=== PATIENT | male | born 1970 | race Caucasian/White ===

== ENCOUNTER 2024-05-26 11:28 | Inpatient (IN) | payer OTHER, MEDICAID, SELFPAY ==
[2024-05-26] VITALS (46 sets, daily range): BP systolic 69–168; BP diastolic 42–93; PULSE 95–123; RESP 18–26; TEMP 37–37.3; O2SAT 94–100; BMI 23.8
--- NOTE | 2024-05-26 12:26 | PM.HP.1 ---
History of Present Illness History of Present Illness Date Patient Seen: 05/26/24 Chief complaint: alcohol withdrawal Narrative: The patient was a 53-year-old male who is transferred from [facility] Emergency Department. The patient has a history of alcohol dependence and presented with multiple complaints including early alcohol withdrawal, upper GI bleeding with melena, as well as a swollen left red knee. He was found to be anemic and have melena on exam in the emergency department. He was given a unit of blood. He was started on Protonix as well. The patient was also giving benzodiazepines and transferred [facility] due to lack of endoscopy. Upon arrival the patient is oriented and in no distress. He was slightly tachycardic. Denies any chest pain, or dyspnea. He was historically been drinking hard for about a year with a daily consumption of 1-2 bottles of hard alcohol. He was tapered in the last week or so. He stays intermittently at his sister's house in [facility]. It sounds as though he falls frequently and has had injured knee for several days from a fall. He does note vomiting up coke colored material and having dark stools for several days. He also notes taking a lot of ibuprofen for the past several days for left knee pain. They did attempt an aspiration of the knee at [facility] Emergency Department. He denies fevers, chills, chest pain, or abdominal pain. [facility] Social History household members: family Smoking Status: Current every day smoker alcohol intake: current Meds Home Medications and Allergies Home Medications Medication Instructions Recorded Confirmed Type acetaminophen 325 mg tablet 650 mg PO PRN PRN Pain (Scale 05/26/24 05/26/24 History Score 1-3) duloxetine 60 mg capsule,delayed 60 mg PO DAILY 05/26/24 05/26/24 History release naproxen 250 mg tablet 250 mg PO BID 05/26/24 05/26/24 History Review of Systems Review of Systems Narrative: All else reviewed and otherwise unremarkable except as noted in the history and physical. Exam Narrative Exam Narrative: NAD, alert and oriented, fluent speech, calm. He was slightly confused and slow to answer questions. Normocephalic skull, EOMI, anicteric sclera, symmetric pupils. Oropharynx unremarkable, no droop. Neck supple, midline trachea, no adenopathy. Lungs clear, normal rate and effort. Heart regular, no murmur gallop or rub. Abdomen is soft, non distended and non tender. Extremities are free of edema. Skin is free of rash or lesions. Joints are not swollen or deformed. Judgment appears to be abnormal. Objective Labs 05/26/24 12:50 05/26/24 12:50 Assessment & Plan Assessment & Plan narrative: 1. Alcohol use disorder, present on admission and active. 2. Upper GI bleed likely related to alcohol and nonsteroidal anti-inflammatories, present on admission and active. 3. Acute blood loss anemia, present on admission and active. 4. Acute alcohol withdrawal, present on admission and active. 5. Recent nonsteroidal overuse, present on admission and active. 6. Acute metabolic encephalopathy, present on admission and active. 7. Left knee cellulitis with concern for joint infection, present on admission and active. Plan: -Precedex and CIWA protocol -vitamin replacement -serial hemoglobin and blood products as needed -IV Protonix q.12 hours -urgent surgery consult for upper endoscopy -IV antibiotics for left knee infection -orthopedics consult for concern regarding septic left knee Inpatient status, anticipate at least 2 midnights of care being needed. Full resuscitation. Sister as his living family member. 40 minutes of critical care time spent. Time-Based Coding :: [TOTAL MINUTES] spent with patient and on the chart (including review of chart, obtaining history, exam, reviewing outside data, placing orders, documenting exam and treatment plan, and counseling patient) on [DATE].
[2024-05-26] MEDS: dexmedeTOMIDine in 0.9 % NaCL 400 MCG/100 ML PLAST..BAG IV (13:05)
[2024-05-26] MEDS: DEXTROSE 5%-0.9% NS 1,000 ML 100 ML IV ×2 (13:06→23:45)
[2024-05-26 13:14] LABS: INR 1.8 (0.9-1.3); Prothrombin Time 20.2 SECONDS (9.4-12.5)
[2024-05-26 13:20] LABS: Hematocrit 28.7 % (41-53); Mean Corpuscular Hemoglobin 34.6 PG (26-34); Mean Corpuscular Volume 98.9 fL (80-100); Platelet Count 122 X10^3/uL (150-400); Red Cell Distribution Width 14.7 % (11.6-14.8); White Blood Cell Count 5.3 X10^3/uL (4.5-11.0)
[2024-05-26 13:21] LABS: Add Manual Diff / Slide Review YES
[2024-05-26 13:54] LABS: Neutrophils Absolute Manual 3816 /uL (3000-5900); Total Cells Counted 100
[2024-05-26 13:55] LABS: Anisocytosis 1+; Burr Cells 2+; Macrocytosis 1+; Polychromasia 2+
[2024-05-26] MEDS: cefTRIAXone 2,000 MG in SODIUM CHLORIDE 0.9% 100 ML 200 MG IV (14:05)
[2024-05-26 14:24] LABS: Estimated Glomerular Filt Rate > 60 mL/min (>60)
[2024-05-26 14:38] LABS: Reflexed Lactate in 2 Hours Y
[2024-05-26] MEDS: SODIUM CHLORIDE 0.9% 1,000 ML 1000 ML IV ×3 (14:55→20:06)
--- NOTE | 2024-05-26 14:55 | DI.RAD.S_ITS ---
PROCEDURE: XR KNEE LT 1TO2V INDICATIONS: pain and swelling after fall TECHNIQUE: 3 views of the knee were acquired. COMPARISON: None. FINDINGS: Bones: No fractures or dislocations. No suspicious bony lesions. Soft tissues: No joint effusion. No suspicious soft tissue calcifications. Prepatellar soft tissue swelling IMPRESSION: Prepatellar soft tissue swelling. No fracture or dislocation. Approved by: Carlos Maddox M.D. on 05/26/2024 at 15:38
[2024-05-26 15:10] LABS: MRSA (Nasal) PCR NOT DETECTED (Not Detect)
--- NOTE | 2024-05-26 15:34 | PM.DS.1 ---
History of Present Illness History of Present Illness Chief complaint: alcohol withdrawal Narrative: The patient was a 53-year-old male who is transferred from [facility] Emergency Department. The patient has a history of alcohol dependence and presented with multiple complaints including early alcohol withdrawal, upper GI bleeding with melena, as well as a swollen left red knee. He was found to be anemic and have melena on exam in the emergency department. He was given a unit of blood. He was started on Protonix as well. The patient was also giving benzodiazepines and transferred [facility] due to lack of endoscopy. Upon arrival the patient is oriented and in no distress. He was slightly tachycardic. Denies any chest pain, or dyspnea. He was historically been drinking hard for about a year with a daily consumption of 1-2 bottles of hard alcohol. He was tapered in the last week or so. He stays intermittently at his sister's house in [facility]. It sounds as though he falls frequently and has had injured knee for several days from a fall. He does note vomiting up coke colored material and having dark stools for several days. He also notes taking a lot of ibuprofen for the past several days for left knee pain. They did attempt an aspiration of the knee at [facility] Emergency Department. He denies fevers, chills, chest pain, or abdominal pain. Discharge Providers Provider Date of admission: 05/26/24 11:28 Consults: 05/26/24 12:25 Consult to General Surgery Routine Comment: Consulting Provider: Hebert Navas Reason for consultation: GI bleed Has provider been notified: Yes 05/26/24 14:58 Consult to Orthopedic Surgery Routine Comment: Consulting Provider: Temitope Saldivar Reason for consultation: swollen red left knee Has provider been notified: Yes Discharge provider: Iker Tang MD Exam Vital Signs (past 8 hours): - 05/26/24 12:23 05/26/24 12:27 05/26/24 12:30 Temperature 98.6 F Pulse Rate 119 H 119 H Respiratory Rate 19 26 H Blood Pressure 108/61 Pulse Oximetry 100 Objective Labs 05/26/24 12:50 05/26/24 12:50 Labs: Laboratory Results - last 24 hr 05/26/24 05/26/24 12:23 12:50 WBC 5.3 RBC 2.90 L Hgb 10.0 L Hct 28.7 L MCV 98.9 MCH 34.6 H MCHC 35.0 RDW 14.7 Plt Count 122 L Neut % (Auto) Not Reportable Lymph % (Auto) Not Reportable [place] % (Auto) Not Reportable Eos % (Auto) Not Reportable Baso % (Auto) Not Reportable Lymph # (Auto) Not Reportable [place] # (Auto) Not Reportable Baso # (Auto) Not Reportable Total Counted 100 Seg Neutrophils % 70.0 Band Neutrophils % 2.0 L Lymphocytes % (Manual) 10.0 L Atypical Lymphs % 2.0 H Monocytes % (Manual) 10.0 Eosinophils % (Manual) 1.0 L Metamyelocytes % 2.0 H Myelocytes % 1.0 H Blast Cells % 2.0 H Neutrophils # (Manual) 3816 RBC Morphology See below Polychromasia 2+ H Anisocytosis 1+ H Macrocytosis 1+ H [place] Cells 2+ H PT 20.2 H INR 1.8 H Creatinine 0.86 Estimated GFR > 60 Lactate 4.0 H Nasal Screen MRSA (PCR) Not detected Blood Type O Negative Antibody Screen Negative PFSH Social History household members: family Smoking Status: Current every day smoker alcohol intake: current Discharge Plan Discharge orders & Medications Prescriptions: No Action acetaminophen 325 mg tablet 650 mg PO PRN MDD 3000MG PRN (Reason: Pain (Scale Score 1-3)) naproxen 250 mg tablet 250 mg PO BID duloxetine 60 mg capsule,delayed release(DR/EC) 60 mg PO DAILY Quality VTE Deep Vein Thrombosis/Pulmonary Embolism Present on Admission: No
[2024-05-26] MEDS: NOREPINEPHRINE BITARTRATE/D5W 4 MG/250 ML PLAST..BAG 26.625 MG IV (16:02)
[2024-05-26 16:03] LABS: Lactate 2HR (Lactic Acid Rflx) 2.5 mmol/L (0.7-2.1)
[2024-05-26] MEDS: VANCOMYCIN 1,000 MG/200 ML PIGGYBACK 200 MG IV ×2 (16:23→23:34)
--- NOTE | 2024-05-26 16:40 | DI.RAD.S_ITS ---
PROCEDURE: XR CHEST FOR PICC 1V INDICATIONS: PICC placement COMPARISON: None. FINDINGS: PICC was placed by the intravenous therapy team from the right side. Fluoroscopic spot film demonstrates the tip of PICC projecting to the area of low SVC. IMPRESSION: Tip of PICC projects to the area of low SVC. Dictated by: Adi Saucedo M.D. on 05/26/2024 at 17:13 Approved by: Adi Saucedo M.D. on 05/26/2024 at 17:13
--- NOTE | 2024-05-26 18:12 | PM.CN ---
History of Present Illness Consult details Date Patient Seen: 05/26/24 Time Patient Seen: 18:12 Chief complaint: alcohol withdrawal Reason for consult: Left knee swelling Requesting provider: Iker Tang Narrative: 53-year-old gentleman with a past medical history of heavy alcohol use was transferred to the internal medicine service at [facility] from [facility] for concern for GI bleed apparently. Patient's main issue currently is alcohol withdrawal. Was also noted to have left knee swelling and pain at the outside hospital. The patient reports falling on his left knee 6 or 7 days ago and getting a scratch or small wound. States the level of pain has been up and down as well as the swelling over the last week. Per report there was some type of aspiration at [facility] there is a Band-Aid fairly anterior medially unclear from this or history if they were trying to aspirate the prepatellar bursa or the joint. Patient was not sure about fevers or chills but is in current alcohol withdrawal. States he has had some swelling and superficial infections previously but not this bad. Otherwise history fairly limited. There were some reports of melena stools from the outside hospital but per nursing report patient has not shown any signs of active GI bleed while at [facility]. He is sleeping tired and on CIWA protocol but I am able to wake him and he answers questions appropriately and follows commands. Meds Home Medications and Allergies Home Medications Medication Instructions Recorded Confirmed Type acetaminophen 325 mg tablet 650 mg PO PRN PRN Pain (Scale 05/26/24 05/26/24 History Score 1-3) duloxetine 60 mg capsule,delayed 60 mg PO DAILY 05/26/24 05/26/24 History release naproxen 250 mg tablet 250 mg PO BID 05/26/24 05/26/24 History Allergies Allergy/AdvReac Type Severity Reaction Status Date / Time No Known Drug Allergies Allergy Verified 05/26/24 15:03 Review of Systems Review of Systems ROS: Yes All systems reviewed with the patient and are negative except as otherwise documented and unobtainable due to mental condition Exam Vital Signs (past 8 hours): - 05/26/24 12:23 05/26/24 12:27 05/26/24 12:30 Temperature 98.6 F Pulse Rate 119 H 119 H Respiratory Rate 19 26 H Blood Pressure 108/61 Pulse Oximetry 100 05/26/24 12:30 05/26/24 13:00 05/26/24 13:00 Temperature Pulse Rate 120 H Respiratory Rate 23 Blood Pressure 105/58 L 102/57 L Pulse Oximetry 100 05/26/24 13:30 05/26/24 13:30 05/26/24 14:00 Temperature Pulse Rate 115 H 105 H Respiratory Rate 22 22 Blood Pressure 91/53 L Pulse Oximetry 100 99 05/26/24 14:00 05/26/24 14:30 05/26/24 14:30 Temperature Pulse Rate 108 H Respiratory Rate 23 Blood Pressure 73/45 L 69/44 L Pulse Oximetry 100 05/26/24 14:54 05/26/24 14:54 05/26/24 15:00 Temperature Pulse Rate 102 H 96 H Respiratory Rate 25 H 21 Blood Pressure 73/46 L Pulse Oximetry 95 97 05/26/24 15:00 05/26/24 15:14 05/26/24 15:14 Temperature Pulse Rate 101 H Respiratory Rate 21 Blood Pressure 71/43 L 72/47 L Pulse Oximetry 99 05/26/24 15:15 05/26/24 15:15 05/26/24 15:28 Temperature Pulse Rate 100 H 98 H Respiratory Rate 20 20 Blood Pressure 76/45 L Pulse Oximetry 97 96 05/26/24 15:28 05/26/24 15:30 05/26/24 15:30 Temperature Pulse Rate 95 H Respiratory Rate 19 Blood Pressure 77/43 L 75/42 L Pulse Oximetry 95 05/26/24 15:45 05/26/24 15:45 05/26/24 16:00 Temperature Pulse Rate 100 H 100 H Respiratory Rate 20 19 Blood Pressure 75/45 L Pulse Oximetry 98 97 05/26/24 16:00 05/26/24 16:15 05/26/24 16:15 Temperature Pulse Rate 97 H Respiratory Rate 21 Blood Pressure 74/47 L 144/84 H Pulse Oximetry 96 05/26/24 16:30 05/26/24 16:30 Temperature Pulse Rate 107 H Respiratory Rate 22 Blood Pressure 168/81 H Pulse Oximetry 97 Narrative Exam Narrative: General exam: Patient is sleeping in ICU bed. He is able to be awakened and verbal and follows commands. He answers questions appropriately but a little slowly HEENT exam normocephalic atraumatic Heart borderline tachycardic Breathing unlabored on room air Upper extremities are examined no erythema. There are multiple healing excoriations or scabs along the upper extremities. Right lower extremity is benign full range of motion no swelling or tenderness. Left lower extremity demonstrates swelling localized to the anterior knee the area of the prepatellar bursa. Patient was able to demonstrate some active range of motion of the knee flexion to about 80 endorses tightness over the anterior knee with this. Is able to do a straight leg raise. Dorsiflexion plantar flexion intact. Calf is soft. There is a Band-Aid over the knee fairly anterior medial from a apparent previous aspiration attempt. There is a healed abrasion at the lateral margin of the knee at the patella. No drainage. Neurovascularly intact. Brisk capillary refill Objective Imaging Two-view left knee x-ray AP and lateral: My impression: Two-view left knee x-ray AP and lateral demonstrate Prepatellar swelling. No knee joint effusion, no fracture Radiologist's impression: Prepatellar swelling no effusion within the knee joint, no fracture Labs 05/26/24 12:50 05/26/24 12:50 Labs: Laboratory Results - last 24 hr 05/26/24 05/26/24 05/26/24 12:23 12:50 15:40 WBC 5.3 RBC 2.90 L Hgb 10.0 L Hct 28.7 L MCV 98.9 MCH 34.6 H MCHC 35.0 RDW 14.7 Plt Count 122 L Neut % (Auto) Not Reportable Lymph % (Auto) Not Reportable [place] % (Auto) Not Reportable Eos % (Auto) Not Reportable Baso % (Auto) Not Reportable Lymph # (Auto) Not Reportable [place] # (Auto) Not Reportable Baso # (Auto) Not Reportable Total Counted 100 Seg Neutrophils % 70.0 Band Neutrophils % 2.0 L Lymphocytes % (Manual) 10.0 L Atypical Lymphs % 2.0 H Monocytes % (Manual) 10.0 Eosinophils % (Manual) 1.0 L Metamyelocytes % 2.0 H Myelocytes % 1.0 H Blast Cells % 2.0 H Neutrophils # (Manual) 3816 RBC Morphology See below Polychromasia 2+ H Anisocytosis 1+ H Macrocytosis 1+ H [place] Cells 2+ H PT 20.2 H INR 1.8 H Creatinine 0.86 Estimated GFR > 60 Lactate 4.0 H 2.5 H Nasal Screen MRSA (PCR) Not detected Blood Type O Negative Antibody Screen Negative PFSH Social History household members: family Tobacco & Substance Use Smoking Status: Current every day smoker alcohol intake: current Assessment & Plan Assessment and plan (1) Prepatellar bursitis: Qualifiers: Laterality: left Qualified Code(s): M70.42 - Prepatellar bursitis, left knee Status: Acute Plan The patient has left knee prepatellar bursitis possibly septic bursitis. He does not appear to have a septic joint. Treatment for septic prepatellar bursitis is antibiotics sometimes serial aspirations of the prepatellar bursa are required and sometimes formal irrigation and debridement of the prepatellar bursa are required for persistent symptoms. Would treat with IV antibiotics to assess for response and allow his other medical problems to stabilize. He does have anemia. He is in active alcohol withdrawal. And his INR is 1.8. If he fails to show improvement in the knee in several days with IV antibiotic treatment or if he significantly worsens an aspiration of the bursa can be attempted and if this fails formal irrigation and debridement of the prepatellar bursa. Recommend trying to obtain results of the attempted or successful (it is unclear from the reports I have been given) aspiration from the outside hospital. Hopefully they clarified whether they aspirated the bursa or the joint in their notes or aspiration labeling as these would hold different meaning. Recommend broad-spectrum antibiotics this point tailor antibiotics as indicated. Follow clinical examination. No urgent orthopedic intervention for surgery needed at this time, but close monitoring with serial daily exams recommended Weightbear as tolerated activity as tolerated Dispo per primary Time-Based Coding :: [TOTAL MINUTES] spent with patient and on the chart (including review of chart, obtaining history, exam, reviewing outside data, placing orders, documenting exam and treatment plan, and counseling patient) on [DATE].
--- NOTE | 2024-05-26 18:25 | PC.ADMIT ---
[email or web address] [facility] Admission Note: Pt arrived via EMS as a direct admit from [facility] for GI bleed, and CIWA requiring an ICU bed. Pt arrived A/O x4, with a CIWA of 11 with tremors, agitation, [id number]. Provider updated, new orders placed. After initiating Precedex gtt, pt became hypotensive(see vitals) requiring 2L bolus, and placement of a PICC line for norepi gtt. EGD cancelled due to hypotension, with no signs of active bleeding at this time. Ortho came to evaluate pt L knee, which is extremely hot and painful, provider noted best treated with ABX at this time, no surgical intervention. Carrion placed for urine retention of more than 601cc on bladder scanner. Seizure pads in place, per CIWA protocol. Pt oriented room and call light system, bed alarm active, call light within reach, will continue to monitor, no further needs at this time. The patient,Pietro Mc,53 y/o, was given written information regarding hospital policies, unit procedures and contact persons. Patient's smoking status: Current every day smoker. Vital Signs - 8 hr 05/26/24 12:23 05/26/24 12:27 05/26/24 12:30 Temperature 98.6 F Pulse Rate 119 H 119 H Respiratory Rate 19 26 H Blood Pressure 108/61 Pulse Oximetry 100 05/26/24 12:30 05/26/24 13:00 05/26/24 13:00 Temperature Pulse Rate 120 H Respiratory Rate 23 Blood Pressure 105/58 L 102/57 L Pulse Oximetry 100 05/26/24 13:30 05/26/24 13:30 05/26/24 14:00 Temperature Pulse Rate 115 H 105 H Respiratory Rate 22 22 Blood Pressure 91/53 L Pulse Oximetry 100 99 05/26/24 14:00 05/26/24 14:30 05/26/24 14:30 Temperature Pulse Rate 108 H Respiratory Rate 23 Blood Pressure 73/45 L 69/44 L Pulse Oximetry 100 05/26/24 14:54 05/26/24 14:54 05/26/24 15:00 Temperature Pulse Rate 102 H 96 H Respiratory Rate 25 H 21 Blood Pressure 73/46 L Pulse Oximetry 95 97 05/26/24 15:00 05/26/24 15:14 05/26/24 15:14 Temperature Pulse Rate 101 H Respiratory Rate 21 Blood Pressure 71/43 L 72/47 L Pulse Oximetry 99 05/26/24 15:15 05/26/24 15:15 05/26/24 15:28 Temperature Pulse Rate 100 H 98 H Respiratory Rate 20 20 Blood Pressure 76/45 L Pulse Oximetry 97 96 05/26/24 15:28 05/26/24 15:30 05/26/24 15:30 Temperature Pulse Rate 95 H Respiratory Rate 19 Blood Pressure 77/43 L 75/42 L Pulse Oximetry 95 05/26/24 15:45 05/26/24 15:45 05/26/24 16:00 Temperature Pulse Rate 100 H 100 H Respiratory Rate 20 19 Blood Pressure 75/45 L Pulse Oximetry 98 97 05/26/24 16:00 05/26/24 16:15 05/26/24 16:15 Temperature Pulse Rate 97 H Respiratory Rate 21 Blood Pressure 74/47 L 144/84 H Pulse Oximetry 96 05/26/24 16:30 05/26/24 16:30 Temperature Pulse Rate 107 H Respiratory Rate 22 Blood Pressure 168/81 H Pulse Oximetry 97
[2024-05-26 18:50] LABS: Hematocrit 27.9 % (41-53); Hemoglobin 9.8 g/dL (13.5-17.5); Mean Corpuscular HGB Conc 35.3 % (30-36); Mean Corpuscular Volume 99.4 fL (80-100); Platelet Count 126 X10^3/uL (150-400); Red Blood Cell Count 2.81 X10^6/uL (4.5-5.9); Red Cell Distribution Width 15.1 % (11.6-14.8); White Blood Cell Count 9.9 X10^3/uL (4.5-11.0)
[2024-05-26 18:58] LABS: Add Manual Diff / Slide Review YES
[2024-05-26 19:13] LABS: Neutrophils Absolute Manual 9108 /uL (3000-5900); Total Cells Counted 100; Toxic Granulation Present
[2024-05-26 19:18] LABS: Dohle Bodies 3+; Rouleaux 1+; Toxic Vacuolation Pres
[2024-05-26 19:20] LABS: Anisocytosis 1+; Polychromasia 1+
[2024-05-26] MEDS: SODIUM CHLORIDE 0.9% FLUSH 10 ML IV (20:07)
[2024-05-26] MEDS: PANTOPRAZOLE 40 MG VIAL IV (21:27)
[2024-05-27] VITALS (94 sets, daily range): BP systolic 89–167; BP diastolic 51–92; PULSE 91–113; RESP 0–25; TEMP 36.8–37.3; O2SAT 96–100
[2024-05-27] MEDS: dexmedeTOMIDine in 0.9 % NaCL 400 MCG/100 ML PLAST..BAG 8.875 MCG IV (02:20)
[2024-05-27] MEDS: LORazepam 2 MG/ML INJ IV ×4 (04:02→23:19)
[2024-05-27] MEDS: NICOTINE 14 PATCH 14 MG TOP (04:16)
[2024-05-27 04:55] LABS: BUN Creatinine Ratio 28.4 (6-22); Blood Urea Nitrogen 21 mg/dL (9-20); Calcium 7.9 mg/dL (8.4-10.2); Carbon Dioxide 20 mmol/L (22-32); Chloride 106 mmol/L (98-107); Estimated Glomerular Filt Rate > 60 mL/min (>60); Glucose 91 mg/dL (70-100); HEMOLYSIS < 15 (0-50); Potassium 2.8 mmol/L (3.4-5.1); Sodium 131 mmol/L (137-145)
[2024-05-27 04:58] LABS: Add Manual Diff / Slide Review YES; Hemoglobin 9.5 g/dL (13.5-17.5); Mean Corpuscular HGB Conc 34.1 % (30-36); Mean Corpuscular Hemoglobin 34.1 PG (26-34); Platelet Count 127 X10^3/uL (150-400); Red Cell Distribution Width 15.6 % (11.6-14.8); White Blood Cell Count 16.8 X10^3/uL (4.5-11.0)
[2024-05-27 05:24] LABS: Neutrophils Absolute Manual 15624 /uL (3000-5900); Total Cells Counted 100
[2024-05-27 05:25] LABS: Anisocytosis 1+; Toxic Granulation Present
[2024-05-27 05:36] LABS: Magnesium 1.5 mg/dL (1.6-2.3)
[2024-05-27] MEDS: MAGNESIUM SULFATE 2 GM/50 ML PIGGYBACK IV (06:30)
[2024-05-27] MEDS: POTASSIUM CHLORIDE IN WATER 10 MEQ/100 ML PIGGYBACK 100 MEQ IV ×6 (06:30→11:47)
[2024-05-27] MEDS: VANCOMYCIN 1,000 MG/200 ML PIGGYBACK 200 MG IV ×2 (06:30→15:01)
[2024-05-27] MEDS: NOREPINEPHRINE BITARTRATE/D5W 4 MG/250 ML PLAST..BAG 15.975 MG IV (06:31)
[2024-05-27] MEDS: dexmedeTOMIDine in 0.9 % NaCL 400 MCG/100 ML PLAST..BAG 10.65 MCG IV (07:20)
--- NOTE | 2024-05-27 08:11 | PM.PN.1 ---
Subjective Subjective Interval history: Summary: Patient was transferred from [facility] Emergency Department with upper GI bleed, and alcohol withdrawal. He also had a red swollen left knee. Upon arrival here he was tachycardic and had a systolic blood pressure of 100. He required Precedex and then had hypotension requiring placement of a PICC line and support with norepinephrine as well as aggressive fluid resuscitation. An EGD was planned for May 26, but deferred due to his clinical changes and instability. S: He did well overnight with volume resuscitation, Precedex, and a low-dose norepinephrine through a PICC line. He is RASS-1 and comfortable. His hemoglobin has been stable. He was had no vomiting or stools overnight. Orthopedics saw his knee and feels that this is consistent with a prepatellar bursitis and cellulitis and recommended IV antibiotics at this point. Exam Vital Signs (past 8 hours): - 05/27/24 00:15 05/27/24 00:15 05/27/24 00:30 Pulse Rate 101 H 100 H Respiratory Rate 20 21 Blood Pressure 117/67 Pulse Oximetry 100 99 Oxygen Delivery Method Oxygen Flow Rate 05/27/24 00:30 05/27/24 00:45 05/27/24 00:45 Pulse Rate 99 H Respiratory Rate 18 Blood Pressure 116/68 119/72 Pulse Oximetry 99 Oxygen Delivery Method Oxygen Flow Rate 05/27/24 01:00 05/27/24 01:00 05/27/24 01:00 Pulse Rate 97 H Respiratory Rate 19 Blood Pressure 114/71 Pulse Oximetry 100 Oxygen Delivery Method Room Air Oxygen Flow Rate 05/27/24 01:15 05/27/24 01:15 05/27/24 01:30 Pulse Rate 97 H Respiratory Rate 18 Blood Pressure 119/73 121/75 Pulse Oximetry 100 Oxygen Delivery Method Oxygen Flow Rate 05/27/24 01:30 05/27/24 01:45 05/27/24 01:45 Pulse Rate 97 H 97 H Respiratory Rate 18 17 Blood Pressure 123/73 Pulse Oximetry 99 99 Oxygen Delivery Method Oxygen Flow Rate 05/27/24 02:00 05/27/24 02:00 05/27/24 02:15 Pulse Rate 95 H 98 H Respiratory Rate 19 17 Blood Pressure 120/72 Pulse Oximetry 98 98 Oxygen Delivery Method Oxygen Flow Rate 05/27/24 02:15 05/27/24 02:30 05/27/24 02:30 Pulse Rate 98 H Respiratory Rate 17 Blood Pressure 119/72 118/72 Pulse Oximetry 97 Oxygen Delivery Method Oxygen Flow Rate 05/27/24 02:45 05/27/24 02:45 05/27/24 03:00 Pulse Rate 100 H 99 H Respiratory Rate 18 17 Blood Pressure 119/73 Pulse Oximetry 97 97 Oxygen Delivery Method Oxygen Flow Rate 05/27/24 03:00 05/27/24 03:15 05/27/24 03:15 Pulse Rate 97 H Respiratory Rate 19 Blood Pressure 118/72 120/74 Pulse Oximetry 97 Oxygen Delivery Method Oxygen Flow Rate 05/27/24 03:30 05/27/24 03:30 05/27/24 03:45 Pulse Rate 102 H Respiratory Rate 21 Blood Pressure 109/69 104/65 Pulse Oximetry 97 Oxygen Delivery Method Oxygen Flow Rate 05/27/24 03:45 05/27/24 04:00 05/27/24 04:00 Pulse Rate 105 H 94 H Respiratory Rate 24 21 Blood Pressure 135/76 Pulse Oximetry 98 98 Oxygen Delivery Method Oxygen Flow Rate 05/27/24 04:15 05/27/24 04:15 05/27/24 04:30 Pulse Rate 91 H 93 H Respiratory Rate 20 17 Blood Pressure 109/70 167/82 H Pulse Oximetry 97 Oxygen Delivery Method Oxygen Flow Rate 05/27/24 04:30 05/27/24 04:30 05/27/24 04:45 Pulse Rate 92 H 99 H Respiratory Rate 17 18 Blood Pressure 167/82 H Pulse Oximetry 98 98 Oxygen Delivery Method Oxygen Flow Rate 05/27/24 04:45 05/27/24 05:00 05/27/24 05:00 Pulse Rate Respiratory Rate Blood Pressure 152/78 H 152/73 H Pulse Oximetry Oxygen Delivery Method Room Air Oxygen Flow Rate 05/27/24 05:00 05/27/24 05:15 05/27/24 05:15 Pulse Rate 101 H 102 H Respiratory Rate 20 18 Blood Pressure 148/72 H Pulse Oximetry 96 97 Oxygen Delivery Method Oxygen Flow Rate 05/27/24 05:30 05/27/24 05:30 05/27/24 05:45 Pulse Rate 103 H 102 H Respiratory Rate 18 19 Blood Pressure 143/74 H Pulse Oximetry 97 97 Oxygen Delivery Method Oxygen Flow Rate 05/27/24 05:45 05/27/24 06:00 05/27/24 06:00 Pulse Rate 102 H Respiratory Rate 19 Blood Pressure 144/80 H 148/83 H Pulse Oximetry 97 Oxygen Delivery Method Oxygen Flow Rate 0 Oxygen Delivery Method Room Air Oxygen Flow Rate 0 Narrative Exam Narrative: NAD, sedated but responsive. Lungs are clear, normal rate and effort. Heart is regular, no murmur gallop or rub. Abdomen is soft, non distended. Extremities are free of edema. PICC line in place norepinephrine running. Precedex running. Objective Imaging Knee x-ray:: Radiologist's impression: Prepatellar soft tissue swelling. No fracture or dislocation. Labs 05/27/24 04:20 05/27/24 04:20 Labs: Laboratory Results - last 24 hr 05/26/24 05/26/24 05/26/24 12:23 12:50 15:40 WBC 5.3 RBC 2.90 L Hgb 10.0 L Hct 28.7 L MCV 98.9 MCH 34.6 H MCHC 35.0 RDW 14.7 Plt Count 122 L Neut % (Auto) Not Reportable Lymph % (Auto) Not Reportable [place] % (Auto) Not Reportable Eos % (Auto) Not Reportable Baso % (Auto) Not Reportable Lymph # (Auto) Not Reportable [place] # (Auto) Not Reportable Baso # (Auto) Not Reportable Total Counted 100 Seg Neutrophils % 70.0 Band Neutrophils % 2.0 L Lymphocytes % (Manual) 10.0 L Atypical Lymphs % 2.0 H Monocytes % (Manual) 10.0 Eosinophils % (Manual) 1.0 L Metamyelocytes % 2.0 H Myelocytes % 1.0 H Blast Cells % 2.0 H Neutrophils # (Manual) 3816 Toxic Granulation Toxic Vacuolation Dohle Bodies Plt Morphology Comment RBC Morphology See below Polychromasia 2+ H Anisocytosis 1+ H Macrocytosis 1+ H Minh Cells 2+ H Rouleaux PT 20.2 H INR 1.8 H Sodium Potassium Chloride Carbon Dioxide BUN Creatinine 0.86 Estimated GFR > 60 BUN/Creatinine Ratio Glucose Lactate 4.0 H 2.5 H Calcium Magnesium Nasal Screen MRSA (PCR) Not detected Blood Type O Negative Antibody Screen Negative 05/26/24 05/27/24 18:43 04:20 WBC 9.9 D 16.8 H D RBC 2.81 L 2.80 L Hgb 9.8 L 9.5 L Hct 27.9 L 28.0 L MCV 99.4 100.0 MCH 35.0 H 34.1 H MCHC 35.3 34.1 RDW 15.1 H 15.6 H Plt Count 126 L 127 L Neut % (Auto) Not Reportable Not Reportable Lymph % (Auto) Not Reportable Not Reportable [place] % (Auto) Not Reportable Not Reportable Eos % (Auto) Not Reportable Not Reportable Baso % (Auto) Not Reportable Not Reportable Lymph # (Auto) Not Reportable Not Reportable [place] # (Auto) Not Reportable Not Reportable Baso # (Auto) Not Reportable Not Reportable Total Counted 100 100 Seg Neutrophils % 70.0 71.0 H Band Neutrophils % 22.0 H 22.0 H Lymphocytes % (Manual) 4.0 L 5.0 L Atypical Lymphs % Monocytes % (Manual) 2.0 1.0 L Eosinophils % (Manual) 1.0 L Metamyelocytes % 1.0 H 1.0 H Myelocytes % Blast Cells % Neutrophils # (Manual) 9108 H 38281 H Toxic Granulation Present H Present H Toxic Vacuolation Pres Dohle Bodies 3+ H Plt Morphology Comment RBC Morphology See below See below Polychromasia 1+ H Anisocytosis 1+ H 1+ H Macrocytosis Minh Cells Rouleaux 1+ H PT INR Sodium 131 L Potassium 2.8 L Chloride 106 Carbon Dioxide 20 L BUN 21 H Creatinine 0.74 Estimated GFR > 60 BUN/Creatinine Ratio 28.4 H Glucose 91 Lactate Calcium 7.9 L Magnesium 1.5 L Nasal Screen MRSA (PCR) Blood Type Antibody Screen [facility] Social History household members: family Smoking Status: Current every day smoker alcohol intake: current Assessment & Plan Assessment & Plan narrative: 1. Alcohol use disorder, present on admission and active. 2. Upper GI bleed likely related to alcohol and nonsteroidal anti-inflammatories, present on admission and active. 3. Acute blood loss anemia, present on admission and active. 4. Acute alcohol withdrawal, present on admission and active. 5. Recent nonsteroidal overuse, present on admission and active. 6. Acute metabolic encephalopathy, present on admission and active. 7. Left knee prepatellar bursitis and cellulitis without concern for joint infection, present on admission and active. Plan: -continue Precedex and CIWA protocol -wean norepinephrine as able. -thiamine replacement -serial hemoglobin and blood products as needed, hemoglobin reasonable this morning. -IV Protonix q.12 hours -EGD today. -IV antibiotics for left knee cellultisi and prepatellar bursitis. -replace potassium -continue IV fluids Inpatient status, anticipate at least 2 midnights of care being needed. Full resuscitation. Sister as his living family member. TRISH: 05/30 35 minutes of critical care time spent. The patient was on vasopressors and Precedex for severe alcohol withdrawal and also has an acute GI bleed with blood loss anemia. Time-Based Coding :: 35 min spent with patient and on the chart (including review of chart, obtaining history, exam, reviewing outside data, placing orders, documenting exam and treatment plan, and counseling patient) on 06/27. Quality VTE Deep Vein Thrombosis/Pulmonary Embolism Present on Admission: No
[2024-05-27] MEDS: SODIUM CHLORIDE 0.9% 1,000 ML 150 ML IV ×3 (08:34→23:07)
[2024-05-27] MEDS: PANTOPRAZOLE 40 MG VIAL IV ×2 (08:34→20:50)
[2024-05-27] MEDS: SODIUM CHLORIDE 0.9% FLUSH 10 ML IV ×2 (08:41→20:50)
--- NOTE | 2024-05-27 13:27 | CM.DANOTE ---
B DCP Assessment Note pt is a 53yo M direct admit from [facility] with a myriad of acute concerns, including upper GI bleed, alcohol withdrawal, and infection on left knee. Followed by hospitalist, general surgery, and ortho team. 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 Per chart, stays with sister Sidra in [place], [place]. Injured knee in a fall at home. Current CIWA of 12. on precedex for withdrawal symptoms. Got PICC line, getting iv abx for cellulites in knee management. Per RN, pt agitated and attempted to remove PICC line. plan is for EGD today for GI bleed. Per RN, pt sister hopeful that pt can dc to inpt alcohol rehab facility. P: medical POC continues to develop. CM team will follow closely for alcohol detox resources, rehab resources, post op needs, and will follow for IV abx plan for knee. YAZAN Neri Discharge Planning/Care Management CM Discharge Assessment Start: 05/27/24 13:22 Freq: Status: Active Protocol: Document 05/27/24 13:22 (Rec: 05/27/24 13:25 [id number]) Discharge Planning Assessment Assigned Fur Finisher YAZAN Orozco DPOA/Assigned Designee Name sister Valente Contact Information [phone] Advance Directives? No History Provided By Patient,Medical Record Prior Living Arrangements House Household Members family Discharge Plan Home Transportation Arrangement home with sister vs rehab Whiteboard Updated in Patient Room with No name and ext. # of Fur Finisher Review Status In Process Please Provide Date Initial DC 05/27/24 Assessment Was Performed Next Review Type Continued Stay Review
--- NOTE | 2024-05-27 13:53 | PC.NURSE ---
1302 Pt became very agitated pulled out his LFA IV, began trying to climb out of bed. This nurse went to assist re-orienting pt, pt said he was leaving and you can not keep me here as he attempted to remove his picc line. Javier RN and Caitlyn RN supervisior came to this nurses assistance. Precedex infusion was increased, Ativan administered as ordered. Pt cleaned up, bedding changed and settled back in bed. Provider updated, no new orders at this time. Bed low and locked, call like within reach, no further needs at this time.
[2024-05-27] MEDS: cefTRIAXone 2,000 MG in SODIUM CHLORIDE 0.9% 100 ML 200 MG IV (14:35)
[2024-05-27] MEDS: dexmedeTOMIDine in 0.9 % NaCL 400 MCG/100 ML PLAST..BAG 14.2 MCG IV (15:01)
[2024-05-27 15:15] LABS: Vancomycin Trough 13.3 ug/mL (10-20)
[2024-05-27] MEDS: VANCOMYCIN TROUGH 1 REQUEST MISC (17:27)
[2024-05-27] MEDS: VANCOMYCIN PEAK 1 REQUEST MISC (18:10)
--- NOTE | 2024-05-27 18:14 | PM.CALLCOV.1 ---
Call Coverage Note Note Date of Patient Contact: 05/27/24 Time of Patient Contact: 18:14 Narrative of Care Provided: 53-year-old male alcoholic in the ICU for alcohol withdrawal. Has stable GI bleed presumably upper from extensive NSAID use. On Precedex and low-dose norepinephrine. Does not have mental capacity to consent for upper endoscopy. Hemoglobin stable not requiring blood transfusion. -continue PPI -re-evaluate for esophagogastroduodenoscopy tomorrow
--- NOTE | 2024-05-27 18:25 | PM.PN.1 ---
Subjective Subjective Interval history: Pietro is a 53 year old male who is seen today for evaluation of his possible left knee septic prepatellar bursitis. The patient reports falling on his left knee 6 or 7 days ago and getting a scratch or small wound. States the level of pain has been up and down as well as the swelling over the last week. Per report there was some type of aspiration at [facility] there is a Band-Aid fairly anterior medially unclear from this or history if they were trying to aspirate the prepatellar bursa or the joint. Very limited history as patient is currently going through alcohol withdraw and is very sedated and confused. He does report that he is having significant left knee pain, worse w/ palpation. His white cout has increased from 5 to 16 w/ elevated band neutrophils in the last 24 hours. Exam Vital Signs (past 8 hours): - 05/27/24 10:30 05/27/24 11:00 05/27/24 11:30 Temperature Pulse Rate 102 H 100 H 97 H Respiratory Rate 19 19 19 Blood Pressure Pulse Oximetry 98 98 97 Oxygen Delivery Method 05/27/24 12:00 05/27/24 12:30 05/27/24 13:00 Temperature Pulse Rate 101 H 103 H Respiratory Rate 19 15 Blood Pressure Pulse Oximetry 97 97 Oxygen Delivery Method Room Air 05/27/24 13:00 05/27/24 13:00 05/27/24 13:15 Temperature Pulse Rate 100 H 103 H Respiratory Rate 14 19 Blood Pressure 135/83 Pulse Oximetry 98 98 Oxygen Delivery Method 05/27/24 13:15 05/27/24 13:22 05/27/24 13:30 Temperature Pulse Rate 105 H 105 H Respiratory Rate 18 19 Blood Pressure 145/83 H 146/84 H Pulse Oximetry 98 Oxygen Delivery Method 05/27/24 13:30 05/27/24 13:45 05/27/24 13:45 Temperature Pulse Rate 104 H Respiratory Rate 0 L Blood Pressure 146/84 H 144/86 H Pulse Oximetry 98 Oxygen Delivery Method 05/27/24 14:00 05/27/24 14:00 05/27/24 14:15 Temperature Pulse Rate 107 H Respiratory Rate 20 Blood Pressure 152/92 H 154/88 H Pulse Oximetry 97 Oxygen Delivery Method 05/27/24 14:15 05/27/24 14:30 05/27/24 14:30 Temperature Pulse Rate 109 H 106 H Respiratory Rate 21 21 Blood Pressure 154/88 H Pulse Oximetry 97 97 Oxygen Delivery Method 05/27/24 14:45 05/27/24 14:45 05/27/24 15:00 Temperature Pulse Rate 108 H Respiratory Rate 11 L Blood Pressure 165/87 H 160/90 H Pulse Oximetry 98 Oxygen Delivery Method 05/27/24 15:00 05/27/24 15:15 05/27/24 15:15 Temperature Pulse Rate 104 H 106 H Respiratory Rate 19 19 Blood Pressure 138/81 Pulse Oximetry 98 98 Oxygen Delivery Method 05/27/24 15:30 05/27/24 15:30 05/27/24 15:45 Temperature Pulse Rate 105 H 105 H Respiratory Rate 19 18 Blood Pressure 141/84 H Pulse Oximetry 98 98 Oxygen Delivery Method 05/27/24 15:45 05/27/24 16:00 05/27/24 16:00 Temperature 99.2 F Pulse Rate Respiratory Rate Blood Pressure 138/84 138/83 Pulse Oximetry Oxygen Delivery Method 05/27/24 16:00 05/27/24 16:15 05/27/24 16:15 Temperature Pulse Rate 105 H 105 H Respiratory Rate 20 19 Blood Pressure 142/82 H Pulse Oximetry 98 98 Oxygen Delivery Method 05/27/24 17:00 Temperature Pulse Rate Respiratory Rate Blood Pressure Pulse Oximetry Oxygen Delivery Method Room Air Oxygen Delivery Method Room Air Oxygen Flow Rate 0 Narrative Exam Narrative: Patient lying in bed during exam today, incoherently mumbling at times but does answer simple questions. Winces in pain to light palpation to the left knee globally. Pitting edema throughout the LLE. Left knee is very warm to touch and erythematous. There is evidence of a healing skin abrasion to the anterior left knee (likely where patient fell). Objective Labs 05/27/24 04:20 05/27/24 04:20 Labs: Laboratory Results - last 24 hr 05/26/24 05/27/24 05/27/24 18:43 04:20 14:35 WBC 9.9 D 16.8 H D RBC 2.81 L 2.80 L Hgb 9.8 L 9.5 L Hct 27.9 L 28.0 L MCV 99.4 100.0 MCH 35.0 H 34.1 H MCHC 35.3 34.1 RDW 15.1 H 15.6 H Plt Count 126 L 127 L Neut % (Auto) Not Reportable Not Reportable Lymph % (Auto) Not Reportable Not Reportable [place] % (Auto) Not Reportable Not Reportable Eos % (Auto) Not Reportable Not Reportable Baso % (Auto) Not Reportable Not Reportable Lymph # (Auto) Not Reportable Not Reportable [place] # (Auto) Not Reportable Not Reportable Baso # (Auto) Not Reportable Not Reportable Total Counted 100 100 Seg Neutrophils % 70.0 71.0 H Band Neutrophils % 22.0 H 22.0 H Lymphocytes % (Manual) 4.0 L 5.0 L Monocytes % (Manual) 2.0 1.0 L Eosinophils % (Manual) 1.0 L Metamyelocytes % 1.0 H 1.0 H Neutrophils # (Manual) 9108 H 57644 H Toxic Granulation Present H Present H Toxic Vacuolation Pres Dohle Bodies 3+ H Plt Morphology Comment RBC Morphology See below See below Polychromasia 1+ H Anisocytosis 1+ H 1+ H Rouleaux 1+ H Sodium 131 L Potassium 2.8 L Chloride 106 Carbon Dioxide 20 L BUN 21 H Creatinine 0.74 Estimated GFR > 60 BUN/Creatinine Ratio 28.4 H Glucose 91 Calcium 7.9 L Magnesium 1.5 L Vancomycin Trough 13.3 PFSH Social History household members: family Smoking Status: Current every day smoker alcohol intake: current Assessment & Plan Assessment & Plan narrative: 1) Will treat with IV antibiotics to assess for response and allow his other medical problems to stabilize. He does have anemia. He is in active alcohol withdrawal. He is currently getting IV Vancomycin and Ceftriaxone. 2) Will continue to monitor w/ serial exams. If he fails to show improvement in the knee in the next day with IV antibiotic treatment or if he significantly worsens an aspiration of the bursa can be attempted and if this fails formal irrigation and debridement of the prepatellar bursa. 3) Weightbear as tolerated, activity as tolerated. Dispo per primary Time-Based Coding :: [TOTAL MINUTES] spent with patient and on the chart (including review of chart, obtaining history, exam, reviewing outside data, placing orders, documenting exam and treatment plan, and counseling patient) on [DATE]. Quality VTE Deep Vein Thrombosis/Pulmonary Embolism Present on Admission: No
[2024-05-27 19:00] LABS: Vancomycin Peak 7.7 ug/mL (20-40)
--- NOTE | 2024-05-27 21:01 | PC.NURSE ---
Addendum entered by Montserrat Somers R.N. 05/28/24 07:13: 0600 MD Jackson notified regarding patient potassium level. MD to order potassium 0623 Patient with 20 beats of SVT. MD Jackson made aware. Cardiac strip printed. Vitals obtained. Patient with no changes from baseline status. MD to order magnesium IV. 0635 RN to MD communication regarding clarification of potassium order. MD wanting 60 mEq of potassium IV. Will notify caden SORTO. 0703 Patient interfering with medical devices after being reoriented. CIWA score above 8. Ativan administered per protocol. 729 Report given to caden SORTO. Plan of care discussed. Addendum entered by Montserrat Somers R.N. 05/27/24 23:34: 2300 Patient AAO x's 1. Reoriented to date and location. Responsive to speech. Able to follow commands at this time. Tremors noted and patient diaphoretic. CIWA completed at this time, per protocol. IVFs infusing. Call light within reach and bed in lowest position. Original Note: 729 Report received from caden SORTO. Patient resting, eyes closed. Breathing unlabored and breaths even. Patient pupils 2mm, pupils equal and reactive to light. Left knee swollen, redness noted, warm to touch. Carrion noted, draining jensen urine. PICC line double lumen noted to right upper arm, infusing Levophed and Precedex. Seizure pads noted. IVF infusing at ordered rate. NPO maintained. Vitals charted in [facility]. Call light within reach and bed in lowest position. 2100 Precedex and Levophed weened previously and stopped at this time. Patient responding to painful stimuli, sternal rub. Patient resting eyes closed, breaths even and unlabored. Vitals within normal limits. IVF infusing continuously.
[2024-05-27] MEDS: VANCOMYCIN 1,000 MG in DEXTROSE 5% IN WATER 250 ML 250 MG IV (23:09)
[2024-05-28] VITALS (65 sets, daily range): BP systolic 90–134; BP diastolic 51–81; PULSE 74–127; RESP 0–98; TEMP 36.4–38.2; O2SAT 91–99
[2024-05-28] MEDS: LORazepam 2 MG/ML INJ IV ×5 (02:53→19:36)
[2024-05-28] MEDS: DEXTROSE 5%-0.9% NS 1,000 ML 100 ML IV (05:17)
[2024-05-28 05:26] LABS: BUN Creatinine Ratio 33.9 (6-22); Blood Urea Nitrogen 21 mg/dL (9-20); Calcium 7.8 mg/dL (8.4-10.2); Carbon Dioxide 19 mmol/L (22-32); Chloride 110 mmol/L (98-107); Estimated Glomerular Filt Rate > 60 mL/min (>60); Glucose 80 mg/dL (70-100); HEMOLYSIS < 15 (0-50); Magnesium 1.7 mg/dL (1.6-2.3); Potassium 2.9 mmol/L (3.4-5.1); Sodium 132 mmol/L (137-145)
[2024-05-28 05:33] LABS: Hematocrit 25.5 % (41-53); Hemoglobin 8.6 g/dL (13.5-17.5); Mean Corpuscular HGB Conc 33.8 % (30-36); Mean Corpuscular Hemoglobin 33.5 PG (26-34); Mean Corpuscular Volume 99.4 fL (80-100); Platelet Count 87 X10^3/uL (150-400); Red Blood Cell Count 2.57 X10^6/uL (4.5-5.9); Red Cell Distribution Width 15.3 % (11.6-14.8); White Blood Cell Count 16.5 X10^3/uL (4.5-11.0)
[2024-05-28 05:34] LABS: Add Manual Diff / Slide Review YES
[2024-05-28 06:00] LABS: Anisocytosis 1+; Dohle Bodies 2+; Neutrophils Absolute Manual 13695 /uL (3000-5900); Total Cells Counted 100; Toxic Granulation Present
[2024-05-28] MEDS: VANCOMYCIN 1,000 MG in DEXTROSE 5% IN WATER 250 ML 250 MG IV ×3 (06:44→22:17)
[2024-05-28] MEDS: MAGNESIUM SULFATE 2 GM/50 ML PIGGYBACK IV (06:49)
[2024-05-28] MEDS: POTASSIUM CHLORIDE IN WATER 10 MEQ/100 ML PIGGYBACK 100 MEQ IV ×12 (06:50→22:18)
[2024-05-28] MEDS: dexmedeTOMIDine in 0.9 % NaCL 400 MCG/100 ML PLAST..BAG 14.2 MCG IV ×3 (08:22→21:22)
[2024-05-28] MEDS: SODIUM CHLORIDE 0.9% 1,000 ML 150 ML IV ×3 (08:24→22:16)
--- NOTE | 2024-05-28 09:05 | PM.CALLCOV.1 ---
Call Coverage Note Note Date of Patient Contact: 05/28/24 Time of Patient Contact: 09:05 Narrative of Care Provided: 53-year-old alcoholic admitted with alcohol withdrawal and upper GI bleed. GI bleed most likely related to NSAIDs as opposed to variceal. Remains with a stable hematocrit not requiring transfusion no melena or hematemesis. No need for upper endoscopy at this time. Continue PPI. Signing off contact with questions
[2024-05-28] MEDS: THIAMINE IV (09:17)
[2024-05-28] MEDS: FOLIC ACID IV (09:17)
[2024-05-28] MEDS: SODIUM CHLORIDE 0.9% IV (09:17)
[2024-05-28 09:19] LABS: Erythrocyte Sedimentation Rate 36 MM/HR (0-15)
[2024-05-28] MEDS: SODIUM CHLORIDE 0.9% FLUSH 10 ML IV ×2 (09:21→21:23)
[2024-05-28 09:27] LABS: C-Reactive Protein Quant 21.1 mg/dL (<1.0)
[2024-05-28] MEDS: PANTOPRAZOLE 40 MG VIAL IV ×2 (09:28→21:23)
[2024-05-28 09:41] LABS: Alanine Aminotransferase 212 IU/L (<50); Albumin 1.8 g/dL (3.5-5.0); Albumin Globulin Ratio 0.9 (1.0-2.8); Alkaline Phosphatase 122 U/L (38-126); Aspartate Aminotransferase 89 IU/L (17-59); Bilirubin Conjugated 1.3 md/dL (0.0-0.3); Bilirubin Total 3.9 mg/dL (0.2-1.3); Bilirubin Unconjugated 1.3 mg/dL (0.0-1.1); Globulin 2.1 g/dL (1.7-4.1); HEMOLYSIS < 15 (0-50); Total Protein 3.9 g/dL (6.3-8.2)
--- NOTE | 2024-05-28 09:51 | P.PN_ITS ---
Subjective Subjective Date Patient Seen: 05/28/24 Time Patient Seen: 09:51 Interval history: Patient is sedated this morning due to his alcohol withdrawal. Exam Vital Signs (past 8 hours): - 05/28/24 02:00 05/28/24 02:00 05/28/24 02:15 Temperature Pulse Rate 89 90 Respiratory Rate 19 19 Blood Pressure 98/53 L Pulse Oximetry 98 97 Oxygen Delivery Method 05/28/24 02:15 05/28/24 02:30 05/28/24 02:30 Temperature Pulse Rate 90 Respiratory Rate 17 Blood Pressure 98/54 L 95/54 L Pulse Oximetry 96 Oxygen Delivery Method 05/28/24 02:47 05/28/24 02:47 05/28/24 03:00 Temperature Pulse Rate 102 H 101 H Respiratory Rate 22 Blood Pressure 103/60 Pulse Oximetry 97 98 Oxygen Delivery Method 05/28/24 03:00 05/28/24 03:13 05/28/24 03:30 Temperature Pulse Rate 87 93 H Respiratory Rate 20 19 Blood Pressure 102/62 102/62 Pulse Oximetry 95 Oxygen Delivery Method 05/28/24 04:00 05/28/24 04:00 05/28/24 04:22 Temperature 98.9 F Pulse Rate 87 Respiratory Rate 17 Blood Pressure 104/64 Pulse Oximetry 98 Oxygen Delivery Method 05/28/24 04:22 05/28/24 04:30 05/28/24 04:54 Temperature Pulse Rate 88 87 Respiratory Rate 17 16 Blood Pressure 105/67 Pulse Oximetry 98 98 Oxygen Delivery Method 05/28/24 04:54 05/28/24 05:00 05/28/24 05:00 Temperature Pulse Rate 101 H Respiratory Rate 22 Blood Pressure 99/65 Pulse Oximetry 97 Oxygen Delivery Method Room Air 05/28/24 05:00 05/28/24 05:19 05/28/24 05:19 Temperature Pulse Rate 97 H 93 H Respiratory Rate 20 20 Blood Pressure 102/66 Pulse Oximetry 97 97 Oxygen Delivery Method 05/28/24 05:30 05/28/24 05:34 05/28/24 06:00 Temperature Pulse Rate 89 92 H 90 Respiratory Rate 17 20 17 Blood Pressure 102/66 Pulse Oximetry 97 96 Oxygen Delivery Method 05/28/24 06:00 05/28/24 06:22 05/28/24 06:22 Temperature Pulse Rate 88 Respiratory Rate 17 Blood Pressure 100/65 103/67 Pulse Oximetry 97 Oxygen Delivery Method 05/28/24 06:24 05/28/24 06:30 05/28/24 06:59 Temperature Pulse Rate 88 89 103 H Respiratory Rate 20 17 19 Blood Pressure 103/67 Pulse Oximetry 97 97 97 Oxygen Delivery Method 05/28/24 06:59 05/28/24 07:00 05/28/24 07:01 Temperature Pulse Rate 102 H Respiratory Rate 23 Blood Pressure 110/67 101/68 Pulse Oximetry 97 Oxygen Delivery Method 05/28/24 07:01 05/28/24 07:30 05/28/24 08:00 Temperature Pulse Rate 103 H 100 H 92 H Respiratory Rate 24 12 0 L Blood Pressure Pulse Oximetry 97 98 99 Oxygen Delivery Method 05/28/24 08:00 05/28/24 08:05 05/28/24 08:30 Temperature Pulse Rate 83 85 Respiratory Rate 98 H 17 Blood Pressure 99/66 Pulse Oximetry 99 Oxygen Delivery Method 05/28/24 08:43 05/28/24 09:00 05/28/24 09:00 Temperature Pulse Rate 113 H 81 Respiratory Rate 25 H 17 Blood Pressure 95/62 Pulse Oximetry 99 Oxygen Delivery Method 05/28/24 09:30 05/28/24 09:30 Temperature Pulse Rate 81 Respiratory Rate 17 Blood Pressure 95/58 L Pulse Oximetry 98 Oxygen Delivery Method Oxygen Delivery Method Room Air Oxygen Flow Rate 0 Narrative Exam Narrative: 53-year-old male resting comfortably in bed in no apparent distress. Left knee with extensive swelling, erythema and warmth to touch. New margins are marked with swelling/edema a couple cm past the initial markings placed Thursday. Patient withdrawals with palpation about the anterior knee. Const Nutritional Appearance: average body habitus Objective Labs 05/28/24 05:00 05/28/24 05:00 Labs: Laboratory Results - last 24 hr 05/27/24 05/27/24 05/28/24 14:35 17:50 05:00 WBC 16.5 H RBC 2.57 L Hgb 8.6 L Hct 25.5 L MCV 99.4 MCH 33.5 MCHC 33.8 RDW 15.3 H Plt Count 87 L Neut % (Auto) Not Reportable Lymph % (Auto) Not Reportable [place] % (Auto) Not Reportable Eos % (Auto) Not Reportable Baso % (Auto) Not Reportable Lymph # (Auto) Not Reportable [place] # (Auto) Not Reportable Baso # (Auto) Not Reportable Total Counted 100 Seg Neutrophils % 67.0 Band Neutrophils % 16.0 H Lymphocytes % (Manual) 14.0 L Monocytes % (Manual) 2.0 Metamyelocytes % 1.0 H Neutrophils # (Manual) 40447 H Toxic Granulation Present H Dohle Bodies 2+ H RBC Morphology See below Anisocytosis 1+ H ESR 36 H Sodium 132 L Potassium 2.9 L Chloride 110 H Carbon Dioxide 19 L BUN 21 H Creatinine 0.62 L Estimated GFR > 60 BUN/Creatinine Ratio 33.9 H Glucose 80 Calcium 7.8 L Magnesium 1.7 Total Bilirubin 3.9 H Conjugated Bilirubin 1.3 H Unconjugated Bilirubin 1.3 H AST 89 H ALT 212 H Alkaline Phosphatase 122 C-Reactive Protein 21.1 H Total Protein 3.9 L Albumin 1.8 L Globulin 2.1 Albumin/Globulin Ratio 0.9 L Vancomycin Peak 7.7 L Vancomycin Trough 13.3 PFSH Social History household members: family Smoking Status: Current every day smoker alcohol intake: current Assessment & Plan Assessment & Plan narrative: Left knee prepatellar bursitis. Dr. Saldivar consulted on patient May 26, 2024. Per her consult note she would recommended treating with IV antibiotics and assess response, possible aspiration or irrigation and debridement of prepatellar bursa if worsening. WBC is 16.[address] Crum has been notified that the swelling about the knee has worsened and appreciate his further recommendations Continue IV antibiotics for now Patient was admitted to the hospitalist service after transferring from [facility] Emergency room with upper GI bleed and alcohol withdrawal. Time-Based Coding :: [TOTAL MINUTES] spent with patient and on the chart (including review of chart, obtaining history, exam, reviewing outside data, placing orders, documenting exam and treatment plan, and counseling patient) on [DATE]. Quality VTE Deep Vein Thrombosis/Pulmonary Embolism Present on Admission: No
--- NOTE | 2024-05-28 10:31 | CM.DPNOTE ---
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 CIWAs of 8-15 overnight. Per RN, canceled EGD, upper GI bleed remains stable. Infection in knee, per nursing staff, was never cultured at [facility]. likely needs washout. pt getting ativan/precedex/IV abx. Pt remains agitated throughout stay, disoriented, confused. P: medical POC continues to develop. CM team will follow closely for alcohol detox resources, rehab resources, post op needs, and will follow for IV abx plan for knee. YAZAN Neri
[2024-05-28 12:49] LABS: PTT Partial Thromboplastin Tim 39 SECONDS (25.1-36.5)
[2024-05-28 13:01] LABS: INR 1.6 (0.9-1.3); Prothrombin Time 18.1 SECONDS (9.4-12.5)
[2024-05-28] MEDS: cefTRIAXone 2,000 MG in SODIUM CHLORIDE 0.9% 100 ML 200 MG IV (14:00)
[2024-05-28 16:26] LABS: HEMOLYSIS < 15 (0-50)
--- NOTE | 2024-05-28 17:14 | PM.PN.1 ---
Subjective Subjective Interval history: 53-year-old male with alcohol dependence, alcohol withdrawal, acute on chronic, left knee cellulitis with septic bursitis versus arthritis, presently hospital day number 3. There was some initial concern of a possible upper GI bleed as he had had some report of rectal bleeding. However, he has not had a bowel movement since admission, which makes this highly unlikely. He has had no emesis. He remains on a Precedex drip for control of alcohol withdrawal. Overnight, this was turned off and he became increasingly agitated. Exam Vital Signs (past 8 hours): - 05/28/24 09:30 05/28/24 09:30 05/28/24 10:00 Temperature Pulse Rate 81 87 Respiratory Rate 17 19 Blood Pressure 95/58 L Pulse Oximetry 98 96 Oxygen Delivery Method Oxygen Flow Rate 05/28/24 10:00 05/28/24 10:30 05/28/24 10:30 Temperature Pulse Rate 80 Respiratory Rate 17 Blood Pressure 100/63 106/69 Pulse Oximetry 99 Oxygen Delivery Method Oxygen Flow Rate 05/28/24 11:00 05/28/24 11:00 05/28/24 11:30 Temperature Pulse Rate 75 75 Respiratory Rate 17 17 Blood Pressure 103/71 Pulse Oximetry 98 98 Oxygen Delivery Method Oxygen Flow Rate 05/28/24 11:30 05/28/24 12:00 05/28/24 12:00 Temperature 100.7 F H Pulse Rate 127 H Respiratory Rate 15 Blood Pressure 109/72 134/80 114/71 Pulse Oximetry 91 Oxygen Delivery Method Oxygen Flow Rate 2 05/28/24 12:00 05/28/24 12:30 05/28/24 12:30 Temperature Pulse Rate 77 78 Respiratory Rate 17 18 Blood Pressure 106/73 Pulse Oximetry 98 98 Oxygen Delivery Method Oxygen Flow Rate 05/28/24 13:00 05/28/24 13:00 05/28/24 13:00 Temperature Pulse Rate 77 Respiratory Rate 18 Blood Pressure 108/67 Pulse Oximetry 98 Oxygen Delivery Method Room Air Oxygen Flow Rate 05/28/24 13:30 05/28/24 13:30 05/28/24 14:00 Temperature Pulse Rate 78 78 Respiratory Rate 18 18 Blood Pressure 115/72 Pulse Oximetry 98 98 Oxygen Delivery Method Oxygen Flow Rate 05/28/24 14:00 05/28/24 14:30 05/28/24 14:30 Temperature Pulse Rate 78 Respiratory Rate 18 Blood Pressure 103/73 107/74 Pulse Oximetry 97 Oxygen Delivery Method Oxygen Flow Rate 05/28/24 15:00 05/28/24 15:00 05/28/24 15:30 Temperature Pulse Rate 78 Respiratory Rate 18 Blood Pressure 115/73 114/69 Pulse Oximetry 97 Oxygen Delivery Method Oxygen Flow Rate 05/28/24 15:30 05/28/24 16:00 05/28/24 16:00 Temperature Pulse Rate 80 79 Respiratory Rate 18 18 Blood Pressure 117/70 Pulse Oximetry 96 96 Oxygen Delivery Method Oxygen Flow Rate Oxygen Delivery Method Room Air Oxygen Flow Rate 2 Narrative Exam Narrative: GEN: Ill-appearing middle-aged male, somnolent but easily agitated HEENT:NC, Face symmetric CHEST: Respiratory excursions symmetric, CTAB CV: RRR, no M/R/G ABD: Soft, NT/ND, BT present in all 4 quadrants EXTR: warm, well perfused, left knee is diffusely swollen with significant erythema wrapping around the knee both medially and laterally, there is scabbing overlying the patellar region SKIN: warm and dry, no rash NEURO: Somnolent, disoriented, agitated Objective Labs 05/28/24 05:00 05/28/24 16:12 Labs: Laboratory Results - last 24 hr 05/27/24 05/28/24 05/28/24 17:50 05:00 12:21 WBC 16.5 H RBC 2.57 L Hgb 8.6 L Hct 25.5 L MCV 99.4 MCH 33.5 MCHC 33.8 RDW 15.3 H Plt Count 87 L Neut % (Auto) Not Reportable Lymph % (Auto) Not Reportable [place] % (Auto) Not Reportable Eos % (Auto) Not Reportable Baso % (Auto) Not Reportable Lymph # (Auto) Not Reportable [place] # (Auto) Not Reportable Baso # (Auto) Not Reportable Total Counted 100 Seg Neutrophils % 67.0 Band Neutrophils % 16.0 H Lymphocytes % (Manual) 14.0 L Monocytes % (Manual) 2.0 Metamyelocytes % 1.0 H Neutrophils # (Manual) 77731 H Toxic Granulation Present H Dohle Bodies 2+ H RBC Morphology See below Anisocytosis 1+ H ESR 36 H PT 18.1 H INR 1.6 H APTT 39 H Sodium 132 L Potassium 2.9 L Chloride 110 H Carbon Dioxide 19 L BUN 21 H Creatinine 0.62 L Estimated GFR > 60 BUN/Creatinine Ratio 33.9 H Glucose 80 Calcium 7.8 L Magnesium 1.7 Total Bilirubin 3.9 H Conjugated Bilirubin 1.3 H Unconjugated Bilirubin 1.3 H AST 89 H ALT 212 H Alkaline Phosphatase 122 C-Reactive Protein 21.1 H Total Protein 3.9 L Albumin 1.8 L Globulin 2.1 Albumin/Globulin Ratio 0.9 L Vancomycin Peak 7.7 L 05/28/24 16:12 WBC RBC Hgb Hct MCV MCH MCHC RDW Plt Count Neut % (Auto) Lymph % (Auto) [place] % (Auto) Eos % (Auto) Baso % (Auto) Lymph # (Auto) [place] # (Auto) Baso # (Auto) Total Counted Seg Neutrophils % Band Neutrophils % Lymphocytes % (Manual) Monocytes % (Manual) Metamyelocytes % Neutrophils # (Manual) Toxic Granulation Dohle Bodies RBC Morphology Anisocytosis ESR PT INR APTT Sodium Potassium 3.0 L Chloride Carbon Dioxide BUN Creatinine Estimated GFR BUN/Creatinine Ratio Glucose Calcium Magnesium Total Bilirubin Conjugated Bilirubin Unconjugated Bilirubin AST ALT Alkaline Phosphatase C-Reactive Protein Total Protein Albumin Globulin Albumin/Globulin Ratio Vancomycin Peak [facility] Social History household members: family Smoking Status: Current every day smoker alcohol intake: current Assessment & Plan Assessment & Plan narrative: 1. Alcohol dependence, complicated by withdrawal Continues on the CIWA protocol. Remains on a Precedex drip to control his withdrawal and agitation. Continues multivitamin, folate, thiamine. CIWA scores have been 8-9 this morning. 2. Suspected upper GI bleed This was felt to be possibly related to NSAID use and alcohol. There is no evidence for GI bleed at this time. Will continue PPI. No need for EGD at this point, especially given his active alcohol withdrawal and concern for worsening infection in his knee 3. Left knee septic bursitis and cellulitis He remains on Rocephin and vancomycin. We did attempt to get culture data from [facility], but it was reported they were unable to get a fluid sample. CRP is elevated at 21.1 and sed rate is 36. I did discuss the case with KRISHNA Gold for orthopedic surgery. At this point, I feel the patient does need source control. His white blood cell count remains quite elevated at 16.5, which is unchanged from yesterday. He has progressive thrombocytopenia. He has persistent bandemia. He is mildly febrile today at 100.7. INR is mildly elevated at 1.6. While he is certainly not a good surgical candidate, I do not believe he will become her surgical candidate over the coming days. We will continue Rocephin and vancomycin for now and defer further decision making to orthopedic surgery. 4. Anemia Suspect this is some degree of hemodilution, particularly as he has not had any GI output. Hemoglobin is 8.6 today down from 9.5 yesterday. 5. Thrombocytopenia Platelet count is 120 7-87 today. Likely in part due to underlying alcoholic liver disease and also related to his active infection/sepsis. 6. Coagulopathy INR was 1.8 on admission. 1.6 today. Secondary to alcoholic liver disease. 7. Hypokalemia Will replete IV. Continue to monitor. 8. Hyponatremia Mild at 132. Will monitor. 9. Alcoholic liver disease Bilirubin is 3.9, AST 89, ALT 212. As noted, he also has thrombocytopenia and coagulopathy. Will add an ammonia level for the morning, but suspect most of his encephalopathy secondary to alcohol withdrawal Code status Full Prophylaxis Will use mechanical prophylaxis with SCDs Disposition Intensive care unit Time-Based Coding :: [TOTAL MINUTES] spent with patient and on the chart (including review of chart, obtaining history, exam, reviewing outside data, placing orders, documenting exam and treatment plan, and counseling patient) on [DATE]. Quality VTE Deep Vein Thrombosis/Pulmonary Embolism Present on Admission: No
--- NOTE | 2024-05-28 17:30 | PM.PN.1 ---
Subjective Subjective Interval history: 53-year-old gentleman with prepatellar bursitis that has been treated so far with IV antibiotics. Exam Vital Signs (past 8 hours): - 05/28/24 10:00 05/28/24 10:00 05/28/24 10:30 Temperature Pulse Rate 87 80 Respiratory Rate 19 17 Blood Pressure 100/63 Pulse Oximetry 96 99 Oxygen Delivery Method Oxygen Flow Rate 05/28/24 10:30 05/28/24 11:00 05/28/24 11:00 Temperature Pulse Rate 75 Respiratory Rate 17 Blood Pressure 106/69 103/71 Pulse Oximetry 98 Oxygen Delivery Method Oxygen Flow Rate 05/28/24 11:30 05/28/24 11:30 05/28/24 12:00 Temperature 100.7 F H Pulse Rate 75 127 H Respiratory Rate 17 15 Blood Pressure 109/72 134/80 Pulse Oximetry 98 91 Oxygen Delivery Method Oxygen Flow Rate 2 05/28/24 12:00 05/28/24 12:00 05/28/24 12:30 Temperature Pulse Rate 77 Respiratory Rate 17 Blood Pressure 114/71 106/73 Pulse Oximetry 98 Oxygen Delivery Method Oxygen Flow Rate 05/28/24 12:30 05/28/24 13:00 05/28/24 13:00 Temperature Pulse Rate 78 77 Respiratory Rate 18 18 Blood Pressure Pulse Oximetry 98 98 Oxygen Delivery Method Room Air Oxygen Flow Rate 05/28/24 13:00 05/28/24 13:30 05/28/24 13:30 Temperature Pulse Rate 78 Respiratory Rate 18 Blood Pressure 108/67 115/72 Pulse Oximetry 98 Oxygen Delivery Method Oxygen Flow Rate 05/28/24 14:00 05/28/24 14:00 05/28/24 14:30 Temperature Pulse Rate 78 78 Respiratory Rate 18 18 Blood Pressure 103/73 Pulse Oximetry 98 97 Oxygen Delivery Method Oxygen Flow Rate 05/28/24 14:30 05/28/24 15:00 05/28/24 15:00 Temperature Pulse Rate 78 Respiratory Rate 18 Blood Pressure 107/74 115/73 Pulse Oximetry 97 Oxygen Delivery Method Oxygen Flow Rate 05/28/24 15:30 05/28/24 15:30 05/28/24 16:00 Temperature Pulse Rate 80 79 Respiratory Rate 18 18 Blood Pressure 114/69 Pulse Oximetry 96 96 Oxygen Delivery Method Oxygen Flow Rate 05/28/24 16:00 Temperature Pulse Rate Respiratory Rate Blood Pressure 117/70 Pulse Oximetry Oxygen Delivery Method Oxygen Flow Rate Oxygen Delivery Method Room Air Oxygen Flow Rate 2 Narrative Exam Narrative: Patient was seen this morning and his area of cellulitis was demarcated with a marker. Patient was seen this afternoon and there was significant improvement in the cellulitis. Was significantly withdrawn from the earlier demarcation done this morning. But still showing signs of cellulitis. No sign of any drainage. Small area of fluctuance involving the prepatellar bursa. Objective Labs 05/28/24 05:00 05/28/24 16:12 Labs: Laboratory Results - last 24 hr 05/27/24 05/28/24 05/28/24 17:50 05:00 12:21 WBC 16.5 H RBC 2.57 L Hgb 8.6 L Hct 25.5 L MCV 99.4 MCH 33.5 MCHC 33.8 RDW 15.3 H Plt Count 87 L Neut % (Auto) Not Reportable Lymph % (Auto) Not Reportable [place] % (Auto) Not Reportable Eos % (Auto) Not Reportable Baso % (Auto) Not Reportable Lymph # (Auto) Not Reportable [place] # (Auto) Not Reportable Baso # (Auto) Not Reportable Total Counted 100 Seg Neutrophils % 67.0 Band Neutrophils % 16.0 H Lymphocytes % (Manual) 14.0 L Monocytes % (Manual) 2.0 Metamyelocytes % 1.0 H Neutrophils # (Manual) 67815 H Toxic Granulation Present H Dohle Bodies 2+ H RBC Morphology See below Anisocytosis 1+ H ESR 36 H PT 18.1 H INR 1.6 H APTT 39 H Sodium 132 L Potassium 2.9 L Chloride 110 H Carbon Dioxide 19 L BUN 21 H Creatinine 0.62 L Estimated GFR > 60 BUN/Creatinine Ratio 33.9 H Glucose 80 Calcium 7.8 L Magnesium 1.7 Total Bilirubin 3.9 H Conjugated Bilirubin 1.3 H Unconjugated Bilirubin 1.3 H AST 89 H ALT 212 H Alkaline Phosphatase 122 C-Reactive Protein 21.1 H Total Protein 3.9 L Albumin 1.8 L Globulin 2.1 Albumin/Globulin Ratio 0.9 L Vancomycin Peak 7.7 L 05/28/24 16:12 WBC RBC Hgb Hct MCV MCH MCHC RDW Plt Count Neut % (Auto) Lymph % (Auto) [place] % (Auto) Eos % (Auto) Baso % (Auto) Lymph # (Auto) [place] # (Auto) Baso # (Auto) Total Counted Seg Neutrophils % Band Neutrophils % Lymphocytes % (Manual) Monocytes % (Manual) Metamyelocytes % Neutrophils # (Manual) Toxic Granulation Dohle Bodies RBC Morphology Anisocytosis ESR PT INR APTT Sodium Potassium 3.0 L Chloride Carbon Dioxide BUN Creatinine Estimated GFR BUN/Creatinine Ratio Glucose Calcium Magnesium Total Bilirubin Conjugated Bilirubin Unconjugated Bilirubin AST ALT Alkaline Phosphatase C-Reactive Protein Total Protein Albumin Globulin Albumin/Globulin Ratio Vancomycin Peak PFSH Social History household members: family Smoking Status: Current every day smoker alcohol intake: current Assessment & Plan Assessment & Plan narrative: Patient showing obvious improvement in his cellulitis compared to the demarcated area from this morning but I Would recommend a irrigation and debridement of the left knee tomorrow morning if there is no continued improvement. Time-Based Coding :: [TOTAL MINUTES] spent with patient and on the chart (including review of chart, obtaining history, exam, reviewing outside data, placing orders, documenting exam and treatment plan, and counseling patient) on [DATE]. Quality VTE Deep Vein Thrombosis/Pulmonary Embolism Present on Admission: No
--- NOTE | 2024-05-28 19:49 | PC.NURSE ---
Addendum entered by Montserrat Somers R.N. 05/29/24 07:19: 0719 Report given to caden RN. Plan of care discussed. Patient vitals WNL. Bed in lowest position. Call light within reach. Addendum entered by Montserrat Somers R.N. 05/29/24 05:46: 0545 MD [place] to RN electronic communication. aware of patient's potassium and platelet value. Patient with no signs of bleeding at this time. to order potassium. 0400 Focused assessment completed. no changes from baseline status. Vitals WNL. 0000 Focused assessment completed. No changes from baseline status. Vitals WNL. Original Note: 1930 Report received from caden RN. Patient AAO x's 1. Able to follow commands. [place]. Precedex noted and infusing to PICC line in RUE. PICC line dressing changed at this time. L knee swelling and redness noted. Per RN shift report possible plan for I and D tomorrow. Call light within reach and bed in lowest position. Patient CIWA above 8 at this time. Ativan administered per protocol. Vitals within normal ranges.
[2024-05-29] VITALS (60 sets, daily range): BP systolic 85–162; BP diastolic 51–98; PULSE 75–103; RESP 8–27; TEMP 36.4–36.7; O2SAT 96–100; BMI 24.1
[2024-05-29] MEDS: LORazepam 2 MG/ML INJ IV ×3 (03:19→15:59)
[2024-05-29] MEDS: dexmedeTOMIDine in 0.9 % NaCL 400 MCG/100 ML PLAST..BAG 14.2 MCG IV ×2 (04:28→11:31)
[2024-05-29 04:54] LABS: Hematocrit 27.7 % (41-53); Hemoglobin 9.3 g/dL (13.5-17.5); Mean Corpuscular HGB Conc 33.6 % (30-36); Mean Corpuscular Hemoglobin 33.3 PG (26-34); Mean Corpuscular Volume 99.1 fL (80-100); Platelet Count 62 X10^3/uL (150-400); White Blood Cell Count 18.8 X10^3/uL (4.5-11.0)
[2024-05-29 05:01] LABS: Add Manual Diff / Slide Review YES
[2024-05-29 05:02] LABS: Ammonia (NH3) 24 umol/L (9-30)
[2024-05-29 05:03] LABS: Alanine Aminotransferase 157 IU/L (<50); Albumin 1.6 g/dL (3.5-5.0); Albumin Globulin Ratio 0.7 (1.0-2.8); Alkaline Phosphatase 132 U/L (38-126); Aspartate Aminotransferase 46 IU/L (17-59); Bilirubin Total 3.9 mg/dL (0.2-1.3); Blood Urea Nitrogen 17 mg/dL (9-20); Calcium 7.7 mg/dL (8.4-10.2); Carbon Dioxide 20 mmol/L (22-32); Chloride 113 mmol/L (98-107); Estimated Glomerular Filt Rate > 60 mL/min (>60); Globulin 2.2 g/dL (1.7-4.1); Glucose 85 mg/dL (70-100); HEMOLYSIS < 15 (0-50); INR 1.4 (0.9-1.3); Magnesium 1.5 mg/dL (1.6-2.3); Potassium 3.1 mmol/L (3.4-5.1); Prothrombin Time 16.5 SECONDS (9.4-12.5); Sodium 134 mmol/L (137-145); Total Protein 3.8 g/dL (6.3-8.2)
[2024-05-29 05:28] LABS: Neutrophils Absolute Manual 16168 /uL (3000-5900); Total Cells Counted 100; Toxic Granulation Present
[2024-05-29 05:29] LABS: Dohle Bodies 1+
[2024-05-29 05:30] LABS: Anisocytosis 2+
[2024-05-29] MEDS: SODIUM CHLORIDE 0.9% 1,000 ML 150 ML IV ×3 (06:05→20:09)
[2024-05-29] MEDS: POTASSIUM CHLORIDE IN WATER 10 MEQ/100 ML PIGGYBACK 100 MEQ IV ×8 (06:05→18:04)
[2024-05-29] MEDS: VANCOMYCIN 1,000 MG in DEXTROSE 5% IN WATER 250 ML 250 MG IV ×3 (06:05→23:26)
[2024-05-29] MEDS: MAGNESIUM SULFATE 2 GM/50 ML PIGGYBACK IV ×2 (06:54→14:41)
[2024-05-29] MEDS: PANTOPRAZOLE 40 MG VIAL IV ×2 (08:42→20:51)
[2024-05-29] MEDS: SODIUM CHLORIDE 0.9% FLUSH 10 ML IV ×2 (08:42→20:52)
--- NOTE | 2024-05-29 08:46 | PM.PN.1 ---
Subjective Subjective Interval history: Patient with a continued history of left knee prepatellar bursitis. Still showing signs of infection despite IV antibiotics. Exam Vital Signs (past 8 hours): - 05/29/24 01:00 05/29/24 01:00 05/29/24 01:00 Temperature Pulse Rate 78 Respiratory Rate 18 Blood Pressure 120/75 Pulse Oximetry 99 Oxygen Delivery Method Room Air 05/29/24 01:30 05/29/24 01:30 05/29/24 02:00 Temperature Pulse Rate 79 78 Respiratory Rate 17 18 Blood Pressure 123/73 Pulse Oximetry 99 99 Oxygen Delivery Method 05/29/24 02:00 05/29/24 02:30 05/29/24 02:30 Temperature Pulse Rate 78 Respiratory Rate 17 Blood Pressure 119/75 124/77 Pulse Oximetry 99 Oxygen Delivery Method 05/29/24 03:00 05/29/24 03:00 05/29/24 03:30 Temperature Pulse Rate 76 83 Respiratory Rate 16 18 Blood Pressure 128/80 Pulse Oximetry 99 98 Oxygen Delivery Method 05/29/24 03:30 05/29/24 03:39 05/29/24 03:54 Temperature Pulse Rate 75 76 Respiratory Rate 20 17 Blood Pressure 130/77 128/80 Pulse Oximetry 97 Oxygen Delivery Method 05/29/24 03:54 05/29/24 04:00 05/29/24 04:00 Temperature Pulse Rate 77 Respiratory Rate 17 Blood Pressure 128/80 126/81 Pulse Oximetry 97 Oxygen Delivery Method 05/29/24 04:00 05/29/24 04:30 05/29/24 04:30 Temperature 98.0 F Pulse Rate 75 Respiratory Rate 16 Blood Pressure 126/84 Pulse Oximetry 97 Oxygen Delivery Method 05/29/24 05:00 05/29/24 05:00 05/29/24 05:00 Temperature Pulse Rate 77 Respiratory Rate 17 Blood Pressure 129/83 Pulse Oximetry 98 Oxygen Delivery Method Room Air 05/29/24 05:30 05/29/24 05:30 05/29/24 06:00 Temperature Pulse Rate 103 H 76 Respiratory Rate 25 H 17 Blood Pressure 118/67 Pulse Oximetry 99 98 Oxygen Delivery Method 05/29/24 06:00 05/29/24 06:30 05/29/24 06:30 Temperature Pulse Rate 79 Respiratory Rate 19 Blood Pressure 126/79 130/75 Pulse Oximetry 99 Oxygen Delivery Method 05/29/24 07:00 05/29/24 07:00 Temperature Pulse Rate 83 Respiratory Rate 20 Blood Pressure 126/78 Pulse Oximetry 97 Oxygen Delivery Method Oxygen Delivery Method Room Air Oxygen Flow Rate 2 Narrative Exam Narrative: Still signs of cellulitis to the anterior aspect of the knee. It has improved since yesterday morning but still present. Still has an area over the prepatellar bursa that has some fluctuance. Objective Labs 05/29/24 04:35 05/29/24 04:35 Labs: Laboratory Results - last 24 hr 05/28/24 05/28/24 05/28/24 05:00 12:21 16:12 WBC RBC Hgb Hct MCV MCH MCHC RDW Plt Count Neut % (Auto) Lymph % (Auto) [place] % (Auto) Eos % (Auto) Baso % (Auto) Lymph # (Auto) [place] # (Auto) Baso # (Auto) Total Counted Seg Neutrophils % Band Neutrophils % Lymphocytes % (Manual) Monocytes % (Manual) Metamyelocytes % Neutrophils # (Manual) Toxic Granulation Dohle Bodies RBC Morphology Anisocytosis ESR 36 H PT 18.1 H INR 1.6 H APTT 39 H Sodium Potassium 3.0 L Chloride Carbon Dioxide BUN Creatinine Estimated GFR BUN/Creatinine Ratio Glucose Calcium Magnesium Total Bilirubin 3.9 H Conjugated Bilirubin 1.3 H Unconjugated Bilirubin 1.3 H AST 89 H ALT 212 H Alkaline Phosphatase 122 Ammonia C-Reactive Protein 21.1 H Total Protein 3.9 L Albumin 1.8 L Globulin 2.1 Albumin/Globulin Ratio 0.9 L 05/29/24 04:35 WBC 18.8 H RBC 2.80 L Hgb 9.3 L Hct 27.7 L MCV 99.1 MCH 33.3 MCHC 33.6 RDW 16.0 H Plt Count 62 L Neut % (Auto) Not Reportable Lymph % (Auto) Not Reportable [place] % (Auto) Not Reportable Eos % (Auto) Not Reportable Baso % (Auto) Not Reportable Lymph # (Auto) Not Reportable [place] # (Auto) Not Reportable Baso # (Auto) Not Reportable Total Counted 100 Seg Neutrophils % 72.0 H Band Neutrophils % 14.0 H Lymphocytes % (Manual) 10.0 L Monocytes % (Manual) 3.0 Metamyelocytes % 1.0 H Neutrophils # (Manual) 02309 H Toxic Granulation Present H Dohle Bodies 1+ H RBC Morphology See below Anisocytosis 2+ H ESR PT 16.5 H INR 1.4 H APTT Sodium 134 L Potassium 3.1 L Chloride 113 H Carbon Dioxide 20 L BUN 17 Creatinine 0.50 L Estimated GFR > 60 BUN/Creatinine Ratio 34.0 H Glucose 85 Calcium 7.7 L Magnesium 1.5 L Total Bilirubin 3.9 H Conjugated Bilirubin Unconjugated Bilirubin AST 46 ALT 157 H Alkaline Phosphatase 132 H Ammonia 24 C-Reactive Protein Total Protein 3.8 L Albumin 1.6 L Globulin 2.2 Albumin/Globulin Ratio 0.7 L PFSH Social History household members: family Smoking Status: Current every day smoker alcohol intake: current Assessment & Plan Assessment & Plan narrative: Patient with continued signs of prepatellar bursitis and cellulitis. Due to fact that it has not completely resolved with IV antibiotics recommend a irrigation and debridement. I spoke with his sister today who is his power of assistant prosecuting attorney. In all of her questions and concerns were answered to her full satisfaction. The risk, benefits, alternatives, possible complications, operative course, and postop outcomes were discussed. Complications including but not limiting to bleeding, infection, fracture, nerve injury, continued pain postoperatively or instability postoperatively were discussed in detail. Medical complications including but not limited to deep venous thrombosis event, anesthesia complications with excessive bleeding, vascular events or cardiac events and other possible complications were discussed in detail. Need for postoperative rehabilitation and anticipated hospital stay and clinical course were discussed in detail. Patient acknowledges understanding and elects to proceed with surgery. Time-Based Coding :: [TOTAL MINUTES] spent with patient and on the chart (including review of chart, obtaining history, exam, reviewing outside data, placing orders, documenting exam and treatment plan, and counseling patient) on [DATE]. Quality VTE Deep Vein Thrombosis/Pulmonary Embolism Present on Admission: No
--- NOTE | 2024-05-29 09:19 | SUR.HOLD ---
Verbal consent for procedure and anesthesia via telephone with sister and POA, Sidra Jo, at [phone].
--- NOTE | 2024-05-29 09:40 | SUR.OPER ---
Supine on padded OR bed, head on pillow, arms secured on padded arm boards at <90 degrees abduction, legs uncrossed, safety belt at thigh, tape over blanket over non-operative leg.
[2024-05-29] MEDS: BUPIVACAINE 0.25% (PF) 30 ML, EPINEPHrine 0.15 MG INJ (09:46)
--- NOTE | 2024-05-29 09:58 | PM.OP.1 ---
Operative Date/Time/Diagnoses Date of procedure: 05/29/24 Time of procedure: 09:30 Pre-op diagnosis: Left prepatellar septic bursitis Post-op diagnosis: same Procedure & Clinicians Procedure: Irrigation and debridement of the left prepatellar bursa Same procedure as scheduled: Yes Indications: Septic left prepatellar bursitis Surgeon: Everette Crum Click Yes if Unassisted: Yes Anesthesia Type: MAC +/- Operative Notes Findings: Infected left prepatellar bursa. Closure Type: primary Specimen(s): other (Fluid and soft tissue sent for cultures and sensitivities as well as Gram stain. Also anaerobic and aerobic cultures.) Estimated Blood Loss (mL): 10 Tourniquet time (min): 14 Procedure in detail: On date of service, patient was met in the holding area where his operative site was signed and witnessed by the OR staff. Patient was taken to the operating theater and placed on the operating table in a supine position. Great care was taken to ensure that all bony prominences were properly padded a well-padded tourniquet was placed up along the left lower extremity. Time-out was performed verifying patient's name, procedure operative site. Elevation and an Esmarch was used to exsanguinate the left leg and the tourniquet was turned up to 250 mmHg. Fifteen blade was used to make an anterior incision centered over the prepatellar bursa. Fifteen blade was used incise through skin fascial tissue. Once we entered the prepatellar bursa there was positive purulence. Culture swabs were obtained. Continued sharp dissection was performed. Rongeur was then used to remove purulent tissue which was also sent for cultures and sensitivities. Continued debridement using the rongeur used to remove the infected prepatellar bursa. This was done until we had complete removal of the bursa. Good visualization of the patellar tendon. Once it was found that the degenerative and necrotic tissue was thoroughly removed using the rongeur, pulse lavage was used to copiously irrigate the wound. The wound was packed with iodoform then loosely closed with 3-0 nylon. Patient was transferred back up to the ICU in stable condition. Complications: none Post-operative Condition: stable Disposition: ICU Plan for aftercare: Patient will need a wound care consult for further treatment of his wound. As well as continued antibiotics.
--- NOTE | 2024-05-29 10:17 | SUR.PHASEI ---
Transported patient directly from OR suite to ICU room 230; transported with PACU nurse and DIE CUTTING MACHINE OPERATOR. VSS. Bedside report given to receiving Sally. MACARIO
[2024-05-29] MEDS: FOLIC ACID IV (10:41)
[2024-05-29] MEDS: SODIUM CHLORIDE 0.9% IV (10:41)
[2024-05-29] MEDS: THIAMINE IV (10:41)
--- NOTE | 2024-05-29 11:18 | CM.DPNOTE ---
DCP Note LINE THERAPIST reviewed EMR. Per chart review/provider in morning rounds, pt going for I&D of knee with Dr. Crum today. per Chart, CIWAs remain has as 11 overnight. Remains sedated. P: medical POC continues to develop. CM team will follow closely for alcohol detox resources, rehab resources, post op needs, and will follow for IV abx and wound care plan for knee. YAZAN Neri
--- NOTE | 2024-05-29 12:27 | PT-IP ANOTE ---
PT consult received. PT reviewed chart and checked on pt. Pt appears to be actively going through DTs, reaching head, gently tugging at lines. Will initiate PT assessment a later date.
[2024-05-29] MEDS: cefTRIAXone 2,000 MG in SODIUM CHLORIDE 0.9% 100 ML 200 MG IV (13:13)
[2024-05-29 13:38] LABS: HEMOLYSIS < 15 (0-50); Magnesium 1.6 mg/dL (1.6-2.3); Potassium 3.2 mmol/L (3.4-5.1)
--- NOTE | 2024-05-29 15:40 | P.PN_ITS ---
Subjective Subjective Interval history: 53-year-old male with alcohol dependence, alcohol withdrawal, acute on chronic, left knee cellulitis with septic bursitis versus arthritis, presently hospital day number 4. There was some initial concern of a possible upper GI bleed as he had had some report of rectal bleeding. However, he has not had a bowel movement since admission, which makes this highly unlikely. He has had no emesis. He remains on a Precedex drip for control of alcohol withdrawal. CIWA scores remain 6-11. Exam Vital Signs (past 8 hours): - 05/29/24 09:00 05/29/24 09:16 05/29/24 10:10 Temperature 97.6 F 98.1 F Pulse Rate 82 81 Respiratory Rate 16 18 Blood Pressure 101/78 106/67 Pulse Oximetry 97 99 Oxygen Delivery Method Room Air Room Air Oxygen Flow Rate 2 05/29/24 10:40 05/29/24 10:42 05/29/24 11:10 Temperature Pulse Rate 80 80 81 Respiratory Rate 18 18 22 Blood Pressure 99/61 99/61 107/67 Pulse Oximetry 100 100 Oxygen Delivery Method Oxygen Flow Rate 0 2 05/29/24 12:10 05/29/24 13:14 Temperature Pulse Rate 90 80 Respiratory Rate 19 15 Blood Pressure 114/75 115/63 Pulse Oximetry 97 99 Oxygen Delivery Method Oxygen Flow Rate 2 0 Oxygen Delivery Method Room Air Oxygen Flow Rate 0 Narrative Exam Narrative: GEN: Ill-appearing middle-aged male, somnolent but more cooperative today HEENT:NC, Face symmetric CHEST: Respiratory excursions symmetric, CTAB CV: RRR, no M/R/G ABD: Soft, NT/ND, BT present in all 4 quadrants EXTR: warm, well perfused, Left leg diffusely swollen compared w/R, left knee remains diffusely swollen with erythema localized to the patellar area SKIN: warm and dry, no rash NEURO: Somnolent, oriented to self, continues to ask about the knife Objective Labs 05/29/24 04:35 05/29/24 13:20 Labs: Laboratory Results - last 24 hr 05/28/24 05/29/24 05/29/24 16:12 04:35 13:20 WBC 18.8 H RBC 2.80 L Hgb 9.3 L Hct 27.7 L MCV 99.1 MCH 33.3 MCHC 33.6 RDW 16.0 H Plt Count 62 L Neut % (Auto) Not Reportable Lymph % (Auto) Not Reportable [place] % (Auto) Not Reportable Eos % (Auto) Not Reportable Baso % (Auto) Not Reportable Lymph # (Auto) Not Reportable Sebastian # (Auto) Not Reportable Baso # (Auto) Not Reportable Total Counted 100 Seg Neutrophils % 72.0 H Band Neutrophils % 14.0 H Lymphocytes % (Manual) 10.0 L Monocytes % (Manual) 3.0 Metamyelocytes % 1.0 H Neutrophils # (Manual) 57935 H Toxic Granulation Present H Dohle Bodies 1+ H RBC Morphology See below Anisocytosis 2+ H PT 16.5 H INR 1.4 H Sodium 134 L Potassium 3.0 L 3.1 L 3.2 L Chloride 113 H Carbon Dioxide 20 L BUN 17 Creatinine 0.50 L Estimated GFR > 60 BUN/Creatinine Ratio 34.0 H Glucose 85 Calcium 7.7 L Magnesium 1.5 L 1.6 Total Bilirubin 3.9 H AST 46 ALT 157 H Alkaline Phosphatase 132 H Ammonia 24 Total Protein 3.8 L Albumin 1.6 L Globulin 2.2 Albumin/Globulin Ratio 0.7 L PFSH Social History household members: family Smoking Status: Current every day smoker alcohol intake: current Assessment & Plan Assessment & Plan narrative: 1. Alcohol dependence, complicated by withdrawal Continues on the CIWA protocol. Remains on a Precedex drip to control his withdrawal and agitation; RN is slowly weaning the drip. Continues multivitamin, folate, thiamine. CIWA scores have been stable. 2. Suspected upper GI bleed This was felt to be possibly related to NSAID use and alcohol. There is no evidence for GI bleed at this time. Will continue PPI. No need for EGD at this point, especially given his active alcohol withdrawal and concern for worsening infection in his knee 3. Left knee septic prepatellar bursitis and cellulitis He remains on Rocephin and vancomycin. He has progressive thrombocytopenia, unfortunately worse today c/w yesterday. WBC count worse today as well. Low grade fever yesterday. INR is improved from 1.6 to 1.4. He is going to the OR at 0900 for I&D of his bursa today. 4. Anemia Hgb stable at 9.3 5. Thrombocytopenia Platelet count is down from 127 two days ago-87 yesterday - 62 today. Likely in part due to underlying alcoholic liver disease and also related to his active infection/sepsis. 6. Coagulopathy INR was 1.8 on admission. 1.6 yesterday. 1.4 today. Secondary to alcoholic liver disease. 7. Hypokalemia Persistent. Will continue to replete IV. Continue to monitor. 8. Hyponatremia Improved today at 134. Will monitor. 9. Alcoholic liver disease Bilirubin is 3.9, AST 46, ALT 157. As noted, he also has thrombocytopenia and coagulopathy. Ammonia level is normal. Code status Full Prophylaxis Will use mechanical prophylaxis with SCDs Disposition Intensive care unit Time-Based Coding :: [TOTAL MINUTES] spent with patient and on the chart (including review of chart, obtaining history, exam, reviewing outside data, placing orders, documenting exam and treatment plan, and counseling patient) on [DATE]. Quality VTE Deep Vein Thrombosis/Pulmonary Embolism Present on Admission: No
[2024-05-29] MEDS: dexmedeTOMIDine in 0.9 % NaCL 400 MCG/100 ML PLAST..BAG 7.1 MCG IV (17:12)
[2024-05-29 21:30] LABS: HEMOLYSIS < 15 (0-50); Magnesium 1.8 mg/dL (1.6-2.3); Potassium 3.4 mmol/L (3.4-5.1)
[2024-05-30] VITALS (52 sets, daily range): BP systolic 90–124; BP diastolic 54–82; PULSE 68–101; RESP 0–22; TEMP 36.3–36.6; O2SAT 55–100
[2024-05-30] MEDS: LORazepam 2 MG/ML INJ IV ×2 (01:11→05:06)
[2024-05-30] MEDS: SODIUM CHLORIDE 0.9% 1,000 ML 150 ML IV (02:57)
[2024-05-30 06:47] LABS: Hematocrit 29.2 % (41-53); Hemoglobin 9.8 g/dL (13.5-17.5); Mean Corpuscular HGB Conc 33.5 % (30-36); Mean Corpuscular Hemoglobin 33.5 PG (26-34); Mean Corpuscular Volume 99.9 fL (80-100); Platelet Count 50 X10^3/uL (150-400); Red Blood Cell Count 2.92 X10^6/uL (4.5-5.9); White Blood Cell Count 23.4 X10^3/uL (4.5-11.0)
[2024-05-30 06:50] LABS: Add Manual Diff / Slide Review YES
--- NOTE | 2024-05-30 06:52 | PC.NURSE ---
Cath Lab Tech Note-Patient has been disoriented on Precedex gtt, at 0.2mcg/kg/hr in beginning of shift, titrated up to 0.6mcg by am, IV Ativan given x2, CIWA 6-19. Patient pulled Piccline out in am, replaced with US guided PIV site by ED RN. SR/ST, BP low but stable, see vital trends, afebrile, SpO2 > 96%, denies pain to Lt knee, does not display non-verbal pain. Confused, moments of agitation, restlessness, and tremors.
[2024-05-30 06:58] LABS: Alanine Aminotransferase 115 IU/L (<50); Albumin 1.6 g/dL (3.5-5.0); Albumin Globulin Ratio 0.7 (1.0-2.8); Alkaline Phosphatase 144 U/L (38-126); Aspartate Aminotransferase 39 IU/L (17-59); BUN Creatinine Ratio 30.4 (6-22); Bilirubin Total 4.2 mg/dL (0.2-1.3); Blood Urea Nitrogen 14 mg/dL (9-20); Calcium 7.7 mg/dL (8.4-10.2); Carbon Dioxide 18 mmol/L (22-32); Chloride 113 mmol/L (98-107); Estimated Glomerular Filt Rate > 60 mL/min (>60); Globulin 2.4 g/dL (1.7-4.1); Glucose 78 mg/dL (70-100); HEMOLYSIS < 15 (0-50); Magnesium 1.6 mg/dL (1.6-2.3); Potassium 3.2 mmol/L (3.4-5.1); Sodium 132 mmol/L (137-145)
[2024-05-30 07:20] LABS: Anisocytosis 1+; Neutrophils Absolute Manual 20592 /uL (3000-5900); Total Cells Counted 100
[2024-05-30 07:22] LABS: Polychromasia 1+
[2024-05-30 07:26] LABS: Vancomycin Trough 13.9 ug/mL (10-20)
[2024-05-30] MEDS: dexmedeTOMIDine in 0.9 % NaCL 400 MCG/100 ML PLAST..BAG 8.875 MCG IV (08:19)
[2024-05-30] MEDS: PANTOPRAZOLE 40 MG VIAL IV ×2 (08:20→20:02)
[2024-05-30] MEDS: VANCOMYCIN 1,000 MG in DEXTROSE 5% IN WATER 250 ML 200 MG IV (08:46)
--- NOTE | 2024-05-30 09:08 | OT.IPNOTE ---
OT eval and treat order received. Chart reviewed and discussed with nursing, pt is not appropriate for therapies at this time d/t DTs. Will hold and continue to follow.
[2024-05-30] MEDS: POTASSIUM CHLORIDE IN WATER 10 MEQ/100 ML PIGGYBACK 100 MEQ IV ×4 (09:16→15:26)
[2024-05-30] MEDS: SODIUM CHLORIDE 0.9% FLUSH 10 ML IV ×2 (09:17→20:02)
--- NOTE | 2024-05-30 09:20 | P.PN_ITS ---
Subjective Subjective Date Patient Seen: 05/30/24 Time Patient Seen: 10:09 Interval history: Alcohol dependence, on Precedex drip d/t symptomatic withdrawal. Left prepatellar septic bursitis, currently receiving ceftriaxone and vancomycin. Somnolent, follows some commands but no verbal response. Exam Vital Signs (past 8 hours): - 05/30/24 01:30 05/30/24 01:30 05/30/24 01:41 Temperature Pulse Rate 77 82 Respiratory Rate 12 Blood Pressure 94/54 L 94/54 L Pulse Oximetry 100 Oxygen Delivery Method Oxygen Flow Rate 05/30/24 02:00 05/30/24 02:00 05/30/24 02:30 Temperature Pulse Rate 85 79 Respiratory Rate 16 Blood Pressure 99/66 Pulse Oximetry 100 100 Oxygen Delivery Method Oxygen Flow Rate 0 05/30/24 02:30 05/30/24 03:00 05/30/24 03:00 Temperature Pulse Rate 76 Respiratory Rate Blood Pressure 97/64 97/60 Pulse Oximetry 100 Oxygen Delivery Method Oxygen Flow Rate 05/30/24 03:30 05/30/24 03:30 05/30/24 04:00 Temperature 97.8 F Pulse Rate 77 82 Respiratory Rate 15 14 Blood Pressure 95/60 Pulse Oximetry 100 100 Oxygen Delivery Method Oxygen Flow Rate 0 0 05/30/24 04:00 05/30/24 04:30 05/30/24 04:30 Temperature Pulse Rate 91 H Respiratory Rate Blood Pressure 101/64 Pulse Oximetry 100 Oxygen Delivery Method Room Air Oxygen Flow Rate 05/30/24 04:30 05/30/24 05:00 05/30/24 05:01 Temperature Pulse Rate 94 H 94 H Respiratory Rate Blood Pressure 90/64 Pulse Oximetry 100 100 Oxygen Delivery Method Oxygen Flow Rate 05/30/24 05:01 05/30/24 05:35 05/30/24 05:35 Temperature Pulse Rate 99 H Respiratory Rate Blood Pressure 119/69 118/78 Pulse Oximetry 100 Oxygen Delivery Method Oxygen Flow Rate 05/30/24 05:36 05/30/24 06:00 05/30/24 06:16 Temperature Pulse Rate 80 101 H Respiratory Rate 20 Blood Pressure 118/78 103/64 Pulse Oximetry 55 L Oxygen Delivery Method Oxygen Flow Rate 05/30/24 06:16 Temperature Pulse Rate 96 H Respiratory Rate 16 Blood Pressure Pulse Oximetry 99 Oxygen Delivery Method Oxygen Flow Rate 0 Oxygen Delivery Method Room Air Oxygen Flow Rate 0 Narrative Exam Narrative: Able to move left ankle and toes. Soft dressing is CDI. Objective Labs 05/30/24 06:30 05/30/24 06:30 Labs: Laboratory Results - last 24 hr 05/29/24 05/29/24 05/30/24 13:20 21:00 06:30 WBC 23.4 H RBC 2.92 L Hgb 9.8 L Hct 29.2 L MCV 99.9 MCH 33.5 MCHC 33.5 RDW 16.0 H Plt Count 50 L Neut % (Auto) Not Reportable Lymph % (Auto) Not Reportable [place] % (Auto) Not Reportable Eos % (Auto) Not Reportable Baso % (Auto) Not Reportable Lymph # (Auto) Not Reportable [place] # (Auto) Not Reportable Baso # (Auto) Not Reportable Total Counted 100 Seg Neutrophils % 88.0 H Lymphocytes % (Manual) 6.0 L Monocytes % (Manual) 6.0 Neutrophils # (Manual) 48819 H RBC Morphology See below Polychromasia 1+ H Anisocytosis 1+ H Sodium 132 L Potassium 3.2 L 3.4 3.2 L Chloride 113 H Carbon Dioxide 18 L BUN 14 Creatinine 0.46 L Estimated GFR > 60 BUN/Creatinine Ratio 30.4 H Glucose 78 Calcium 7.7 L Magnesium 1.6 1.8 1.6 Total Bilirubin 4.2 H AST 39 ALT 115 H Alkaline Phosphatase 144 H Total Protein 4.0 L Albumin 1.6 L Globulin 2.4 Albumin/Globulin Ratio 0.7 L Vancomycin Trough 13.9 PFSH Social History household members: family Smoking Status: Current every day smoker alcohol intake: current Assessment & Plan Post-op Assessment and plan (1) Prepatellar bursitis: Assessment and Plan narrative: 1) Cultures preliminarily Staph aureus, sensitivities pending. 2) WBAT, avoid knee flexion to protect wound. Consider knee immobilizer when pt ambulating. 3) Outpt wound therapy for wound care. While inpt, can do sterile wet-to-dry dressing changes q 2-3 days. 4) Abx, pain control, disposition per hospitalist service. Postoperative Procedures: Procedures Operation Date: 05/27/24 17:00 <No data on this case meets the specified criteria> Operation Date: 05/29/24 09:00 Actual Procedure Side Surgeon p Incision and Drainage left knee Everette Crum MD Postoperative day: 1 Quality VTE Deep Vein Thrombosis/Pulmonary Embolism Present on Admission: No
--- NOTE | 2024-05-30 10:07 | PT-IP ANOTE ---
Pt discussed in rounds and still undergoing alcohol withdrawal and not appropriate for skilled PT evaluation. Will check on once more for evaluation tomorrow. If not ready by then, will d/c PT order and await a new order when pt is appropriate.
[2024-05-30] MEDS: SODIUM CHLORIDE 0.9% 1,000 ML 75 ML IV ×2 (10:51→23:54)
[2024-05-30 11:59] LABS: Ammonia (NH3) < 9 umol/L (9-30)
--- NOTE | 2024-05-30 12:56 | P.PN_ITS ---
Subjective Subjective Interval history: 53-year-old male with alcohol dependence, alcohol withdrawal, acute on chronic, left knee cellulitis with septic bursitis presently hospital day number 5. Remains on precedex today, still seems confused though alert and oriented to name, month, year and location. He has no complaints a this time. Yesterday went to the OR, found to have purulence in pre-patellar bursa which was drained. Exam Vital Signs (past 8 hours): - 05/30/24 05:00 05/30/24 05:01 05/30/24 05:01 Temperature Pulse Rate 94 H 94 H Respiratory Rate Blood Pressure 119/69 Pulse Oximetry 100 100 Oxygen Flow Rate 05/30/24 05:35 05/30/24 05:35 05/30/24 05:36 Temperature Pulse Rate 99 H 80 Respiratory Rate 20 Blood Pressure 118/78 118/78 Pulse Oximetry 100 Oxygen Flow Rate 05/30/24 06:00 05/30/24 06:16 05/30/24 06:16 Temperature Pulse Rate 101 H 96 H Respiratory Rate 16 Blood Pressure 103/64 Pulse Oximetry 55 L 99 Oxygen Flow Rate 0 05/30/24 07:00 05/30/24 07:55 05/30/24 07:55 Temperature Pulse Rate 78 74 Respiratory Rate 15 14 Blood Pressure 90/63 Pulse Oximetry 98 100 Oxygen Flow Rate 05/30/24 08:00 05/30/24 08:00 05/30/24 08:00 Temperature 97.3 F L Pulse Rate 74 Respiratory Rate 15 Blood Pressure 92/61 Pulse Oximetry 100 Oxygen Flow Rate 05/30/24 08:30 05/30/24 08:30 05/30/24 09:00 Temperature Pulse Rate 75 Respiratory Rate 15 Blood Pressure 100/63 104/67 Pulse Oximetry 100 Oxygen Flow Rate 05/30/24 09:00 05/30/24 09:30 05/30/24 09:30 Temperature Pulse Rate 90 82 Respiratory Rate 19 18 Blood Pressure 110/69 Pulse Oximetry 100 94 Oxygen Flow Rate 05/30/24 10:00 05/30/24 10:00 05/30/24 10:30 Temperature Pulse Rate 86 80 Respiratory Rate 17 2 L Blood Pressure 113/74 Pulse Oximetry 100 98 Oxygen Flow Rate 05/30/24 10:30 05/30/24 11:00 05/30/24 11:00 Temperature Pulse Rate 77 Respiratory Rate 16 Blood Pressure 107/68 104/63 Pulse Oximetry 89 L Oxygen Flow Rate 05/30/24 11:30 05/30/24 11:30 05/30/24 12:00 Temperature Pulse Rate 84 Respiratory Rate 17 Blood Pressure 110/73 107/59 L Pulse Oximetry 99 Oxygen Flow Rate 05/30/24 12:00 05/30/24 12:30 05/30/24 12:30 Temperature Pulse Rate 74 72 Respiratory Rate 16 16 Blood Pressure 105/65 Pulse Oximetry 98 98 Oxygen Flow Rate Oxygen Delivery Method Room Air Oxygen Flow Rate 0 Narrative Exam Narrative: GEN: Ill-appearing middle-aged male, alert, follows commands HEENT:NC, Face symmetric CHEST: Respiratory excursions symmetric, CTAB CV: RRR, no M/R/G ABD: Soft, NT/ND, BT present in all 4 quadrants EXTR: warm, well perfused, Left leg diffusely swollen compared w/R, left knee wrapped appears clear and dry SKIN: warm and dry, no rash NEURO: Somnolent, oriented to self, month and year (not day), and location. minimal tongue fasciculations and tremulousness. Objective Labs 05/30/24 06:30 05/30/24 06:30 Labs: Laboratory Results - last 24 hr 05/29/24 05/29/24 05/30/24 13:20 21:00 06:30 WBC 23.4 H RBC 2.92 L Hgb 9.8 L Hct 29.2 L MCV 99.9 MCH 33.5 MCHC 33.5 RDW 16.0 H Plt Count 50 L Neut % (Auto) Not Reportable Lymph % (Auto) Not Reportable [place] % (Auto) Not Reportable Eos % (Auto) Not Reportable Baso % (Auto) Not Reportable Lymph # (Auto) Not Reportable [place] # (Auto) Not Reportable Baso # (Auto) Not Reportable Total Counted 100 Seg Neutrophils % 88.0 H Lymphocytes % (Manual) 6.0 L Monocytes % (Manual) 6.0 Neutrophils # (Manual) 95293 H RBC Morphology See below Polychromasia 1+ H Anisocytosis 1+ H Sodium 132 L Potassium 3.2 L 3.4 3.2 L Chloride 113 H Carbon Dioxide 18 L BUN 14 Creatinine 0.46 L Estimated GFR > 60 BUN/Creatinine Ratio 30.4 H Glucose 78 Calcium 7.7 L Magnesium 1.6 1.8 1.6 Total Bilirubin 4.2 H AST 39 ALT 115 H Alkaline Phosphatase 144 H Ammonia Total Protein 4.0 L Albumin 1.6 L Globulin 2.4 Albumin/Globulin Ratio 0.7 L Vancomycin Trough 13.9 05/30/24 11:40 WBC RBC Hgb Hct MCV MCH MCHC RDW Plt Count Neut % (Auto) Lymph % (Auto) [place] % (Auto) Eos % (Auto) Baso % (Auto) Lymph # (Auto) [place] # (Auto) Baso # (Auto) Total Counted Seg Neutrophils % Lymphocytes % (Manual) Monocytes % (Manual) Neutrophils # (Manual) RBC Morphology Polychromasia Anisocytosis Sodium Potassium Chloride Carbon Dioxide BUN Creatinine Estimated GFR BUN/Creatinine Ratio Glucose Calcium Magnesium Total Bilirubin AST ALT Alkaline Phosphatase Ammonia < 9 L Total Protein Albumin Globulin Albumin/Globulin Ratio Vancomycin Trough [facility] Social History household members: family Smoking Status: Current every day smoker alcohol intake: current Assessment & Plan Assessment & Plan narrative: 1. Alcohol dependence, complicated by withdrawal Continues on the CIWA protocol. Remains on a Precedex drip to control his withdrawal and agitation; continue to wean as tolerated. Continues multivitamin, folate, thiamine. 2. Suspected upper GI bleed This was felt to be possibly related to NSAID use and alcohol. There is no evidence for GI bleed at this time. Will continue PPI. No need for EGD at this point, especially given his active alcohol withdrawal and concern for worsening infection in his knee 3. Sepsis with acute metabolic encephalopathy, Elevated bilirubin, acute respiratory failure with hypoxia, and thrombocytopenia due to Left knee septic prepatellar bursitis and cellulitis He remains on Rocephin and vancomycin. Will narrow once cultures finalize from pre-patellar bursa I&D on 05/29. Non-weight bearing for therapy purposes, once able to start working with therapy. encephalopathy improving, complicated by withdrawal as well. 4. Anemia Hgb stable in the 9s today. 5. Thrombocytopenia Platelet count is down from 127 to 50. Likely in part due to underlying alcoholic liver disease and also related to his active infection/sepsis. Will continue to follow closely. 6. Alcoholic hepatitis vs cirrhosis. INR was 1.8 on admission. 1.6 yesterday. 1.4 today. Secondary to alcoholic liver disease. DF on admit was 46.2, Repeat today was improved at 24. Will continue to monitor INR and Bilirubin but with normal DF today, admission with above probable sepsis, will not treat with steroids. Will obtain RUQ ultrasound once able to assess if cirrhosis is present to explain persistently high bilirubin. 7. Hypokalemia Persistent. Will continue to replete IV. Continue to monitor. 8. Hyponatremia Improved today at 134. Will monitor. Code status Full Prophylaxis Will use mechanical prophylaxis with SCDs Disposition Intensive care unit until off of precedex infusion. I spent 35 minutes providing critical care management this patient. This excludes time spent in performing separately billed procedures. Time-Based Coding :: [TOTAL MINUTES] spent with patient and on the chart (including review of chart, obtaining history, exam, reviewing outside data, placing orders, documenting exam and treatment plan, and counseling patient) on [DATE]. Quality VTE Deep Vein Thrombosis/Pulmonary Embolism Present on Admission: No
[2024-05-30] MEDS: cefTRIAXone 2,000 MG in SODIUM CHLORIDE 0.9% 100 ML 200 MG IV (14:42)
--- NOTE | 2024-05-30 16:09 | PM.CN ---
History of Present Illness Consult details Date Patient Seen: 05/30/24 Time Patient Seen: 15:30 Chief complaint: alcohol withdrawal Narrative: The patient is a 53-year-old male who was recently admitted to the hospital with alcohol withdrawal, upper GI bleeding, and red painful swollen left knee. He was found to have septic pre patellar burst sinus and underwent I&D yesterday. The wound was partially closed and a portion was packed open with Iodoform gauze. Cultures have grown Staphylococcus aureus. The patient was very somnolent at the time of my exam and was unable to give any history. Review of laboratory results revealed significant leukocytosis however he is afebrile. Meds Home Medications and Allergies Home Medications Medication Instructions Recorded Confirmed Type acetaminophen 325 mg tablet 650 mg PO PRN PRN Pain (Scale 05/26/24 05/26/24 History Score 1-3) duloxetine 60 mg capsule,delayed 60 mg PO DAILY 05/26/24 05/26/24 History release naproxen 250 mg tablet 250 mg PO BID 05/26/24 05/26/24 History Allergies Allergy/AdvReac Type Severity Reaction Status Date / Time No Known Drug Allergies Allergy Verified 05/26/24 15:03 Review of Systems Review of Systems Narrative: Unable to obtain Exam Vital Signs (past 8 hours): - 05/30/24 08:30 05/30/24 08:30 05/30/24 09:00 Pulse Rate 75 Respiratory Rate 15 Blood Pressure 100/63 104/67 Pulse Oximetry 100 05/30/24 09:00 05/30/24 09:30 05/30/24 09:30 Pulse Rate 90 82 Respiratory Rate 19 18 Blood Pressure 110/69 Pulse Oximetry 100 94 05/30/24 10:00 05/30/24 10:00 05/30/24 10:30 Pulse Rate 86 80 Respiratory Rate 17 2 L Blood Pressure 113/74 Pulse Oximetry 100 98 05/30/24 10:30 05/30/24 11:00 05/30/24 11:00 Pulse Rate 77 Respiratory Rate 16 Blood Pressure 107/68 104/63 Pulse Oximetry 89 L 05/30/24 11:30 05/30/24 11:30 05/30/24 12:00 Pulse Rate 84 Respiratory Rate 17 Blood Pressure 110/73 107/59 L Pulse Oximetry 99 05/30/24 12:00 05/30/24 12:30 05/30/24 12:30 Pulse Rate 74 72 Respiratory Rate 16 16 Blood Pressure 105/65 Pulse Oximetry 98 98 Oxygen Delivery Method Room Air Oxygen Flow Rate 0 Const Other: The patient is a well-developed well-nourished male who is very somnolent and difficult to arouse Skin Other: Incision over the anterior aspect of the left knee with an open area packed with Iodoform gauze. There are intact nylon sutures proximal and distal to the open area. There is some mild surrounding erythema and swelling of the left knee. Objective Labs 05/30/24 06:30 05/30/24 06:30 Labs: Laboratory Results - last 24 hr 05/29/24 05/30/24 05/30/24 21:00 06:30 11:40 WBC 23.4 H RBC 2.92 L Hgb 9.8 L Hct 29.2 L MCV 99.9 MCH 33.5 MCHC 33.5 RDW 16.0 H Plt Count 50 L Neut % (Auto) Not Reportable Lymph % (Auto) Not Reportable [place] % (Auto) Not Reportable Eos % (Auto) Not Reportable Baso % (Auto) Not Reportable Lymph # (Auto) Not Reportable [place] # (Auto) Not Reportable Baso # (Auto) Not Reportable Total Counted 100 Seg Neutrophils % 88.0 H Lymphocytes % (Manual) 6.0 L Monocytes % (Manual) 6.0 Neutrophils # (Manual) 33509 H RBC Morphology See below Polychromasia 1+ H Anisocytosis 1+ H Sodium 132 L Potassium 3.4 3.2 L Chloride 113 H Carbon Dioxide 18 L BUN 14 Creatinine 0.46 L Estimated GFR > 60 BUN/Creatinine Ratio 30.4 H Glucose 78 Calcium 7.7 L Magnesium 1.8 1.6 Total Bilirubin 4.2 H AST 39 ALT 115 H Alkaline Phosphatase 144 H Ammonia < 9 L Total Protein 4.0 L Albumin 1.6 L Globulin 2.4 Albumin/Globulin Ratio 0.7 L Vancomycin Trough 13.9 PFSH Social History household members: family Tobacco & Substance Use Smoking Status: Current every day smoker alcohol intake: current Assessment & Plan Assessment and plan (1) Prepatellar bursitis: Qualifiers: Laterality: left Qualified Code(s): M70.42 - Prepatellar bursitis, left knee Status: Acute (2) Unspecified open wound, left knee, initial encounter: Status: Acute Plan Continue antibiotic therapy, start daily dressing changes with 1/2 inch iodoform gauze and apply ABD pad over the incision, secure with Gurinder wrap. Follow up at wound center after discharge. Time-Based Coding :: [ 45 MINUTES] spent with patient and on the chart (including review of chart, obtaining history, exam, reviewing outside data, placing orders, documenting exam and treatment plan, and counseling patient) on [05/30/24].
[2024-05-30] MEDS: VANCOMYCIN 1,000 MG/200 ML PIGGYBACK 200 MG IV ×2 (16:30→23:53)
[2024-05-30] MEDS: dexmedeTOMIDine in 0.9 % NaCL 400 MCG/100 ML PLAST..BAG 10.65 MCG IV (18:00)
[2024-05-31] VITALS (45 sets, daily range): BP systolic 80–116; BP diastolic 51–74; PULSE 76–107; RESP 5–36; TEMP 36.3–37.2; O2SAT 91–99
[2024-05-31] MEDS: LORazepam 2 MG/ML INJ IV (00:47)
[2024-05-31] MEDS: dexmedeTOMIDine in 0.9 % NaCL 400 MCG/100 ML PLAST..BAG 8.875 MCG IV (02:21)
[2024-05-31 05:19] LABS: Alanine Aminotransferase 91 IU/L (<50); Albumin 1.5 g/dL (3.5-5.0); Albumin Globulin Ratio 0.6 (1.0-2.8); Alkaline Phosphatase 158 U/L (38-126); Aspartate Aminotransferase 35 IU/L (17-59); BUN Creatinine Ratio 23.4 (6-22); Bilirubin Total 3.5 mg/dL (0.2-1.3); Blood Urea Nitrogen 11 mg/dL (9-20); Calcium 7.6 mg/dL (8.4-10.2); Carbon Dioxide 18 mmol/L (22-32); Chloride 111 mmol/L (98-107); Estimated Glomerular Filt Rate > 60 mL/min (>60); Globulin 2.4 g/dL (1.7-4.1); Glucose 91 mg/dL (70-100); HEMOLYSIS < 15 (0-50); Magnesium 1.4 mg/dL (1.6-2.3); Potassium 3.1 mmol/L (3.4-5.1); Sodium 131 mmol/L (137-145); Total Protein 3.9 g/dL (6.3-8.2)
[2024-05-31 05:22] LABS: Add Manual Diff / Slide Review NO; Basophils Absolute Auto 100 /uL (0-100); Basophils Percent Auto 0.4 % (0-2); Eosinophils Absolute Auto 100 /uL (0-450); Eosinophils Percent Auto 0.3 % (2-4); Hematocrit 25.4 % (41-53); Hemoglobin 8.6 g/dL (13.5-17.5); Lymphocytes Absolute Auto 2300 /uL (1100-4500); Lymphocytes Percent Auto 9.8 % (25-40); Mean Corpuscular HGB Conc 33.7 % (30-36); Mean Corpuscular Hemoglobin 33.7 PG (26-34); Mean Corpuscular Volume 99.9 fL (80-100); Monocytes Absolute Auto 700 /uL (0-900); Neutrophils Absolute Auto 20100 /uL (1500-7000); Neutrophils Percent Auto 86.5 % (50-75); Platelet Count 46 X10^3/uL (150-400); Red Blood Cell Count 2.55 X10^6/uL (4.5-5.9); Red Cell Distribution Width 16.4 % (11.6-14.8); White Blood Cell Count 23.3 X10^3/uL (4.5-11.0)
--- NOTE | 2024-05-31 06:43 | PM.PNPO.1 ---
Subjective Subjective Date Patient Seen: 05/31/24 Time Patient Seen: 06:15 Interval history: Alcohol dependence, on Precedex drip d/t symptomatic withdrawal. Left prepatellar septic bursitis, currently receiving ceftriaxone and vancomycin. Patient is found awake this morning with nurse. He is able to answer direct questions with yes or no. Nurse states there has been no nausea or vomiting throughout the evening. Patient declines any fever or chills Exam Vital Signs (past 8 hours): - 05/30/24 23:00 05/30/24 23:00 05/30/24 23:30 Temperature Pulse Rate 77 Respiratory Rate 17 Blood Pressure 109/78 107/72 Pulse Oximetry 98 Oxygen Delivery Method Oxygen Flow Rate 0 05/30/24 23:30 05/31/24 00:00 05/31/24 00:00 Temperature 97.4 F L Pulse Rate 75 76 Respiratory Rate 5 L 15 Blood Pressure 116/74 Pulse Oximetry 99 99 Oxygen Delivery Method Room Air Oxygen Flow Rate 0 05/31/24 00:01 05/31/24 00:30 05/31/24 00:30 Temperature Pulse Rate 90 Respiratory Rate 24 Blood Pressure 116/74 100/62 Pulse Oximetry 98 Oxygen Delivery Method Oxygen Flow Rate 05/31/24 01:00 05/31/24 01:00 05/31/24 01:20 Temperature Pulse Rate 90 85 Respiratory Rate 5 L 19 Blood Pressure 101/68 101/68 Pulse Oximetry 98 Oxygen Delivery Method Oxygen Flow Rate 05/31/24 01:30 05/31/24 01:30 05/31/24 02:00 Temperature Pulse Rate 83 Respiratory Rate 15 Blood Pressure 105/65 105/62 Pulse Oximetry 98 Oxygen Delivery Method Oxygen Flow Rate 05/31/24 02:00 05/31/24 02:30 05/31/24 02:30 Temperature Pulse Rate 84 83 Respiratory Rate 18 18 Blood Pressure 110/68 Pulse Oximetry 98 98 Oxygen Delivery Method Oxygen Flow Rate 0 05/31/24 03:00 05/31/24 03:00 05/31/24 03:30 Temperature Pulse Rate 79 Respiratory Rate 16 Blood Pressure 106/65 101/62 Pulse Oximetry 98 Oxygen Delivery Method Oxygen Flow Rate 05/31/24 03:30 05/31/24 04:00 05/31/24 04:00 Temperature 98.7 F Pulse Rate 76 79 Respiratory Rate 16 16 Blood Pressure Pulse Oximetry 97 96 Oxygen Delivery Method Room Air Oxygen Flow Rate 0 05/31/24 04:00 05/31/24 04:32 05/31/24 04:32 Temperature Pulse Rate 83 Respiratory Rate 17 Blood Pressure 92/66 108/71 Pulse Oximetry 95 Oxygen Delivery Method Oxygen Flow Rate 05/31/24 05:00 05/31/24 05:00 Temperature Pulse Rate 81 Respiratory Rate 18 Blood Pressure 104/64 Pulse Oximetry 95 Oxygen Delivery Method Oxygen Flow Rate 0 Oxygen Delivery Method Room Air Oxygen Flow Rate 0 Narrative Exam Narrative: Dressing of the right knee is clean dry and intact. Patient is able to dorsi flex and plantar flex against resistance upon command. Sensation grossly intact to light touch of the exposed extremity. Left foot is edematous but no ecchymosis noted. Pedal pulses intact. SCDs on bilaterally. Objective Labs 05/31/24 05:00 05/31/24 05:00 Labs: Laboratory Results - last 24 hr 05/30/24 05/30/24 05/31/24 06:30 11:40 05:00 WBC 23.4 H 23.3 H RBC 2.92 L 2.55 L Hgb 9.8 L 8.6 L Hct 29.2 L 25.4 L MCV 99.9 99.9 MCH 33.5 33.7 MCHC 33.5 33.7 RDW 16.0 H 16.4 H Plt Count 50 L 46 L Neut % (Auto) Not Reportable 86.5 H Lymph % (Auto) Not Reportable 9.8 L [place] % (Auto) Not Reportable 3.0 Eos % (Auto) Not Reportable 0.3 L Baso % (Auto) Not Reportable 0.4 Neut # (Auto) 15976 H Lymph # (Auto) Not Reportable 2300 [place] # (Auto) Not Reportable 700 Eos # (Auto) 100 Baso # (Auto) Not Reportable 100 Total Counted 100 Seg Neutrophils % 88.0 H Lymphocytes % (Manual) 6.0 L Monocytes % (Manual) 6.0 Neutrophils # (Manual) 98399 H RBC Morphology See below Polychromasia 1+ H Anisocytosis 1+ H Sodium 132 L 131 L Potassium 3.2 L 3.1 L Chloride 113 H 111 H Carbon Dioxide 18 L 18 L BUN 14 11 Creatinine 0.46 L 0.47 L Estimated GFR > 60 > 60 BUN/Creatinine Ratio 30.4 H 23.4 H Glucose 78 91 Calcium 7.7 L 7.6 L Magnesium 1.6 1.4 L Total Bilirubin 4.2 H 3.5 H AST 39 35 ALT 115 H 91 H Alkaline Phosphatase 144 H 158 H Ammonia < 9 L Total Protein 4.0 L 3.9 L Albumin 1.6 L 1.5 L Globulin 2.4 2.4 Albumin/Globulin Ratio 0.7 L 0.6 L Vancomycin Trough 13.9 PFSH Social History household members: family Smoking Status: Current every day smoker alcohol intake: current Assessment & Plan Post-op Postoperative Procedures: Procedures Operation Date: 05/27/24 17:00 <No data on this case meets the specified criteria> Operation Date: 05/29/24 09:00 Actual Procedure Side Surgeon p Incision and Drainage left knee Everette Crum MD Postoperative day: 2 Postoperative status: doing well Postoperative plan: routine post-op care Postoperative plan narrative: 1) Cultures preliminarily Staph aureus, sensitivities pending. 2) WBAT, avoid knee flexion to protect wound. Consider knee immobilizer when pt ambulating. 3) Dressings currently managed by Wound Care: start daily dressing changes with 1/2 inch iodoform gauze and apply ABD pad over the incision, secure with Gurinder wrap. Follow up at wound center after discharge. 4) Abx, pain control, disposition per hospitalist service. Time Spent With Patient Time with patient: less than 15 minutes Quality VTE Deep Vein Thrombosis/Pulmonary Embolism Present on Admission: No
--- NOTE | 2024-05-31 08:35 | PT.IIE ---
Current Diagnoses Prepatellar bursitis, left knee (05/26/24) Unspecified open wound, left knee, initial encounter (05/26/24) Surgery Performed Operation Date: 05/27/24 17:00 <No data on this case meets the specified criteria> Operation Date: 05/29/24 09:00 Actual Procedures p Incision and Drainage left knee - Everette Crum MD Physical Therapy Inpatient Evaluation/Re-Eval M1 PT/OT-IP Prior Functional Status Start: 05/29/24 10:54 Freq: NEEDED Status: Active Protocol: Document 05/31/24 07:57 MB (Rec: 05/31/24 08:34 MB [id number]) Medical Review Prior Functional Status Medical History Reviewed Yes Communication Unsure baseline diet and communication Mobility and Gait Pt reports he uses his cane, per chart, he has had falls Activities of Daily Living and IADL's Pt reports I with ADLs, lives with sister and that he retired at age 38 y/o ( ) Social History Household Members family Living Arrangements House Number of Floors (Floors) One Floor Number of Stairs To Enter/Railing? 1 step with right rail to enter Home Environment Standard Height Toilet,Walk in Shower,Built-In Shower Seat Home Equipment Straight Cane,Hand Held Shower ,Grab Bars Near Toilet,Grab Bars In Shower Employment Status Retired Additional Social History Comment Unsure if all of history is currect given pt mentation today M2 PT-IP Current Condition Start: 05/29/24 10:54 Freq: NEEDED Status: Active Protocol: Document 05/31/24 07:57 MB (Rec: 05/31/24 08:34 MB [id number]) Physical Therapy Current Condition Current Condition Evaluation Date 05/31/24 Treatment Diagnosis Fall, left prepatellar bursa infected s/p I&D, alcohol withdrawal M3 PT-IP Subjective Start: 05/29/24 10:54 Freq: NEEDED Status: Active Protocol: Document 05/31/24 07:57 MB (Rec: 05/31/24 08:34 MB [id number]) Subjective Physical Therapy Visit Type Type Initial Evaluation Visit Start Time 07:57 Visit Stop Time 08:15 Number of [employer]ENT Visits 0 Physical Therapy Visit Comments Patient Comments Pt answers questions when asked but does not make spontaneous conversation. Therapy Pain Assessment Pain When Pain Assessed At Rest Pain Present Pain Present Pain Reported Location LLE Intensity 2 Scale Used [place] (Faces) M4 PT-IP Mobility and Gait Start: 05/29/24 10:54 Freq: NEEDED Status: Active Protocol: Document 05/31/24 07:57 MB (Rec: 05/31/24 08:34 MB [id number]) PT-Bed Mobility Assessment Supine to Sit Supine to Sit 2 Person Assistance,Head of Bed Elevated,Bedrails Sit to Supine Sit to Supine Total Assistance,2 Person Assistance Scooting Scooting to Edge of Bed Maximum Assistance Scooting Up and Down in Bed Dependent PT-Transfer Assessment Comments Mobility Comments Sitting EOB only today to observe pt's response to mobility and PT and nsg work togehter. Pt has eyes closed and opened during treatment with eyes rolled upwards. Globalized edema worst in scrotum and LLE and PT places rolled towel for scrotal elevation in hook lying after treatment. Pt presents with severe JULIAN with sitting EOB and HR increases from 98-112 BPM with sitting. O2 sats difficult to get given using right hand for balance and left hand is swollen and left UE with many lines. PT supports left leg in extension for duration of bed mobility and sitting, though leg cannot reach full extension and rests in 20 deg flexion. PT does not allow leg to flex further. Ortho note different from ortho orders and did not obtain knee immobilizer d/t edema and not standing with pt today. Returned to supine and HR decreases to the high 90s and breathing becomes less labored. PT-Balance Assessment Sitting Balance and Reactions Static Sitting Balance Ability Poor Dynamic Sitting Balance Ability Poor M5 PT-IP Objective Assessments Start: 05/29/24 10:54 Freq: NEEDED Status: Active Protocol: Document 05/31/24 07:57 MB (Rec: 05/31/24 08:34 MB [id number]) Orientation Orientation/Cognition Level of Alertness Lethargic Orientation Name,Birthday,Month,Year,Place Safety Awareness Decreased Safety Awareness Comments Pt answers most questions Gross Range of Motion Upper Extremity ROM Impairments NT today, recommend OT consult Lower Extremity ROM Assessment Bilaterally Impaired Impairments Limited range BLEs and high edema LLE with tourniquet type dressing and no active movement in left ankle or toes , hip or knee Strength Lower Extremity Strength Assessment Bilaterally Impaired Comments Strength Comments R ankle DF in limited range 4/ 5 and great toe extension 4-/5 . Minimal HS right LE in supine Coordination Assessment Gross Coordination Gross Coordination Impaired Sensation Assessment Comments Sensation Comments Pt does not follow sensory cues Other Assessments Other Other Assessments High edema M6 PT-IP Treatment Start: 05/29/24 10:54 Freq: NEEDED Status: Active Protocol: Document 05/31/24 07:57 MB (Rec: 05/31/24 08:34 MB [id number]) Physical Therapy Treatment Exercises Exercises Ankle Pumps Education Education Provided Safety M7 PT-IP Assessment and Plan Start: 05/29/24 10:54 Freq: NEEDED Status: Active Protocol: Document 05/31/24 07:57 MB (Rec: 05/31/24 08:34 MB [id number]) PT Summary Assessment and Plan Potential Rehabilitation Potential Fair Status of Condition at Evaluation Unstable Summary Impairments Pain,ROM,Strength,Balance, Coordination,Sensation,Tone, Cognition,Bed Mobility, Transfers,Gait,Activity Tolerance Progress Towards Goals Slow Progress due to Activity Tolerance Assessment Summary Pt is a 53 y/o male presenting with edema, confusion, decreased left LE ROM and strength greater than right s/ p falls and going through alcohol withdrawal. Recent ortho note does not match WB order in chart and nsg to call and PT writes this note and leaves message in EMR. Pt is only appropriate for sitting EOB today and so this did not affect PT assessment. PT protects LLE throughout mobility. Pt is lethargic and partially oriented and does make effort to assist with bed mobility and sitting balance. He is very JULIAN with sitting and his HR increases. Pulse ox for O2 is challenging given edema L hand and using right hand for balance. Anticipate better mobility as he improves medically. Goals Bed Mobility Goal Independent Transfer Goal Standby Assistance,Cane Gait Goal Standby Assistance,Cane Gait Distance 100 Other Goals Pt will ascend and descend 1 step with right rail ascend and cane with no more than SBA to allow safe home entrance. Days to Meet Goals 10 Frequency of Treatment Frequency Of Treatment Once a Day Treatment Plan Physical Therapy Treatment Plan Bed Mobility Training,Transfer Training,Gait Training, Therapeutic Exercise,Balance Retraining,Post Op Education, Discharge Planning,Hot or Cold Pack,Neuromuscular Re-ed, Coordination Retraining,Manual Therapy Precautions Other Precautions Awaiting clarification Weight Bearing Status Allowed Weight Bearing Amount (enter % 10/15/24 Order still NWB, left or #) (%) note for ortho and nursing to call, may be advanced to WBAT with knee immobilizer. Immobilizer not donned in bed, pt with high edema, steffany in scrotum Recommendations To Nursing Amount of Assist Needed Mechanical Lift Discharge Recommendations PT Discharge Recommendations SNF Rehab Transportation Needs at Discharge Private Vehicle,Wheelchair/ Cabulance
[2024-05-31] MEDS: VANCOMYCIN 1,000 MG/200 ML PIGGYBACK 200 MG IV ×2 (08:41→16:23)
[2024-05-31] MEDS: PANTOPRAZOLE 40 MG VIAL IV ×2 (08:41→21:06)
[2024-05-31] MEDS: SODIUM CHLORIDE 0.9% FLUSH 10 ML IV ×2 (08:45→21:07)
--- NOTE | 2024-05-31 09:36 | DI.RAD.S_ITS ---
PROCEDURE: XR CHEST 1V INDICATIONS: shortness of breath TECHNIQUE: One view of the chest was acquired. COMPARISON: [facility], CR, XR CHEST FOR PICC 1V, 05/26/2024, 16:42. FINDINGS: Surgical changes and devices: Interval removal of right upper extremity PICC line. Lungs and pleura: Low lung volumes bilaterally. Hazy density within both lung bases likely atelectasis. Small bilateral pleural effusions. No evidence of pneumothorax. Mediastinum: Mediastinal contours appear normal. Heart size is normal. Bones and chest wall: No suspicious bony lesions. Overlying soft tissues appear unremarkable. Visualized portions of the upper abdomen demonstrate dilated air-filled loops of small bowel. IMPRESSION: 1. Small bilateral pleural effusions with bibasilar atelectasis. 2. Partially imaged dilated air-filled loops of small bowel possibly related to adynamic ileus versus small bowel obstruction. Dedicated imaging of the abdomen is recommended based on clinical condition. Dictated by: Iker Olson M.D. on 05/31/2024 at 10:39 Approved by: Iker Olson M.D. on 05/31/2024 at 10:41
[2024-05-31] MEDS: FUROSEMIDE 20 MG/2 ML VIAL IV (10:10)
--- NOTE | 2024-05-31 10:17 | DIET.CONS ---
Dietary Consultation Note Admission Date: 05/26/2024 11:28 Assessment: 53 y M admitted for alcohol withdrawal. RD screened for LOS. EMR reviewed. Pt ate yogurt this morning and diet is advancing to full liquids for lunch. Had I&D of left knee. Ht: 172.72 cm Wt: 78.4 kg BMI: 26.3 UBW: No weight hx Last BM: 05/26/24 (05/29/24 09:16) MNA: 14 Stephen Score: 13 Diet: 05/26/24 12:21 NPO Diet Diet Modifications: NPO Type: NPO except for Ice Chips 05/31/24 Lunch Full Liquid Diet Diet Modifications: Nutrition Percent Meal Consumed had yogurt 05/31/24 09:56 Labs: RBC 2.55 X10^6/uL (4.5-5.9) L 05/31/24 05:00 Hgb 8.6 g/dL (13.5-17.5) L 05/31/24 05:00 Hct 25.4 % (41-53) L 05/31/24 05:00 Creatinine 0.47 mg/dL (0.66-1.25) L 05/31/24 05:00 Lactate 2.5 mmol/L (0.7-2.1) H 05/26/24 15:40 Nutrition Diagnosis: Inadequate oral intake r/t alcohol withdrawal aeb pt NPO for 5 days, diet advancing today Interventions: -ONS BID while on full liquids Monitoring/Evaluations: Monitor po intakes as diet advances. Electronically Signed by: Christie Lainez 05/31/24 10:17 Clinical Dietitian [address] [id number]
[2024-05-31] MEDS: POTASSIUM CHLORIDE 20 MEQ TAB 40 MEQ PO (10:38)
[2024-05-31] MEDS: FOLIC ACID 1 MG TABLET PO (12:04)
[2024-05-31] MEDS: THIAMINE 100 MG TABLET PO (12:04)
[2024-05-31] MEDS: MAGNESIUM SULFATE 4 GM/100 ML PIGGYBACK IV (12:04)
--- NOTE | 2024-05-31 13:41 | OT.IPNOTE ---
Spoke to nursing regarding attempts for OT eval. At this time pt falling asleep, and very tired from session with PT earlier. Pt not alert for OT eval. To check on pt tomorrow.
--- NOTE | 2024-05-31 14:01 | CM.DPNOTE ---
DCP Cont Reviewed chart. Patient discussed in multidisciplinary rounds. According to Dr Nixon, patient remains on precedex and is still quite lethargic/confused. RN Coordinator reports patient is homeless. Lives on his sister's property in [place] at times. TC from [facility], states they do not take patient's [facility] insurance. Once patient can participate in care and in conversation about dispo plan; need to discuss how to get patient access to recommended outpatient follow up ie wound care. CM team following clinical course closely. JW
--- NOTE | 2024-05-31 14:18 | PM.PN.1 ---
Subjective Subjective Interval history: 53-year-old male with alcohol dependence, alcohol withdrawal, acute on chronic, left knee cellulitis with septic bursitis. Remains on precedex today, still seems confused though alert and oriented to name, month, year and location. He has no complaints a this time. He does appear a bit more short of breath with minimal activity, has leg swelling and scrotal edema. Given lasix 20 mg with improvement though BP dropped slightly. Exam Vital Signs (past 8 hours): - 05/31/24 06:30 05/31/24 06:30 05/31/24 07:00 Temperature Pulse Rate 87 Respiratory Rate 21 Blood Pressure 100/62 101/63 Pulse Oximetry 96 Oxygen Flow Rate 05/31/24 07:00 05/31/24 07:30 05/31/24 07:30 Temperature Pulse Rate 90 95 H Respiratory Rate 23 26 H Blood Pressure 96/60 Pulse Oximetry 97 97 Oxygen Flow Rate 0 05/31/24 08:00 05/31/24 08:00 05/31/24 08:30 Temperature Pulse Rate 101 H 96 H Respiratory Rate 29 H 26 H Blood Pressure 97/54 L Pulse Oximetry 97 97 Oxygen Flow Rate 05/31/24 08:30 05/31/24 09:00 05/31/24 09:00 Temperature Pulse Rate 91 H Respiratory Rate 24 Blood Pressure 93/59 L 105/62 Pulse Oximetry 98 Oxygen Flow Rate 05/31/24 09:30 05/31/24 09:30 05/31/24 09:45 Temperature 98.8 F Pulse Rate 93 H Respiratory Rate 29 H Blood Pressure 86/51 L Pulse Oximetry Oxygen Flow Rate 05/31/24 09:47 05/31/24 09:47 05/31/24 10:00 Temperature Pulse Rate 91 H 82 Respiratory Rate 23 19 Blood Pressure 89/55 L Pulse Oximetry 98 98 Oxygen Flow Rate 05/31/24 10:00 05/31/24 10:30 05/31/24 10:30 Temperature Pulse Rate 84 Respiratory Rate 17 Blood Pressure 92/56 L 86/52 L Pulse Oximetry 97 Oxygen Flow Rate 05/31/24 11:00 05/31/24 11:00 05/31/24 11:30 Temperature Pulse Rate 84 82 Respiratory Rate 19 17 Blood Pressure 80/55 L Pulse Oximetry 97 96 Oxygen Flow Rate 05/31/24 11:30 05/31/24 12:00 05/31/24 12:00 Temperature Pulse Rate 83 Respiratory Rate 17 Blood Pressure 81/55 L 94/55 L Pulse Oximetry 96 Oxygen Flow Rate 05/31/24 12:30 05/31/24 12:30 05/31/24 13:00 Temperature Pulse Rate 91 H 87 Respiratory Rate 24 21 Blood Pressure 92/56 L Pulse Oximetry 93 97 Oxygen Flow Rate 05/31/24 13:00 05/31/24 13:00 05/31/24 13:30 Temperature 98.7 F Pulse Rate 94 H Respiratory Rate 24 Blood Pressure 95/57 L Pulse Oximetry 91 Oxygen Flow Rate 05/31/24 13:30 05/31/24 14:00 05/31/24 14:00 Temperature Pulse Rate 84 Respiratory Rate 18 Blood Pressure 97/68 82/52 L Pulse Oximetry 96 Oxygen Flow Rate Oxygen Delivery Method Room Air Oxygen Flow Rate 0 Narrative Exam Narrative: GEN: Ill-appearing middle-aged male, alert, follows commands HEENT:NC, Face symmetric CHEST: Respiratory excursions symmetric, CTAB CV: RRR, no M/R/G ABD: Soft, NT/ND, BT present in all 4 quadrants EXTR: warm, well perfused, b/l LE edema, scrotal edema. SKIN: warm and dry, no rash NEURO: Somnolent, oriented to self, month and year (not day), and location. minimal tongue fasciculations. slight increase in tremors. Objective Labs 05/31/24 05:00 05/31/24 05:00 Labs: Laboratory Results - last 24 hr 05/31/24 05:00 WBC 23.3 H RBC 2.55 L Hgb 8.6 L Hct 25.4 L MCV 99.9 MCH 33.7 MCHC 33.7 RDW 16.4 H Plt Count 46 L Neut % (Auto) 86.5 H Lymph % (Auto) 9.8 L [place] % (Auto) 3.0 Eos % (Auto) 0.3 L Baso % (Auto) 0.4 Neut # (Auto) 59648 H Lymph # (Auto) 2300 [place] # (Auto) 700 Eos # (Auto) 100 Baso # (Auto) 100 Sodium 131 L Potassium 3.1 L Chloride 111 H Carbon Dioxide 18 L BUN 11 Creatinine 0.47 L Estimated GFR > 60 BUN/Creatinine Ratio 23.4 H Glucose 91 Calcium 7.6 L Magnesium 1.4 L Total Bilirubin 3.5 H AST 35 ALT 91 H Alkaline Phosphatase 158 H Total Protein 3.9 L Albumin 1.5 L Globulin 2.4 Albumin/Globulin Ratio 0.6 L [facility] Social History household members: family Smoking Status: Current every day smoker alcohol intake: current Assessment & Plan Assessment & Plan narrative: 1. Alcohol dependence, complicated by withdrawal Continues on the CIWA protocol. Remains on a Precedex drip to control his withdrawal and agitation; continue to wean as tolerated. Continues multivitamin, folate, thiamine. Start librium 25 mg TID to try and wean from precedex now that he is able to tolerate some oral intake. 2. Suspected upper GI bleed This was felt to be possibly related to NSAID use and alcohol. There is no evidence for GI bleed at this time. Will continue PPI. No need for EGD at this point, especially given his active alcohol withdrawal and concern for worsening infection in his knee 3. Sepsis with acute metabolic encephalopathy, Elevated bilirubin, acute respiratory failure with hypoxia, and thrombocytopenia due to Left knee septic prepatellar bursitis and cellulitis He remains on Rocephin and vancomycin. Will narrow once cultures finalize from pre-patellar bursa I&D on 05/29. Non-weight bearing for therapy purposes, once able to start working with therapy. encephalopathy improving, complicated by withdrawal as well. -abdominal distension / ileus on CXR today, clinically well appearing with no nausea/vomiting or distension. Will monitor. 4. Anemia Hgb stable. 5. Thrombocytopenia Platelet count is down from 127 to 50. Likely in part due to underlying alcoholic liver disease and also related to his active infection/sepsis. Will continue to follow closely. 6. Alcoholic hepatitis vs cirrhosis. INR was 1.8 on admission. Slight improvement since. Secondary to alcoholic liver disease. DF on admit was 46.2, Repeat was improved at 24. Will continue to monitor INR and Bilirubin but with improved DF, admission with above probable sepsis, will not treat with steroids. -nonurgent RUQ ultrasound to assess liver and spleen for cirrhosis. 7. Hypokalemia Persistent. Will continue to replete IV. Continue to monitor. 8. Hyponatremia Improved today at 134. Will monitor. Code status Full Prophylaxis Will use mechanical prophylaxis with SCDs Disposition Intensive care unit until off of precedex infusion. I spent 35 minutes providing critical care management this patient. This excludes time spent in performing separately billed procedures. Time-Based Coding :: [TOTAL MINUTES] spent with patient and on the chart (including review of chart, obtaining history, exam, reviewing outside data, placing orders, documenting exam and treatment plan, and counseling patient) on [DATE]. Quality VTE Deep Vein Thrombosis/Pulmonary Embolism Present on Admission: No
[2024-05-31] MEDS: cefTRIAXone 2,000 MG in SODIUM CHLORIDE 0.9% 100 ML 200 MG IV (15:04)
[2024-05-31] MEDS: chlordiazePOXIDE 25 MG CAPSULE PO ×2 (15:04→21:06)
[2024-05-31] MEDS: dexmedeTOMIDine in 0.9 % NaCL 400 MCG/100 ML PLAST..BAG 5.325 MCG IV (18:51)
[2024-06-01] VITALS (34 sets, daily range): BP systolic 78–110; BP diastolic 50–72; PULSE 72–120; RESP 7–27; TEMP 36.6–37.2; O2SAT 94–100
[2024-06-01] MEDS: VANCOMYCIN 1,000 MG/200 ML PIGGYBACK 200 MG IV ×3 (01:14→15:30)
[2024-06-01 05:39] LABS: Add Manual Diff / Slide Review NO; Basophils Absolute Auto 0 /uL (0-100); Basophils Percent Auto 0.1 % (0-2); Eosinophils Absolute Auto 100 /uL (0-450); Eosinophils Percent Auto 0.3 % (2-4); Hematocrit 24.5 % (41-53); Hemoglobin 8.4 g/dL (13.5-17.5); Lymphocytes Absolute Auto 2100 /uL (1100-4500); Lymphocytes Percent Auto 11.5 % (25-40); Mean Corpuscular HGB Conc 34.2 % (30-36); Mean Corpuscular Hemoglobin 34.2 PG (26-34); Mean Corpuscular Volume 99.9 fL (80-100); Monocytes Absolute Auto 600 /uL (0-900); Monocytes Percent Auto 3.2 % (3-14); Neutrophils Absolute Auto 15700 /uL (1500-7000); Neutrophils Percent Auto 84.9 % (50-75); Platelet Count 50 X10^3/uL (150-400); Red Blood Cell Count 2.46 X10^6/uL (4.5-5.9); Red Cell Distribution Width 16.1 % (11.6-14.8); White Blood Cell Count 18.5 X10^3/uL (4.5-11.0)
[2024-06-01 06:00] LABS: Alanine Aminotransferase 76 IU/L (<50); Albumin 1.6 g/dL (3.5-5.0); Albumin Globulin Ratio 0.6 (1.0-2.8); Alkaline Phosphatase 186 U/L (38-126); Aspartate Aminotransferase 41 IU/L (17-59); BUN Creatinine Ratio 17.6 (6-22); Blood Urea Nitrogen 9 mg/dL (9-20); Calcium 7.5 mg/dL (8.4-10.2); Carbon Dioxide 18 mmol/L (22-32); Chloride 111 mmol/L (98-107); Estimated Glomerular Filt Rate > 60 mL/min (>60); Globulin 2.5 g/dL (1.7-4.1); Glucose 81 mg/dL (70-100); HEMOLYSIS < 15 (0-50); Magnesium 1.7 mg/dL (1.6-2.3); Potassium 3.1 mmol/L (3.4-5.1); Sodium 133 mmol/L (137-145); Total Protein 4.1 g/dL (6.3-8.2)
[2024-06-01] MEDS: FOLIC ACID 1 MG TABLET PO (08:57)
[2024-06-01] MEDS: THIAMINE 100 MG TABLET PO (08:57)
[2024-06-01] MEDS: chlordiazePOXIDE 25 MG CAPSULE PO ×3 (08:57→21:32)
[2024-06-01] MEDS: PANTOPRAZOLE 40 MG VIAL IV ×2 (08:57→21:32)
[2024-06-01] MEDS: SODIUM CHLORIDE 0.9% FLUSH 10 ML IV ×2 (08:57→21:32)
[2024-06-01] MEDS: dexmedeTOMIDine in 0.9 % NaCL 400 MCG/100 ML PLAST..BAG 5.325 MCG IV (09:01)
[2024-06-01] MEDS: MAGNESIUM SULFATE 2 GM/50 ML PIGGYBACK IV (10:08)
[2024-06-01] MEDS: POTASSIUM CHLORIDE 20 MEQ TAB 40 MEQ PO ×2 (10:08→16:24)
--- NOTE | 2024-06-01 11:00 | PT.IPTN ---
Current Diagnoses Prepatellar bursitis, left knee (05/26/24) Unspecified open wound, left knee, initial encounter (05/26/24) Surgery Performed Operation Date: 05/27/24 17:00 <No data on this case meets the specified criteria> Operation Date: 05/29/24 09:00 Actual Procedures p Incision and Drainage left knee - Everette Crum MD Physical Therapy Treatment Note M2 PT-IP Current Condition Start: 05/29/24 10:54 Freq: NEEDED Status: Active Protocol: Document 05/31/24 07:57 MB (Rec: 05/31/24 08:34 MB [id number]) Physical Therapy Current Condition Current Condition Evaluation Date 05/31/24 Treatment Diagnosis Fall, left prepatellar bursa infected s/p I&D, alcohol withdrawal M3 PT-IP Subjective Start: 05/29/24 10:54 Freq: NEEDED Status: Active Protocol: Document 06/01/24 12:07 TS (Rec: 06/01/24 12:24 TS [id number]) Subjective Physical Therapy Visit Type Type Treatment Note Visit Start Time 11:00 Visit Stop Time 11:45 Number of ELECTRIC ENGINE MECHANIC Visits 1 Physical Therapy Visit Comments Patient Comments Pt found resting in bed, he is confused and somewhat letharigc but can answer some questions. He is agreeable to PT. Therapy Pain Assessment Pain When Pain Assessed At Rest Pain Present Pain Present Pain Reported M4 PT-IP Mobility and Gait Start: 05/29/24 10:54 Freq: NEEDED Status: Active Protocol: Document 06/01/24 12:07 TS (Rec: 06/01/24 12:24 TS [id number]) PT-Bed Mobility Assessment Supine to Sit Supine to Sit Maximum Assistance,2 Person Assistance,Head of Bed Elevated,Bedrails Sit to Supine Sit to Supine Maximum Assistance,2 Person Assistance Scooting Scooting to Edge of Bed Maximum Assistance Scooting Up and Down in Bed Dependent PT-Transfer Assessment Sit to and From Stand Sit to and from Stand Maximum Assistance,2 Person Assistance,Use of Upper Extremities Equipment Transfer Assistive Device Gait Belt,Front Wheeled Walker Comments Mobility Comments Knee immobilizer applied before mobility. Pt has some difficulty following instuctions. Supine to sit MaxA x2 for LLE and uprighting trunk. Pillows were placed behind pt's back to assist him in sitting balance initially. He scoots ot EOB MaxA with use of sheet, cues provided for BUE support. STS x2 with FWW MaxA x2, pt did not come into complete standing. Pt is not safe to ambulate at this time. Sit to supine into bed MaxA x2 with cues provided for sequencing. Pt was left in bed, all needs met. PT-Balance Assessment Sitting Balance and Reactions Static Sitting Balance Ability Poor Dynamic Sitting Balance Ability Poor Standing Balance and Reactions Static Standing Balance Ability Poor Dynamic Standing Balance Ability Poor Device Used FWW M5 PT-IP Objective Assessments Start: 05/29/24 10:54 Freq: NEEDED Status: Active Protocol: Document 05/31/24 07:57 MB (Rec: 05/31/24 08:34 MB [id number]) Orientation Orientation/Cognition Level of Alertness Lethargic Orientation Name,Birthday,Month,Year,Place Safety Awareness Decreased Safety Awareness Comments Pt answers most questions Gross Range of Motion Upper Extremity ROM Impairments NT today, recommend OT consult Lower Extremity ROM Assessment Bilaterally Impaired Impairments Limited range BLEs and high edema LLE with tourniquet type dressing and no active movement in left ankle or toes , hip or knee Strength Lower Extremity Strength Assessment Bilaterally Impaired Comments Strength Comments R ankle DF in limited range 4/ 5 and great toe extension 4-/5 . Minimal HS right LE in supine Coordination Assessment Gross Coordination Gross Coordination Impaired Sensation Assessment Comments Sensation Comments Pt does not follow sensory cues Other Assessments Other Other Assessments High edema M6 PT-IP Treatment Start: 05/29/24 10:54 Freq: NEEDED Status: Active Protocol: Document 06/01/24 12:07 TS (Rec: 06/01/24 12:24 TS [id number]) Physical Therapy Treatment Education Education Provided Safety M7 PT-IP Assessment and Plan Start: 05/29/24 10:54 Freq: NEEDED Status: Active Protocol: Document 06/01/24 12:07 TS (Rec: 06/01/24 12:24 TS [id number]) PT Summary Assessment and Plan Potential Rehabilitation Potential Fair Summary Impairments Pain,ROM,Strength,Balance, Coordination,Sensation,Tone, Cognition,Bed Mobility, Transfers,Gait,Activity Tolerance Progress Towards Goals Slow Progress due to Activity Tolerance Assessment Summary Pietro continues to make slow progress with his mobility. He requires MaxA x2 for all mobility this session. He did attempt standing x2 with FWW but could not fully come into standing. He continues to be lethargic and has some confusion. He can follow some instructions. PT continues to recommend SNF. Goals Bed Mobility Goal Independent Transfer Goal Standby Assistance,Cane Gait Goal Standby Assistance,Cane Gait Distance 100 Other Goals Pt will ascend and descend 1 step with right rail ascend and cane with no more than SBA to allow safe home entrance. Days to Meet Goals 10 Frequency of Treatment Frequency Of Treatment Once a Day Treatment Plan Physical Therapy Treatment Plan Bed Mobility Training,Transfer Training,Gait Training, Therapeutic Exercise,Balance Retraining,Post Op Education, Discharge Planning,Hot or Cold Pack,Neuromuscular Re-ed, Coordination Retraining,Manual Therapy Weight Bearing Status Allowed Weight Bearing Amount (enter % WBAT and use of knee or #) (%) immobilizer. Recommendations To Nursing Amount of Assist Needed Mechanical Lift Discharge Recommendations PT Discharge Recommendations SNF Rehab Transportation Needs at Discharge Wheelchair/Cabulance
--- NOTE | 2024-06-01 11:45 | OT.IP.EVAL ---
Current Diagnoses Prepatellar bursitis, left knee (05/26/24) Unspecified open wound, left knee, initial encounter (05/26/24) Surgery Performed Operation Date: 05/27/24 17:00 <No data on this case meets the specified criteria> Operation Date: 05/29/24 09:00 Actual Procedures p Incision and Drainage left knee - Everette Crum MD Occupational Therapy Inpatient Evaluation/Re-Eval M1 PT/OT-IP Prior Functional Status Start: 05/29/24 10:54 Freq: NEEDED Status: Active Protocol: Document 06/01/24 12:33 [facility] (Rec: 06/01/24 12:52 [facility] [id number]) Medical Review Prior Functional Status Medical History Reviewed Yes Communication Unsure baseline diet and communication Mobility and Gait Pt reports he uses his cane, per chart, he has had falls Activities of Daily Living and IADL's Pt reports I with ADLs, lives with sister and that he retired at age 38 y/o ( ) Social History Household Members family Living Arrangements House Number of Floors (Floors) One Floor Number of Stairs To Enter/Railing? 1 step with right rail to enter Home Environment Standard Height Toilet,Walk in Shower,Built-In Shower Seat Home Equipment Straight Cane,Hand Held Shower ,Grab Bars Near Toilet,Grab Bars In Shower Employment Status Retired Additional Social History Comment Unsure if all of history is correct given pt mentation today M2 OT-IP Current Condition Start: 06/01/24 12:32 Freq: Status: Active Protocol: Document 06/01/24 12:33 [facility] (Rec: 06/01/24 12:52 [facility] [id number]) Occupational Therapy Current Condition Current Condition Evaluation Date 06/01/24 Treatment Diagnosis Infected L prepatellar bursa, s/p I and D, small PE's Diagnosis Onset Date 05/26/24 Weight Bearing Status Weight Bearing Status Weight Bear as Tolerated Allowed Weight Bearing Amount (enter % WBAT with left mobilizer or #) (%) M3 OT- IP Subjective and Pain Start: 06/01/24 12:32 Freq: Status: Active Protocol: Document 06/01/24 12:33 [facility] (Rec: 06/01/24 12:52 [facility] [id number]) OT- Subjective Occupational Therapy Visit Type Type Initial Evaluation Visit Start Time 11:00 Visit Stop Time 11:45 Occupational Therapy Visit Comments Patient Comments Pt agreed to try to get out of bed. Patient/Caregiver Goals To get better. OT Pain Assessment Pain When Pain Assessed During Mobility Pain Present Pain Present Pain Reported Location Groin Pain Behaviors Calling Out,Facial Grimacing, Holding Area,Wincing M4 OT- IP ADL's Start: 06/01/24 12:32 Freq: Status: Active Protocol: Document 06/01/24 12:33 [facility] (Rec: 06/01/24 12:52 [facility] [id number]) OT [id number] Comments OT Self-Feeding Comments Not at meal time. OT ADL-Grooming Comments OT Grooming Comments Not performed. OT ADL-Oral Care Comments Oral Care Comments Not performed. OT ADL-Dressing General Eval Lower Body Dressing Ability Maximum Assistance,Total Assistance Areas Needing Assistance Underpants/Brief,Socks Comments OT Dressing Comments Assist to help put on mesh brief and left knee immobilizer on while in supine. OT ADL-Toileting General Evaluation Toileting Ability Total Assistance Areas Needing Assistance Empty Catheter or Colostomy Comments OT Toileting Comments [place] in place. OT ADL-Bathing Comments OT Bathing Comments Sponge bath more appropriate at this time. M5 OT- IP IADL's Start: 06/01/24 12:32 Freq: Status: Active Protocol: Document 06/01/24 12:33 [facility] (Rec: 06/01/24 12:52 [facility] [id number]) OT-Instrumental Activities of Daily Living Home Safety Awareness Home Safety Comments At this time pt will need assist for all needs. M6 OT- IP Functional Cognition Start: 06/01/24 12:32 Freq: Status: Active Protocol: Document 06/01/24 12:33 [facility] (Rec: 06/01/24 12:52 [facility] [id number]) Cognitive Factors Limiting Selfcare Function Cognitive Ability Level of Alertness Alert,Confusional State Patient Orientation Name Attention Span Ability Capable of Focused Attention, Unable to Sustain Attention Ability to Follow Commands Able to Follow One Step Commands with Increased Time, Able to Follow One Step Commands with Repetition Cognitive Comments Cognitive Assessment Comments Pt able to follow commands but easily tires and needing to take rest breaks. Pt was motivated to try to stand today. Pt mainly orientated to his name at this time. OT- Vision and Hearing OT- Hearing Assessment OT- Hearing Assessment WFL OT- Vision Assessment Visual Acuity Glasses For Reading Visual Attentiveness WFL Occular Pursuits WFL Vision Assessment Comments Pt able to read the clock accurately. M7 OT- IP Mobility and Balance Start: 06/01/24 12:32 Freq: Status: Active Protocol: Document 06/01/24 12:33 [facility] (Rec: 06/01/24 12:52 [facility] [id number]) OT- Bed Mobility Assessment Supine to Sit Supine to Sit Assist Maximum Assistance,2 Person Assistance Sit to Supine Sit to Supine Assist Maximum Assistance,2 Person Assistance Scooting Scooting to Edge of Bed Maximum Assistance,2 Person Assistance OT-Transfer Assessment Sit to and From Stand Sit to and from Stand Maximum Assistance,Total Assistance,2 Person Assistance Comments Mobility Comments MAX AX 2 to assist to get his legs and trunk up so able to sit on the edge of the bed. Pt needing MODA for balance at times. Pt also having to lean back on pillow as tiring easily. OT- Balance Assessment Sitting Balance and Reactions Static Sitting Balance Ability Poor Dynamic Sitting Balance Ability Poor Standing Balance and Reactions Static Standing Balance Ability Poor M8 OT- IP Objective Assessments Start: 06/01/24 12:32 Freq: Status: Active Protocol: Document 06/01/24 12:33 [facility] (Rec: 06/01/24 12:52 [facility] [id number]) OT Gross Range of Motion Upper Extremity Range of Motion Assessment Bilaterally Impaired ROM Impairments decreased at end ROM OT Strength Upper Extremity Strength Assessment Bilaterally Impaired Comments Strength Comments BUE 4-/5 to 4/5 from proximal to distal. M9 OT- IP Assessment and Plan Start: 06/01/24 12:32 Freq: Status: Active Protocol: Document 06/01/24 12:33 [facility] (Rec: 06/01/24 12:52 [facility] [id number]) OT Summary Assessment and Plan Potential Rehabilitation Potential Fair Analytic Complexity at Evaluation Moderate Summary OT Impairments Pain,Range of Motion,Strength, Balance,Coordination, Functional Cognition, Functional Mobility,Self- Feeding,Grooming,Dressing, Toileting,Bathing,Toilet Transfers,Shower Transfers, Activity Tolerance Progress Towards Goals Slow Progress due to Pain,Slow Progress due to Medical Issues,Slow Progress due to Activity Tolerance,Slow Progress due to Cognition Assessment Summary Pt MOD complexity and main barriers are step, decreased balance, endurance, strength, and now needing extensive assist x2 for bed mobility needs at this time. Pt will benefit from skilled rehab when medically stable. Per Ortho, pt to have left knee immobilizer when ambulation. Goals Self-Feeding Goal Independent Grooming Goal Independent Dressing Goal Minimal Assistance Toileting Goal Minimal Assistance Bathing Goal Moderate Assistance Toilet Transfer Goal Minimal Assistance Shower Transfer Goal Moderate Assistance Days to Meet Goals 20 Frequency of Treatment Other frequency 5x/week Treatment Plan OT Treatment Plan ADL Training,Functional Cognition Training,Functional Mobility,Patient/Family Education,Discharge Planning Discharge Recommendations OT Discharge Recommendations SNF Rehab Transportation Needs at Discharge Wheelchair/Cabulance
--- NOTE | 2024-06-01 11:58 | PM.PN.1 ---
Subjective Subjective Interval history: Pietro is a 53 year old male with hx of alcohol dependence now in alcohol withdrawal who is POD#3 s/p I&D of a sepctic left prepatellar bursa by Dr. Crum. Intra-op wound specimens grew MRSA. He is being treated w/ IV abx, ceftriaxone and vancomycin. Limited history as patient is difficult to arouse this afternoon. Denies any feelings of fevers or chills. Reports having a lot of left knee pain still. Exam Vital Signs (past 8 hours): - 06/01/24 04:00 06/01/24 04:00 06/01/24 04:00 Temperature 97.9 F Pulse Rate 76 Respiratory Rate 14 Blood Pressure 95/62 Pulse Oximetry 96 Oxygen Delivery Method Room Air Oxygen Flow Rate 0 06/01/24 05:00 06/01/24 05:00 06/01/24 06:00 Temperature Pulse Rate 83 75 Respiratory Rate 18 15 Blood Pressure 102/67 Pulse Oximetry 98 96 Oxygen Delivery Method Oxygen Flow Rate 0 06/01/24 06:00 06/01/24 07:00 06/01/24 07:00 Temperature Pulse Rate 73 Respiratory Rate 14 Blood Pressure 101/64 94/62 Pulse Oximetry 97 Oxygen Delivery Method Oxygen Flow Rate 0 06/01/24 08:00 06/01/24 08:00 06/01/24 08:00 Temperature Pulse Rate 72 Respiratory Rate 14 Blood Pressure 102/72 Pulse Oximetry 97 Oxygen Delivery Method Room Air Oxygen Flow Rate 06/01/24 09:00 06/01/24 09:04 06/01/24 09:04 Temperature Pulse Rate 87 86 Respiratory Rate 21 21 Blood Pressure 100/59 L Pulse Oximetry 97 97 Oxygen Delivery Method Oxygen Flow Rate 06/01/24 10:00 06/01/24 10:00 Temperature Pulse Rate 83 Respiratory Rate 19 Blood Pressure 98/62 Pulse Oximetry 98 Oxygen Delivery Method Oxygen Flow Rate Oxygen Delivery Method Room Air Oxygen Flow Rate 0 Narrative Exam Narrative: Patient lying comfortably in bed during our interview today. No acute distress. Very lethargic, he does follow simple commands and answer yes or no questions. Significant edema throughout the LLE. Wiggles toes, DF and PF intact. Gross sensation intact throughout bilateral lower extremities. Calves soft and compressible bilaterally. SCDs are on and functioning. Wound dressing in place over the left anterior knee, mild drainage. Objective Labs 06/01/24 04:30 06/01/24 04:30 Labs: Laboratory Results - last 24 hr 06/01/24 04:30 WBC 18.5 H RBC 2.46 L Hgb 8.4 L Hct 24.5 L MCV 99.9 MCH 34.2 H MCHC 34.2 RDW 16.1 H Plt Count 50 L Neut % (Auto) 84.9 H Lymph % (Auto) 11.5 L [place] % (Auto) 3.2 Eos % (Auto) 0.3 L Baso % (Auto) 0.1 Neut # (Auto) 34952 H Lymph # (Auto) 2100 [place] # (Auto) 600 Eos # (Auto) 100 Baso # (Auto) 0 Sodium 133 L Potassium 3.1 L Chloride 111 H Carbon Dioxide 18 L BUN 9 Creatinine 0.51 L Estimated GFR > 60 BUN/Creatinine Ratio 17.6 Glucose 81 Calcium 7.5 L Magnesium 1.7 Total Bilirubin 3.0 H AST 41 ALT 76 H Alkaline Phosphatase 186 H Total Protein 4.1 L Albumin 1.6 L Globulin 2.5 Albumin/Globulin Ratio 0.6 L PFSH Social History household members: family Smoking Status: Current every day smoker alcohol intake: current Assessment & Plan Assessment and plan (1) Septic prepatellar bursitis of left knee: Status: Acute Plan 1) Discharge disposition and pain management per hospitalist. Recommend ice to the knee for additional pain control. 2) SCDs to be worn while in bed for DVT prophylaxis. 3) WBAT, avoid knee flexion to protect wound. Consider knee immobilizer when pt ambulating. 4) Daily dressing changes with 1/2 inch iodoform gauze and apply ABD pad over the incision, secure with Gurinder wrap. Follow up at wound center after discharge. 5) Abx managed by medicine, currently getting IV Vancomycin and Ceftriaxone. Time-Based Coding :: [TOTAL MINUTES] spent with patient and on the chart (including review of chart, obtaining history, exam, reviewing outside data, placing orders, documenting exam and treatment plan, and counseling patient) on [DATE]. Quality VTE Deep Vein Thrombosis/Pulmonary Embolism Present on Admission: No
[2024-06-01] MEDS: cefTRIAXone 2,000 MG in SODIUM CHLORIDE 0.9% 100 ML 200 MG IV (13:40)
[2024-06-01] MEDS: LORazepam 2 MG/ML INJ IV ×2 (13:53→18:10)
--- NOTE | 2024-06-01 15:16 | PM.PN.1 ---
Subjective Subjective Interval history: 53-year-old male with alcohol dependence, alcohol withdrawal, acute on chronic, left knee cellulitis with septic bursitis. Able to be weaned off precedex today, lethargic but slightly less confused. Exam Vital Signs (past 8 hours): - 06/01/24 08:00 06/01/24 08:00 06/01/24 08:00 Pulse Rate 72 Respiratory Rate 14 Blood Pressure 102/72 Pulse Oximetry 97 Oxygen Delivery Method Room Air 06/01/24 09:00 06/01/24 09:04 06/01/24 09:04 Pulse Rate 87 86 Respiratory Rate 21 21 Blood Pressure 100/59 L Pulse Oximetry 97 97 Oxygen Delivery Method 06/01/24 10:00 06/01/24 10:00 06/01/24 11:00 Pulse Rate 83 79 Respiratory Rate 19 19 Blood Pressure 98/62 Pulse Oximetry 98 98 Oxygen Delivery Method 06/01/24 11:00 06/01/24 12:00 06/01/24 12:00 Pulse Rate 84 Respiratory Rate 17 Blood Pressure 102/65 Pulse Oximetry 97 Oxygen Delivery Method Room Air 06/01/24 13:00 06/01/24 13:57 06/01/24 13:57 Pulse Rate 92 H 95 H Respiratory Rate 27 H 24 Blood Pressure 102/63 Pulse Oximetry 100 99 Oxygen Delivery Method 06/01/24 14:00 06/01/24 14:13 Pulse Rate 92 H 93 H Respiratory Rate 24 20 Blood Pressure 102/63 Pulse Oximetry 98 Oxygen Delivery Method Oxygen Delivery Method Room Air Oxygen Flow Rate 0 Narrative Exam Narrative: GEN: Ill-appearing middle-aged male, alert, follows commands HEENT:NC, Face symmetric CHEST: Respiratory excursions symmetric, CTAB CV: RRR, no M/R/G ABD: Soft, NT/ND, BT present in all 4 quadrants EXTR: warm, well perfused, b/l LE edema, scrotal edema. SKIN: warm and dry, no rash NEURO: Somnolent, oriented to self, month and year (not day), and location. no tongue fasciculations Objective Labs 06/01/24 04:30 06/01/24 04:30 Labs: Laboratory Results - last 24 hr 06/01/24 04:30 WBC 18.5 H RBC 2.46 L Hgb 8.4 L Hct 24.5 L MCV 99.9 MCH 34.2 H MCHC 34.2 RDW 16.1 H Plt Count 50 L Neut % (Auto) 84.9 H Lymph % (Auto) 11.5 L [place] % (Auto) 3.2 Eos % (Auto) 0.3 L Baso % (Auto) 0.1 Neut # (Auto) 79468 H Lymph # (Auto) 2100 [place] # (Auto) 600 Eos # (Auto) 100 Baso # (Auto) 0 Sodium 133 L Potassium 3.1 L Chloride 111 H Carbon Dioxide 18 L BUN 9 Creatinine 0.51 L Estimated GFR > 60 BUN/Creatinine Ratio 17.6 Glucose 81 Calcium 7.5 L Magnesium 1.7 Total Bilirubin 3.0 H AST 41 ALT 76 H Alkaline Phosphatase 186 H Total Protein 4.1 L Albumin 1.6 L Globulin 2.5 Albumin/Globulin Ratio 0.6 L PFSH Social History household members: family Smoking Status: Current every day smoker alcohol intake: current Assessment & Plan Assessment & Plan narrative: 1. Alcohol dependence, complicated by withdrawal Continues on the CIWA protocol. Now weaned off of precedex infusion for withdrawal and agitation. Continues multivitamin, folate, thiamine. Started librium 25 mg TID to try and wean from precedex. Continue taper over the coming days. 2. Suspected upper GI bleed This was felt to be possibly related to NSAID use and alcohol. There is no evidence for GI bleed at this time. Will continue PPI. No need for EGD at this point, especially given his active alcohol withdrawal and concern for worsening infection in his knee 3. Sepsis with acute metabolic encephalopathy, Elevated bilirubin, acute respiratory failure with hypoxia, and thrombocytopenia due to Left knee septic prepatellar bursitis and cellulitis He remains on Rocephin and vancomycin. Will stop ceftriaxone, continue vancomycin only and transition to oral therapy in the coming days after treatment of alcohol withdrawal. WBAT per orthopedics, can use knee immobilizer. encephalopathy improving, complicated by withdrawal as well. 4. Anemia Hgb stable. 5. Thrombocytopenia Platelet count is down from 127 to 50. Likely in part due to underlying alcoholic liver disease and also related to his active infection/sepsis. Will continue to follow closely. 6. Alcoholic hepatitis vs cirrhosis. INR was 1.8 on admission. Slight improvement since. Secondary to alcoholic liver disease. DF on admit was 46.2, Repeat was improved at 24. Will continue to monitor INR and Bilirubin but with improved DF, admission with above probable sepsis, will not treat with steroids. -nonurgent RUQ ultrasound to assess liver and spleen for cirrhosis. 7. Hypokalemia Persistent. Will continue to replete IV. Continue to monitor. 8. Hyponatremia Improved today at 134. Will monitor. Code status Full Prophylaxis Will use mechanical prophylaxis with SCDs Disposition Can transfer to floor today now that he is off precedex. I spent 35 minutes providing critical care management this patient. This excludes time spent in performing separately billed procedures. Time-Based Coding :: [TOTAL MINUTES] spent with patient and on the chart (including review of chart, obtaining history, exam, reviewing outside data, placing orders, documenting exam and treatment plan, and counseling patient) on [DATE]. Quality VTE Deep Vein Thrombosis/Pulmonary Embolism Present on Admission: No
--- NOTE | 2024-06-01 15:59 | DI.US.S_ITS ---
PROCEDURE: US ABDOMEN LIMITED INDICATIONS: LIVER/SPLEEN; POSSIBLE CIRRHOSIS TECHNIQUE: Real-time scanning was performed of the abdominal and retroperitoneal organs, with image documentation. COMPARISON: None. FINDINGS: Liver: Liver is normal in size and mildly increased in echogenicity. Spleen: Normal in size measuring 9.7 cm. Miscellaneous: Mild ascites. IMPRESSION: 1. Increased hepatic echogenicity noted possibly related to hepatic steatosis but other sources of hepatocellular disease or hepatic cirrhosis cannot be excluded. Recommend clinical correlation. 2. Spleen is normal in size. 3. Mild ascites. Dictated by: Rod Alvarez M.D. on 06/01/2024 at 17:01 Approved by: Rod Alvarez M.D. on 06/01/2024 at 17:02
[2024-06-01] MEDS: ACETAMINOPHEN 325 MG TABLET 650 MG PO (16:23)
[2024-06-01] MEDS: FUROSEMIDE 40 MG/4 ML VIAL 20 MG IV (16:24)
[2024-06-01] MEDS: HYDROMORPHONE 2 MG TABLET PO (21:41)
[2024-06-02] VITALS (27 sets, daily range): BP systolic 76–133; BP diastolic 50–73; PULSE 78–108; RESP 6–20; TEMP 36.9–37.1; O2SAT 94–100
[2024-06-02] MEDS: VANCOMYCIN 1,000 MG/200 ML PIGGYBACK 200 MG IV ×3 (00:34→17:36)
[2024-06-02 04:55] LABS: Add Manual Diff / Slide Review NO; Basophils Absolute Auto 0 /uL (0-100); Basophils Percent Auto 0.1 % (0-2); Eosinophils Absolute Auto 100 /uL (0-450); Eosinophils Percent Auto 0.3 % (2-4); Hematocrit 23.7 % (41-53); Hemoglobin 8.1 g/dL (13.5-17.5); Lymphocytes Absolute Auto 2200 /uL (1100-4500); Lymphocytes Percent Auto 11.9 % (25-40); Mean Corpuscular HGB Conc 34.1 % (30-36); Mean Corpuscular Hemoglobin 34.3 PG (26-34); Mean Corpuscular Volume 100.6 fL (80-100); Monocytes Absolute Auto 600 /uL (0-900); Monocytes Percent Auto 3.1 % (3-14); Neutrophils Absolute Auto 15700 /uL (1500-7000); Neutrophils Percent Auto 84.6 % (50-75); Platelet Count 63 X10^3/uL (150-400); Red Blood Cell Count 2.36 X10^6/uL (4.5-5.9); Red Cell Distribution Width 16.4 % (11.6-14.8); White Blood Cell Count 18.6 X10^3/uL (4.5-11.0)
[2024-06-02 05:04] LABS: Alanine Aminotransferase 73 IU/L (<50); Albumin 1.8 g/dL (3.5-5.0); Albumin Globulin Ratio 0.7 (1.0-2.8); Alkaline Phosphatase 186 U/L (38-126); Aspartate Aminotransferase 44 IU/L (17-59); BUN Creatinine Ratio 13.4 (6-22); Bilirubin Total 3.1 mg/dL (0.2-1.3); Blood Urea Nitrogen 9 mg/dL (9-20); Carbon Dioxide 20 mmol/L (22-32); Chloride 109 mmol/L (98-107); Estimated Glomerular Filt Rate > 60 mL/min (>60); Globulin 2.7 g/dL (1.7-4.1); Glucose 73 mg/dL (70-100); HEMOLYSIS < 15 (0-50); Magnesium 1.7 mg/dL (1.6-2.3); Potassium 3.8 mmol/L (3.4-5.1); Sodium 133 mmol/L (137-145); Total Protein 4.5 g/dL (6.3-8.2)
[2024-06-02] MEDS: FOLIC ACID 1 MG TABLET PO (08:43)
[2024-06-02] MEDS: THIAMINE 100 MG TABLET PO (08:43)
[2024-06-02] MEDS: SODIUM CHLORIDE 0.9% FLUSH 10 ML IV ×2 (08:43→21:13)
[2024-06-02] MEDS: PANTOPRAZOLE 40 MG VIAL IV (08:43)
[2024-06-02] MEDS: DULOXETINE 30 MG CAPSULE 60 MG PO (08:43)
[2024-06-02] MEDS: chlordiazePOXIDE 25 MG CAPSULE PO (08:44)
--- NOTE | 2024-06-02 09:27 | PM.PN.1 ---
Subjective Subjective Interval history: Pietro is a 53 year old male with hx of alcohol dependence now in alcohol withdrawal who is POD#4 s/p I&D of a sepctic left prepatellar bursa by Dr. Crum. Intra-op wound specimens grew MRSA. He is being treated w/ IV abx, ceftriaxone and vancomycin. Limited history as patient is lethargic this morning. Denies any feelings of fevers or chills. Reports having a lot of left knee pain still, feels it is worse than yesterday. Nursing staff reports they have had to change his dressing 4x in the last 24 hours d/t continued drainage from the incision site. Exam Vital Signs (past 8 hours): - 06/02/24 02:00 06/02/24 02:00 06/02/24 03:00 Temperature Pulse Rate 80 79 Respiratory Rate 6 L 6 L Blood Pressure 86/53 L Pulse Oximetry 96 97 Oxygen Delivery Method Oxygen Flow Rate 0 0 06/02/24 03:00 06/02/24 04:00 06/02/24 04:00 Temperature 98.6 F Pulse Rate 80 Respiratory Rate 7 L Blood Pressure 86/56 L 82/51 L Pulse Oximetry 98 Oxygen Delivery Method Oxygen Flow Rate 0 06/02/24 04:00 06/02/24 05:00 06/02/24 05:00 Temperature Pulse Rate 80 Respiratory Rate 7 L Blood Pressure 90/51 L Pulse Oximetry 97 Oxygen Delivery Method Room Air Oxygen Flow Rate 0 06/02/24 06:00 06/02/24 06:00 Temperature Pulse Rate 89 Respiratory Rate 11 L Blood Pressure 76/50 L Pulse Oximetry 98 Oxygen Delivery Method Oxygen Flow Rate 0 Oxygen Delivery Method Room Air Oxygen Flow Rate 0 Narrative Exam Narrative: Patient lying comfortably in bed during our interview today. No acute distress. Very lethargic, he does follow simple commands and answer yes or no questions. Significant pitting edema throughout the LLE. Wiggles toes, DF and PF intact. Gross sensation intact throughout bilateral lower extremities. Calves soft and compressible bilaterally. SCDs are on and functioning. Wound dressing in place over the left anterior knee, mild-moderate drainage. Nylon suture in place. Objective Labs 06/02/24 03:45 06/02/24 03:45 Labs: Laboratory Results - last 24 hr 06/02/24 06/02/24 03:45 07:33 WBC 18.6 H RBC 2.36 L Hgb 8.1 L Hct 23.7 L MCV 100.6 H MCH 34.3 H MCHC 34.1 RDW 16.4 H Plt Count 63 L Neut % (Auto) 84.6 H Lymph % (Auto) 11.9 L [place] % (Auto) 3.1 Eos % (Auto) 0.3 L Baso % (Auto) 0.1 Neut # (Auto) 46318 H Lymph # (Auto) 2200 [place] # (Auto) 600 Eos # (Auto) 100 Baso # (Auto) 0 Sodium 133 L Potassium 3.8 Chloride 109 H Carbon Dioxide 20 L BUN 9 Creatinine 0.67 Estimated GFR > 60 BUN/Creatinine Ratio 13.4 Glucose 73 Calcium 8.0 L Magnesium 1.7 Total Bilirubin 3.1 H AST 44 ALT 73 H Alkaline Phosphatase 186 H Total Protein 4.5 L Albumin 1.8 L Globulin 2.7 Albumin/Globulin Ratio 0.7 L Vancomycin Trough 17.0 PFSH Social History household members: family Smoking Status: Current every day smoker alcohol intake: current Assessment & Plan Assessment and plan (1) Septic prepatellar bursitis of left knee: Status: Acute Plan 1) Discharge disposition and pain management per hospitalist. Recommend ice to the knee for additional pain control. 2) SCDs to be worn while in bed for DVT prophylaxis. 3) WBAT, avoid knee flexion to protect wound. Consider knee immobilizer when pt ambulating. 4) Daily dressing changes with 1/2 inch iodoform gauze and apply ABD pad over the incision, secure with Gurinder wrap. Follow up at wound center after discharge. 5) Abx managed by medicine, currently getting IV Vancomycin and Ceftriaxone. Will continue to monitor if any further surgical intervention is needed. Quality VTE Deep Vein Thrombosis/Pulmonary Embolism Present on Admission: No
[2024-06-02] MEDS: MAGNESIUM CHLORIDE 64 MG TABLET 128 MG PO (10:19)
--- NOTE | 2024-06-02 10:56 | DI.CT.S_ITS ---
PROCEDURE: CT HEAD/BRAIN WO CON INDICATIONS: altered mental status TECHNIQUE: Noncontrast 4.5 mm thick angled axial sections acquired from the foramen magnum to the vertex, with coronal and sagittal reformats. For radiation dose reduction, the following was used: automated exposure control, adjustment of mA and/or kV according to patient size. Repeat acquisition for motion artifact. COMPARISON: None. FINDINGS: Image quality: Diagnostic. CSF spaces: Basal cisterns are patent. No extra-axial fluid collections. Ventricles are normal in size and shape. Brain: No midline shift. No intracranial masses or hemorrhage. No area of hypodensity in a large vascular distribution to suggest acute infarction. Periventricular hypodensity consistent with chronic microvascular ischemic change. Age-related parenchymal loss. Skull and face: Calvarium and visualized facial bones are intact, without suspicious lesions. Sinuses: Visualized sinuses and mastoids are clear. IMPRESSION: No acute intracranial pathology identified. Dictated by: Romulo Euceda M.D. on 06/02/2024 at 11:31 Approved by: Romulo Euceda M.D. on 06/02/2024 at 11:34
--- NOTE | 2024-06-02 11:39 | DI.MRI.S_ITS ---
PROCEDURE: MR STROKE Pre- and post-contrast brain MRI, non-contrast brain MR angiogram, pre- and postcontrast neck MR angiogram INDICATIONS: tardive dyskinesia, r/o CVA TECHNIQUE: Brain: Noncontrast axial T1 spin echo, axial T2 fast spin echo, sagittal and axial FLAIR, coronal T2 fast spin echo, axial gradient echo, axial diffusion and ADC through the brain. After the administration of contrast, axial 3D VIBE of the cranial vasculature and brain. Brain MRA: Non-contrast 3-D time of flight MR angiogram, with multiple sczoafe-bsoiglxah-focavcvvdh (MIP) reformats performed. Neck MRA: Axial and sagittal TruFISP through the neck. Coronal dynamic MR angiogram during administration of contrast in the arterial and venous phases, with 3-dimenstional vtxkfuv-gqirfkxcd-ktrmcvwcpq (MIP) reformats constructed from subtraction images. COMPARISON: None. FINDINGS: Image quality: Limited by motion artifact. BRAIN: CSF spaces: Ventricles are normal in size and shape. Basal cisterns are patent. No extra-axial fluid collections. Brain: No intracranial bleeds or mass effects. Puri-white matter interface is normal. Diffusion weighted images show no acute infarct. Brainstem appears normal. Normal intravascular flow voids are present. No abnormal intracranial enhancement. Skull and face: Calvarial marrow signal is normal. Orbits appear normal. Sinuses: Sinuses and mastoids are clear. BRAIN MR ANGIOGRAM: Anterior circulation: Intracranial internal carotid arteries are normal in size and enhancement. The flow within the paired anterior cerebral arteries is normal and symmetric. The flow within the middle cerebral arteries is normal and symmetric. The anterior communicating artery is seen. No stenoses, occlusions, or aneurysms. Posterior circulation: The visualized portions of the vertebral arteries demonstrate normal caliber, and join to form a normal appearing basilar artery. The flow within the posterior cerebral arteries is normal and symmetric. No stenoses, occlusions, or aneurysms. NECK MR ANGIOGRAM: Carotids: Great vessels demonstrate a conventional anatomy as they arise from the aortic arch. The origins of the common carotid arteries appear patent. The calibers and courses of both common carotid arteries are normal. The bifurcation regions appear normal bilaterally. The internal carotid arteries demonstrate normal course and caliber. Posterior circulation: The origins of the vertebral arteries appear patent. More superior portions of both vertebral arteries demonstrate normal course and caliber, and join to form a normal appearing basilar artery. Miscellaneous: Subclavian arteries appear patent. Pre-contrast images through the neck show no soft tissue abnormalities. IMPRESSION: Limited but unremarkable MRI of the brain without evidence of acute infarct, hemorrhage or mass lesion. Unremarkable MR angiogram of the brain. No evidence of large vessel occlusion, aneurysm or vascular malformation. Unremarkable MR angiogram of the neck. No significant stenosis or aneurysm Approved by: Carlos Maddox M.D. on 06/02/2024 at 18:19
[2024-06-02] MEDS: chlordiazePOXIDE 25 MG CAPSULE 50 MG PO ×2 (12:08→21:13)
[2024-06-02] MEDS: DOCUSATE 100 MG CAPSULE PO ×2 (12:09→21:13)
[2024-06-02] MEDS: ACETAMINOPHEN 325 MG TABLET 650 MG PO ×2 (12:09→18:26)
[2024-06-02] MEDS: HYDROMORPHONE 2 MG TABLET PO (12:09)
[2024-06-02] MEDS: LORazepam 2 MG/ML INJ 0.5 MG IV (13:55)
--- NOTE | 2024-06-02 14:01 | PT-IP ANOTE ---
Pt is to have an MRI at 14:20. PT will attempt to see after.
--- NOTE | 2024-06-02 15:59 | CM.DPC ---
DCP Note [facility]APER reviewed EMR. Per hospitalist in morning rounds, pt may need to to back to OR today to continue to washout knee infection. continuing to get IV abx. wound care plan pending. continues to withdrawal, CIWA of up to 9 overnight and low as 0/1 throughout the day. Per nursing staff in morning rounds, pt was talking to himself and remained disoriented/confused at this time. Brain MRI and head CT pending. Once patient can participate in care and in conversation about dispo plan; need to discuss how to get patient access to recommended outpatient follow up ie wound care. CM team following clinical course closely. Jenna Troy, YAZAN
--- NOTE | 2024-06-02 16:22 | P.PN_ITS ---
Subjective Subjective Date Patient Seen: 06/02/24 Time Patient Seen: 08:30 Interval history: 53-year-old male with alcohol dependence, alcohol withdrawal, acute on chronic, left knee cellulitis with septic bursitis. Able to be weaned off precedex today, lethargic but slightly less confused. Interval history: The patient is more confused and anxious, with Precedex restarted last night. He has developed drawn tongue movements and involuntary hand movements starting last night. He has had foul-smelling purulent material draining from the left knee wound. Exam Vital Signs (past 8 hours): - 06/02/24 09:00 06/02/24 09:01 06/02/24 09:01 Pulse Rate 96 H 94 H Respiratory Rate 20 14 Blood Pressure 100/60 Pulse Oximetry 98 98 Oxygen Delivery Method 06/02/24 12:00 Pulse Rate Respiratory Rate Blood Pressure Pulse Oximetry Oxygen Delivery Method Room Air Oxygen Delivery Method Room Air Oxygen Flow Rate 0 Narrative Exam Narrative: GEN: Ill-appearing middle-aged male, alert, follows commands HEENT:NC, Face symmetric CHEST: Respiratory excursions symmetric, CTAB CV: RRR, no M/R/G ABD: Soft, NT/ND, BT present in all 4 quadrants EXTR: warm, well perfused, b/l LE edema, scrotal edema. SKIN: warm and dry, no rash MS: Left knee incision draining purulent foul-smelling material. NEURO: Alert, oriented to self, month and year (not day), and location. He has lip smacking and tongue movements and involuntary hand movements. Objective Imaging CT scan - head: Radiologist's impression: No acute intracranial pathology identified. Labs 06/02/24 03:45 06/02/24 03:45 Labs: Laboratory Results - last 24 hr 06/02/24 06/02/24 03:45 07:33 WBC 18.6 H RBC 2.36 L Hgb 8.1 L Hct 23.7 L MCV 100.6 H MCH 34.3 H MCHC 34.1 RDW 16.4 H Plt Count 63 L Neut % (Auto) 84.6 H Lymph % (Auto) 11.9 L [place] % (Auto) 3.1 Eos % (Auto) 0.3 L Baso % (Auto) 0.1 Neut # (Auto) 20939 H Lymph # (Auto) 2200 [place] # (Auto) 600 Eos # (Auto) 100 Baso # (Auto) 0 Sodium 133 L Potassium 3.8 Chloride 109 H Carbon Dioxide 20 L BUN 9 Creatinine 0.67 Estimated GFR > 60 BUN/Creatinine Ratio 13.4 Glucose 73 Calcium 8.0 L Magnesium 1.7 Total Bilirubin 3.1 H AST 44 ALT 73 H Alkaline Phosphatase 186 H Total Protein 4.5 L Albumin 1.8 L Globulin 2.7 Albumin/Globulin Ratio 0.7 L Vancomycin Trough 17.0 PFSH Social History household members: family Smoking Status: Current every day smoker alcohol intake: current Assessment & Plan Assessment & Plan narrative: 1. Alcohol dependence, complicated by withdrawal -Continues on the CIWA protocol. -increase Librium to 50 mg 3 times daily and wean off Precedex infusion 2. Suspected upper GI bleed -This was felt to be possibly related to NSAID use and alcohol. There is no evidence for GI bleed at this time. -Will continue PPI. -No need for EGD at this point, especially given his active alcohol withdrawal and concern for worsening infection in his knee 3. Sepsis with acute metabolic encephalopathy, elevated bilirubin, acute respiratory failure with hypoxia, and thrombocytopenia due to left knee septic prepatellar bursitis and cellulitis -ongoing purulent drainage and leukocytosis noted. Consider repeat surgical drainage per Orthopedics. -Continue vancomycin only and transition to oral therapy in the coming days after treatment of alcohol withdrawal. -WBAT per orthopedics, can use knee immobilizer. -encephalopathy improving, complicated by withdrawal as well. 4. Anemia Hgb stable. 5. Thrombocytopenia Platelet count is down from 127 to 63. Likely in part due to underlying alcoholic liver disease and also related to his active infection/sepsis. Will continue to follow closely. 6. Alcoholic hepatitis vs cirrhosis. INR was 1.8 on admission and improved to 1.4 since. Secondary to alcoholic liver disease. DF on admit was 46.2, Repeat was improved at 24. Will continue to monitor INR and Bilirubin but with improved DF, admission with above probable sepsis, will not treat with steroids. -RUQ ultrasound on 06/01/2024 showed normal spleen size and hepatic steatosis with mild ascites. 7. Hypokalemia Persistent. Will continue to replete IV. Continue to monitor. 8. Hyponatremia Stable today at 133. Will monitor. 9. Possible tardive dyskinesia. Etiology unclear. No implicated medications. -head CT unremarkable -obtain brain MRI Code status Full Prophylaxis Will use mechanical prophylaxis with SCDs Time-Based Coding :: [TOTAL MINUTES] spent with patient and on the chart (including review of chart, obtaining history, exam, reviewing outside data, placing orders, documenting exam and treatment plan, and counseling patient) on [DATE]. Quality VTE Deep Vein Thrombosis/Pulmonary Embolism Present on Admission: No
--- NOTE | 2024-06-02 19:42 | PC.NURSE ---
Upon assumption of care, pt thrusting jaw from side to side without known purpose. Hands clenched to chest, hands fisted in decorticate-like posturing. Pt able to out stretch hands at request by this RN. Provider notified. New orders received. L knee drainage copious, hoff-white and odorous. Dressing changed. Pt transported to CT with this RN on transport monitor. Pt transported to MRI with this RN, vitals obtained immediately before and immediately after MRI, vital signs WDL.
[2024-06-02] MEDS: PANTOPRAZOLE DR 40 MG TABLET PO (21:13)
[2024-06-03] VITALS (43 sets, daily range): BP systolic 80–127; BP diastolic 51–79; PULSE 78–130; RESP 6–54; TEMP 36.2–37.2; O2SAT 95–100; BMI 29.8
--- NOTE | 2024-06-03 | DI.CT.S_ITS ---
PROCEDURE: CT LE LT W CON INDICATIONS: Perineal swelling, left knee bursitis. Left knee wound TECHNIQUE: After the administration of intravenous contrast, 3 mm axial sections acquired of the left femur, with coronal and sagittal reformats. For radiation dose reduction, the following was used: automated exposure control, adjustment of mA and/or kV according to patient size. COMPARISON: [facility], CR, XR KNEE LT 1TO2V, 05/26/2024, 15:01. FINDINGS: Image quality: Excellent. Bones: No acute osseous abnormality. Chronic posttraumatic appearance of the proximal femoral head and neck. Soft tissues: Skin irregularity is seen in the prepatellar region with surrounding subcutaneous edema. Adjacent subcutaneous fluid collection anterior medial to the knee measures up to 10.8 x 10.6 x 2.3 cm with mild peripheral enhancement. Additional smaller lobular fluid collections are seen anterolaterally. Diffuse subcutaneous edema is seen throughout the visualized left lower extremity. No soft tissue gas. Mild fluid is seen between the anterior and medial compartment musculature near the popliteal muscles. No significant intramuscular edema is seen. Marked scrotal edema is seen. Ascites is seen in the included lower abdomen. IMPRESSION: 1. Skin irregularity in the prepatellar region. Surrounding peripherally enhancing fluid is seen in the subcutaneous tissues near the knee anterior medially and to a lesser extent anterior laterally suspicious for developing abscesses. 2. Diffuse subcutaneous edema throughout the lower extremity. No soft tissue gas. Fluid extends into the space between the anterior and medial compartments without definite intramuscular edema, nonspecific but early fasciitis is not entirely excluded and close clinical correlation is recommended. No soft tissue gas. 3. Diffuse scrotal swelling without a peripherally enhancing collection or soft tissue gas. 4. Signs of volume overload including diffuse anasarca and ascites. Approved by: Pietro Pabon M.D. on 06/03/2024 at 12:03
[2024-06-03] MEDS: VANCOMYCIN 1,000 MG/200 ML PIGGYBACK 200 MG IV ×4 (00:30→23:27)
[2024-06-03] MEDS: ACETAMINOPHEN 325 MG TABLET 650 MG PO (04:18)
[2024-06-03] MEDS: HYDROMORPHONE 2 MG TABLET PO ×2 (04:18→21:37)
--- NOTE | 2024-06-03 08:00 | PM.PN.1 ---
Subjective Subjective Date Patient Seen: 06/03/24 Time Patient Seen: 08:07 Interval history: 53-year-old male with alcohol dependence, alcohol withdrawal, acute on chronic, left knee cellulitis with septic bursitis. Able to be weaned off precedex today, lethargic but slightly less confused. Interval history: The patient is persistently confused. He is noted to have significant swelling of the right posterior leg on exam. Case is reviewed with Dr. Bev Zaragoza and he is brought to the operating room for surgical exploration to rule out extension of abscess. There is no evidence of significant extension and the wound was extensively cleaned. Exam Vital Signs (past 8 hours): - 06/03/24 01:00 06/03/24 01:00 06/03/24 02:00 Temperature Pulse Rate 91 H 91 H Respiratory Rate 23 14 Blood Pressure 109/60 Pulse Oximetry 100 99 Oxygen Delivery Method 06/03/24 02:00 06/03/24 03:00 06/03/24 03:00 Temperature Pulse Rate 91 H Respiratory Rate 11 L Blood Pressure 110/65 113/64 Pulse Oximetry 96 Oxygen Delivery Method 06/03/24 04:00 06/03/24 04:00 06/03/24 04:01 Temperature Pulse Rate 117 H Respiratory Rate 38 H Blood Pressure 99/77 Pulse Oximetry 95 Oxygen Delivery Method Room Air 06/03/24 04:01 06/03/24 05:00 06/03/24 05:00 Temperature Pulse Rate 122 H 91 H Respiratory Rate 54 H 13 Blood Pressure 102/55 L Pulse Oximetry 95 95 Oxygen Delivery Method 06/03/24 06:00 06/03/24 06:00 06/03/24 07:59 Temperature 97.8 F Pulse Rate 94 H Respiratory Rate 12 Blood Pressure 103/56 L Pulse Oximetry 98 Oxygen Delivery Method Oxygen Delivery Method Room Air Oxygen Flow Rate 0 Narrative Exam Narrative: GEN: Ill-appearing middle-aged male, alert, follows commands HEENT:NC, Face symmetric CHEST: Respiratory excursions symmetric, CTAB CV: RRR, no M/R/G ABD: Soft, NT/ND, BT present in all 4 quadrants EXTR: warm, well perfused, b/l LE edema, scrotal edema. SKIN: warm and dry, no rash MS: Left knee incision draining purulent foul-smelling material. Left posterior calf buttock significantly swollen compared to the right, with massive scrotal edema noted. diffuse anasarca. NEURO: Alert, oriented to self,, appears more confused. He has lip smacking and tongue movements and involuntary hand movements. Objective Imaging Brain MRI 06/02/2024:: Radiologist's impression: Limited but unremarkable MRI of the brain without evidence of acute infarct, hemorrhage or mass lesion. Unremarkable MR angiogram of the brain. No evidence of large vessel occlusion, aneurysm or vascular malformation. Unremarkable MR angiogram of the neck. No significant stenosis or aneurysm Head CT 06/02/2024:: Radiologist's impression: No acute intracranial pathology identified. Labs 06/03/24 09:50 06/03/24 09:50 Labs: Laboratory Results - last 24 hr 06/02/24 07:33 Vancomycin Trough 17.0 PFSH Social History household members: family Smoking Status: Current every day smoker alcohol intake: current Assessment & Plan Assessment & Plan narrative: 1. Alcohol dependence, complicated by withdrawal with alcoholic/metabolic encephalopathy, possibly contributed to by infection -Continues on the CIWA protocol. -continue Librium to 50 mg 3 times daily and wean off Precedex infusion -add quetiapine 50 mg b.i.d. 2. Suspected upper GI bleed -This was felt to be possibly related to NSAID use and alcohol. There is no evidence for GI bleed at this time. -Will continue PPI. -No need for EGD at this point, especially given his active alcohol withdrawal and concern for worsening infection in his knee 3. Sepsis with acute metabolic encephalopathy, elevated bilirubin, acute respiratory failure with hypoxia, and thrombocytopenia due to left knee septic prepatellar bursitis and cellulitis -ongoing purulent drainage and leukocytosis noted. Consider repeat surgical drainage per Orthopedics. -Continue vancomycin only and transition to oral therapy in the coming days after treatment of alcohol withdrawal. -WBAT per orthopedics, can use knee immobilizer. -encephalopathy improving, complicated by withdrawal as well. -negative surgical exploration with repeat clean out 06/03/2024 4. Anemia Hgb stable. 5. Thrombocytopenia Platelet count is improving from a low of 53 up to 80. Likely in part due to underlying alcoholic liver disease and also related to his active infection/sepsis. Will continue to follow closely. 6. Alcoholic hepatitis vs cirrhosis. INR was 1.8 on admission and improved to 1.4 since. Secondary to alcoholic liver disease. DF on admit was 46.2, Repeat was improved at 24. Will continue to monitor INR and Bilirubin but with improved DF, admission with above probable sepsis, will not treat with steroids. -RUQ ultrasound on 06/01/2024 showed normal spleen size and hepatic steatosis with mild ascites. 7. Hypokalemia Persistent. Will continue to replete IV. Continue to monitor. 8. Hyponatremia Stable today at 131 but slowly following. Will monitor. 9. Possible tardive dyskinesia. Etiology unclear. No implicated medications. -head CT unremarkable -unremarkable brain MRI Code status Full Prophylaxis Will use mechanical prophylaxis with SCDs Time-Based Coding :: 45 minutes of critical care time spent Quality VTE Deep Vein Thrombosis/Pulmonary Embolism Present on Admission: No IH PROFEE Charge codes Critical Care: 10493
--- NOTE | 2024-06-03 09:07 | P.PN_ITS ---
Subjective Subjective Date Patient Seen: 06/03/24 Time Patient Seen: 09:00 Interval history: Pietro is a 53 year old male with hx of alcohol dependence now in alcohol withdrawal who is POD#5 s/p I&D of a sepctic left prepatellar bursa by Dr. Crum. Intra-op wound specimens grew MRSA. He is being treated w/ IV abx, ceftriaxone and vancomycin. Patient only responses that No when asked if he has any increased pain in his left leg or during examination. Hospitalist concerned about persistent malodorus purulent discharge at the incision site. He asked if a repeat washout of the left knee secondary to prepatellar septic bursitis is indicated. Packing has been changed daily per wound care's orders. Exam Vital Signs (past 8 hours): - 06/03/24 02:00 06/03/24 02:00 06/03/24 03:00 Temperature Pulse Rate 91 H Respiratory Rate 14 Blood Pressure 110/65 113/64 Pulse Oximetry 99 Oxygen Delivery Method 06/03/24 03:00 06/03/24 04:00 06/03/24 04:00 Temperature Pulse Rate 91 H 117 H Respiratory Rate 11 L 38 H Blood Pressure Pulse Oximetry 96 95 Oxygen Delivery Method Room Air 06/03/24 04:01 06/03/24 04:01 06/03/24 05:00 Temperature Pulse Rate 122 H 91 H Respiratory Rate 54 H 13 Blood Pressure 99/77 Pulse Oximetry 95 95 Oxygen Delivery Method 06/03/24 05:00 06/03/24 06:00 06/03/24 06:00 Temperature Pulse Rate 94 H Respiratory Rate 12 Blood Pressure 102/55 L 103/56 L Pulse Oximetry 98 Oxygen Delivery Method 06/03/24 07:59 Temperature 97.8 F Pulse Rate Respiratory Rate Blood Pressure Pulse Oximetry Oxygen Delivery Method Oxygen Delivery Method Room Air Oxygen Flow Rate 0 Narrative Exam Narrative: Patient is awake but not responsive to most direct questions. Examination of the left knee: removing the dressing demonstrates a malodorous open wound with mucopurulent discharge. Dressing pad is saturated. Patient has pitting edema along the posterior calf. Is not warm or erythematous. No inguinal lymphadenopathy is appreciated. Skin is cool to the touch. It is observed the patient is able to dorsal and plantarflex at the ankle. Objective Labs 06/03/24 09:50 06/03/24 09:50 [facility] Social History household members: family Smoking Status: Current every day smoker alcohol intake: current Assessment & Plan Post-op Postoperative Procedures: Procedures Operation Date: 05/27/24 17:00 <No data on this case meets the specified criteria> Operation Date: 05/29/24 09:00 Actual Procedure Side Surgeon p Incision and Drainage left knee Everette Crum MD Postoperative day: 5 Postoperative plan narrative: Dr. Zaragoza is contacted for consult to see if repeat irrigation and debridement of the left prepatellar bursa. Pain management per hospitalist. SCDs to be worn while in bed for DVT prophylaxis. Daily dressing changes with 1/2 inch iodoform gauze and apply ABD pad over the incision, secure with Gurinder wrap. Follow up at wound center after discharge. Abx managed by medicine. Time Spent With Patient Time with patient: 15-24 minutes Quality VTE Deep Vein Thrombosis/Pulmonary Embolism Present on Admission: No
[2024-06-03] MEDS: PANTOPRAZOLE DR 40 MG TABLET PO ×2 (09:10→21:36)
[2024-06-03] MEDS: FOLIC ACID 1 MG TABLET PO (09:10)
[2024-06-03] MEDS: DOCUSATE 100 MG CAPSULE PO ×2 (09:10→21:36)
[2024-06-03] MEDS: DULOXETINE 30 MG CAPSULE 60 MG PO (09:10)
[2024-06-03] MEDS: chlordiazePOXIDE 25 MG CAPSULE 50 MG PO ×2 (09:10→21:36)
[2024-06-03] MEDS: THIAMINE 100 MG TABLET PO (09:10)
[2024-06-03] MEDS: SODIUM CHLORIDE 0.9% FLUSH 10 ML IV (09:10)
[2024-06-03] MEDS: QUETIAPINE 25 MG TABLET PO ×2 (09:10→21:36)
--- NOTE | 2024-06-03 09:32 | DI.CT.S_ITS ---
PROCEDURE: CT ABDOMEN PELVIS W CON INDICATIONS: perineal swelling, L knee bursitis, r/o abcess/ danni's TECHNIQUE: After the administration of intravenous contrast, axial sections acquired from the lung bases to the pubic symphysis. Coronal and sagittal reformats were performed. For radiation dose reduction, the following was used: automated exposure control, adjustment of mA and/or kV according to patient size. COMPARISON: None. FINDINGS: Image quality: Diagnostic. Lower Chest: Small to moderate bilateral pleural effusions with bibasilar atelectasis. Patchy opacities are seen in the included portion of the lingula. Small opacity is seen in the medial right middle lobe. ABDOMEN: Liver: No solid mass. Gallbladder: Gallbladder is distended. No radiopaque gallstones or wall thickening. Biliary ducts: No biliary dilation. Pancreas: No ductal dilation. Spleen: Size is within normal limits. Adrenal Glands: No adrenal nodules. Kidneys and Ureters: No hydronephrosis. No solid mass. No complex renal cystic lesion which requires follow up. Small nonobstructing bilateral renal calculi measuring up to 2 mm, greater on the right than on the left. Stomach and Bowel: Moderate colonic stool. Small bowel loops and stomach are unremarkable. Peritoneum: Small volume ascites throughout the abdomen and pelvis. No pneumoperitoneum. Ventral Wall: Diffuse soft tissue anasarca. Abdominal Nodes: No retroperitoneal or mesenteric adenopathy by size criteria. Vessels: Aorta and inferior vena cava are normal in size. PELVIS: Pelvic Organs: Coarse calcifications in the prostate. Marked scrotal thickening edema is seen. No soft tissue gas. Bladder: Bladder is decompressed by Carrion catheter. Pelvic Nodes: No enlarged lymph nodes. Miscellaneous: No inguinal hernias are seen. Bones: No aggressive osseous abnormality. Lower extremity dictated separately. Chronic posttraumatic changes in the left proximal femur. IMPRESSION: 1. Signs of volume overload including diffuse soft tissue anasarca, ascites, and small to moderate bilateral pleural effusions. 2. Marked nonspecific scrotal edema. No soft tissue gas. 3. Patchy opacities in the lingula and right middle lobe are suspicious for an infectious or inflammatory process. 1. Approved by: Pietro Pabon M.D. on 06/03/2024 at 11:52
[2024-06-03 10:12] LABS: Add Manual Diff / Slide Review NO; Basophils Absolute Auto 100 /uL (0-100); Basophils Percent Auto 0.4 % (0-2); Eosinophils Absolute Auto 100 /uL (0-450); Eosinophils Percent Auto 0.3 % (2-4); Hematocrit 24.5 % (41-53); Hemoglobin 8.1 g/dL (13.5-17.5); Lymphocytes Absolute Auto 1400 /uL (1100-4500); Lymphocytes Percent Auto 8.8 % (25-40); Mean Corpuscular HGB Conc 33.2 % (30-36); Mean Corpuscular Hemoglobin 33.7 PG (26-34); Mean Corpuscular Volume 101.3 fL (80-100); Monocytes Absolute Auto 400 /uL (0-900); Monocytes Percent Auto 2.5 % (3-14); Neutrophils Absolute Auto 14100 /uL (1500-7000); Platelet Count 80 X10^3/uL (150-400); Red Blood Cell Count 2.42 X10^6/uL (4.5-5.9); Red Cell Distribution Width 16.5 % (11.6-14.8)
[2024-06-03 10:26] LABS: Alanine Aminotransferase 60 IU/L (<50); Albumin 1.8 g/dL (3.5-5.0); Albumin Globulin Ratio 0.6 (1.0-2.8); Alkaline Phosphatase 175 U/L (38-126); Aspartate Aminotransferase 39 IU/L (17-59); BUN Creatinine Ratio 13.7 (6-22); Bilirubin Total 3.9 mg/dL (0.2-1.3); Blood Urea Nitrogen 7 mg/dL (9-20); Carbon Dioxide 22 mmol/L (22-32); Chloride 109 mmol/L (98-107); Estimated Glomerular Filt Rate > 60 mL/min (>60); Globulin 2.9 g/dL (1.7-4.1); Glucose 83 mg/dL (70-100); HEMOLYSIS < 15 (0-50); Sodium 131 mmol/L (137-145); Total Protein 4.7 g/dL (6.3-8.2)
[2024-06-03 10:28] LABS: Ammonia (NH3) < 9 umol/L (9-30)
--- NOTE | 2024-06-03 11:12 | PT-IP ANOTE ---
Per nursing pt is not appropriate for PT at this time.
--- NOTE | 2024-06-03 11:13 | OT.IPNOTE ---
Per nursing states pt not appropriate at this time to be seen.
--- NOTE | 2024-06-03 12:03 | DI.US.S_ITS ---
PROCEDURE: US EXTREMITY NONVASC LOWER LT INDICATIONS: L leg swelling assess fluid collection TECHNIQUE: Real-time scanning was performed of the left knee area and distal thigh area in the regions of clinical concern and abnormalities found by CT scanning earlier same day, with image documentation. COMPARISON: [facility], CT, CT LE LT W CON, 06/03/2024, 10:55. FINDINGS: At the anterior cutaneous wound seen also on CT scanning same day no undrained fluid collection is found. At the deep posterior medial soft tissues of the left knee region is a fluid collection measuring 5.4 x 3.5 x 1.0 cm that appears to trace to the posterior medial knee as a Clark cyst, simple internal fluid content. A worrisome fluid collection for abscess formation is also present more anteriorly, anteromedial aspect of the knee region and distal 5th thigh region, containing internal debris and extending craniocaudad for approximately 13.1 cm with a maximal AP and transverse dimension of 3.3 x 1.2 cm. This correlates with the rim enhancing lobulated likely multi septated fluid collection seen on contrast-enhanced CT scanning earlier same day. IMPRESSION: Posterior Clark's cyst left knee area, more anteriorly early abscess formation is presumed as cause of the complex fluid collection seen also by contrast-enhanced CT scanning same day. That structure measures up to 13.1 x 3.3 x 1.2 cm. Dictated by: Philip Anders M.D. on 06/03/2024 at 13:37 Approved by: Philip Anders M.D. on 06/03/2024 at 13:44
--- NOTE | 2024-06-03 12:21 | CM.DPNOTE ---
DCP Note BRAND ACTIVATION MANAGER reviewed EMR. Per hospitalist in morning rounds, continues to have swelling all up and down left leg. CT on leg today. remains on precedex. continues to be disoriented and confused. CIWAs of 4-6 overnight. continues to rec another I&D from ortho team. Per chart, continues on IV abx at this time. and Seroquel. Per RN, not appropriate for BRAND ACTIVATION MANAGER BRANNON assessment/DCP assessment at this time. Once patient can participate in care and in conversation about dispo plan; need to discuss how to get patient access to recommended outpatient follow up ie wound care and IV abx if needed, CM team following clinical course closely. YAZAN Neri
--- NOTE | 2024-06-03 13:59 | PM.CN ---
History of Present Illness Consult details Date Patient Seen: 06/03/24 Time Patient Seen: 13:59 Chief complaint: alcohol withdrawal Reason for consult: leg pain Requesting provider: David Gregorio Narrative: Mr. Mc is a 53 yo M with history of left leg infection. He is 5 days s/p I&D by Dr. Crum. He has ongoing confusion, elevated WBC. CT of LLE shows fluid collection in the anterior left leg concerning for re-accumulation of purulent material. Orthopedic service was consulted again since Dr. Crum is not available today to evaluate patient. Meds Home Medications and Allergies Home Medications Medication Instructions Recorded Confirmed Type acetaminophen 325 mg tablet 650 mg PO PRN PRN Pain (Scale 05/26/24 05/26/24 History Score 1-3) duloxetine 60 mg capsule,delayed 60 mg PO DAILY 05/26/24 05/26/24 History release naproxen 250 mg tablet 250 mg PO BID 05/26/24 05/26/24 History Allergies Allergy/AdvReac Type Severity Reaction Status Date / Time No Known Drug Allergies Allergy Verified 05/26/24 15:03 Review of Systems Review of Systems ROS: Yes All systems reviewed with the patient and are negative except as otherwise documented Exam Vital Signs (past 8 hours): - 06/03/24 06:00 06/03/24 06:00 06/03/24 07:00 Temperature Pulse Rate 94 H 90 Respiratory Rate 12 11 L Blood Pressure 103/56 L Pulse Oximetry 98 99 06/03/24 07:00 06/03/24 07:59 06/03/24 08:00 Temperature 97.8 F Pulse Rate 83 Respiratory Rate 10 L Blood Pressure 96/54 L Pulse Oximetry 99 06/03/24 08:00 06/03/24 09:00 06/03/24 09:00 Temperature Pulse Rate 86 Respiratory Rate 12 Blood Pressure 95/57 L 92/54 L Pulse Oximetry 98 06/03/24 10:00 06/03/24 11:13 06/03/24 11:16 Temperature Pulse Rate 84 78 79 Respiratory Rate 9 L 7 L Blood Pressure Pulse Oximetry 97 99 98 06/03/24 11:16 06/03/24 12:00 06/03/24 12:00 Temperature Pulse Rate 78 Respiratory Rate 6 L Blood Pressure 93/55 L 82/52 L Pulse Oximetry 98 Oxygen Delivery Method Room Air Oxygen Flow Rate 0 Extrem Other: LLE with open wound s/p I&D and sutures in place. There is active drainage from the wound. There is serous/purulent material in the bedding under the leg indicating ongoing drainage. Patient is not following command and motor and sensory function to the legs are not able to be assessed. The toes are well perfused. There is generalized swelling to the LLE. No localized induration/flucuturance on examination. Objective Labs 06/03/24 09:50 06/03/24 09:50 Labs: Laboratory Results - last 24 hr 06/03/24 09:50 WBC 16.0 H RBC 2.42 L Hgb 8.1 L Hct 24.5 L MCV 101.3 H MCH 33.7 MCHC 33.2 RDW 16.5 H Plt Count 80 L Neut % (Auto) 88.0 H Lymph % (Auto) 8.8 L Brantley % (Auto) 2.5 L Eos % (Auto) 0.3 L Baso % (Auto) 0.4 Neut # (Auto) 11370 H Lymph # (Auto) 1400 Brantley # (Auto) 400 Eos # (Auto) 100 Baso # (Auto) 100 Sodium 131 L Potassium 4.0 Chloride 109 H Carbon Dioxide 22 BUN 7 L Creatinine 0.51 L Estimated GFR > 60 BUN/Creatinine Ratio 13.7 Glucose 83 Calcium 8.0 L Total Bilirubin 3.9 H AST 39 ALT 60 H Alkaline Phosphatase 175 H Ammonia < 9 L Total Protein 4.7 L Albumin 1.8 L Globulin 2.9 Albumin/Globulin Ratio 0.6 L PFSH Social History household members: family Tobacco & Substance Use Smoking Status: Current every day smoker alcohol intake: current Assessment & Plan Assessment & Plan narrative: Mr. Mc is 5 days s/p left LLE I&D. He has ongoing left leg wound drainage with CT showing fluid collection in the subcutaneous layer concerning for additional abscess. Phone consent was obtained from patient's POA since patient is not able to consent due to altered mental status. Risks for surgery include but not limited to bleeding, infection, nerve/blood vessel injury, progression of infection, loss of limb, even . Patient's POA understands and risks and benefits of surgery and consented to proceed with repeat I&D surgery of his LLE. Patient is taken to the OR on emergent basis for repeat I&D of his LLE. Time-Based Coding :: [TOTAL MINUTES] spent with patient and on the chart (including review of chart, obtaining history, exam, reviewing outside data, placing orders, documenting exam and treatment plan, and counseling patient) on [DATE].
--- NOTE | 2024-06-03 15:03 | SUR.OPER ---
Supine on padded OR bed, head on pillow, arms secured on padded arm boards at <90 degrees abduction, legs uncrossed, safety belt at waist, tape over blanket over lower right leg, left leg drapped free
[2024-06-03] MEDS: SODIUM CHLORIDE IRRIG SOLUTION 3,000 ML, GENTAMICIN 240 MG IRR (15:11)
--- NOTE | 2024-06-03 15:33 | DIET.PN1 ---
Dietary Progress Note Assessment: Pt NPO today for repeat I&D. Pt was NPO 5 days before diet advanced 05/31 to full liquids. Avg recorded po intakes while on full liquids is 50%. Had been getting ONS. Ht: 172.72 cm Wt: 89 kg BMI: 29.8 UBW: No wt hx Last BM: 05/26/24 (06/03/24 14:08) MNA: 14 Stephen Score: 15 Diet: 06/03/24 12:48 NPO Diet Diet Modifications: May Advance Diet as Tolerated: No NPO Type: Strict Nutrition Percent Meal Consumed 50% 06/01/24 18:00 Labs: RBC 2.42 X10^6/uL (4.5-5.9) L 06/03/24 09:50 Hgb 8.1 g/dL (13.5-17.5) L 06/03/24 09:50 Hct 24.5 % (41-53) L 06/03/24 09:50 Creatinine 0.51 mg/dL (0.66-1.25) L 06/03/24 09:50 Lactate 2.5 mmol/L (0.7-2.1) H 05/26/24 15:40 Nutrition Diagnosis: Inadequate oral intake r/t alcohol withdraw, increased nutrient needs (energy-protein) aeb <50% of estimated energy needs for 8 days, wound, sepsis Interventions: ONS Enlive TID with full liquids EER: 3988-1283 kcals (22-25 kcals/kg per BMI) 90-110 g protein (1.2-1.5 g/kg per sepsis, wound) Monitoring/Evaluations: po intakes, diet Electronically Signed by: Christie Lainez 06/03/24 15:33 Clinical Dietitian [address] [id number]
--- NOTE | 2024-06-03 15:35 | PM.OP.1 ---
Operative Date/Time/Diagnoses Date of procedure: 06/03/24 Time of procedure: 14:20 Pre-op diagnosis: 1. Left knee septic bursitis 2. Left leg soft tissue abscess 3. History of irrigation and debridement with open wound Post-op diagnosis: same Procedure & Clinicians Procedure: 1. Left knee pre-patella bursa excision 2. Left leg irrigation and debridement of skin, subcutaneous tissue, fascia and muscle Same procedure as scheduled: Yes Indications: Mr. Mc is admitted for chronic alcoholism, left leg infection 5 days s/p I&D. He has persisting purulent drainage with CT showing additional soft tissue collection of fluid concerning for abscess. After obtaining informed consent from patient's POA, patient was taken to the OR emergently for repeat I&D of his left leg. Surgeon: Bev Zaragoza Click Yes if Unassisted: Yes Anesthesia Type: General Operative Notes Closure Type: primary Estimated Blood Loss (mL): 50 Blood products transfused: none Tourniquet time (min): 1 Procedure in detail: Patient was seen in the preoperative area. Risks and benefits of the surgery was discussed with the patient. Patient has significant altered mental status. Informed consent was obtained from patient's sister who is patient's power of community living instructor. Informed consent was obtained emergently through patient's sister for repeat irrigation and debridement and placed in the chart. Surgical site was marked. Patient was taken to the operative room. General anesthesia was administered. Patient was placed into the supine position on the operating table. Left leg tourniquet was placed in the upper thigh. The left leg was then prepped and draped in a sterile fashion. Time-out was performed at this time. Patient's left knee suture was removed prior to prepping and draping. The wound was inspected. There are small amount of purulent drainage from the wound. The skin edges were macerated and pale in the center of the incision on both sides. The wound was explored using a hemostat as well as finger dissection. There is small amount of purulent material that was able to be expressed from all direction of the wound in the subcutaneous layer. The exploration and dissection was made both proximal and distally from the prior made incision to approximately 6 in proximal and 4 in distal. Total proximally 10 additional cc of purulent material was able to be expressed from the subcutaneous layer. There does not seem to be a connection to the left knee joint. Patient is remaining prepatellar bursa appears to be necrotic and grossly unhealthy in appearance. A excision of patient's prepatellar bursa was performed using scalpel and Kerrison rongeur. The debridement was performed until healthy appearing tissue was able to be visualized. Tourniquet was briefly inflated to 250 mm Hg. There seems to be increased bleeding after the tourniquet was inflated and then after 1 minute of inflation the tourniquet was deflated which reduced the amount of oozing from soft tissue. And the tourniquet was left deflated at this time. 3 L of sterile normal saline with gentamicin was used to irrigate the patient's wound after the debridement was completed. Two packs of 1 in iodoform packing strip was used to pack into patient's wound. One pack was packed into the wound superior to the patient's patella. Second pack was packed into the wound to both inferior and lateral to the patella. 2-0 nylon suture was used to loosely close the wound to allow additional drainage to take place. After the irrigation debridement was completed and the packing was completed, patient's left knee was dressed with sterile dressing consisting of 4 x 4 ABD pad and Xeroform. Patient's left knee was then wrapped with an Gurinder bandage. Patient tolerated the procedure well was woken up from anesthesia without any difficulty. Patient will be transferred back to the ICU for additional medical management. There were no complications. Complications: none Post-operative Condition: stable Disposition: PACU Plan for aftercare: Admit to inpatient ICU
[2024-06-03] MEDS: HYDROMORPHONE 0.5 MG INJ IV (16:29)
[2024-06-03] MEDS: LACTATED RINGERS 1,000 ML 100 ML IV (16:30)
[2024-06-03] MEDS: SENNOSIDES 8.6 MG TABLET 17.2 MG PO (21:36)
[2024-06-04] VITALS (39 sets, daily range): BP systolic 86–124; BP diastolic 55–73; PULSE 113–134; RESP 8–22; TEMP 36.7; O2SAT 95–99
[2024-06-04 03:15] LABS: Add Manual Diff / Slide Review NO; Basophils Absolute Auto 0 /uL (0-100); Basophils Percent Auto 0.2 % (0-2); Eosinophils Absolute Auto 0 /uL (0-450); Eosinophils Percent Auto 0.2 % (2-4); Hematocrit 22.9 % (41-53); Hemoglobin 7.6 g/dL (13.5-17.5); Lymphocytes Absolute Auto 1300 /uL (1100-4500); Lymphocytes Percent Auto 6.3 % (25-40); Mean Corpuscular HGB Conc 33.2 % (30-36); Mean Corpuscular Hemoglobin 33.9 PG (26-34); Monocytes Absolute Auto 500 /uL (0-900); Monocytes Percent Auto 2.6 % (3-14); Neutrophils Absolute Auto 18100 /uL (1500-7000); Neutrophils Percent Auto 90.7 % (50-75); Platelet Count 101 X10^3/uL (150-400); Red Blood Cell Count 2.25 X10^6/uL (4.5-5.9); Red Cell Distribution Width 16.4 % (11.6-14.8); White Blood Cell Count 19.9 X10^3/uL (4.5-11.0)
[2024-06-04 03:30] LABS: Lactate (Lactic Acid) 1.1 mmol/L (0.7-2.1)
[2024-06-04 03:32] LABS: BUN Creatinine Ratio 16.3 (6-22); Blood Urea Nitrogen 8 mg/dL (9-20); Calcium 8.1 mg/dL (8.4-10.2); Carbon Dioxide 22 mmol/L (22-32); Chloride 108 mmol/L (98-107); Estimated Glomerular Filt Rate > 60 mL/min (>60); Glucose 77 mg/dL (70-100); HEMOLYSIS < 15 (0-50); Sodium 132 mmol/L (137-145)
[2024-06-04] MEDS: DOCUSATE 100 MG CAPSULE PO ×2 (08:19→21:14)
[2024-06-04] MEDS: VANCOMYCIN 1,000 MG/200 ML PIGGYBACK 200 MG IV ×2 (08:19→16:24)
[2024-06-04] MEDS: THIAMINE 100 MG TABLET PO (08:21)
[2024-06-04] MEDS: chlordiazePOXIDE 25 MG CAPSULE 50 MG PO ×3 (08:21→21:14)
[2024-06-04] MEDS: polyethylene glycoL 3350 17 GM POWD.PACK PO (08:22)
[2024-06-04] MEDS: PANTOPRAZOLE DR 40 MG TABLET PO ×2 (08:22→21:14)
[2024-06-04] MEDS: DULOXETINE 30 MG CAPSULE 60 MG PO (08:22)
[2024-06-04] MEDS: FOLIC ACID 1 MG TABLET PO (08:23)
--- NOTE | 2024-06-04 10:30 | PM.PN.1 ---
Subjective Subjective Interval history: Pietro is a 53 year old male with a complex history, he has a history of alcohol dependence now in alcohol withdrawal. He is s/p I&D of a sepctic left prepatellar bursa on both 05/29/2024 and 06/03/2024. Initial intra-op wound specimens grew MRSA. He was being treated w/ IV abx. Ceftriaxone and vancomycin. Most recent wound cultures have not grown anything yet, now being treated w/ IV vancomycin only. H&H continues to downtrend most recently 7.6 and 22.9. Limited history as patient is very lethargic this morning, altered mental status. Exam Vital Signs (past 8 hours): - 06/04/24 02:38 06/04/24 02:38 06/04/24 03:00 Temperature Pulse Rate 114 H Respiratory Rate 14 Blood Pressure 108/60 116/62 Pulse Oximetry 97 Oxygen Delivery Method Oxygen Flow Rate 0 06/04/24 03:00 06/04/24 03:30 06/04/24 03:30 Temperature 98.1 F Pulse Rate 116 H 113 H Respiratory Rate 15 14 Blood Pressure 111/57 L Pulse Oximetry 98 97 Oxygen Delivery Method Oxygen Flow Rate 06/04/24 04:00 06/04/24 04:00 06/04/24 04:00 Temperature Pulse Rate 113 H Respiratory Rate 9 L Blood Pressure 103/56 L Pulse Oximetry 98 Oxygen Delivery Method Room Air Oxygen Flow Rate 06/04/24 04:30 06/04/24 04:30 06/04/24 05:00 Temperature Pulse Rate 114 H 113 H Respiratory Rate 14 8 L Blood Pressure 102/56 L Pulse Oximetry 98 99 Oxygen Delivery Method Oxygen Flow Rate 06/04/24 05:00 06/04/24 05:30 06/04/24 05:30 Temperature Pulse Rate 113 H Respiratory Rate 9 L Blood Pressure 100/55 L 102/55 L Pulse Oximetry 98 Oxygen Delivery Method Oxygen Flow Rate 06/04/24 06:00 06/04/24 06:00 06/04/24 06:00 Temperature Pulse Rate 115 H 115 H Respiratory Rate 13 12 Blood Pressure 121/70 Pulse Oximetry 98 98 Oxygen Delivery Method Oxygen Flow Rate 0 06/04/24 06:30 06/04/24 06:30 06/04/24 07:00 Temperature Pulse Rate 115 H Respiratory Rate 11 L Blood Pressure 110/55 L 107/55 L Pulse Oximetry 98 Oxygen Delivery Method Oxygen Flow Rate 06/04/24 07:00 06/04/24 07:30 06/04/24 07:30 Temperature Pulse Rate 116 H 118 H Respiratory Rate 10 L 14 Blood Pressure 115/62 Pulse Oximetry 98 97 Oxygen Delivery Method Oxygen Flow Rate 06/04/24 08:00 06/04/24 08:00 06/04/24 08:30 Temperature Pulse Rate 117 H 119 H Respiratory Rate 13 12 Blood Pressure 112/73 Pulse Oximetry 98 98 Oxygen Delivery Method Oxygen Flow Rate 06/04/24 08:30 06/04/24 09:00 06/04/24 09:00 Temperature Pulse Rate 120 H Respiratory Rate 11 L Blood Pressure 121/63 124/67 Pulse Oximetry 98 Oxygen Delivery Method Oxygen Flow Rate 06/04/24 09:30 06/04/24 09:30 06/04/24 10:00 Temperature Pulse Rate 127 H Respiratory Rate 19 Blood Pressure 115/67 110/64 Pulse Oximetry 98 Oxygen Delivery Method Oxygen Flow Rate 06/04/24 10:00 Temperature Pulse Rate 120 H Respiratory Rate 14 Blood Pressure Pulse Oximetry 98 Oxygen Delivery Method Oxygen Flow Rate Oxygen Delivery Method Room Air Oxygen Flow Rate 0 Narrative Exam Narrative: Lying in bed during interview today. Extrem Other: LLE with open wound s/p I&D and sutures in place. There is active serous drainage from the wound. No duke purulence. Gauze and ABD dressings are completely saturated w/ serous drainage. There is a 3x2 area of skin sloughing on the left anterior calvillo. Patient able to wiggle his toes, DF and PF intact. Gross sensation intact. Patient grimaces in pain w/ any movement or palpation of the left knee or lower extremity. The toes are well perfused. There is generalized significant pitting edema to bilateral LE. No localized induration/flucuturance on examination. Objective Labs 06/04/24 02:40 06/04/24 02:40 Labs: Laboratory Results - last 24 hr 06/03/24 06/04/24 09:50 02:40 WBC 19.9 H RBC 2.25 L Hgb 7.6 L Hct 22.9 L MCV 102.0 H MCH 33.9 MCHC 33.2 RDW 16.4 H Plt Count 101 L Neut % (Auto) 90.7 H Lymph % (Auto) 6.3 L Whitfield % (Auto) 2.6 L Eos % (Auto) 0.2 L Baso % (Auto) 0.2 Neut # (Auto) 40228 H Lymph # (Auto) 1300 Whitfield # (Auto) 500 Eos # (Auto) 0 Baso # (Auto) 0 Sodium 131 L 132 L Potassium 4.0 4.0 Chloride 109 H 108 H Carbon Dioxide 22 22 BUN 7 L 8 L Creatinine 0.51 L 0.49 L Estimated GFR > 60 > 60 BUN/Creatinine Ratio 13.7 16.3 Glucose 83 77 Lactate 1.1 Calcium 8.0 L 8.1 L Total Bilirubin 3.9 H AST 39 ALT 60 H Alkaline Phosphatase 175 H Ammonia < 9 L Total Protein 4.7 L Albumin 1.8 L Globulin 2.9 Albumin/Globulin Ratio 0.6 L PFSH Social History household members: family Smoking Status: Current every day smoker alcohol intake: current Assessment & Plan Assessment and plan (1) Septic prepatellar bursitis of left knee: Status: Acute Plan Patients dressing was changed by me today, his dressing was completely saturated with drainage. Continue to monitor, patient may require more than QD dressing changes depending the amount of drainage from his knee. 1) Disposition and pain management per hospitalist. Recommend ice to the knee for additional pain control. 2) SCDs to be worn while in bed for DVT prophylaxis. 3) WBAT, avoid knee flexion to protect wound. Consider knee immobilizer when pt ambulating. 4) Continue w/ daily dressing changes with 1/2 inch iodoform, gauze and apply ABD pad over the incision, secure with Gurinder wrap. Patient will need to be followed at wound care center after discharge. 5) Abx managed by medicine, currently getting IV Vancomycin. Will continue to monitor if any further surgical intervention is needed. Time-Based Coding :: [TOTAL MINUTES] spent with patient and on the chart (including review of chart, obtaining history, exam, reviewing outside data, placing orders, documenting exam and treatment plan, and counseling patient) on [DATE]. Quality VTE Deep Vein Thrombosis/Pulmonary Embolism Present on Admission: No
--- NOTE | 2024-06-04 12:15 | PT.IPTN ---
Current Diagnoses Prepatellar bursitis, left knee (05/26/24) Other infective bursitis, left knee (05/26/24) Unspecified open wound, left knee, initial encounter (05/26/24) Surgery Performed Operation Date: 05/27/24 17:00 <No data on this case meets the specified criteria> Operation Date: 05/29/24 09:00 Actual Procedures p Incision and Drainage left knee - Everette Crum MD Operation Date: 06/03/24 14:00 Actual Procedures p Incision and Drainage Knee(Left) - Bev Zaragoza MD Physical Therapy Treatment Note M2 PT-IP Current Condition Start: 05/29/24 10:54 Freq: NEEDED Status: Active Protocol: Document 05/31/24 07:57 MB (Rec: 05/31/24 08:34 MB [id number]) Physical Therapy Current Condition Current Condition Evaluation Date 05/31/24 Treatment Diagnosis Fall, left prepatellar bursa infected s/p I&D, alcohol withdrawal M3 PT-IP Subjective Start: 05/29/24 10:54 Freq: NEEDED Status: Active Protocol: Document 06/04/24 12:45 TS (Rec: 06/04/24 12:56 TS [id number]) Subjective Physical Therapy Visit Type Type Treatment Note Visit Start Time 12:15 Visit Stop Time 12:45 Number of MOTOR PATROL OPERATOR Visits 2 Physical Therapy Visit Comments Patient Comments Pt is lethargic, has unintelligble speech. M4 PT-IP Mobility and Gait Start: 05/29/24 10:54 Freq: NEEDED Status: Active Protocol: Document 06/04/24 12:45 TS (Rec: 06/04/24 12:56 TS [id number]) PT-Bed Mobility Assessment Rolling Level of Assist Maximal Assistance,2 Person Assistance Supine to Sit Supine to Sit Total Assistance,2 Person Assistance,Head of Bed Elevated,Bedrails Sit to Supine Sit to Supine Total Assistance,2 Person Assistance Scooting Scooting to Edge of Bed Dependent PT-Transfer Assessment Comments Mobility Comments knee immobilizer donned before mobility. Pt sat up to EOB total assist. Pt is having difficulty with any movement. He sat EOB Dimas with lateral lean to the L side. Pt is not appropriate to progress to standing. Sit to supine into bed total assist. Pt rolled total assist for placement of tiana lift. Pt was left in the chair, nursing in the room. PT-Balance Assessment Sitting Balance and Reactions Static Sitting Balance Ability Poor Dynamic Sitting Balance Ability Poor M5 PT-IP Objective Assessments Start: 05/29/24 10:54 Freq: NEEDED Status: Active Protocol: Document 05/31/24 07:57 MB (Rec: 05/31/24 08:34 MB [id number]) Orientation Orientation/Cognition Level of Alertness Lethargic Orientation Name,Birthday,Month,Year,Place Safety Awareness Decreased Safety Awareness Comments Pt answers most questions Gross Range of Motion Upper Extremity ROM Impairments NT today, recommend OT consult Lower Extremity ROM Assessment Bilaterally Impaired Impairments Limited range BLEs and high edema LLE with tourniquet type dressing and no active movement in left ankle or toes , hip or knee Strength Lower Extremity Strength Assessment Bilaterally Impaired Comments Strength Comments R ankle DF in limited range 4/ 5 and great toe extension 4-/5 . Minimal HS right LE in supine Coordination Assessment Gross Coordination Gross Coordination Impaired Sensation Assessment Comments Sensation Comments Pt does not follow sensory cues Other Assessments Other Other Assessments High edema M6 PT-IP Treatment Start: 05/29/24 10:54 Freq: NEEDED Status: Active Protocol: Document 06/04/24 12:45 TS (Rec: 06/04/24 12:56 TS [id number]) Physical Therapy Treatment Education Education Provided Safety M7 PT-IP Assessment and Plan Start: 05/29/24 10:54 Freq: NEEDED Status: Active Protocol: Document 06/04/24 12:45 TS (Rec: 06/04/24 12:56 TS [id number]) PT Summary Assessment and Plan Potential Rehabilitation Potential Poor Summary Impairments Pain,ROM,Strength,Balance, Coordination,Sensation,Tone, Cognition,Bed Mobility, Transfers,Gait,Activity Tolerance Progress Towards Goals Slow Progress due to Pain,Slow Progress due to Medical Issues,Slow Progress due to Activity Tolerance,Slow Progress - Other Assessment Summary Pietro is making slow progress with his mobility. He requires total assist for bed mobility this session. He is not appropriate to come into standing. He has difficulty following instructions . Speech remains unintelligible. He remains a mechanical lift. Goals Bed Mobility Goal Independent Transfer Goal Standby Assistance,Cane Gait Goal Standby Assistance,Cane Gait Distance 100 Other Goals Pt will ascend and descend 1 step with right rail ascend and cane with no more than SBA to allow safe home entrance. Days to Meet Goals 10 Frequency of Treatment Frequency Of Treatment Once a Day Treatment Plan Physical Therapy Treatment Plan Bed Mobility Training,Transfer Training,Gait Training, Therapeutic Exercise,Balance Retraining,Post Op Education, Discharge Planning,Hot or Cold Pack,Neuromuscular Re-ed, Coordination Retraining,Manual Therapy Weight Bearing Status Allowed Weight Bearing Amount (enter % WBAT with left mobilizer or #) (%) Recommendations To Nursing Amount of Assist Needed Mechanical Lift Discharge Recommendations PT Discharge Recommendations SNF Rehab Transportation Needs at Discharge Wheelchair/Cabulance
[2024-06-04] MEDS: OXYCODONE IR 5 MG TABLET PO ×2 (14:51→21:15)
--- NOTE | 2024-06-04 14:58 | PM.PN.1 ---
Subjective Subjective Date Patient Seen: 06/04/24 Time Patient Seen: 07:55 Interval history: 53-year-old male with alcohol dependence, alcohol withdrawal, acute on chronic, left knee cellulitis with septic bursitis. Able to be weaned off precedex today, lethargic but slightly less confused. Interval history: The patient is persistently confused but improved today, interested in getting up and starting therapy. Exam Vital Signs (past 8 hours): - 06/04/24 07:00 06/04/24 07:00 06/04/24 07:30 Pulse Rate 116 H 118 H Respiratory Rate 10 L 14 Blood Pressure 107/55 L Pulse Oximetry 98 97 Oxygen Delivery Method 06/04/24 07:30 06/04/24 08:00 06/04/24 08:00 Pulse Rate 117 H Respiratory Rate 13 Blood Pressure 115/62 112/73 Pulse Oximetry 98 Oxygen Delivery Method 06/04/24 08:00 06/04/24 08:30 06/04/24 08:30 Pulse Rate 119 H Respiratory Rate 12 Blood Pressure 121/63 Pulse Oximetry 98 Oxygen Delivery Method Room Air 06/04/24 09:00 06/04/24 09:00 06/04/24 09:30 Pulse Rate 120 H 127 H Respiratory Rate 11 L 19 Blood Pressure 124/67 Pulse Oximetry 98 98 Oxygen Delivery Method 06/04/24 09:30 06/04/24 10:00 06/04/24 10:00 Pulse Rate 120 H Respiratory Rate 14 Blood Pressure 115/67 110/64 Pulse Oximetry 98 Oxygen Delivery Method 06/04/24 10:31 06/04/24 10:31 06/04/24 11:00 Pulse Rate 134 H 117 H Respiratory Rate 22 14 Blood Pressure 86/63 L Pulse Oximetry 97 Oxygen Delivery Method 06/04/24 11:00 06/04/24 11:30 06/04/24 11:30 Pulse Rate 116 H Respiratory Rate 16 Blood Pressure 96/72 103/65 Pulse Oximetry Oxygen Delivery Method 06/04/24 12:00 06/04/24 12:00 06/04/24 12:00 Pulse Rate 116 H Respiratory Rate 13 Blood Pressure 101/61 Pulse Oximetry Oxygen Delivery Method Room Air 06/04/24 13:00 Pulse Rate 118 H Respiratory Rate 14 Blood Pressure Pulse Oximetry Oxygen Delivery Method Oxygen Delivery Method Room Air Oxygen Flow Rate 0 Narrative Exam Narrative: GENERAL: Chronically ill-appearing patient, in no apparent distress. EYES: Pupils equal round and reactive. Extraocular motions intact. No scleral icterus. No injection or drainage. ENT: Mucous membranes pink and moist. NECK: Supple, nontender, no meningeal signs. CARDIOVASCULAR: Regular rate and rhythm without murmurs, gallops, or rubs. RESPIRATORY: Clear to auscultation. GASTROINTESTINAL: Abdomen soft, non-tender, nondistended. EXTREMITIES: Diffuse edema, L>R leg/buttock, scrotal edema. MS: Left knee incision draining purulent foul-smelling material. Left posterior calf buttock significantly swollen compared to the right, with massive scrotal edema noted. diffuse anasarca. NEUROLOGIC: Alert, mildly confused, speech fluent, globally weak upper and lower motor strength, no focal deficits evident. DERMATOLOGIC: No rashes or skin lesions. Extrem Other: LLE with open wound s/p I&D and sutures in place. There is active serous drainage from the wound. No duke purulence. Gauze and ABD dressings are completely saturated w/ serous drainage. There is a 3x2 area of skin sloughing on the left anterior calvillo. Patient able to wiggle his toes, DF and PF intact. Gross sensation intact. Patient grimaces in pain w/ any movement or palpation of the left knee or lower extremity. The toes are well perfused. There is generalized significant pitting edema to bilateral LE. No localized induration/flucuturance on examination. Objective Labs 06/04/24 02:40 06/04/24 02:40 Labs: Laboratory Results - last 24 hr 06/04/24 02:40 WBC 19.9 H RBC 2.25 L Hgb 7.6 L Hct 22.9 L MCV 102.0 H MCH 33.9 MCHC 33.2 RDW 16.4 H Plt Count 101 L Neut % (Auto) 90.7 H Lymph % (Auto) 6.3 L Dixon % (Auto) 2.6 L Eos % (Auto) 0.2 L Baso % (Auto) 0.2 Neut # (Auto) 62318 H Lymph # (Auto) 1300 [place] # (Auto) 500 Eos # (Auto) 0 Baso # (Auto) 0 Sodium 132 L Potassium 4.0 Chloride 108 H Carbon Dioxide 22 BUN 8 L Creatinine 0.49 L Estimated GFR > 60 BUN/Creatinine Ratio 16.3 Glucose 77 Lactate 1.1 Calcium 8.1 L REPLACED BY [facility] Social History household members: family Smoking Status: Current every day smoker alcohol intake: current Assessment & Plan Assessment & Plan narrative: 1. Alcohol dependence, complicated by withdrawal with alcoholic/metabolic encephalopathy, possibly contributed to by infection -Continues on the CIWA protocol. -continue Librium to 50 mg 3 times daily and wean off Precedex infusion -add quetiapine 50 mg b.i.d. 2. Suspected upper GI bleed -clinically resolved. -This was felt to be possibly related to NSAID use and alcohol. There is no evidence for GI bleed at this time. -Will continue PPI. -No need for EGD at this point, especially given his active alcohol withdrawal and concern for worsening infection in his knee 3. Sepsis with acute metabolic encephalopathy, elevated bilirubin, acute respiratory failure with hypoxia, and thrombocytopenia due to left knee septic prepatellar MRSA bursitis and cellulitis -initial incision and drainage 05/29/2024, follow-up incision and drainage with negative surgical exploration with repeat clean out 06/03/2024 -Continue vancomycin only and transition to oral therapy in the coming days when more medically stable. -WBAT per orthopedics, can use knee immobilizer. -encephalopathy improving, complicated by withdrawal as well. 4. Anemia Hgb stable. 5. Thrombocytopenia Platelet count is improving from a low of 53 up to 101. Likely in part due to underlying alcoholic liver disease and also related to his active infection/sepsis. Will continue to follow closely. 6. Alcoholic hepatitis vs cirrhosis. INR was 1.8 on admission and improved to 1.4 since. Secondary to alcoholic liver disease. DF on admit was 46.2, Repeat was improved at 22.3. Will continue to monitor INR and Bilirubin but with improved DF, admission with above probable sepsis, will not treat with steroids. -RUQ ultrasound on 06/01/2024 showed normal spleen size and hepatic steatosis with mild ascites. 7. Hypokalemia Corrected. Continue to monitor. 8. Hyponatremia Stable today at 132. Will monitor. 9. Possible tardive dyskinesia with facial and tongue movements, improved. Etiology unclear. No implicated medications. -head CT unremarkable -unremarkable brain MRI Code status Full Prophylaxis Will use mechanical prophylaxis with SCDs, consider Lovenox tomorrow if platelet count continues to rise. Time-Based Coding :: [TOTAL MINUTES] spent with patient and on the chart (including review of chart, obtaining history, exam, reviewing outside data, placing orders, documenting exam and treatment plan, and counseling patient) on [DATE]. Quality VTE Deep Vein Thrombosis/Pulmonary Embolism Present on Admission: No PROFEE Charge codes Subsequent inpatient/observation care: 56140
--- NOTE | 2024-06-04 15:52 | CM.DPNOTE ---
DCP Note B[employer]K [employer] HAND[employer]ER reviewed EMR. Head CT/Brain MRI unremarkable. Per chart, pt underwent 2nd washout of knee/leg yesterday with Dr. Zaragoza. remains on IV abx. WC plan remains unknown. per chart, lower CIWAs over past 24hrs. Per PN/RESTAURANT CREW PERSON note, remains confused. Per RESTAURANT CREW PERSON, lethargic unintelligible speech, tiana to chair. Per UR RN, high HR and low BP throughout day. Once patient can participate in care and in conversation about dispo plan; need to discuss how to get patient access to recommended outpatient follow up ie wound care and IV abx if needed, CM team following clinical course closely. Jenna Troy, B[employer] HAND[employer]ER
[2024-06-04] MEDS: SENNOSIDES 8.6 MG TABLET 17.2 MG PO (21:14)
[2024-06-04] MEDS: ACETAMINOPHEN 325 MG TABLET 650 MG PO (21:16)
[2024-06-04] MEDS: HYDROMORPHONE 0.5 MG INJ IV (21:39)
[2024-06-05] VITALS (47 sets, daily range): BP systolic 89–119; BP diastolic 50–75; PULSE 93–113; RESP 8–17; TEMP 36.8–37.5; O2SAT 89–100
[2024-06-05] MEDS: VANCOMYCIN 1,000 MG/200 ML PIGGYBACK 200 MG IV ×3 (00:30→16:08)
[2024-06-05 04:56] LABS: Add Manual Diff / Slide Review NO; Basophils Absolute Auto 100 /uL (0-100); Basophils Percent Auto 0.5 % (0-2); Eosinophils Absolute Auto 100 /uL (0-450); Eosinophils Percent Auto 0.4 % (2-4); Lymphocytes Absolute Auto 1300 /uL (1100-4500); Lymphocytes Percent Auto 10.5 % (25-40); Mean Corpuscular HGB Conc 34.2 % (30-36); Mean Corpuscular Hemoglobin 34.5 PG (26-34); Monocytes Absolute Auto 500 /uL (0-900); Monocytes Percent Auto 4.1 % (3-14); Neutrophils Absolute Auto 10900 /uL (1500-7000); Neutrophils Percent Auto 84.5 % (50-75); Platelet Count 119 X10^3/uL (150-400); Red Blood Cell Count 1.95 X10^6/uL (4.5-5.9); Red Cell Distribution Width 16.2 % (11.6-14.8); White Blood Cell Count 12.9 X10^3/uL (4.5-11.0)
[2024-06-05 04:58] LABS: Hematocrit 19.7 % (41-53); Hemoglobin 6.7 g/dL (13.5-17.5)
[2024-06-05 05:11] LABS: Alanine Aminotransferase 42 IU/L (<50); Alkaline Phosphatase 177 U/L (38-126); Aspartate Aminotransferase 34 IU/L (17-59); BUN Creatinine Ratio 16.7 (6-22); Bilirubin Total 2.9 mg/dL (0.2-1.3); Blood Urea Nitrogen 9 mg/dL (9-20); Carbon Dioxide 24 mmol/L (22-32); Estimated Glomerular Filt Rate > 60 mL/min (>60); HEMOLYSIS < 15 (0-50)
[2024-06-05 05:13] LABS: Albumin 1.5 g/dL (3.5-5.0); Albumin Globulin Ratio 0.5 (1.0-2.8); Calcium 8.2 mg/dL (8.4-10.2); Chloride 108 mmol/L (98-107); Globulin 2.9 g/dL (1.7-4.1); Glucose 76 mg/dL (70-100); Potassium 3.9 mmol/L (3.4-5.1); Sodium 133 mmol/L (137-145); Total Protein 4.4 g/dL (6.3-8.2)
[2024-06-05 08:15] LABS: Vancomycin Trough 15.2 ug/mL (10-20)
--- NOTE | 2024-06-05 08:28 | P.PN_ITS ---
Subjective Subjective Date Patient Seen: 06/05/24 Time Patient Seen: 08:20 Interval history: 53-year-old male with alcohol dependence, alcohol withdrawal, acute on chronic, left knee cellulitis with septic bursitis. Able to be weaned off precedex today, lethargic but slightly less confused. Interval history: The patient is significantly anemic with hematocrit down to 19.7%. No bleeding reported. He is overall feeling better, though still weak and mildly confused. Exam Vital Signs (past 8 hours): - 06/05/24 01:00 06/05/24 01:20 06/05/24 01:20 Temperature Pulse Rate 104 H 104 H Respiratory Rate 14 11 L Blood Pressure 102/59 L Pulse Oximetry 100 100 Oxygen Delivery Method Oxygen Flow Rate 0 06/05/24 02:00 06/05/24 02:00 06/05/24 03:00 Temperature Pulse Rate 104 H Respiratory Rate 9 L Blood Pressure 94/56 L 104/56 L Pulse Oximetry 100 Oxygen Delivery Method Oxygen Flow Rate 06/05/24 03:00 06/05/24 04:00 06/05/24 04:00 Temperature Pulse Rate 101 H Respiratory Rate 14 Blood Pressure 89/57 L Pulse Oximetry 100 Oxygen Delivery Method Room Air Oxygen Flow Rate 06/05/24 04:00 06/05/24 04:00 06/05/24 05:00 Temperature 98.3 F Pulse Rate 104 H 101 H Respiratory Rate 13 17 Blood Pressure Pulse Oximetry 99 99 Oxygen Delivery Method Oxygen Flow Rate 0 06/05/24 05:00 06/05/24 05:28 06/05/24 05:28 Temperature Pulse Rate 100 H Respiratory Rate 15 Blood Pressure 89/56 L 97/57 L Pulse Oximetry 99 Oxygen Delivery Method Oxygen Flow Rate 06/05/24 05:30 06/05/24 05:30 06/05/24 06:00 Temperature Pulse Rate 100 H 101 H Respiratory Rate 14 14 Blood Pressure 95/55 L Pulse Oximetry 99 100 Oxygen Delivery Method Oxygen Flow Rate 0 06/05/24 06:00 06/05/24 06:30 06/05/24 06:30 Temperature Pulse Rate 104 H Respiratory Rate 12 Blood Pressure 98/55 L 101/64 Pulse Oximetry 100 Oxygen Delivery Method Oxygen Flow Rate 0 Oxygen Delivery Method Room Air Oxygen Flow Rate 0 Narrative Exam Narrative: GENERAL: Chronically ill-appearing patient, in no apparent distress. EYES: Pupils equal round and reactive. Extraocular motions intact. No scleral icterus. No injection or drainage. ENT: Mucous membranes pink and moist. NECK: Supple, nontender, no meningeal signs. CARDIOVASCULAR: Regular rate and rhythm without murmurs, gallops, or rubs. RESPIRATORY: Clear to auscultation. GASTROINTESTINAL: Abdomen soft, non-tender, nondistended. EXTREMITIES: Diffuse edema, L>R leg/buttock, scrotal edema. MS: Left knee bandage in place, clean, dry and intact. Left posterior calf buttock significantly swollen compared to the right, with massive scrotal edema noted. diffuse anasarca. NEUROLOGIC: Alert, mildly confused, speech fluent, globally weak upper and lower motor strength, no focal deficits evident. DERMATOLOGIC: No rashes or skin lesions. Extrem Other: LLE with open wound s/p I&D and sutures in place. There is active serous drainage from the wound. No duke purulence. Gauze and ABD dressings are completely saturated w/ serous drainage. There is a 3x2 area of skin sloughing on the left anterior calvillo. Patient able to wiggle his toes, DF and PF intact. Gross sensation intact. Patient grimaces in pain w/ any movement or palpation of the left knee or lower extremity. The toes are well perfused. There is generalized significant pitting edema to bilateral LE. No localized induration/flucuturance on examination. Objective Labs 06/05/24 03:31 06/05/24 03:31 Labs: Laboratory Results - last 24 hr 06/05/24 06/05/24 03:31 07:30 WBC 12.9 H RBC 1.95 L Hgb 6.7 L* Hct 19.7 L* MCV 101.0 H MCH 34.5 H MCHC 34.2 RDW 16.2 H Plt Count 119 L Neut % (Auto) 84.5 H Lymph % (Auto) 10.5 L [place] % (Auto) 4.1 Eos % (Auto) 0.4 L Baso % (Auto) 0.5 Neut # (Auto) 93261 H Lymph # (Auto) 1300 [place] # (Auto) 500 Eos # (Auto) 100 Baso # (Auto) 100 Sodium 133 L Potassium 3.9 Chloride 108 H Carbon Dioxide 24 BUN 9 Creatinine 0.54 L Estimated GFR > 60 BUN/Creatinine Ratio 16.7 Glucose 76 Calcium 8.2 L Total Bilirubin 2.9 H AST 34 ALT 42 Alkaline Phosphatase 177 H Total Protein 4.4 L Albumin 1.5 L Globulin 2.9 Albumin/Globulin Ratio 0.5 L Vancomycin Trough 15.2 Blood Type O Negative Antibody Screen Negative Crossmatch See Detail [facility] Social History household members: family Smoking Status: Current every day smoker alcohol intake: current Assessment & Plan Assessment & Plan narrative: 1. Alcohol dependence, complicated by withdrawal with alcoholic/metabolic encephalopathy, possibly contributed to by infection -Continues on the CIWA protocol. -continue Librium to 50 mg 3 times daily and wean off Precedex infusion -add quetiapine 50 mg b.i.d. 2. Suspected upper GI bleed with severe anemia, worsened today -clinically resolved after initial presentation, no overt bleeding at this point but at high risk. -This was felt to be possibly related to NSAID use and alcohol. -monitor serial guaiacs -Will continue PPI, add sucralfate -consider EGD, but stable at this point 3. Sepsis with acute metabolic encephalopathy, elevated bilirubin, acute respiratory failure with hypoxia, and thrombocytopenia due to left knee septic prepatellar MRSA bursitis and cellulitis -initial incision and drainage 05/29/2024, follow-up incision and drainage with negative surgical exploration with repeat clean out 06/03/2024 reculturing MRSA -Continue vancomycin IV -WBAT per orthopedics, can use knee immobilizer. -encephalopathy improving, complicated by withdrawal as well. 4. Anemia -transfuse 2 units of packed red blood cells 5. Thrombocytopenia Platelet count is improving from a low of 53 up to 119. Likely in part due to underlying alcoholic liver disease and also related to his active infection/sepsis. Will continue to follow closely. 6. Alcoholic hepatitis vs cirrhosis. INR was 1.8 on admission and improved to 1.4 since. Secondary to alcoholic liver disease. DF on admit was 46.2, Repeat was improved at 22.3. Will continue to monitor INR and Bilirubin but with improved DF, admission with above probable sepsis, will not treat with steroids. -RUQ ultrasound on 06/01/2024 showed normal spleen size and hepatic steatosis with mild ascites. 7. Hypokalemia Corrected. Continue to monitor. 8. Hyponatremia Stable today at 132. Will monitor. 9. Possible tardive dyskinesia with facial and tongue movements on 06/03/2024, resolved. Etiology unclear. No implicated medications. -head CT unremarkable -unremarkable brain MRI -continue to monitor Code status Full Prophylaxis Will use mechanical prophylaxis with SCDs, hold off on Lovenox given a worsening hematocrit Time-Based Coding :: [TOTAL MINUTES] spent with patient and on the chart (including review of chart, obtaining history, exam, reviewing outside data, placing orders, documenting exam and treatment plan, and counseling patient) on [DATE]. Quality VTE Deep Vein Thrombosis/Pulmonary Embolism Present on Admission: No IH PROFEE Charge codes Subsequent inpatient/observation care: 95854
[2024-06-05] MEDS: chlordiazePOXIDE 25 MG CAPSULE 50 MG PO (08:53)
[2024-06-05] MEDS: DULOXETINE 30 MG CAPSULE 60 MG PO (08:53)
[2024-06-05] MEDS: DOCUSATE 100 MG CAPSULE PO ×2 (08:53→20:48)
[2024-06-05] MEDS: THIAMINE 100 MG TABLET PO (08:54)
[2024-06-05] MEDS: PANTOPRAZOLE DR 40 MG TABLET PO ×2 (08:54→20:47)
[2024-06-05] MEDS: FOLIC ACID 1 MG TABLET PO (08:54)
[2024-06-05] MEDS: polyethylene glycoL 3350 17 GM POWD.PACK PO (08:55)
[2024-06-05] MEDS: VANCOMYCIN TROUGH 1 REQUEST MISC (08:58)
[2024-06-05] MEDS: SUCRALFATE 1 GM/10 ML ORAL SUSP PO ×4 (08:58→20:48)
--- NOTE | 2024-06-05 08:58 | PT-IP ANOTE ---
PT reviews chart and Hgb very low at 6.7. This is too low for mobility per PT guidelines. Will hold PT today. Did note that pt was total assist with therapy last date for mobility.
--- NOTE | 2024-06-05 10:34 | PM.PN.1 ---
Exam Vital Signs (past 8 hours): - 06/05/24 03:00 06/05/24 03:00 06/05/24 04:00 Temperature Pulse Rate 101 H Respiratory Rate 14 Blood Pressure 104/56 L Pulse Oximetry 100 Oxygen Delivery Method Room Air Oxygen Flow Rate 06/05/24 04:00 06/05/24 04:00 06/05/24 04:00 Temperature 98.3 F Pulse Rate 104 H Respiratory Rate 13 Blood Pressure 89/57 L Pulse Oximetry 99 Oxygen Delivery Method Oxygen Flow Rate 0 06/05/24 05:00 06/05/24 05:00 06/05/24 05:28 Temperature Pulse Rate 101 H Respiratory Rate 17 Blood Pressure 89/56 L 97/57 L Pulse Oximetry 99 Oxygen Delivery Method Oxygen Flow Rate 06/05/24 05:28 06/05/24 05:30 06/05/24 05:30 Temperature Pulse Rate 100 H 100 H Respiratory Rate 15 14 Blood Pressure 95/55 L Pulse Oximetry 99 99 Oxygen Delivery Method Oxygen Flow Rate 0 06/05/24 06:00 06/05/24 06:00 06/05/24 06:30 Temperature Pulse Rate 101 H 104 H Respiratory Rate 14 12 Blood Pressure 98/55 L Pulse Oximetry 100 100 Oxygen Delivery Method Oxygen Flow Rate 06/05/24 06:30 06/05/24 08:00 06/05/24 08:00 Temperature Pulse Rate 108 H Respiratory Rate 14 Blood Pressure 101/64 108/56 L Pulse Oximetry 89 L Oxygen Delivery Method Oxygen Flow Rate 0 06/05/24 08:28 06/05/24 08:30 06/05/24 08:30 Temperature Pulse Rate 106 H 105 H Respiratory Rate 12 11 L Blood Pressure 100/60 Pulse Oximetry 97 100 Oxygen Delivery Method Oxygen Flow Rate 06/05/24 08:31 06/05/24 08:50 06/05/24 09:00 Temperature 99.5 F 98.7 F Pulse Rate 105 H 106 H 104 H Respiratory Rate 12 14 12 Blood Pressure 95/50 L 108/60 Pulse Oximetry 98 Oxygen Delivery Method Oxygen Flow Rate 06/05/24 09:00 06/05/24 09:30 06/05/24 09:30 Temperature Pulse Rate 104 H Respiratory Rate 12 Blood Pressure 102/63 105/67 Pulse Oximetry 98 Oxygen Delivery Method Oxygen Flow Rate 06/05/24 10:26 Temperature 99.4 F Pulse Rate 100 H Respiratory Rate 17 Blood Pressure 105/65 Pulse Oximetry Oxygen Delivery Method Oxygen Flow Rate Oxygen Delivery Method Room Air Oxygen Flow Rate 0 Objective Labs 06/05/24 03:31 06/05/24 03:31 Labs: Laboratory Results - last 24 hr 06/05/24 06/05/24 03:31 07:30 WBC 12.9 H RBC 1.95 L Hgb 6.7 L* Hct 19.7 L* MCV 101.0 H MCH 34.5 H MCHC 34.2 RDW 16.2 H Plt Count 119 L Neut % (Auto) 84.5 H Lymph % (Auto) 10.5 L Carson % (Auto) 4.1 Eos % (Auto) 0.4 L Baso % (Auto) 0.5 Neut # (Auto) 15768 H Lymph # (Auto) 1300 [place] # (Auto) 500 Eos # (Auto) 100 Baso # (Auto) 100 Sodium 133 L Potassium 3.9 Chloride 108 H Carbon Dioxide 24 BUN 9 Creatinine 0.54 L Estimated GFR > 60 BUN/Creatinine Ratio 16.7 Glucose 76 Calcium 8.2 L Total Bilirubin 2.9 H AST 34 ALT 42 Alkaline Phosphatase 177 H Total Protein 4.4 L Albumin 1.5 L Globulin 2.9 Albumin/Globulin Ratio 0.5 L Vancomycin Trough 15.2 Blood Type O Negative Antibody Screen Negative Crossmatch See Detail [facility] [place] Social History household members: family Smoking Status: Current every day smoker alcohol intake: current Assessment & Plan Assessment & Plan narrative: Patient is admitted after surgery. POD#2 s/p repeat I&D of left knee/leg. Patient is neurovascularly intact on exam. Patient has no signs or symptoms of DVT. There is serosangunous drainage on his dressing. Patient's wound culture was + for MRSA again. His h/h was 6/18 and he's being transfused 2U PRBC. Continue current medical management. Will need packing removal tomorrow by wound care. Consulted/resume previous wound care. Possible wound vac placement versus repeat I&D and wound closure. Will notify Dr. Crum who performed his initial consult and I&D, who will resume care next week. Time-Based Coding :: [TOTAL MINUTES] spent with patient and on the chart (including review of chart, obtaining history, exam, reviewing outside data, placing orders, documenting exam and treatment plan, and counseling patient) on [DATE]. Quality VTE Deep Vein Thrombosis/Pulmonary Embolism Present on Admission: No
[2024-06-05] MEDS: OXYCODONE IR 5 MG TABLET PO (10:35)
[2024-06-05] MEDS: ACETAMINOPHEN 325 MG TABLET 650 MG PO (10:36)
--- NOTE | 2024-06-05 12:16 | CM.DPNOTE ---
DCP Note PROFESSOR OF BUSINESS ADMINISTRATION reviewed EMR Per hospitalist in morning rounds, precedex stopped yesterday, but pt more anemic today. Does not want to scope at this moment due to pt going to OR twice within a few days for knee washout. PT held for today, getting two units of blood. Remains confused. remains somnolent and drowsy throughout the day. remains on librium for withdrawal symptoms and IV abx for MRSA in knee. Per ortho surgeon note, will need wound care packing removal tomorrow. possible wound vac? PROFESSOR OF BUSINESS ADMINISTRATION attempted to speak with [email or web address], sleeping heavily/working with nursing staff. Once patient can participate in care and in conversation about dispo plan; need to discuss how to get patient access to recommended outpatient follow up ie wound care and IV abx if needed, and or ETOH use resources. CM team following clinical course closely. YAZAN Neri
[2024-06-05] MEDS: VANCOMYCIN PEAK 1 REQUEST MISC (12:23)
[2024-06-05] MEDS: chlordiazePOXIDE 25 MG CAPSULE PO ×2 (16:08→20:47)
[2024-06-05] MEDS: HYDROMORPHONE 0.5 MG INJ IV (16:55)
[2024-06-05] MEDS: HYDROMORPHONE 2 MG TABLET PO (20:47)
[2024-06-05] MEDS: SENNOSIDES 8.6 MG TABLET 17.2 MG PO (20:48)
[2024-06-06] VITALS (19 sets, daily range): BP systolic 100–132; BP diastolic 56–84; PULSE 93–119; RESP 7–22; TEMP 36.7–37.4; O2SAT 92–98
[2024-06-06] MEDS: VANCOMYCIN 1,000 MG/200 ML PIGGYBACK 200 MG IV ×3 (00:22→15:44)
[2024-06-06] MEDS: HYDROMORPHONE 2 MG TABLET PO (03:58)
[2024-06-06 04:47] LABS: Add Manual Diff / Slide Review NO; Basophils Absolute Auto 0 /uL (0-100); Basophils Percent Auto 0.3 % (0-2); Eosinophils Absolute Auto 100 /uL (0-450); Eosinophils Percent Auto 0.9 % (2-4); Hematocrit 25.9 % (41-53); Hemoglobin 8.7 g/dL (13.5-17.5); Lymphocytes Absolute Auto 1600 /uL (1100-4500); Lymphocytes Percent Auto 11.6 % (25-40); Mean Corpuscular HGB Conc 33.6 % (30-36); Monocytes Absolute Auto 600 /uL (0-900); Monocytes Percent Auto 4.8 % (3-14); Neutrophils Absolute Auto 11000 /uL (1500-7000); Neutrophils Percent Auto 82.4 % (50-75); Platelet Count 144 X10^3/uL (150-400); Red Blood Cell Count 2.65 X10^6/uL (4.5-5.9); Red Cell Distribution Width 17.8 % (11.6-14.8); White Blood Cell Count 13.4 X10^3/uL (4.5-11.0)
[2024-06-06 05:01] LABS: Blood Urea Nitrogen 10 mg/dL (9-20); Calcium 8.4 mg/dL (8.4-10.2); Carbon Dioxide 24 mmol/L (22-32); Chloride 109 mmol/L (98-107); Estimated Glomerular Filt Rate > 60 mL/min (>60); Glucose 62 mg/dL (70-100); HEMOLYSIS < 15 (0-50); Potassium 3.7 mmol/L (3.4-5.1); Sodium 134 mmol/L (137-145)
[2024-06-06] MEDS: DEXTROSE 50 % IN WATER 25 GM/50 ML SYRINGE IV (05:42)
--- NOTE | 2024-06-06 06:02 | PC.NURSE ---
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
--- NOTE | 2024-06-06 07:29 | PM.PNPO.1 ---
Subjective Subjective Date Patient Seen: 06/06/24 Time Patient Seen: 07:29 Interval history: 53 yo male w/ alcohol dependence, complicated by withdrawal with alcoholic/metabolic encephalopathy, possibly contributed to by infection. Continues on CIWA protocol, on Librium, weaned off Precedex. Anemia d/t suspected UGIB. No EGD done thus far. He's on a PPI and carafate, 2 units PRBCs transfused 06/05 w/ appropriate rise in H/H. Sepsis with acute metabolic encephalopathy, elevated bilirubin, acute respiratory failure with hypoxia, and thrombocytopenia due to left knee septic prepatellar MRSA bursitis and cellulitis Initial incision and drainage 05/29/2024, follow-up incision and drainage with negative surgical exploration with repeat clean out 06/03/2024 reculturing MRSA Continues vancomycin IV. On visit this morning, Elias remains somnolent and nonverbal to questioning, though he does wiggle his toes when I ask him to move his foot. He will not move his ankle. Exam Vital Signs (past 8 hours): - 06/05/24 23:30 06/05/24 23:30 06/06/24 00:00 Temperature Pulse Rate 104 H 105 H Respiratory Rate 13 14 Blood Pressure 108/65 Pulse Oximetry 93 93 Oxygen Delivery Method Oxygen Flow Rate 06/06/24 00:00 06/06/24 00:00 06/06/24 00:23 Temperature Pulse Rate 105 H Respiratory Rate 14 Blood Pressure 106/59 L 106/59 L Pulse Oximetry 93 Oxygen Delivery Method Room Air Oxygen Flow Rate 0 06/06/24 00:30 06/06/24 00:30 06/06/24 01:00 Temperature Pulse Rate 108 H 109 H Respiratory Rate 10 L 8 L Blood Pressure 110/60 Pulse Oximetry 92 92 Oxygen Delivery Method Oxygen Flow Rate 06/06/24 01:00 06/06/24 01:30 06/06/24 01:30 Temperature Pulse Rate 109 H Respiratory Rate 9 L Blood Pressure 102/57 L 109/61 Pulse Oximetry 93 Oxygen Delivery Method Oxygen Flow Rate 06/06/24 02:00 06/06/24 02:00 06/06/24 02:30 Temperature Pulse Rate 111 H 112 H Respiratory Rate 9 L 8 L Blood Pressure 110/64 Pulse Oximetry 93 93 Oxygen Delivery Method Oxygen Flow Rate 06/06/24 02:30 06/06/24 03:00 06/06/24 03:00 Temperature Pulse Rate 113 H Respiratory Rate 9 L Blood Pressure 117/65 111/64 Pulse Oximetry 97 Oxygen Delivery Method Oxygen Flow Rate 06/06/24 03:30 06/06/24 03:30 06/06/24 04:00 Temperature Pulse Rate 114 H Respiratory Rate 9 L Blood Pressure 112/64 Pulse Oximetry 95 Oxygen Delivery Method Room Air Oxygen Flow Rate 06/06/24 04:00 06/06/24 04:00 06/06/24 04:00 Temperature 99.3 F Pulse Rate 115 H 119 H Respiratory Rate 12 12 Blood Pressure 110/72 129/84 Pulse Oximetry 95 94 Oxygen Delivery Method Oxygen Flow Rate 06/06/24 04:30 06/06/24 04:30 Temperature Pulse Rate 119 H Respiratory Rate 12 Blood Pressure 129/84 Pulse Oximetry 94 Oxygen Delivery Method Oxygen Flow Rate Oxygen Delivery Method Room Air Oxygen Flow Rate 0 Narrative Exam Narrative: Wiggles toes, opens his eyes when I examine his knee, but otherwise does not follow commands. Ankle is edematous, no pitting. Calf is soft and compressible. Knee dressing is CDI with note that it was changed at 1700 last night. Objective Labs 06/06/24 03:57 06/06/24 03:57 Labs: Laboratory Results - last 24 hr 06/05/24 06/05/24 06/05/24 03:31 07:30 10:48 WBC RBC Hgb Hct MCV MCH MCHC RDW Plt Count Neut % (Auto) Lymph % (Auto) Gordon % (Auto) Eos % (Auto) Baso % (Auto) Neut # (Auto) Lymph # (Auto) Gordon # (Auto) Eos # (Auto) Baso # (Auto) Sodium Potassium Chloride Carbon Dioxide BUN Creatinine Estimated GFR BUN/Creatinine Ratio Glucose Calcium Vancomycin Peak 22.0 Vancomycin Trough 15.2 Blood Type O Negative Antibody Screen Negative Crossmatch See Detail 06/06/24 03:57 WBC 13.4 H RBC 2.65 L Hgb 8.7 L Hct 25.9 L MCV 98.0 D MCH 33.0 MCHC 33.6 RDW 17.8 H Plt Count 144 L Neut % (Auto) 82.4 H Lymph % (Auto) 11.6 L Gordon % (Auto) 4.8 Eos % (Auto) 0.9 L Baso % (Auto) 0.3 Neut # (Auto) 18306 H Lymph # (Auto) 1600 Gordon # (Auto) 600 Eos # (Auto) 100 Baso # (Auto) 0 Sodium 134 L Potassium 3.7 Chloride 109 H Carbon Dioxide 24 BUN 10 Creatinine 0.50 L Estimated GFR > 60 BUN/Creatinine Ratio 20.0 Glucose 62 L Calcium 8.4 Vancomycin Peak Vancomycin Trough Blood Type Antibody Screen Crossmatch [facility] Social History household members: family Smoking Status: Current every day smoker alcohol intake: current Assessment & Plan Post-op Assessment and plan (1) Septic prepatellar bursitis of left knee: Assessment and Plan narrative: 1) WBAT, avoid knee flexion to protect wound. Consider knee immobilizer when pt ambulating. 2) Outpt wound care at discharge. Continue daily packing changes w/ 1 iodoform gauze. 3) Abx, pain control, disposition per hospitalist service. 4) May need wound VAC. Will d/w our surgical team. Postoperative Procedures: Procedures Operation Date: 05/27/24 17:00 <No data on this case meets the specified criteria> Operation Date: 05/29/24 09:00 Actual Procedure Side Surgeon p Incision and Drainage left knee Everette Crum MD Operation Date: 06/03/24 14:00 Actual Procedure Side Surgeon p Incision and Drainage Knee Left Bev Zaragoza MD Postoperative day: 3 Quality VTE Deep Vein Thrombosis/Pulmonary Embolism Present on Admission: No
--- NOTE | 2024-06-06 08:35 | PM.PN.1 ---
Subjective Subjective Interval history: Summary: 53-year-old male with alcohol dependence, alcohol withdrawal, acute on chronic, left knee cellulitis with septic bursitis. Able to be weaned off precedex today, lethargic but slightly less confused. Interval history: The patient is significantly anemic with hematocrit down to 19.7%. No bleeding reported. He is overall feeling better, though still weak and mildly confused. S:patient remains unresponsive. Hypoglycemic. He remains unable to awaken, interact, or take any oral intake. His knee has been debrided twice. Exam Vital Signs (past 8 hours): - 06/06/24 01:00 06/06/24 01:00 06/06/24 01:30 Temperature Pulse Rate 109 H Respiratory Rate 8 L Blood Pressure 102/57 L 109/61 Pulse Oximetry 92 Oxygen Delivery Method 06/06/24 01:30 06/06/24 02:00 06/06/24 02:00 Temperature Pulse Rate 109 H 111 H Respiratory Rate 9 L 9 L Blood Pressure 110/64 Pulse Oximetry 93 93 Oxygen Delivery Method 06/06/24 02:30 06/06/24 02:30 06/06/24 03:00 Temperature Pulse Rate 112 H 113 H Respiratory Rate 8 L 9 L Blood Pressure 117/65 Pulse Oximetry 93 97 Oxygen Delivery Method 06/06/24 03:00 06/06/24 03:30 06/06/24 03:30 Temperature Pulse Rate 114 H Respiratory Rate 9 L Blood Pressure 111/64 112/64 Pulse Oximetry 95 Oxygen Delivery Method 06/06/24 04:00 06/06/24 04:00 06/06/24 04:00 Temperature Pulse Rate 115 H Respiratory Rate 12 Blood Pressure 110/72 Pulse Oximetry 95 Oxygen Delivery Method Room Air 06/06/24 04:00 06/06/24 04:30 06/06/24 04:30 Temperature 99.3 F Pulse Rate 119 H 119 H Respiratory Rate 12 12 Blood Pressure 129/84 129/84 Pulse Oximetry 94 94 Oxygen Delivery Method 06/06/24 08:00 06/06/24 08:00 Temperature Pulse Rate 116 H Respiratory Rate 22 Blood Pressure 118/66 Pulse Oximetry 93 Oxygen Delivery Method Oxygen Delivery Method Room Air Oxygen Flow Rate 0 Narrative Exam Narrative: Somnolent, really not arousable. No acute distress. Lungs are clear, normal effort. Heart is regular, no murmur Abdomen is flat, nontender. Knee is wrapped, patient was anasarca. Objective Labs 06/06/24 03:57 06/06/24 03:57 Labs: Laboratory Results - last 24 hr 06/05/24 06/05/24 06/06/24 03:31 10:48 03:57 WBC 13.4 H RBC 2.65 L Hgb 8.7 L Hct 25.9 L MCV 98.0 D MCH 33.0 MCHC 33.6 RDW 17.8 H Plt Count 144 L Neut % (Auto) 82.4 H Lymph % (Auto) 11.6 L [place] % (Auto) 4.8 Eos % (Auto) 0.9 L Baso % (Auto) 0.3 Neut # (Auto) 72354 H Lymph # (Auto) 1600 [place] # (Auto) 600 Eos # (Auto) 100 Baso # (Auto) 0 Sodium 134 L Potassium 3.7 Chloride 109 H Carbon Dioxide 24 BUN 10 Creatinine 0.50 L Estimated GFR > 60 BUN/Creatinine Ratio 20.0 Glucose 62 L Calcium 8.4 Vancomycin Peak 22.0 Blood Type O Negative Antibody Screen Negative Crossmatch See Detail [facility] Social History household members: family Smoking Status: Current every day smoker alcohol intake: current Assessment & Plan Assessment & Plan narrative: 1. Alcohol dependence, complicated by withdrawal with alcoholic/metabolic encephalopathy, possibly contributed to by infection -Librium to 50 mg 3 times daily and wean off Precedex infusion -added quetiapine 50 mg b.i.d. 2. Suspected upper GI bleed with severe anemia, worsened today -clinically resolved after initial presentation, no overt bleeding at this point but at high risk. -This was felt to be possibly related to NSAID use and alcohol. -monitor serial guaiacs -continue PPI, add sucralfate -consider EGD, but stable at this point 3. Sepsis with acute metabolic encephalopathy, elevated bilirubin, acute respiratory failure with hypoxia, and thrombocytopenia due to left knee septic prepatellar MRSA bursitis and cellulitis -initial incision and drainage 05/29/2024, follow-up incision and drainage with negative surgical exploration with repeat clean out 06/03/2024 reculturing MRSA -Continue vancomycin IV -WBAT per orthopedics, can use knee immobilizer. -encephalopathy improving, complicated by withdrawal as well. 4. Anemia, present on admission and stable. -transfuse 2 units of packed red blood cells 5. Thrombocytopenia, improving. Platelet count is improving from a low of 53 up to 119. Likely in part due to underlying alcoholic liver disease and also related to his active infection/sepsis. Will continue to follow closely. 6. Alcoholic hepatitis vs cirrhosis. INR was 1.8 on admission and improved to 1.4 since. Secondary to alcoholic liver disease. DF on admit was 46.2, Repeat was improved at 22.3. Will continue to monitor INR and Bilirubin but with improved DF, admission with above probable sepsis, will not treat with steroids. -RUQ ultrasound on 06/01/2024 showed normal spleen size and hepatic steatosis with mild ascites. 7. Hypokalemia, improved. Corrected. Continue to monitor. 8. Hyponatremia, stable. monitor. 9. Possible tardive dyskinesia with facial and tongue movements on 06/03/2024, resolved. Etiology unclear. No implicated medications. -head CT unremarkable -unremarkable brain MRI -continue to monitor PLAN: -stop all PO meds. -D10w@35ml/hr -monitor mental status -discussed level care with sister, if not improved by tomorrow. Code status Full Prophylaxis Will use mechanical prophylaxis with SCDs, hold off on Lovenox given a worsening hematocrit Time-Based Coding :: [TOTAL MINUTES] spent with patient and on the chart (including review of chart, obtaining history, exam, reviewing outside data, placing orders, documenting exam and treatment plan, and counseling patient) on [DATE]. Quality VTE Deep Vein Thrombosis/Pulmonary Embolism Present on Admission: No
[2024-06-06] MEDS: DEXTROSE 10 % IN WATER 1,000 ML 35 ML IV (09:10)
--- NOTE | 2024-06-06 09:11 | PC.NURSE ---
Pt arousable to voice but does not make eye contact. Coarse lung sounds throughout. Pt instructed to cough and deep breathe, pt unable to follow this. Blood glucose 82. Provider notified. New orders received.
--- NOTE | 2024-06-06 10:19 | PT-IP ANOTE ---
Pt discussed in rounds and will d/c therapies per MD d/t pt medical status/plan. D/c PT.
--- NOTE | 2024-06-06 10:21 | DIET.PN1 ---
Dietary Progress Note Assessment: RD consulted for poor intakes. Pt day 11 with inadequate oral intakes. Had been doing avg 50% recorded po intakes on full liquids on 05/31-. Diet was advanced to general on 06/03 and two recorded po intakes 5% on general diet. D10w started this morning. Per hospitalist, stopping PO meds today and re-assessing tomorrow. If pt not improved, will have goals of conversation with sister with consideration of comfort care. ONS Enlive ordered on trays TID, but per EMR review pt not interacting or able to take oral intakes. Will follow for plan of care. Ht: 172.72 cm Wt: 93 kg BMI: 23.8 UBW: Last BM: 06/04/24 (06/04/24 14:33) MNA: 14 Stephen Score: 10 Diet: 06/03/24 Dinner General (Regular) Diet Diet Modifications: Food Texture: Level 7 - Regular Liquid Consistency: Level 0 - Thin Nutrition Percent Meal Consumed 5% 06/04/24 18:00 Labs: RBC 2.65 X10^6/uL (4.5-5.9) L 06/06/24 03:57 Hgb 8.7 g/dL (13.5-17.5) L 06/06/24 03:57 Hct 25.9 % (41-53) L 06/06/24 03:57 Creatinine 0.50 mg/dL (0.66-1.25) L 06/06/24 03:57 Lactate 1.1 mmol/L (0.7-2.1) 06/04/24 02:40 Electronically Signed by: Christie Lainez 06/06/24 10:21 Clinical Dietitian [address] [address]
--- NOTE | 2024-06-06 12:02 | OT.IPNOTE ---
Per P.T., at rounds, pt is declining in medical status. Will discharge orders per MD.
--- NOTE | 2024-06-06 13:27 | DI.CT.S_ITS ---
PROCEDURE: CT HEAD/BRAIN WO CON INDICATIONS: confusion (persistent) TECHNIQUE: Noncontrast 4.5 mm thick angled axial sections acquired from the foramen magnum to the vertex, with coronal and sagittal reformats. For radiation dose reduction, the following was used: automated exposure control, adjustment of mA and/or kV according to patient size. COMPARISON: [facility], MR, MR STROKE, 06/02/2024, 14:22. [facility], CT, CT HEAD/BRAIN WO CON, 06/02/2024, 11:07. FINDINGS: Image quality: Mild streak artifact can be seen through the skull base. CSF spaces: Basal cisterns are patent. No extra-axial fluid collections. Ventricles are normal in size and shape. Brain: No midline shift. No intracranial masses or hemorrhage. Puri-white matter interface is normal. Skull and face: Calvarium and visualized facial bones are intact, without suspicious lesions. Sinuses: Visualized sinuses and mastoids are clear. IMPRESSION: Noncontrast head CT within normal limits for age, stable from prior. Dictated by: Bandar Chaudhry M.D. on 06/06/2024 at 13:32 Approved by: Bandar Chaudhry M.D. on 06/06/2024 at 13:33
[2024-06-06] MEDS: ACETAMINOPHEN 325 MG TABLET 650 MG PO (14:40)
--- NOTE | 2024-06-06 14:50 | CM.DPNOTE ---
Addendum entered by YAZAN Neri 06/06/24 17:04: POPCORN VENDOR got notice that pt's two daughters were here and asking to speak with social work Per chart review, no indicators that this CM team are permitted to disclose information to anyone other than sister Sidra. Per provider/RN, were unaware pt had daughters until now. Per provider, pt was clear at admission that sister Sidra was his contact/armament installer decision maker as necessary. POPCORN VENDOR met with dtrs Kassidy ([phone]) and Wiliam ([phone]) in waiting room and had lengthy conversation. Dtrs report they did not visit pt until now because their aunt (pt's sister) did not tell them he was hospitalized until now. From [place], drove up as soon as they could. Dtr Wiliam hopeful for our team to complete [facility] paperwork so she could get some time off work to spend here with pt, this POPCORN VENDOR was not sure IH protocol, and will defer to next POPCORN VENDOR for further progress with [place] ppwk, ppwk with pt's FS. POPCORN VENDOR reported that until we had verbal permission to share with them, unfortunately we cannot provide any information at this time. Dtrs report understanding. Dtrs report their relationship with pt is not as close as they would like but still talk to him semi regularly. Per Dtrs, pt recently was [facility] [id number] and at the time was hopeful, starting a new job, and excited to meet up with them when could be arranged. Both dtrs report they just spoke to him not long before admission and were confused and alarmed at the sudden shift from hopeful and optimistic to now. Per Dtrs report, Sidra claims that pt expressed some recent SI just prior to admission. Dtrs report a history of SI, unknown if any attempts. Dtrs claims that both of pt's parents passed within the past year and he has had some struggles grieving their passing. Dtrs report that pt is not normally a hard drinker and that he normally stays away from alcohol based on their understanding. He has a PMH of meth use and marijuana use, but does not often drink. they were confused when Sidra told them he was here with ETOH withdrawal. Dtrs are concerned with his plan moving forward and are very hopeful he pursues INPT treatment. Dtrs are concerned about pt's insurance situation. Per Sidra, pt got a letter in the mail stating his coverage was going to be discontinued? Due to not having consent to share information with dtrs, POPCORN VENDOR provided general information on DPOA vs guardianship, pt's rights, involuntary vs voluntary treatment and someone the guidelines governing that, and so on. Dtrs appreciative of the information. Kassidy plans to be here consistently now that she knows pt is here. Dtr Wiliam will be here as much as work allows and is hopeful for FMLA. Dtrs both report that they do not have the space in their homes in [place] for pt to stay with them after dc. CM team will continue to follow closely. need to discuss wound care plan/abx plan/if INPT dual diag substance use/suicidal ideation needed. TAYLOR Original Note: DCP Note POPCORN VENDOR reviewed EMR. Per hospitalist in morning rounds, pt continues to not improve. repeat head CT today and stop sedative medication to see if pt perks up. Pt remains minimally responsive/unresponsive throughout day, one to two word replies to provider/nursing staff. Cancel PT/OT orders for now. seems to have withdrawn from ETOH misuse at this point. Once patient can participate in care and in conversation about dispo plan; need to discuss how to get patient access to recommended outpatient follow up ie wound care (possible wound vac?) and IV abx if needed, and or ETOH use resources. CM team following clinical course closely. YAZAN Neri
--- NOTE | 2024-06-06 15:03 | PC.NURSE ---
Upon transfer of care, pt fatigued, unable to follow commands. Pupils pinpoint and sluggish to reaction. Pt not tracking visually. Provider notified. Buttocks erythema, blanchable but peeling skin. Pt unable to safely swallow morning PO. Pt to CT. Pt more awake after CT. Answering yes/no questions. Able to tolerate PO fluid and small bites of pudding. C/o left leg and knee pain. See MAR. Pt scooting frequently in bed, repositioning, attempting to exit bed. Bed alarm active, pt unable to maneuver self from bed. Care ongoing.
[2024-06-06] MEDS: SUCRALFATE 1 GM/10 ML ORAL SUSP PO (15:48)
[2024-06-06] MEDS: diphenhydrAMINE 25 MG TABLET 50 MG PO (17:02)
[2024-06-06] MEDS: OXYCODONE IR 5 MG TABLET PO (17:02)
[2024-06-06] MEDS: HYDROMORPHONE 0.5 MG INJ IV ×2 (17:18→22:59)
[2024-06-07] VITALS (10 sets, daily range): BP systolic 102–145; BP diastolic 60–77; PULSE 88–108; RESP 9–21; TEMP 36.9–37.3; O2SAT 95–98
[2024-06-07] MEDS: VANCOMYCIN 1,000 MG/200 ML PIGGYBACK 200 MG IV ×4 (00:27→23:37)
[2024-06-07] MEDS: HYDROMORPHONE 0.5 MG INJ IV ×4 (03:11→23:37)
[2024-06-07 04:05] LABS: Hematocrit 24.1 % (41-53); Hemoglobin 8.2 g/dL (13.5-17.5); Mean Corpuscular HGB Conc 34.3 % (30-36); Mean Corpuscular Hemoglobin 33.6 PG (26-34); Mean Corpuscular Volume 98.1 fL (80-100); Platelet Count 142 X10^3/uL (150-400); Red Blood Cell Count 2.45 X10^6/uL (4.5-5.9); Red Cell Distribution Width 17.5 % (11.6-14.8); White Blood Cell Count 9.7 X10^3/uL (4.5-11.0)
[2024-06-07 04:23] LABS: Alanine Aminotransferase 37 IU/L (<50); Albumin 1.6 g/dL (3.5-5.0); Albumin Globulin Ratio 0.5 (1.0-2.8); Alkaline Phosphatase 179 U/L (38-126); Aspartate Aminotransferase 45 IU/L (17-59); BUN Creatinine Ratio 19.2 (6-22); Bilirubin Total 2.7 mg/dL (0.2-1.3); Blood Urea Nitrogen 10 mg/dL (9-20); Calcium 8.4 mg/dL (8.4-10.2); Carbon Dioxide 26 mmol/L (22-32); Chloride 108 mmol/L (98-107); Estimated Glomerular Filt Rate > 60 mL/min (>60); Globulin 3.1 g/dL (1.7-4.1); Glucose 84 mg/dL (70-100); HEMOLYSIS < 15 (0-50); Potassium 3.4 mmol/L (3.4-5.1); Sodium 134 mmol/L (137-145); Total Protein 4.7 g/dL (6.3-8.2)
--- NOTE | 2024-06-07 07:39 | PM.PNPO.1 ---
Subjective Subjective Date Patient Seen: 06/07/24 Time Patient Seen: 07:39 Interval history: 53 yo m sp I&D left prepatellar septic bursistis x2 -- MRSA on IV abx-- + etoh withdrawl Exam Vital Signs (past 8 hours): - 06/07/24 00:00 06/07/24 00:00 06/07/24 02:00 Temperature 98.4 F Pulse Rate 93 H 88 Respiratory Rate 16 14 Blood Pressure 112/64 Pulse Oximetry 96 97 Oxygen Delivery Method Oxygen Flow Rate 0 0 06/07/24 02:00 06/07/24 04:00 06/07/24 04:00 Temperature 98.5 F Pulse Rate 92 H Respiratory Rate 9 L Blood Pressure 116/66 110/63 Pulse Oximetry 98 Oxygen Delivery Method Oxygen Flow Rate 0 06/07/24 04:10 06/07/24 06:00 06/07/24 06:00 Temperature Pulse Rate 95 H Respiratory Rate 21 Blood Pressure 102/60 Pulse Oximetry 96 Oxygen Delivery Method Room Air Oxygen Flow Rate 0 Oxygen Delivery Method Room Air Oxygen Flow Rate 0 Narrative Exam Narrative: gen- lethargic- minimal response to commands NAD L knee dsg changed- 8xm loosen approx anterior incision no erythema -- packing gauze removed no flucuence. minimal swelling. calf soft Objective Labs 06/07/24 03:11 06/07/24 03:11 Labs: Laboratory Results - last 24 hr 06/07/24 03:11 WBC 9.7 RBC 2.45 L Hgb 8.2 L Hct 24.1 L MCV 98.1 MCH 33.6 MCHC 34.3 RDW 17.5 H Plt Count 142 L Sodium 134 L Potassium 3.4 Chloride 108 H Carbon Dioxide 26 BUN 10 Creatinine 0.52 L Estimated GFR > 60 BUN/Creatinine Ratio 19.2 Glucose 84 Calcium 8.4 Total Bilirubin 2.7 H AST 45 ALT 37 Alkaline Phosphatase 179 H Total Protein 4.7 L Albumin 1.6 L Globulin 3.1 Albumin/Globulin Ratio 0.5 L PFSH Social History household members: family Smoking Status: Current every day smoker alcohol intake: current Assessment & Plan Post-op Postoperative Procedures: Procedures Operation Date: 05/27/24 17:00 <No data on this case meets the specified criteria> Operation Date: 05/29/24 09:00 Actual Procedure Side Surgeon p Incision and Drainage left knee Everette Manning MD Operation Date: 06/03/24 14:00 Actual Procedure Side Surgeon p Incision and Drainage Knee Left Bev Zaragoza MD Postoperative status narrative: sp I&D Dr. Manning 05/29 sp I&[address] Zaragoza 06/03 looks better today wbc improved incision w/o any more signs of abscess. rec- change to BID WTD dressing changes with nursing --did 1st WTC today with nurses -- ortho to check wound progress every couple days but no signs of need for additional surgery/ I&D based on exam today sutures can be removed in 2 weeks can do nursing WTD inpt wound care and progress to outpt wound care at dispo if needed Time Spent With Patient Time with patient: less than 15 minutes Quality VTE Deep Vein Thrombosis/Pulmonary Embolism Present on Admission: No
--- NOTE | 2024-06-07 08:09 | PM.PN.1 ---
Subjective Subjective Interval history: Patient is a 53-year-old male with severe alcohol use disorder who presented with alcohol withdrawal and a severe left prepatellar septic bursitis and cellulitis. The patient has had a severe encephalopathy which is failing to improve. He continues on IV antibiotics in his had to debridements to his prepatellar area. CT of the brain on June 06 was unremarkable. Subjective: He opens his eyes and looks to his name but is not really talking. He was in no distress. Exam Vital Signs (past 8 hours): - 06/07/24 02:00 06/07/24 02:00 06/07/24 04:00 Temperature Pulse Rate 88 Respiratory Rate 14 Blood Pressure 116/66 110/63 Pulse Oximetry 97 Oxygen Delivery Method Oxygen Flow Rate 0 06/07/24 04:00 06/07/24 04:10 06/07/24 06:00 Temperature 98.5 F Pulse Rate 92 H Respiratory Rate 9 L Blood Pressure 102/60 Pulse Oximetry 98 Oxygen Delivery Method Room Air Oxygen Flow Rate 0 0 06/07/24 06:00 Temperature Pulse Rate 95 H Respiratory Rate 21 Blood Pressure Pulse Oximetry 96 Oxygen Delivery Method Oxygen Flow Rate Oxygen Delivery Method Room Air Oxygen Flow Rate 0 Narrative Exam Narrative: NAD, opens eyes to name and transiently tracts. Nonverbal. Lungs are clear, normal rate and effort. Heart is regular, no murmur gallop or rub. Abdomen is soft, non distended. Extremities are with gross pedal edema. Left knee is wrapped there is no erythema above or below. Objective Imaging CT scan - head: Radiologist's impression: No acute findings. Labs 06/07/24 03:11 06/07/24 03:11 Labs: Laboratory Results - last 24 hr 06/07/24 03:11 WBC 9.7 RBC 2.45 L Hgb 8.2 L Hct 24.1 L MCV 98.1 MCH 33.6 MCHC 34.3 RDW 17.5 H Plt Count 142 L Sodium 134 L Potassium 3.4 Chloride 108 H Carbon Dioxide 26 BUN 10 Creatinine 0.52 L Estimated GFR > 60 BUN/Creatinine Ratio 19.2 Glucose 84 Calcium 8.4 Total Bilirubin 2.7 H AST 45 ALT 37 Alkaline Phosphatase 179 H Total Protein 4.7 L Albumin 1.6 L Globulin 3.1 Albumin/Globulin Ratio 0.5 L PFSH Social History household members: family Smoking Status: Current every day smoker alcohol intake: current Assessment & Plan Assessment & Plan narrative: 1. Alcohol dependence, complicated by withdrawal with alcoholic/metabolic encephalopathy, possibly contributed to by infection 2. Suspected upper GI bleed with severe anemia, worsened today -clinically resolved after initial presentation, no overt bleeding at this point but at high risk. 3. Sepsis with acute metabolic encephalopathy, elevated bilirubin, acute respiratory failure with hypoxia, and thrombocytopenia due to left knee septic prepatellar MRSA bursitis and cellulitis. Present on admission and improved. -initial incision and drainage 05/29/2024, follow-up incision and drainage with negative surgical exploration with repeat clean out 06/03/2024 reculturing MRSA -Continue vancomycin IV (MRSA) 4. Anemia, present on admission and stable. -transfused 2 units of packed red blood cells 5. Thrombocytopenia, improving. Platelet count is improving 6. Alcoholic hepatitis, present on admission and active. INR was 1.8 on admission and improved to 1.4 since. Secondary to alcoholic liver disease. 7. Hypokalemia, improved. Corrected. Continue to monitor. 8. Hyponatremia, stable. monitor. 9. Possible tardive dyskinesia with facial and tongue movements on 06/03/2024, resolved. Etiology unclear. No implicated medications. PLAN: -stopped all sedating meds. -D10w@35ml/hr (hypoglycemia) -monitor mental status Code status Full code TRISH: full code. Time-Based Coding :: [TOTAL MINUTES] spent with patient and on the chart (including review of chart, obtaining history, exam, reviewing outside data, placing orders, documenting exam and treatment plan, and counseling patient) on [DATE]. Quality VTE Deep Vein Thrombosis/Pulmonary Embolism Present on Admission: No
[2024-06-07] MEDS: POTASSIUM CHLORIDE IN WATER 10 MEQ/100 ML PIGGYBACK 100 MEQ IV ×4 (09:45→13:19)
[2024-06-07] MEDS: SUCRALFATE 1 GM/10 ML ORAL SUSP PO ×3 (12:13→19:28)
[2024-06-07] MEDS: ACETAMINOPHEN 325 MG TABLET 650 MG PO ×2 (12:51→17:49)
--- NOTE | 2024-06-07 13:05 | PC.NURSE ---
Addendum entered by Rachael Rodriguez R.N. 06/07/24 18:28: Pt continues to move in bed frequently, disoriented to place, time, situation. Pt transferred to the chair via mechanical lift. Pt continued to attempt to stand. Gait belt in place, two PA as pt attempted to stand. Pt unable to stand, stayed in chair for approximately 60 mins. Pt transferred to bed via mechanical lift. Continues to move frequently in the bed, scooting self to the end of the bed, unable to position self back up in bed. Pt assisted up in bed several times. Pt continues to scoot self down in bed, attempting to dangle legs but unsuccessful. Continued restless movements despite frequent repositioning, medication administration (See MAR), reorienting, comfort measures, staff presence, and family presence. Vital signs WDL. Care ongoing. Original Note: Upon transfer of care, ortho surgery at bedside. Dressing change completed. Pain medication administration (See MAR). Pt unable to track, lethargic and scooting in bed. Unable to tolerate PO intake at breakfast. Pt assisted at lunch 1:1 with protein smoothie and ensure. Pt answering yes/no questions with multiple prompts. Pt continues to pull at dressing, attempts to scoot out of bed. Pt educated on importance of keeping dressing to L knee clean and dangers of falls. Pt in room closest to nurse's station, curtain open, bed alarm active.
--- NOTE | 2024-06-07 13:57 | CM.DPNOTE ---
THIAGO Kowalski Reviewed chart. Met in room with patient, patient's sister Sidra and Dr Tang, plan of care reviewed. Patient moving in bed throughout, not alert and oriented. Dr Tang remains optimistic that patient's mentation will continue to improve. Dr Tang considering NG tube for feeding but this will not be started today, patient remains confused and is at risk for pulling NG tube out. Sister Sidra reviews patient's recent past; loss of his SO within the last 5 years by suicide, struggle with mental illness, incarceration and struggle with substance abuse. Patient's daughters lives in the [facility] and were not raised by patient. Daughters have been estranged from patient until now. Sidra plans to have time with patient's daughters this evening to discuss patient current status and next steps. Sidra unsure if patient's daughters will be involved from here out. Sidra will discuss with her family who will be the patient's point person for medical decision making and discussion about discharge plan. Sidra plans to contact [facility] to see if patient's Medicaid is active. This CM team will continue to follow closely as medical plan of care unfolds. Plan: Hospitalist is hopeful patient will regain some cognitive ability; cognitive and functional ability will determine what discharge options are available to patient. LESLI
[2024-06-07] MEDS: DEXTROSE 10 % IN WATER 1,000 ML 35 ML IV (14:12)
--- NOTE | 2024-06-07 14:41 | DIET.CONS ---
Addendum entered by Christie Lainez 06/07/24 17:00: Spoke to RN - pt is more awake and eating some food, not appropriate for tube feeds d/t likely will pull it out. Tube feed order d/c. Original Note: Dietary Consultation Note Admission Date: 05/26/2024 11:28 Assessment: Discussed in team rounds this morning- pt remains unable to take adequate PO intakes, wasn't able to have GOC conversation. Plan to start enteral nutrition today. No weight hx. D10w running r/t hypoglycemia. See previous note regarding po intakes during this admission. Ht: 172.72 cm Wt: 92.5 kg BMI: 31.0 Last BM: 06/04/24 (06/04/24 14:33) MNA: 14 Stephen Score: 12 Diet: 06/03/24 Dinner General (Regular) Diet Diet Modifications: Food Texture: Level 7 - Regular Liquid Consistency: Level 0 - Thin Nutrition Percent Meal Consumed 0% 06/06/24 18:00 Labs: RBC 2.45 X10^6/uL (4.5-5.9) L 06/07/24 03:11 Hgb 8.2 g/dL (13.5-17.5) L 06/07/24 03:11 Hct 24.1 % (41-53) L 06/07/24 03:11 Creatinine 0.52 mg/dL (0.66-1.25) L 06/07/24 03:11 Lactate 1.1 mmol/L (0.7-2.1) 06/04/24 02:40 Nutrition Diagnosis: Inadequate oral intake r/t decreased ability to consume sufficient intake aeb <25% EER for >10 days Interventions: 1. Recc enteral nutrition of Pivot 1.5 starting at 10 mL/hr and advancing 10 mL q8H until goal rate of 50 mL/hr. Flush 100 mL Q4H. Feeds provide 900 mL fluids. Fluid needs 2500 mL (30 mL/kg). Will adjust fluids based on IV fluids. Goal rate provides 1800 kcals (97% EER) and 112 g protein (100% EER) 2. Recc monitoring Mg, phos, K+ before start of enteral feeds and first 3 days of enteral feeds. Pt at risk for refeeding syndrome. EER: 1850 kcals (20 kcals/kg per BMI) 90-110 g protein (1.2-1.5 g/kg per sepsis, wound) Monitoring/Evaluations: Start of TF, rate, tolerance/labs Electronically Signed by: Christie Lainez 06/07/24 14:41 Clinical Dietitian [address] [address]
[2024-06-07] MEDS: TRAMADOL 50 MG TABLET PO ×2 (15:10→19:27)
[2024-06-07] MEDS: LIDOCAINE 5% PATCH 1 EACH TOP (15:11)
[2024-06-07] MEDS: PANTOPRAZOLE DR 40 MG TABLET PO (19:27)
[2024-06-07] MEDS: diphenhydrAMINE 25 MG TABLET 50 MG PO (19:27)
[2024-06-08] MEDS: HYDROMORPHONE 0.5 MG INJ IV ×2 (04:05→23:55)
[2024-06-08 04:53] LABS: Hematocrit 24.5 % (41-53); Hemoglobin 8.3 g/dL (13.5-17.5); Mean Corpuscular HGB Conc 33.7 % (30-36); Mean Corpuscular Hemoglobin 33.4 PG (26-34); Platelet Count 140 X10^3/uL (150-400); Red Blood Cell Count 2.48 X10^6/uL (4.5-5.9); Red Cell Distribution Width 17.9 % (11.6-14.8); White Blood Cell Count 8.6 X10^3/uL (4.5-11.0)
[2024-06-08 05:14] LABS: Alanine Aminotransferase 35 IU/L (<50); Albumin 1.5 g/dL (3.5-5.0); Albumin Globulin Ratio 0.5 (1.0-2.8); Alkaline Phosphatase 188 U/L (38-126); Aspartate Aminotransferase 50 IU/L (17-59); BUN Creatinine Ratio 17.6 (6-22); Bilirubin Total 2.4 mg/dL (0.2-1.3); Blood Urea Nitrogen 9 mg/dL (9-20); Calcium 8.3 mg/dL (8.4-10.2); Carbon Dioxide 25 mmol/L (22-32); Chloride 108 mmol/L (98-107); Estimated Glomerular Filt Rate > 60 mL/min (>60); Globulin 3.1 g/dL (1.7-4.1); Glucose 82 mg/dL (70-100); HEMOLYSIS < 15 (0-50); Potassium 3.5 mmol/L (3.4-5.1); Sodium 132 mmol/L (137-145); Total Protein 4.6 g/dL (6.3-8.2)
--- NOTE | 2024-06-08 06:39 | PC.NURSE ---
Pt's daughters in to see him at 2100 and 0150, daughter Kassidy Mc , wants to be updated by MD regarding pt's care/condition Pt restless trying to get out of bed, answers questions occasionally with delayed responses, slow to make eye contact, pulls at knee dsg, wincing and moaning, scratching at chest and arms, prn analgesic and benadryl given, dsg changed, bed alarm on, call goldberg within reach, frequent reassurance/orientation given
[2024-06-08 07:40] VITALS: BP 122/78; TEMP 36.6
[2024-06-08 07:41] VITALS: PULSE 94; O2SAT 96
[2024-06-08] MEDS: SUCRALFATE 1 GM/10 ML ORAL SUSP PO ×4 (07:50→21:34)
[2024-06-08] MEDS: VANCOMYCIN 1,000 MG/200 ML PIGGYBACK 200 MG IV ×3 (07:51→23:54)
--- NOTE | 2024-06-08 08:20 | PM.PN.1 ---
Subjective Subjective Interval history: Patient is a 53-year-old male with severe alcohol use disorder who presented with alcohol withdrawal and a severe left prepatellar septic bursitis and cellulitis. The patient has had a severe encephalopathy which is failing to improve. He continues on IV antibiotics in his had to debridements to his prepatellar area. CT of the brain on June 06 was unremarkable. Subjective: He is more awake today and impulsive. He has knee pain. Exam Vital Signs (past 8 hours): - 06/08/24 07:40 06/08/24 07:41 Temperature 97.8 F Pulse Rate 94 H Blood Pressure 122/78 Pulse Oximetry 96 Oxygen Delivery Method Room Air Oxygen Flow Rate 0 Narrative Exam Narrative: NAD, confused, more verbal today. Lungs are clear, normal rate and effort. Heart is regular, no murmur gallop or rub. Abdomen is soft, non distended. Extremities are free of edema. Objective Labs 06/08/24 04:02 06/08/24 04:02 Labs: Laboratory Results - last 24 hr 06/08/24 06/08/24 04:02 07:28 WBC 8.6 RBC 2.48 L Hgb 8.3 L Hct 24.5 L MCV 99.0 MCH 33.4 MCHC 33.7 RDW 17.9 H Plt Count 140 L Sodium 132 L Potassium 3.5 Chloride 108 H Carbon Dioxide 25 BUN 9 Creatinine 0.51 L Estimated GFR > 60 BUN/Creatinine Ratio 17.6 Glucose 82 Calcium 8.3 L Total Bilirubin 2.4 H AST 50 ALT 35 Alkaline Phosphatase 188 H Total Protein 4.6 L Albumin 1.5 L Globulin 3.1 Albumin/Globulin Ratio 0.5 L Vancomycin Trough 16.0 PFSH Social History household members: family Smoking Status: Current every day smoker alcohol intake: current Assessment & Plan Assessment & Plan narrative: 1. Alcohol dependence, complicated by withdrawal with alcoholic/metabolic encephalopathy, now with a slowly improving MS. 2. Suspected upper GI bleed with severe anemia, POA and stable. 3. Sepsis with acute metabolic encephalopathy, elevated bilirubin, acute respiratory failure with hypoxia, and thrombocytopenia due to left knee septic prepatellar MRSA bursitis and cellulitis. Present on admission and improved. -initial incision and drainage 05/29/2024, follow-up incision and drainage with negative surgical exploration with repeat clean out 06/03/2024 reculturing MRSA -Continue vancomycin IV (MRSA) 4. Anemia, present on admission and stable. -transfused 2 units of packed red blood cells 5. Thrombocytopenia, improving. 6. Alcoholic hepatitis, present on admission and active. INR was 1.8 on admission and improved to 1.4 since. 7. Hypokalemia, improved. Corrected. Continue to monitor. 8. Hyponatremia, stable. monitor. PLAN: -stopped all sedating meds. -D10w@35ml/hr (hypoglycemia) -monitor mental status -advance diet. No NGT as he seems like he would just pull it out. Possible TPN bridge. Time-Based Coding :: [TOTAL MINUTES] spent with patient and on the chart (including review of chart, obtaining history, exam, reviewing outside data, placing orders, documenting exam and treatment plan, and counseling patient) on [DATE]. Quality VTE Deep Vein Thrombosis/Pulmonary Embolism Present on Admission: No
[2024-06-08] MEDS: VANCOMYCIN TROUGH 1 REQUEST MISC (08:38)
[2024-06-08] MEDS: DULOXETINE 30 MG CAPSULE 60 MG PO (08:44)
[2024-06-08] MEDS: FOLIC ACID 1 MG TABLET PO (08:44)
[2024-06-08] MEDS: PANTOPRAZOLE DR 40 MG TABLET PO ×2 (08:44→21:34)
[2024-06-08] MEDS: DOCUSATE 100 MG CAPSULE PO ×2 (08:45→21:34)
[2024-06-08] MEDS: THIAMINE 100 MG TABLET PO (08:45)
[2024-06-08] MEDS: polyethylene glycoL 3350 17 GM POWD.PACK PO (08:45)
[2024-06-08] MEDS: diphenhydrAMINE 25 MG TABLET 50 MG PO (08:45)
[2024-06-08] MEDS: LIDOCAINE 5% PATCH 1 EACH TOP (08:46)
[2024-06-08 10:43] LABS: Vancomycin Peak 25.8 ug/mL (20-40)
[2024-06-08] MEDS: VANCOMYCIN PEAK 1 REQUEST MISC (11:48)
--- NOTE | 2024-06-08 15:21 | DIET.PN1 ---
Dietary Progress Note Assessment: High calorie/high protein supplements being provided with all meals. Continuing to monitor PO intakes and supplement tolerance. Ht: 172.72 cm Wt: 91.5 kg Last BM: 06/07/24 (06/07/24 21:12) MNA: 14 Stephen Score: 16 Diet: 06/03/24 Dinner General (Regular) Diet Diet Modifications: Food Texture: Level 7 - Regular Liquid Consistency: Level 0 - Thin 06/08/24 Lunch General (Regular) Diet Diet Modifications: Food Texture: Level 7 - Regular Liquid Consistency: Level 0 - Thin Nutrition Percent Meal Consumed 75% 06/08/24 12:00 Percent Meal Consumed 0% 06/06/24 18:00 Labs: RBC 2.48 X10^6/uL (4.5-5.9) L 06/08/24 04:02 Hgb 8.3 g/dL (13.5-17.5) L 06/08/24 04:02 Hct 24.5 % (41-53) L 06/08/24 04:02 Creatinine 0.51 mg/dL (0.66-1.25) L 06/08/24 04:02 Lactate 1.1 mmol/L (0.7-2.1) 06/04/24 02:40 Electronically Signed by: Christie Lainez 06/08/24 15:21 Clinical Dietitian [address] [address]
--- NOTE | 2024-06-08 15:22 | CM.DPNOTE ---
DCP Note ENGLISH AND READING INSTRUCTOR reviewed EMR. Discussed pt in multidisciplinary rounds. it is unclear what is pt's new cognitive baseline vs how pt's mentation will improve as time goes on. unsure if we will need to pursue guardianship process or of pt will improve enough to be able to assign a healthcare POA. If guardianship is needed, APS/Curtis Watson from [employer] will need to be involved. Per nursing staff, pt has perked up a bit since yesterday, ate an entire plate of mashed potatoes and drank a protein shake. Per nursing staff, wound care instructions unclear at this time. ENGLISH AND READING INSTRUCTOR spoke with Nanci from wound clinic about wound care confusion on plan. Nanci will pass along to Dr. Pinto and hopeful he will come up to the floor if he has time to guide our staff on the wound care recommendations, appreciate his expertise. ENGLISH AND READING INSTRUCTOR had long chat with sister Sidra. Sidra reports no POA paperwork. 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 ENGLISH AND READING INSTRUCTOR answered questions to best of ability. Per sister, pt is on the sex offenders registry, was unsure if that would be pertinent to his placement. Sister very concerned about denial letter from Medicaid that pt got in the mail. Sister reports she will help as much as she is able but she does not think she can care for his current needs at home. ENGLISH AND READING INSTRUCTOR spoke with Philomena from [facility] Aging and Disability resources. (p [phone]). report pt has active medicaid and he's starting a different [employer] health plan starting Jun 17, he will have the same coverage it's just looks different in the system. The denial letter he received was for the Medicare savings plan/supplemental financial assistance program he applied for. His medical coverage is fine per Philomena. Philomena reports she is happy to talk to the sister if she has further questions. ENGLISH AND READING INSTRUCTOR spoke with Sidra on the phone, ([phone]). updated her on above information from [facility]. Sidra very relieved and appreciative. ENGLISH AND READING INSTRUCTOR wrote note with above information and Philomena's contact information and placed in pt's room for Sidra to get tomorrow when she visits pt. This CM team will continue to follow closely as medical plan of care unfolds. Plan: Hospitalist is hopeful patient will regain some cognitive ability; cognitive and functional ability will determine what discharge options are available to patient. YAZAN Neri
[2024-06-08] MEDS: TRAMADOL 50 MG TABLET PO (15:48)
--- NOTE | 2024-06-08 15:52 | PM.PN.1 ---
Subjective Subjective Interval history: I was asked to re-evaluate the left knee wound since he has had another debridement. The patient was originally admitted with pre-patellar septic bursitis and he has undergone 2 surgical debridements, 1 on May 29 and again on June 03. Cultures have grown MRSA and the patient remains on vancomycin. His leukocytosis has resolved and he is afebrile. He is currently receiving saline wet to wet dressing changes. Exam Vital Signs (past 8 hours): Oxygen Delivery Method Room Air Oxygen Flow Rate 0 Skin Other: Incision anterior left knee with sutures in place, there are gaps between the sutures and an open wound at the superior aspect. There is purulent drainage saturating the dressing. The wound does not appear to tract to the knee and there is no exposed bone. Objective Labs 06/08/24 04:02 06/08/24 04:02 Labs: Laboratory Results - last 24 hr 06/08/24 06/08/24 06/08/24 04:02 07:28 10:04 WBC 8.6 RBC 2.48 L Hgb 8.3 L Hct 24.5 L MCV 99.0 MCH 33.4 MCHC 33.7 RDW 17.9 H Plt Count 140 L Sodium 132 L Potassium 3.5 Chloride 108 H Carbon Dioxide 25 BUN 9 Creatinine 0.51 L Estimated GFR > 60 BUN/Creatinine Ratio 17.6 Glucose 82 Calcium 8.3 L Total Bilirubin 2.4 H AST 50 ALT 35 Alkaline Phosphatase 188 H Total Protein 4.6 L Albumin 1.5 L Globulin 3.1 Albumin/Globulin Ratio 0.5 L Vancomycin Peak 25.8 Vancomycin Trough 16.0 PFSH Social History household members: family Smoking Status: Current every day smoker alcohol intake: current Assessment & Plan Assessment and plan (1) Unspecified open wound, left knee, subsequent encounter: Status: Acute (2) Septic prepatellar bursitis of left knee: Status: Acute Assessment & Plan narrative: The patient is still having purulent drainage. Recommend daily dressing changes with Iodoflex and reinforce with absorbent dressing if necessary. Time-Based Coding :: [30 MINUTES] spent with patient and on the chart (including review of chart, obtaining history, exam, reviewing outside data, placing orders, documenting exam and treatment plan, and counseling patient) on [06/08/24]. Quality VTE Deep Vein Thrombosis/Pulmonary Embolism Present on Admission: No
--- NOTE | 2024-06-08 16:05 | PT.IIE ---
Current Diagnoses Prepatellar bursitis, left knee (05/26/24) Other infective bursitis, left knee (05/26/24) Unspecified open wound, left knee, initial encounter (05/26/24) Unspecified open wound, left knee, subsequent encounter (05/26/24) Surgery Performed Operation Date: 05/27/24 17:00 <No data on this case meets the specified criteria> Operation Date: 05/29/24 09:00 Actual Procedures p Incision and Drainage left knee - Everette Crum MD Operation Date: 06/03/24 14:00 Actual Procedures p Incision and Drainage Knee(Left) - Bev Zaragoza MD Physical Therapy Inpatient Evaluation/Re-Eval M1 PT/OT-IP Prior Functional Status Start: 05/29/24 10:54 Freq: NEEDED Status: Active Protocol: Document 06/08/24 16:05 AB (Rec: 06/08/24 17:43 AB [id number]) Medical Review Prior Functional Status Medical History Reviewed Yes Communication needs time to respond to questions; inconsistent with following directions Mobility and Gait pt informed that he was independent with all mobilities and ambulation without AD Social History Household Members family Living Arrangements House Number of Floors (Floors) One Floor Number of Stairs To Enter/Railing? 1 step to enter Home Environment Standard Height Toilet,Tub/ Shower Home Equipment Hand Held Shower Additional Social History Comment pt stated that he lives with his sister who can assist him M2 PT-IP Current Condition Start: 05/29/24 10:54 Freq: NEEDED Status: Active Protocol: Document 06/08/24 16:05 AB (Rec: 06/08/24 17:43 AB [id number]) Physical Therapy Current Condition Current Condition Evaluation Date 06/08/24 Treatment Diagnosis L knee bursitis s/p I&D;GI bleed; alcohol dependence; difficulty in walking Onset Date 05/26/24 M3 PT-IP Subjective Start: 05/29/24 10:54 Freq: NEEDED Status: Active Protocol: Document 06/08/24 16:05 AB (Rec: 06/08/24 17:43 AB [id number]) Subjective Physical Therapy Visit Type Type Initial Evaluation Visit Start Time 16:05 Visit Stop Time 16:40 Notes pt was seen for PT eval but was d/c 06/06/24 due to decline in medical status. Received PT eval order again. per nurse, pt more stable and H&H is stable and can do PT. Number of VINYL WELDER AND FABRICATOR Visits 0 Physical Therapy Visit Comments Patient Comments with confusion and very restless M4 PT-IP Mobility and Gait Start: 05/29/24 10:54 Freq: NEEDED Status: Active Protocol: Document 06/08/24 16:05 AB (Rec: 06/08/24 17:43 AB [id number]) PT-Bed Mobility Assessment Supine to Sit Supine to Sit Maximum Assistance,2 Person Assistance,Head of Bed Elevated,Bedrails Sit to Supine Sit to Supine Total Assistance,2 Person Assistance,Head of Bed Elevated,Bedrails PT-Transfer Assessment Sit to and From Stand Sit to and from Stand Maximum Assistance,2 Person Assistance,Use of Upper Extremities Equipment Transfer Assistive Device Gait Belt,Front Wheeled Walker Orthotic/Prosthetic Devices or Brace: Yes Comments Mobility Comments obtained clarification and order for L knee immobilizer wear. pt to wear L knee immobilizer when ambulating. pt supine in bed. obtained PLOF and home set up. pt able to answer with one word but inconsistent and requires repetitions. assisted pt with donning L knee immobilizer. pt completed supine to sit max A x 2 and max cues. max A for initial sitting on EOB. total A for scooting to EOB. able to sit on EOB mod A after repositioning and max cues for safety. attempted sit<> stand x 3 and pt unable to stand despite max A x 2-3 to total A x 2-3. pt is very restless and inconsistent with following directions. pt insistent on going home and does not want to go back in bed. explained to pt that he has difficulty standing and cannot go home for now. assisted pt back to bed total A x 3 and max cues. positioned pt in bed. call light and table within reach. Left pt with nurse. Gait Assessment Comments Gait Comments unable at this time PT-Balance Assessment Sitting Balance and Reactions Static Sitting Balance Ability Poor Dynamic Sitting Balance Ability Poor M5 PT-IP Objective Assessments Start: 05/29/24 10:54 Freq: NEEDED Status: Active Protocol: Document 06/08/24 16:05 AB (Rec: 06/08/24 17:43 AB [id number]) Orientation Orientation/Cognition Level of Alertness Confusional State Orientation Name Safety Awareness Decreased Safety Awareness Memory Description Short Term Impaired,Mcfp Impaired Gross Range of Motion Lower Extremity ROM Assessment Left Impaired Impairments L knee tightness in flexion Strength Comments Strength Comments MMT not able to formally test due to pt's difficulty following directions M6 PT-IP Treatment Start: 05/29/24 10:54 Freq: NEEDED Status: Active Protocol: Document 06/08/24 16:05 AB (Rec: 06/08/24 17:43 AB [id number]) Physical Therapy Treatment Education Education Provided Safety M7 PT-IP Assessment and Plan Start: 05/29/24 10:54 Freq: NEEDED Status: Active Protocol: Document 06/08/24 16:05 AB (Rec: 06/08/24 17:43 AB [id number]) PT Summary Assessment and Plan Potential Rehabilitation Potential Fair Status of Condition at Evaluation Unstable Summary Impairments Pain,ROM,Strength,Balance, Coordination,Sensation,Tone, Cognition,Bed Mobility, Transfers,Gait,Activity Tolerance Assessment Summary pt is a 53 y/o M who is admitted for GI bleed, alcohold dependence/withdrawal and L knee bursitits s/p I&D. pt to use L knee immobilizer when ambulation per PA and is WBAT on LLE. pt requiring max A x 2-3 to total A x 2-3 for mobility. pt with difficulty following directions and has decrease safety awarenss. will continue to assess progress. pt will require SNF rehab at this time. Goals Bed Mobility Goal Minimal Assistance Transfer Goal Minimal Assistance,Front Wheeled Walker Gait Goal Minimal Assistance,Front Wheel Walker Gait Distance 25 Other Goals improve bed mobility, transfers, ambulation using FWW SBA ~ 100 ft up/down 1 step SBA Days to Meet Goals 10 Frequency of Treatment Frequency Of Treatment Once a Day Treatment Plan Physical Therapy Treatment Plan Bed Mobility Training,Transfer Training,Gait Training, Therapeutic Exercise,Balance Retraining,Post Op Education, Discharge Planning,Hot or Cold Pack,Neuromuscular Re-ed, Coordination Retraining,Manual Therapy Weight Bearing Status Weight Bearing Status Weight Bear as Tolerated Allowed Weight Bearing Amount (enter % LLE WBAT or #) (%) Recommendations To Nursing Amount of Assist Needed Mechanical Lift Discharge Recommendations PT Discharge Recommendations SNF Rehab Transportation Needs at Discharge Wheelchair/Cabulance,Stretcher /Ambulance
--- NOTE | 2024-06-08 18:19 | PC.NURSE ---
shift note: Pt restless, wanting to get out of bed. Tried several times to have him stand at the bedside but pt unable to bear weight on right leg. hoyered to chair then returned to bed. Multiple dressing changes throughout the day, initially with wet to dry dsg then after Dr. Pinto assessed pt, dry dressing applied. Waiting for Wound clinic to provide Iodoflex dressing as ordered. D10W dc'd per order, pt taking fair amount PO.
[2024-06-08 20:00] VITALS: BP 148/87; PULSE 106; RESP 16; TEMP 37.4; O2SAT 95
[2024-06-08 20:19] VITALS: PULSE 108; O2SAT 95
[2024-06-08 20:20] VITALS: BP 148/87; PULSE 107; O2SAT 94
[2024-06-08] MEDS: SENNOSIDES 8.6 MG TABLET 17.2 MG PO (21:34)
[2024-06-09] VITALS (16 sets, daily range): BP systolic 82–122; BP diastolic 52–69; PULSE 94–116; RESP 9–19; TEMP 36.6–37.1; O2SAT 93–944; BMI 30.3
[2024-06-09 05:04] LABS: Hematocrit 27.7 % (41-53); Hemoglobin 9.4 g/dL (13.5-17.5); Mean Corpuscular Hemoglobin 33.5 PG (26-34); Mean Corpuscular Volume 98.5 fL (80-100); Platelet Count 143 X10^3/uL (150-400); Red Blood Cell Count 2.82 X10^6/uL (4.5-5.9); Red Cell Distribution Width 17.5 % (11.6-14.8); White Blood Cell Count 9.2 X10^3/uL (4.5-11.0)
[2024-06-09] MEDS: HYDROMORPHONE 0.5 MG INJ IV ×2 (06:39→10:23)
--- NOTE | 2024-06-09 07:27 | PM.PNPO.1 ---
Subjective Subjective Date Patient Seen: 06/09/24 Time Patient Seen: 07:27 Interval history: Patient resting comfortably in bed. Patient does open his eyes but does not answer questions or follow commands. Exam Vital Signs (past 8 hours): Oxygen Delivery Method Room Air Oxygen Flow Rate 0 Narrative Exam Narrative: 53-year-old male resting comfortably in bed in no apparent distress. He does wake up when I move his left leg. The incision over the left knee is closed loosely with sutures. Scant serosanguineous drainage noted. The gauze is saturated with serosanguineous drainage. Left lower leg has significant edema mostly about the ankle and foot. Patient does not follow commands to move his ankle or foot. His left foot and ankle are warm and dry. Good capillary refill. The proximal left thigh and left flank have significant edema. No erythema noted. Objective Labs 06/09/24 04:10 06/08/24 04:02 Labs: Laboratory Results - last 24 hr 06/08/24 06/08/24 06/09/24 07:28 10:04 04:10 WBC 9.2 RBC 2.82 L Hgb 9.4 L Hct 27.7 L MCV 98.5 MCH 33.5 MCHC 34.0 RDW 17.5 H Plt Count 143 L Vancomycin Peak 25.8 Vancomycin Trough 16.0 PFSH Social History household members: family Smoking Status: Current every day smoker alcohol intake: current Assessment & Plan Post-op Postoperative Procedures: Procedures Operation Date: 05/27/24 17:00 <No data on this case meets the specified criteria> Operation Date: 05/29/24 09:00 Actual Procedure Side Surgeon p Incision and Drainage left knee Everette Crum MD Operation Date: 06/03/24 14:00 Actual Procedure Side Surgeon p Incision and Drainage Knee Left Bev Zaragoza MD Postoperative status narrative: Status post irrigation debridement left prepatellar bursa by Dr. Crum May 29, 2024 Status post left knee prepatellar bursa excision in left leg irrigation and debridement of skin, subcutaneous tissue, fascia and muscle June 03, 2024. Postoperative plan narrative: Knee immobilizer to help with left knee incision healing. Wound care as ordered, appreciate assistance with patient wound care while inpatient Ortho to continue to follow with wound checks every couple of days Sutures to be removed in 2 weeks Hospitalist following for alcohol dependence, suspected upper GI bleed with severe anemia, sepsis with acute metabolic encephalopathy, anemia, thrombocytopenia, alcoholic hepatitis, hypokalemia, hyponatremia. Quality VTE Deep Vein Thrombosis/Pulmonary Embolism Present on Admission: No
--- NOTE | 2024-06-09 07:34 | PM.PN.1 ---
Subjective Subjective Interval history: S: Awake but nonverbal. Having some movements consistent with dyskinesia. He was up sitting in a chair and has been eating since yesterday. Exam Vital Signs (past 8 hours): Oxygen Delivery Method Room Air Oxygen Flow Rate 0 Narrative Exam Narrative: NAD, awake and nonverbal. Some dyskinetic movements of the head and mouth. Lungs are clear, normal rate and effort. Heart is regular, no murmur gallop or rub. Abdomen is soft, non distended. Extremities: Left thigh is more swollen and tender and discharge comes out of his knee when it is pressed on.. Objective Labs 06/09/24 04:10 06/08/24 04:02 Labs: Laboratory Results - last 24 hr 06/08/24 06/08/24 06/09/24 07:28 10:04 04:10 WBC 9.2 RBC 2.82 L Hgb 9.4 L Hct 27.7 L MCV 98.5 MCH 33.5 MCHC 34.0 RDW 17.5 H Plt Count 143 L Vancomycin Peak 25.8 Vancomycin Trough 16.0 PFSH Social History household members: family Smoking Status: Current every day smoker alcohol intake: current Assessment & Plan Assessment & Plan narrative: 1. Alcohol dependence, complicated by withdrawal with alcoholic/metabolic encephalopathy, with a slowly improving mental status. 2. Suspected upper GI bleed with severe anemia, POA and stable. Hemoglobin remained stable. 3. Sepsis with acute metabolic encephalopathy, elevated bilirubin, acute respiratory failure with hypoxia, and thrombocytopenia due to left knee septic prepatellar MRSA bursitis and cellulitis. Present on admission and improved. -initial incision and drainage 05/29/2024, follow-up incision and drainage with negative surgical exploration with repeat clean out 06/03/2024 reculturing MRSA -Continue vancomycin IV (MRSA) 4. Anemia, present on admission and stable. 5. Thrombocytopenia, improving. 6. Alcoholic hepatitis, present on admission and active. 7. Hypokalemia, improved. 8. Hyponatremia, stable. 9. Increased size of the left thigh. CT scan today indicated a abscess in the thigh. PLAN: -minimize all sedating meds. -CT left leg and thigh. Reveals abscess. General surgery is consulted for ID. Dr. Morrissey. -monitor mental status. TRISH: Unclear. He remains significantly ill. Dispo: He will need placement. Time-Based Coding :: [TOTAL MINUTES] spent with patient and on the chart (including review of chart, obtaining history, exam, reviewing outside data, placing orders, documenting exam and treatment plan, and counseling patient) on [DATE]. Quality VTE Deep Vein Thrombosis/Pulmonary Embolism Present on Admission: No
--- NOTE | 2024-06-09 07:44 | DI.CT.S_ITS ---
PROCEDURE: CT LE LT W CON INDICATIONS: leg edema and infection TECHNIQUE: After the administration of intravenous contrast, 3 mm axial sections acquired of the left thigh, with coronal and sagittal reformats. COMPARISON: [facility], CT, CT LE LT W CON, 06/03/2024, 10:55. FINDINGS: Image quality: Excellent. Bones: No acute fracture or dislocation. Chronic appearing deformity involving left femoral head and neck is again seen unchanged from prior study. No evidence of avascular necrosis of femoral head. Osteoarthritic changes are seen in left hip and left knee joints. No bony erosive changes or abnormal periosteal reaction. Soft tissues: There is generalized anasarca and large amount of ascites fluid in visualized lower abdomen and pelvis suggestive of volume overload. There is ulceration/open wound involving over anterior lateral aspect of patella. Small amount of subcutaneous emphysema is seen anterior to the distal quadriceps tendon and along medial aspect of distal right thigh. Previously described large fluid collection along medial aspect of distal right thigh extending to anterior aspect of patella is no longer present. There is a peripherally enhancing fluid collection involving left adductor bradley muscle extending to the level of medial femoral condyle measures up to 3.8 x 2.2 cm in AP and transverse dimensions at the level of mid thigh series 5, image 141 and up to 3.7 x 2.7 cm in size at the level of distal thigh series 5, image 204 and measures up to 22.3 cm in craniocaudal dimension series 7, image 67. Finding is suggestive of intramuscular abscess collection. No area of abnormal soft tissue mass or calcifications. No significant left knee joint effusion. No peritoneal free air. IMPRESSION: 1. Interval resolution of previously noted abscess collection within subcutaneous soft tissue along anterior medial aspect of left knee and left patella. Small amount of subcutaneous emphysema and overlying skin wound. 2. There is suggestion of lobulated intramuscular abscess collection involving left adductor bradley muscle extending from the level of proximal to mid thigh to the level of medial femoral condyle as described in detail above. 3. Volume overload with generalized anasarca and significant amount of ascites fluid. 4. No evidence of osteomyelitis. No acute fracture or dislocation. Old left femoral head and neck deformity. Dictated by: Nestor Trujillo M.D. on 06/09/2024 at 8:47 Approved by: Nestor Trujillo M.D. on 06/09/2024 at 9:00
[2024-06-09] MEDS: SUCRALFATE 1 GM/10 ML ORAL SUSP PO (07:48)
[2024-06-09] MEDS: VANCOMYCIN 1,000 MG/200 ML PIGGYBACK 200 MG IV ×2 (08:14→15:12)
[2024-06-09] MEDS: DULOXETINE 30 MG CAPSULE 60 MG PO (09:10)
[2024-06-09] MEDS: DOCUSATE 100 MG CAPSULE PO (09:10)
[2024-06-09] MEDS: FOLIC ACID 1 MG TABLET PO (09:11)
[2024-06-09] MEDS: LIDOCAINE 5% PATCH 1 EACH TOP (09:11)
[2024-06-09] MEDS: ENOXAPARIN 40 MG/0.4 ML SYRINGE SUBCUT (09:11)
[2024-06-09] MEDS: PANTOPRAZOLE DR 40 MG TABLET PO (09:12)
[2024-06-09] MEDS: polyethylene glycoL 3350 17 GM POWD.PACK PO (09:13)
[2024-06-09] MEDS: THIAMINE 100 MG TABLET PO (09:13)
[2024-06-09] MEDS: diphenhydrAMINE 25 MG TABLET 50 MG PO (10:22)
--- NOTE | 2024-06-09 11:14 | PT-IP ANOTE ---
Pt is not appropriate for PT at this time. Pt is up in chair with use of tiana. He is lethargic and does not respond to simple questions or instructions. PT may see pt later this afternoon if more appropriate.
--- NOTE | 2024-06-09 16:05 | CM.DPNOTE ---
DCP Cont Lengthy conversation today with patient's sister Sidra and daughter Kassidy. Chart updated with contact information for daughters Kassidy and Wiliam, both daughters live in [place]. According to daughter Kassidy, the point of contact should be: 1. Kassidy 2. Sister Sidra 3. Daughter Wiliam Explained that although patient remains confused and his new normal is still unknown, recommendation from the medical and therapy team are to start SNF referrals JUAN. Family agrees. Sister hopeful patient will be cared for in [facility], daughter Kassidy hopeful patient will have rehab closer to [place]. For now- both sister and daughter agreeable to this CONCRETE PAVING MACHINE OPERATOR starting referrals in this region and broadening as needed. Provided daughter Kassidy with the [facility] shannan. Requested she complete and sign on patient's behalf as his current authorized loan servicing representative. Once completed, CM team can fax to home and community services with a request for expedited review. Family appreciative and agreeable. Referrals emailed to [facility], [facility], [facility], [facility], [facility] and [facility] [place]. [facility]. [facility]- No Allison- No [facility]- No SNF search continues. Meanwhile, penitentiary care planning starting. LESLI
--- NOTE | 2024-06-09 17:09 | PM.PN.1 ---
Subjective Subjective Interval history: I was contacted this afternoon as the on-call orthopedist regarding the patient's thigh. He has a complicated hospital course which is outlined elsewhere. He got a CT scan today demonstrating an abscess in his left adductor bradley. I reviewed this and found that it does not appear to be continuous with his prior left pre patellar abscess. I evaluated the patient and found induration and erythema in that region. He is nonverbal due to his encephalopathy. I had a long detailed discussion with the patient's sister and his daughter regarding his condition. From an operative perspective my main concern is the proximity of the abscess to the femoral artery. I discussed in detail with them how I plan to protect the femoral artery during this procedure. I plan to open it up, packet, loosely close it, and obtain cultures. Risks of the procedure were discussed in detail with the patient's family. I also explained to them that although I am not intermittently familiar with his case I am certainly concerned about his prognosis. In particular I fear the risk of endocarditis as he has now developed a distinct abscess separate from his prior pre prepatellar abscess. I did open his prepatellar incision and will debride that as well. Plan to proceed with surgery today. Exam Vital Signs (past 8 hours): - 06/09/24 15:58 Temperature 98.8 F Pulse Rate 94 H Respiratory Rate 16 Blood Pressure 98/68 Pulse Oximetry 98 Oxygen Delivery Method Room Air Oxygen Delivery Method Room Air Oxygen Flow Rate 0 Objective Labs 06/09/24 04:10 06/08/24 04:02 Labs: Laboratory Results - last 24 hr 06/09/24 04:10 WBC 9.2 RBC 2.82 L Hgb 9.4 L Hct 27.7 L MCV 98.5 MCH 33.5 MCHC 34.0 RDW 17.5 H Plt Count 143 L PFSH Social History household members: family Smoking Status: Current every day smoker alcohol intake: current Assessment & Plan Time-Based Coding :: [TOTAL MINUTES] spent with patient and on the chart (including review of chart, obtaining history, exam, reviewing outside data, placing orders, documenting exam and treatment plan, and counseling patient) on [DATE]. Quality VTE Deep Vein Thrombosis/Pulmonary Embolism Present on Admission: No
--- NOTE | 2024-06-09 17:31 | SUR.OPER ---
Supine on padded OR bed, head on pillow, arms secured on padded arm boards at <90 degrees abduction, legs uncrossed, safety belt at waist, tape over blanket over right lower leg, left leg draped free .
[2024-06-09] MEDS: VANCOMYCIN 1,000 MG VIAL 1000 MG INTRA-ARTI (17:39)
--- NOTE | 2024-06-09 18:11 | PM.OP.1 ---
Operative Date/Time/Diagnoses Date of procedure: 06/09/24 Pre-op diagnosis: Left thigh infection Post-op diagnosis: same Procedure & Clinicians Procedure: Incision and debridement of left thigh Same procedure as scheduled: Yes Surgeon: Carlos Rubio Click Yes if Unassisted: Yes Anesthesia Type: General Operative Notes Estimated Blood Loss (mL): 200 Procedure in detail: This 53-year-old male patient has had several debridements of a infection in his prepatellar bursa. He got a CT scan today due to worsening induration in his thigh and it noted a abscess in his left adductor bradley muscle. I was consulted for management. I discussed his situation with his daughter and sister. He is nonverbal due to encephalopathy which has progressed during this admission. He did react painfully when I palpated the area of the involvement on the CT scan and I noted induration and erythema in the area. I discussed in detail the risks of the surgery with them. In particular my focus was on the risk of which I think is a very big concern in his case. I also discussed the risk of infection progression, particularly Renata's gangrene or endocarditis. With regards to my surgical procedure I explained in detail the proximity of his abscess site to his femoral artery. I explained the steps I would take to protect the femoral artery during the procedure. His family understood these risks and wished to proceed. I marked the operative site. I did examine the patient but he was nonresponsive. Intraoperatively I prepped out the entire leg and found that there was drainage coming from the old prepatellar bursal incision. I therefore removed those sutures and prepped that area as well intending to debride it additionally. A time-out procedure was performed. The patient was receiving scheduled antibiotics. The site reina was visible. I began the procedure by debriding bluntly through the area of the prepatellar bursal incision. This was easily bluntly dissect able and I was able to track proximally medially with my hand all the way to the area of involvement on the CT scan. Based on this, I felt that it was likely that the CT scan findings which appeared to be a discrete abscess had been seated from continuity with the prepatellar abscess. I therefore made a long incision extending proximally up the thigh in a curvilinear fashion extending medially. I dissected through the adductor fascia using tenaculum scissors and immediately on extending this proximally noted a very large fluid collection within the adductor musculature as well as necrosis of the adductor musculature. The fluid collection was clear. I obtained 2 fluid cultures from the abscess within the adductor musculature. I probed proximally and found that the abscess did not communicate up into the pelvis although I did debride all the way up to the adductor origin on the pubis. Having decompressed the abscess which I had identified on the CT scan I then proceeded with a thorough debridement. This involved debridement of muscle, tendon, and connective tissue. I debrided all nonviable appearing tissue using a combination of rongeur and curette. I soaked the entire wound in Betadine and allowed it to sit for 3 minutes. I irrigated the wound thoroughly using 3 L of normal saline. I prepared a wound VAC to cover the proximal portion of the incision that I had created during today's procedure. I stapled this in place. I loosely approximated the incision over the prepatellar bursa as it had been previously and extended the wound VAC down into an incisional wound VAC covering that area. The wound VAC was turned on and made a good suction seal. I later examined the patient postoperatively and found that he had returned to his baseline mentation, which was poor preoperatively, and had a good seal on his wound VAC and a well-perfused foot.. He is receiving ICU level care Post-operative Plan for aftercare: 1. Resume medical care for infection per the primary team. Patient has been receiving vancomycin. We will follow up the cultures that I sent during today's procedure 2. I have consulted Wound Care for wound VAC changes 3. Given the proximity of the infection that I debrided to the patient's pelvis I reached out to the primary team and recommended a pelvic CT scan and likely a general surgery consult. We will plan to move forward with that tomorrow
--- NOTE | 2024-06-09 18:48 | SUR.PHASEI ---
Report given to Amber SORTO 230 -
--- NOTE | 2024-06-09 19:01 | PC.NURSE ---
Patient arrived from PACU at 1850. He is lethargic but arouseable and falls immediately back to sleep. Carrion in place draining jensen colored urine. He is 88% on RA and placed on 2 LNC. Initial BP 79/56, HR 100. Patient placed in trendelenburg and given 500 cc NS Bolus. BP currently 96/52 HR 101. Wounvac with tight seal to continuous suction at 125mmgh. He remains with +2-3 edema to BLE's. Post OP VS initiated, placed on telemetry, bed alarm on, sister supportive at bedside
[2024-06-09] MEDS: SODIUM CHLORIDE 0.9% 1,000 ML 1000 ML IV (19:15)
[2024-06-10] VITALS (93 sets, daily range): BP systolic 75–160; BP diastolic 51–120; PULSE 104–128; RESP 8–22; TEMP 36.3–37.1; O2SAT 92–100
[2024-06-10] MEDS: VANCOMYCIN 1,000 MG/200 ML PIGGYBACK 200 MG IV ×3 (00:28→19:35)
[2024-06-10] MEDS: HYDROMORPHONE 0.5 MG INJ IV ×3 (00:28→08:54)
[2024-06-10 01:51] LABS: Hematocrit 18.2 % (41-53); Hemoglobin 6.1 g/dL (13.5-17.5)
--- NOTE | 2024-06-10 01:55 | PC.NURSE ---
Patient s/p I&D of left thigh, wound VAC in place with [facility] blood output. At 0130H, H/H 6.1/18.2, total output from Wound VAC [address] Rubio updated, received orders as follows: Type and screen, transfuse 2 units PRBC, turn off wound VAC and have wound nurse re apply wound VAC after blood transfusion, place PICC line.
[2024-06-10] MEDS: DEXTROSE 50 % IN WATER 25 GM/50 ML SYRINGE IV (07:07)
--- NOTE | 2024-06-10 07:21 | P.PN_ITS ---
Subjective Subjective Interval history: CT imaging of the left leg indicated and extension of abscess into the thigh. He underwent an extensive I and D on June 09. The adductor abscess was found to be continuous with a prepatellar abscess. The patient had a relatively unstable night with blood loss anemia and hypotension. He was received 2 units of blood and fluids. He was hypotensive and tachycardic. The patient we will need more blood based on his wound and ongoing drainage. S: Patient was nonverbal this morning. Exam Vital Signs (past 8 hours): - 06/09/24 23:30 06/09/24 23:30 06/10/24 00:00 Temperature 98.7 F Pulse Rate 105 H 106 H Respiratory Rate 11 L 12 Blood Pressure 97/52 L Pulse Oximetry 100 100 Oxygen Flow Rate 06/10/24 00:11 06/10/24 00:11 06/10/24 01:00 Temperature Pulse Rate 109 H 108 H Respiratory Rate 10 L 10 L Blood Pressure 85/56 L Pulse Oximetry 98 97 Oxygen Flow Rate 2 2 06/10/24 01:00 06/10/24 02:00 06/10/24 02:00 Temperature Pulse Rate 104 H Respiratory Rate 11 L Blood Pressure 81/51 L 104/51 L Pulse Oximetry 93 Oxygen Flow Rate 0 06/10/24 02:58 06/10/24 02:58 06/10/24 03:01 Temperature Pulse Rate 109 H 109 H Respiratory Rate 12 10 L Blood Pressure 90/56 L Pulse Oximetry 94 92 Oxygen Flow Rate 0 06/10/24 03:01 06/10/24 03:05 06/10/24 03:22 Temperature 97.5 F L 97.7 F Pulse Rate 109 H 111 H Respiratory Rate 10 L 10 L Blood Pressure 99/54 L 99/54 L 75/54 L Pulse Oximetry Oxygen Flow Rate 06/10/24 03:22 06/10/24 03:22 06/10/24 04:00 Temperature 97.4 F L Pulse Rate 111 H 112 H Respiratory Rate 10 L 9 L Blood Pressure 75/54 L Pulse Oximetry 97 93 Oxygen Flow Rate 0 06/10/24 04:00 06/10/24 05:00 06/10/24 05:00 Temperature Pulse Rate 112 H Respiratory Rate 8 L Blood Pressure 100/57 L 79/56 L Pulse Oximetry 99 Oxygen Flow Rate 0 06/10/24 05:31 06/10/24 05:45 06/10/24 05:46 Temperature 98.3 F 97.6 F Pulse Rate 112 H 115 H 115 H Respiratory Rate 8 L 9 L 9 L Blood Pressure 79/56 L 115/55 L Pulse Oximetry 97 Oxygen Flow Rate 06/10/24 05:46 06/10/24 06:00 06/10/24 06:00 Temperature Pulse Rate 114 H Respiratory Rate 10 L Blood Pressure 115/55 L 87/54 L Pulse Oximetry 98 Oxygen Flow Rate 06/10/24 07:00 06/10/24 07:00 Temperature Pulse Rate 117 H Respiratory Rate 12 Blood Pressure 85/52 L Pulse Oximetry 97 Oxygen Flow Rate 0 Oxygen Delivery Method Room Air Oxygen Flow Rate 0 Narrative Exam Narrative: Somnolent, no acute distress. Lungs are clear, normal rate and effort. Heart is regular, no murmur gallop or rub. Abdomen is soft, non distended. Extremities are free of edema. Left thigh wrapped with wound VAC and blood loss. Objective Labs 06/10/24 11:01 06/10/24 11:01 Labs: Laboratory Results - last 24 hr 06/05/24 06/10/24 03:31 01:24 Hgb 6.1 L* Hct 18.2 L* Blood Type O Negative Antibody Screen Negative Crossmatch See Detail See Detail [facility] Social History household members: family Smoking Status: Current every day smoker alcohol intake: current Assessment & Plan Assessment & Plan narrative: 1. Alcohol dependence, complicated by withdrawal with alcoholic/metabolic encephalopathy, with a slowly improving mental status. 2. Suspected upper GI bleed with severe anemia, POA and stable. Hemoglobin remained stable. 3. Sepsis with acute metabolic encephalopathy, elevated bilirubin, acute respiratory failure with hypoxia, and thrombocytopenia due to left knee septic prepatellar MRSA bursitis and cellulitis. Present on admission and improved. -initial incision and drainage 05/29/2024, follow-up incision and drainage with negative surgical exploration with repeat clean out 06/03/2024 reculturing MRSA -Continue vancomycin IV (MRSA) 4. Anemia, present on admission and stable. 5. Thrombocytopenia, improving. 6. Alcoholic hepatitis, present on admission and active. 7. Hypokalemia, improved. 8. Hyponatremia, stable. 9. Adductor thigh abscess, status post extensive incision and drainage (June 09). 10. Acute blood loss anemia postoperatively, new and active. 11. Coagulopathy, new and active. Plan: -2 units of packed cells, monitor hemoglobin. -INR elevated, vitamin K and 2 units of FFP. Monitor fibrinogen, protime and PTT. -discuss left thigh oozing with Orthopedics -e ICU consult, case was discussed directly with motor vehicles supervisor. -norepinephrine via PICC, wean as able -ABG revealed metabolic acidosis and good ventilation. -continue antibiotics -1 L of saline bolus -repeat hemoglobin frequently today, blood products as needed. Prognosis is guarded. 60 minutes of critical care time spent Sister updated at the bedside at 10:30 a.m. Time-Based Coding :: [TOTAL MINUTES] spent with patient and on the chart (including review of chart, obtaining history, exam, reviewing outside data, placing orders, documenting exam and treatment plan, and counseling patient) on [DATE]. Quality VTE Deep Vein Thrombosis/Pulmonary Embolism Present on Admission: No
[2024-06-10] MEDS: SODIUM CHLORIDE 0.9% 1,000 ML 1000 ML IV (07:45)
[2024-06-10] MEDS: NOREPINEPHRINE BITARTRATE/D5W 4 MG/250 ML PLAST..BAG 33.938 MG IV (07:45)
[2024-06-10 08:32] LABS: Mean Corpuscular HGB Conc 33.8 % (30-36); Mean Corpuscular Hemoglobin 32.9 PG (26-34); Mean Corpuscular Volume 97.2 fL (80-100); Platelet Count 142 X10^3/uL (150-400); Red Blood Cell Count 2.01 X10^6/uL (4.5-5.9); Red Cell Distribution Width 16.5 % (11.6-14.8); White Blood Cell Count 9.3 X10^3/uL (4.5-11.0)
[2024-06-10 08:33] LABS: Allen Test for ABG Passed? Positive; Base Excess ABG -3.5 mmol/L (-2-3); Blood Gas Collection Site Left Radial; Delivery System RA; HCO3 ABG 21 mmol/L (23-27); Oxygen Saturation ABG 96 % (95-100); PCO2 ABG 31.4 mmHg (35-45); PO2 ABG 78 mmHg (80-100); TCO2 ABG 20 mmol/L (23-27); pH ABG 7.42 (7.35-7.45)
[2024-06-10 08:36] LABS: Hematocrit 19.5 % (41-53); Hemoglobin 6.6 g/dL (13.5-17.5); INR 2.9 (0.9-1.3); Prothrombin Time 33.1 SECONDS (9.4-12.5)
[2024-06-10 08:42] LABS: Lactate (Lactic Acid) 1.3 mmol/L (0.7-2.1)
[2024-06-10] MEDS: PHYTONADIONE (VIT K1) 10 MG in SODIUM CHLORIDE 0.9% 100 ML 202 MG IV (09:24)
[2024-06-10] MEDS: DEXTROSE 5%-0.9% NS 1,000 ML 150 ML IV ×2 (09:24→15:01)
[2024-06-10] MEDS: LIDOCAINE 5% PATCH 1 EACH TOP (09:33)
--- NOTE | 2024-06-10 10:07 | PC.NURSE ---
Addendum entered by Anastasiya Bruno R.N. 06/10/24 18:40: Most recent H/H 6.9/20.6-2 more units of PRBC ordered, I currently infusing, TPN started as ordered (see emar), dressing to Left leg changed, wound vac removed, foam left as it is attached with samara, wound is covered with double ABD, Curlex and BISHOP bandages for compression. Dressing is currently CDI. Pt tolerated dressing change with a total of 100mcg Fentanyl administered during the procedure. Sister Sidra at bedside and planning to stay the night. All needs met at this time, bed low and locked, call light within reach. Original Note: Day shift note: Pt s/p I&D for the L knee and upper thigh (x3), wound vac was placed during surgery and turned off at 3am per Dr Rubio. Wound is now oozing around the dressing. Has received 2 units of PRBC, 3rd unit is infusing and 1 more unit ordered along with 2 units of FFP. Pt is currently on Norepi at 0.1mcg per KG, BP is 113/76 HR 128. Pt also received Vit K and has D5NS infusing at 150mL/hr. Pt rouses to voice, and moves all extremities, requires frequent bedding changes due to wound, CBG 108. Dietary consult for nutrition ordered.
--- NOTE | 2024-06-10 10:20 | PM.PNPO.1 ---
Subjective Subjective Date Patient Seen: 06/10/24 Interval history: Patient is sedated Exam Vital Signs (past 8 hours): - 06/10/24 02:58 06/10/24 02:58 06/10/24 03:01 Temperature Pulse Rate 109 H 109 H Respiratory Rate 12 10 L Blood Pressure 90/56 L Pulse Oximetry 94 92 Oxygen Delivery Method Oxygen Flow Rate 0 06/10/24 03:01 06/10/24 03:05 06/10/24 03:22 Temperature 97.5 F L 97.7 F Pulse Rate 109 H 111 H Respiratory Rate 10 L 10 L Blood Pressure 99/54 L 99/54 L 75/54 L Pulse Oximetry Oxygen Delivery Method Oxygen Flow Rate 06/10/24 03:22 06/10/24 03:22 06/10/24 04:00 Temperature 97.4 F L Pulse Rate 111 H 112 H Respiratory Rate 10 L 9 L Blood Pressure 75/54 L Pulse Oximetry 97 93 Oxygen Delivery Method Oxygen Flow Rate 0 06/10/24 04:00 06/10/24 05:00 06/10/24 05:00 Temperature Pulse Rate 112 H Respiratory Rate 8 L Blood Pressure 100/57 L 79/56 L Pulse Oximetry 99 Oxygen Delivery Method Oxygen Flow Rate 0 06/10/24 05:31 06/10/24 05:45 06/10/24 05:46 Temperature 98.3 F 97.6 F Pulse Rate 112 H 115 H 115 H Respiratory Rate 8 L 9 L 9 L Blood Pressure 79/56 L 115/55 L Pulse Oximetry 97 Oxygen Delivery Method Oxygen Flow Rate 06/10/24 05:46 06/10/24 06:00 06/10/24 06:00 Temperature Pulse Rate 114 H Respiratory Rate 10 L Blood Pressure 115/55 L 87/54 L Pulse Oximetry 98 Oxygen Delivery Method Oxygen Flow Rate 06/10/24 07:00 06/10/24 07:00 06/10/24 07:00 Temperature Pulse Rate 117 H Respiratory Rate 12 Blood Pressure 85/52 L Pulse Oximetry 97 Oxygen Delivery Method Room Air Oxygen Flow Rate 0 06/10/24 07:57 06/10/24 07:57 06/10/24 08:00 Temperature Pulse Rate 112 H 113 H Respiratory Rate 10 L 11 L Blood Pressure 123/88 Pulse Oximetry 97 98 Oxygen Delivery Method Oxygen Flow Rate 06/10/24 08:00 06/10/24 08:15 06/10/24 08:15 Temperature Pulse Rate 116 H Respiratory Rate 11 L Blood Pressure 142/77 H 137/66 Pulse Oximetry 98 Oxygen Delivery Method Oxygen Flow Rate 06/10/24 08:41 06/10/24 08:41 06/10/24 08:47 Temperature Pulse Rate 125 H 127 H Respiratory Rate 13 11 L Blood Pressure 114/78 Pulse Oximetry 99 94 Oxygen Delivery Method Oxygen Flow Rate 06/10/24 08:47 06/10/24 09:00 06/10/24 09:00 Temperature Pulse Rate 125 H Respiratory Rate 10 L Blood Pressure 160/96 H 126/66 Pulse Oximetry 97 Oxygen Delivery Method Oxygen Flow Rate 06/10/24 09:15 06/10/24 09:15 06/10/24 09:30 Temperature Pulse Rate 128 H 125 H Respiratory Rate 13 9 L Blood Pressure 124/79 Pulse Oximetry 99 99 Oxygen Delivery Method Oxygen Flow Rate 06/10/24 09:30 06/10/24 09:41 06/10/24 09:45 Temperature 98.3 F Pulse Rate 126 H 127 H Respiratory Rate 9 L 10 L Blood Pressure 126/78 126/78 Pulse Oximetry 99 Oxygen Delivery Method Oxygen Flow Rate 06/10/24 09:45 06/10/24 10:00 06/10/24 10:00 Temperature Pulse Rate 128 H Respiratory Rate 12 Blood Pressure 130/78 113/76 Pulse Oximetry 98 Oxygen Delivery Method Oxygen Flow Rate Oxygen Delivery Method Room Air Oxygen Flow Rate 0 Narrative Exam Narrative: Large incision anterior left thigh with wound VAC in place. Large amount of serosanguineous drainage noted on the dressing surrounding the thigh incision. Objective Labs 06/10/24 08:21 06/08/24 04:02 Labs: Laboratory Results - last 24 hr 06/05/24 06/10/24 06/10/24 03:31 01:24 08:21 WBC 9.3 RBC 2.01 L Hgb 6.1 L* 6.6 L* Hct 18.2 L* 19.5 L* MCV 97.2 MCH 32.9 MCHC 33.8 RDW 16.5 H Plt Count 142 L PT 33.1 H INR 2.9 H ABG Sample Site ABG pH ABG pCO2 ABG pO2 ABG HCO3 ABG Total CO2 ABG O2 Saturation ABG Base Excess Iker Test O2 Delivery Device Lactate 1.3 Blood Type O Negative Antibody Screen Negative Crossmatch See Detail See Detail 06/10/24 08:29 WBC RBC Hgb Hct MCV MCH MCHC RDW Plt Count PT INR ABG Sample Site Left radial ABG pH 7.42 ABG pCO2 31.4 L ABG pO2 78 L ABG HCO3 21 L ABG Total CO2 20 L ABG O2 Saturation 96 ABG Base Excess -3.5 L Iker Test Positive O2 Delivery Device Ra Lactate Blood Type Antibody Screen Crossmatch [facility] Social History household members: family Smoking Status: Current every day smoker alcohol intake: current Assessment & Plan Post-op Postoperative Procedures: Procedures Operation Date: 05/27/24 17:00 <No data on this case meets the specified criteria> Operation Date: 05/29/24 09:00 Actual Procedure Side Surgeon p Incision and Drainage left knee Everette Crum MD Operation Date: 06/03/24 14:00 Actual Procedure Side Surgeon p Incision and Drainage Knee Left Bev Zaragoza MD Operation Date: 06/09/24 15:45 Actual Procedure Side Surgeon p Incision and Drainage Wound Left Thigh, placement of a wound vac Left Carlos Rubio MD Postoperative plan narrative: Follow cultures Antibiotics per hospitalist Wound Care has been consulted for wound management/wound VAC, wound VAC has been turned off for now due to the amount of drainage, apply compression wrap with Gurinder bandages from his toes to proximal thigh Dr. Rubio has recommended a pelvis CT and and general surgery consult Quality VTE Deep Vein Thrombosis/Pulmonary Embolism Present on Admission: No
--- NOTE | 2024-06-10 10:31 | DIET.CONS ---
Dietary Consultation Note Admission Date: 05/26/2024 11:28 Assessment: Pt s/p I&D yesterday and is NPO. Discussed in team rounds this morning, will start TPN d/t pt likely to pull out NGT. Spoke with pharmacy, will start TPN at 1 L. Pt has had small amounts of PO intakes over the weekend and PO intakes 06/07 and 06/08. D5w running. Ht: 172.72 cm Wt: 71 kg BMI: 23.8 UBW: no weight hx Last BM: 06/08/24 (06/09/24 15:58) MNA: 14 Stephen Score: 14 Diet: 06/09/24 10:38 NPO Diet Diet Modifications: NPO Type: Strict Nutrition Percent Meal Consumed 50% 06/08/24 18:00 Percent Meal Consumed 75% 06/08/24 12:00 Labs: RBC 2.01 X10^6/uL (4.5-5.9) L 06/10/24 08:21 Hgb 6.6 g/dL (13.5-17.5) L* 06/10/24 08:21 Hct 19.5 % (41-53) L* 06/10/24 08:21 Creatinine 0.51 mg/dL (0.66-1.25) L 06/08/24 04:02 Lactate 1.3 mmol/L (0.7-2.1) 06/10/24 08:21 Nutrition Diagnosis: Interventions: 1. Recc continuous TPN via PICC as follows: Day 1: 1 L Clinimix 5/20 running at 42 mL/hr. If tolerating can advance to day 2 Day 2: 1.5 L Clinimix 5/20 running at 62 mL/hr. If tolerating can advance to day 3 Day 3: Goal rate of 2 L Clinimix 5/20 running at 82 mL/h with 250 mL IVFE 3x/wk. Goal rate plus lipids provides 1974 kcals and 100 g protein meeting 100% needs 2. Recc monitoring Mg, phos, K+ before start of TPN and first 3 days of TPN. EER: [id number] kcals (25-28 kcals/kg per BMI) 110 g protein (1.5 g/kg per PCM, wound) Monitoring/Evaluations: TPN tolerance, labs Electronically Signed by: Christie Lainez 06/10/24 10:31 Clinical Dietitian [address] [address]
--- NOTE | 2024-06-10 10:39 | PT.IPTN ---
Current Diagnoses Prepatellar bursitis, left knee (05/26/24) Other infective bursitis, left knee (05/26/24) Unspecified open wound, left knee, initial encounter (05/26/24) Unspecified open wound, left knee, subsequent encounter (05/26/24) Surgery Performed Operation Date: 05/27/24 17:00 <No data on this case meets the specified criteria> Operation Date: 05/29/24 09:00 Actual Procedures p Incision and Drainage left knee - Everette Crum MD Operation Date: 06/03/24 14:00 Actual Procedures p Incision and Drainage Knee(Left) - Bev Zaragoza MD Operation Date: 06/09/24 15:45 Actual Procedures p Incision and Drainage Wound Left Thigh, placement of a wound vac(Left) - Carlos Rubio MD Physical Therapy Treatment Note M2 PT-IP Current Condition Start: 05/29/24 10:54 Freq: NEEDED Status: Active Protocol: Document 06/08/24 16:05 AB (Rec: 06/08/24 17:43 AB [email or web address]) Physical Therapy Current Condition Current Condition Evaluation Date 06/08/24 Treatment Diagnosis L knee bursitis s/p I&D;GI bleed; alcohol dependence; difficulty in walking Onset Date 05/26/24 M3 PT-IP Subjective Start: 05/29/24 10:54 Freq: NEEDED Status: Active Protocol: Document 06/10/24 10:34 AB (Rec: 06/10/24 10:38 AB [id number]) Subjective Physical Therapy Visit Type Type Administrative Note Notes pt with Hgb of 6.6 and Hct of 19.5. pt admitted for prepatellar bursitis s/p I&D 06/03/24. Pt found to have L thigh infection and had another I&D 06/09/24. pt is not medically stable to do PT. talked with nurse and stated that pt with bleeding even with just movement in bed and currently not alert to do any PT. will d/c PT. Protocol: Document 06/08/24 16:05 AB (Rec: 06/08/24 17:43 AB [id number]) Physical Therapy Treatment Education Education Provided Safety M7 PT-IP Assessment and Plan Start: 05/29/24 10:54 Freq: NEEDED Status: Active Protocol: Document 06/10/24 10:34 AB (Rec: 06/10/24 10:39 AB [id number]) PT Summary Assessment and Plan Frequency of Treatment Frequency Of Treatment Discharge
[2024-06-10 11:17] LABS: Mean Corpuscular HGB Conc 33.5 % (30-36); Mean Corpuscular Hemoglobin 32.5 PG (26-34); Platelet Count 138 X10^3/uL (150-400); Red Blood Cell Count 2.11 X10^6/uL (4.5-5.9); Red Cell Distribution Width 16.6 % (11.6-14.8); White Blood Cell Count 10.6 X10^3/uL (4.5-11.0)
[2024-06-10 11:19] LABS: Hematocrit 20.4 % (41-53); Hemoglobin 6.8 g/dL (13.5-17.5); INR 2.7 (0.9-1.3); Prothrombin Time 31.8 SECONDS (9.4-12.5)
[2024-06-10 11:20] LABS: D Dimer 3951 ng/ml (<500)
[2024-06-10 11:21] LABS: PTT Partial Thromboplastin Tim 69 SECONDS (25.1-36.5)
[2024-06-10 11:24] LABS: Fibrinogen 46 mg/dL (238-498)
[2024-06-10 11:27] LABS: BUN Creatinine Ratio 16.9 (6-22); Blood Urea Nitrogen 11 mg/dL (9-20); Calcium 6.6 mg/dL (8.4-10.2); Carbon Dioxide 17 mmol/L (22-32); Chloride 104 mmol/L (98-107); Estimated Glomerular Filt Rate > 60 mL/min (>60); Glucose 199 mg/dL (70-100); HEMOLYSIS < 15 (0-50); Phosphorous 3.7 mg/dL (2.5-4.5); Potassium 3.2 mmol/L (3.4-5.1); Sodium 127 mmol/L (137-145)
[2024-06-10] MEDS: MAGNESIUM SULFATE 4 GM/100 ML PIGGYBACK IV (12:16)
[2024-06-10] MEDS: fentaNYL 100 MCG/2 ML INJ 50 MCG IV ×5 (14:23→23:07)
[2024-06-10] MEDS: PIPERACILLIN/TAZO 3.375 GM in SODIUM CHLORIDE 0.9% 100 ML IV ×2 (14:44→21:00)
--- NOTE | 2024-06-10 14:46 | PM.CN.EICU ---
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: , RN [facility] Social History household members: family Smoking Status: Current every day smoker alcohol intake: current Comment: 53-year-old male initially was admitted for alcohol withdrawal, upper GI bleeding/ melena, aand swollen left red knee 2/2 falls, he underwent an extensive I and D on ; adductor abscess was found to be continuous with a prepatellar abscess, 1.5 L of EBL, overnight became unstable with hypotension 2/2 acute blood loss anemia, received 2 units of blood and fluids, repeat H&H 6.8, Platelets 138, INR 2.7, Fibrinogen 40s, he is currently receiving 2 units of PRBC & 2 FFP, , vit K, levo 0.1-->0.01 mcg/kg/min, deneis any pain/ sleeping. there is oozing around the wound vac, the drain is clamped per Ortho. Current Medications Current Medications Medications: Home Medications acetaminophen 325 mg tablet 650 mg PO PRN PRN Pain (Scale Score 1-3) 05/26/24 [History Confirmed 05/26/24] duloxetine 60 mg capsule,delayed release 60 mg PO DAILY 05/26/24 [History Confirmed 05/26/24] naproxen 250 mg tablet 250 mg PO BID 05/26/24 [History Confirmed 05/26/24] Visit Medications (administered) Generic Name Dose Route Start Last Admin Trade Name Freq PRN Reason Stop Dose Admin Acetaminophen 650 mg 06/03/24 16:15 06/07/24 17:49 Acetaminophen 325 Mg Tablet PO 650 mg Q6H PRN Administration Fever/Mild Pain (1-3) Dextrose 25 gm 06/06/24 05:34 06/10/24 07:07 Dextrose 50 % In Water 25 Gm/50 Ml Syringe IV 25 gm PRN PRN Administration Hypoglycemia Diphenhydramine HCl 50 mg 06/03/24 16:15 06/09/24 10:22 Diphenhydramine 25 Mg Tablet PO 50 mg Q6H PRN Administration mod to severe erythema, urticaria, or pruritis Docusate Sodium 100 mg 06/03/24 21:00 06/10/24 09:32 Docusate 100 Mg Capsule PO Not Given BID [facility] Enoxaparin Sodium 40 mg 06/09/24 09:00 06/10/24 09:32 Enoxaparin 40 Mg/0.4 Ml Syringe SUBCUT Not Given DAILY [facility] Fentanyl 50 mcg 06/10/24 13:41 06/10/24 14:23 Fentanyl 100 Mcg/2 Ml Inj IV 50 mcg Q15MIN PRN Administration Pain, Severe (7-10) Folic Acid 1 mg 05/31/24 12:00 06/10/24 09:33 Folic Acid 1 Mg Tablet PO Not Given DAILY [facility] Vancomycin HCl 1,000 mg in 200 mls @ 200 mls/hr 05/30/24 16:00 06/10/24 10:31 Vancomycin IV Infused Q8H [facility] Infusion NOREPINEPHRINE BITARTRATE/D5W 4 mg in 250 mls @ 33.938 mls/hr 06/10/24 07:18 06/10/24 10:48 Levophed IV 0.08 mcg/kg/min TITRATE [facility] 27.15 mls/hr Titration Protocol 0.1 MCG/KG/MIN Dextrose/Sodium Chloride 1,000 mls @ 150 mls/hr 06/10/24 08:45 06/10/24 09:24 Dextrose 5%-0.9% Ns IV 150 mls/hr CONT [facility] Administration Magnesium Sulfate 4 gm in 100 mls @ 25 mls/hr 06/10/24 11:55 06/10/24 12:16 Magnesium Sulfate IV 06/10/24 15:54 25 mls/hr NOW ONE Administration Piperacillin Sod/Tazobactam 100 mls @ 25 mls/hr 06/10/24 14:00 06/10/24 14:44 Sod 3.375 gm/ Sodium Chloride IV 25 mls/hr Q8H [facility] Administration Lidocaine 1 each 06/08/24 09:00 06/10/24 09:33 Lidocaine 5% Patch TOP 1 each DAILY [facility] Administration Lorazepam 0 mg 05/26/24 12:23 06/01/24 18:10 Lorazepam 2 Mg/Ml Inj IV 1 mg CIWAPRN PRN Administration Alcohol Withdrawal Protocol Pantoprazole Sodium 40 mg 06/02/24 21:00 06/10/24 10:[address] 40 Mg Tablet PO Not Given BID [facility] Polyethylene Glycol 17 gm 06/04/24 09:00 06/10/24 09:33 Polyethylene Glycol 3350 17 Gm Powd.Pack PO Not Given DAILY [facility] Sennosides 17.2 mg 06/03/24 21:00 06/09/24 21:34 Sennosides 8.6 Mg Tablet PO Not Given BEDTIME [facility] Sucralfate 1 gm 06/05/24 08:35 06/09/24 07:48 Sucralfate 1 Gm/10 Ml Oral Susp PO 1 gm ACHS [facility] Administration Thiamine HCl 100 mg 05/31/24 12:00 06/10/24 09:33 Thiamine 100 Mg Tablet PO Not Given DAILY [facility] Tramadol HCl 50 mg 06/07/24 15:02 06/08/24 15:48 Tramadol 50 Mg Tablet PO 50 mg QID PRN Administration Pain, Moderate (4-6) Exam Vital Signs (past 8 hours): - 06/10/24 07:00 06/10/24 07:00 06/10/24 07:00 Temperature Pulse Rate 117 H Respiratory Rate 12 Blood Pressure 85/52 L Pulse Oximetry 97 Oxygen Delivery Method Room Air Oxygen Flow Rate 0 06/10/24 07:57 06/10/24 07:57 06/10/24 08:00 Temperature Pulse Rate 112 H 113 H Respiratory Rate 10 L 11 L Blood Pressure 123/88 Pulse Oximetry 97 98 Oxygen Delivery Method Oxygen Flow Rate 06/10/24 08:00 06/10/24 08:15 06/10/24 08:15 Temperature Pulse Rate 116 H Respiratory Rate 11 L Blood Pressure 142/77 H 137/66 Pulse Oximetry 98 Oxygen Delivery Method Oxygen Flow Rate 06/10/24 08:41 06/10/24 08:41 06/10/24 08:47 Temperature Pulse Rate 125 H 127 H Respiratory Rate 13 11 L Blood Pressure 114/78 Pulse Oximetry 99 94 Oxygen Delivery Method Oxygen Flow Rate 06/10/24 08:47 06/10/24 09:00 06/10/24 09:00 Temperature Pulse Rate 125 H Respiratory Rate 10 L Blood Pressure 160/96 H 126/66 Pulse Oximetry 97 Oxygen Delivery Method Oxygen Flow Rate 06/10/24 09:15 06/10/24 09:15 06/10/24 09:30 Temperature Pulse Rate 128 H 125 H Respiratory Rate 13 9 L Blood Pressure 124/79 Pulse Oximetry 99 99 Oxygen Delivery Method Oxygen Flow Rate 06/10/24 09:30 06/10/24 09:41 06/10/24 09:45 Temperature 98.3 F Pulse Rate 126 H 127 H Respiratory Rate 9 L 10 L Blood Pressure 126/78 126/78 Pulse Oximetry 99 Oxygen Delivery Method Oxygen Flow Rate 06/10/24 09:45 06/10/24 09:57 06/10/24 10:00 Temperature 98.3 F Pulse Rate 128 H Respiratory Rate 10 L Blood Pressure 130/78 118/76 113/76 Pulse Oximetry Oxygen Delivery Method Oxygen Flow Rate 06/10/24 10:00 06/10/24 10:15 06/10/24 10:15 Temperature Pulse Rate 128 H 127 H Respiratory Rate 12 9 L Blood Pressure 118/80 Pulse Oximetry 98 97 Oxygen Delivery Method Oxygen Flow Rate 06/10/24 10:31 06/10/24 10:31 06/10/24 10:46 Temperature Pulse Rate 126 H 125 H Respiratory Rate 12 11 L Blood Pressure 152/86 H Pulse Oximetry 96 96 Oxygen Delivery Method Oxygen Flow Rate 06/10/24 10:46 06/10/24 11:00 06/10/24 11:01 Temperature Pulse Rate 123 H Respiratory Rate 16 Blood Pressure 153/120 H Pulse Oximetry 98 Oxygen Delivery Method Room Air Oxygen Flow Rate 06/10/24 11:01 06/10/24 11:17 06/10/24 11:17 Temperature Pulse Rate 123 H Respiratory Rate 14 Blood Pressure 106/79 135/98 H Pulse Oximetry 97 Oxygen Delivery Method Oxygen Flow Rate 06/10/24 11:31 06/10/24 11:31 06/10/24 11:46 Temperature Pulse Rate 123 H 123 H Respiratory Rate 12 11 L Blood Pressure 110/89 Pulse Oximetry 98 98 Oxygen Delivery Method Oxygen Flow Rate 06/10/24 11:46 06/10/24 11:48 06/10/24 12:00 Temperature 98.1 F Pulse Rate 122 H 121 H Respiratory Rate 13 15 Blood Pressure 132/89 132/89 Pulse Oximetry 97 Oxygen Delivery Method Oxygen Flow Rate 06/10/24 12:00 06/10/24 12:10 06/10/24 12:25 Temperature 98.2 F 98.2 F Pulse Rate 120 H 117 H Respiratory Rate 12 12 Blood Pressure 125/85 125/85 130/74 Pulse Oximetry Oxygen Delivery Method Oxygen Flow Rate 06/10/24 12:42 06/10/24 13:27 06/10/24 13:47 Temperature 98.1 F 98.2 F 98.1 F Pulse Rate 116 H 112 H 114 H Respiratory Rate 13 12 14 Blood Pressure 132/74 139/65 107/67 Pulse Oximetry Oxygen Delivery Method Oxygen Flow Rate 06/10/24 14:03 Temperature 98.2 F Pulse Rate 114 H Respiratory Rate 13 Blood Pressure 108/69 Pulse Oximetry Oxygen Delivery Method Oxygen Flow Rate Oxygen Delivery Method Room Air Oxygen Flow Rate 0 Objective Labs 06/10/24 11:01 06/10/24 11:01 Labs: Laboratory Results - last 24 hr 06/05/24 06/10/24 06/10/24 03:31 01:24 08:21 WBC 9.3 RBC 2.01 L Hgb 6.1 L* 6.6 L* Hct 18.2 L* 19.5 L* MCV 97.2 MCH 32.9 MCHC 33.8 RDW 16.5 H Plt Count 142 L PT 33.1 H INR 2.9 H APTT Fibrinogen D-Dimer ABG Sample Site ABG pH ABG pCO2 ABG pO2 ABG HCO3 ABG Total CO2 ABG O2 Saturation ABG Base Excess Iker Test O2 Delivery Device Sodium Potassium Chloride Carbon Dioxide BUN Creatinine Estimated GFR BUN/Creatinine Ratio Glucose Lactate 1.3 Calcium Phosphorus Magnesium Blood Type O Negative Antibody Screen Negative Crossmatch See Detail See Detail 06/10/24 06/10/24 08:29 11:01 WBC 10.6 RBC 2.11 L Hgb 6.8 L* Hct 20.4 L* MCV 97.0 MCH 32.5 MCHC 33.5 RDW 16.6 H Plt Count 138 L PT 31.8 H INR 2.7 H APTT 69 H Fibrinogen 46 L* D-Dimer 3951 H ABG Sample Site Left radial ABG pH 7.42 ABG pCO2 31.4 L ABG pO2 78 L ABG HCO3 21 L ABG Total CO2 20 L ABG O2 Saturation 96 ABG Base Excess -3.5 L Iker Test Positive O2 Delivery Device Ra Sodium 127 L Potassium 3.2 L Chloride 104 Carbon Dioxide 17 L BUN 11 Creatinine 0.65 L Estimated GFR > 60 BUN/Creatinine Ratio 16.9 Glucose 199 H D Lactate Calcium 6.6 L Phosphorus 3.7 Magnesium 1.0 L Blood Type Antibody Screen Crossmatch Assessment & Plan Assessment & Plan narrative: 53-year-old male initially was admitted for alcohol withdrawal, upper GI bleeding/ melena, aand swollen left red knee 2/2 falls, he underwent an extensive I and D on ; adductor abscess was found to be continuous with a prepatellar abscess, 1.5 L of EBL, overnight became unstable with hypotension 2/2 acute blood loss anemia, received 2 units of blood and fluids, repeat H&H 6.8, Platelets 138, INR 2.7, Fibrinogen 40s, he is currently receiving 2 units of PRBC & 2 FFP, vit K, levo 0.1-->0.01 mcg/kg/min, deneis any pain/ sleeping. there is oozing around the wound vac, the drain is clamped per Ortho Assessment: Hemorrhagic and septic shock AGUSTIN by urine criteria / ? hypervolemic hyponatremia H/O of GI bleed Plan Repeat CBC, INR, Fibrinogen Blood product as needed IV bumex 4 mg x2 Ortho following SCD Cont broad spectrum Ab PPI Time-Based Coding :: [TOTAL MINUTES] spent with patient and on the chart (including review of chart, obtaining history, exam, reviewing outside data, placing orders, documenting exam and treatment plan, and counseling patient) on [DATE].
[2024-06-10] MEDS: POTASSIUM CHLORIDE IN WATER 10 MEQ/100 ML PIGGYBACK 100 MEQ IV ×4 (14:56→17:55)
[2024-06-10] MEDS: NOREPINEPHRINE BITARTRATE/D5W 4 MG/250 ML PLAST..BAG 27.15 MG IV (15:01)
[2024-06-10] MEDS: BUMETANIDE 1 MG/4 ML VIAL 4 MG IV (15:26)
[2024-06-10 16:44] LABS: Hematocrit 20.6 % (41-53); Hemoglobin 6.9 g/dL (13.5-17.5)
[2024-06-10 16:44] LABS: Fibrinogen 69 mg/dL (238-498)
[2024-06-10] MEDS: LYTES IV (17:55)
[2024-06-10] MEDS: CALCIUM IV (17:55)
[2024-06-10] MEDS: POTASSIUM CHLORIDE IV (17:55)
[2024-06-10] MEDS: [UNRECOGNIZED DRUG - OTHER] IV (17:55)
[2024-06-10] MEDS: DEXT IV (17:55)
[2024-06-10] MEDS: TPN PER PHARMACY 1 REQUEST MISC (18:52)
--- NOTE | 2024-06-10 20:28 | PM.ICURNDS ---
- Date Patient Seen: 06/10/24 Time Patient Seen: 20:28 :: This patient was seen via real time interactive two-way audiovisual telecommunication. Note: Patient received 6 units PRBC and 2 units FFP today. Wound vac slow down and still on levophed 0.05. On D5W and vanc/zosyn. Will continue to trend CBC.
[2024-06-10] MEDS: DEXTROSE 5%-0.9% NS 1,000 ML 75 ML IV (22:00)
[2024-06-10 23:26] LABS: Hematocrit 22.7 % (41-53); Hemoglobin 7.7 g/dL (13.5-17.5)
[2024-06-10 23:44] LABS: Fibrinogen 64 mg/dL (238-498)
[2024-06-11] VITALS (50 sets, daily range): BP systolic 79–164; BP diastolic 55–92; PULSE 97–112; RESP 5–13; TEMP 36.3–36.9; O2SAT 94–100
[2024-06-11] MEDS: fentaNYL 100 MCG/2 ML INJ 50 MCG IV ×6 (01:14→15:20)
[2024-06-11] MEDS: VANCOMYCIN 1,000 MG/200 ML PIGGYBACK 200 MG IV ×2 (02:13→11:39)
[2024-06-11] MEDS: NOREPINEPHRINE BITARTRATE/D5W 4 MG/250 ML PLAST..BAG 13.575 MG IV (03:39)
[2024-06-11] MEDS: PIPERACILLIN/TAZO 3.375 GM in SODIUM CHLORIDE 0.9% 100 ML IV (05:56)
[2024-06-11 06:21] LABS: Mean Corpuscular HGB Conc 33.9 % (30-36); Mean Corpuscular Hemoglobin 31.1 PG (26-34); Mean Corpuscular Volume 91.8 fL (80-100); Platelet Count 72 X10^3/uL (150-400); Red Cell Distribution Width 15.8 % (11.6-14.8); White Blood Cell Count 9.6 X10^3/uL (4.5-11.0)
[2024-06-11 06:26] LABS: Hematocrit 19.3 % (41-53); Hemoglobin 6.5 g/dL (13.5-17.5); INR 1.9 (0.9-1.3); Prothrombin Time 21.6 SECONDS (9.4-12.5)
[2024-06-11 06:30] LABS: BUN Creatinine Ratio 15.3 (6-22); Blood Urea Nitrogen 15 mg/dL (9-20); Calcium 7.5 mg/dL (8.4-10.2); Carbon Dioxide 22 mmol/L (22-32); Chloride 114 mmol/L (98-107); Estimated Glomerular Filt Rate > 60 mL/min (>60); Glucose 115 mg/dL (70-100); HEMOLYSIS < 15 (0-50); Magnesium 1.8 mg/dL (1.6-2.3); Phosphorous 3.7 mg/dL (2.5-4.5); Potassium 3.4 mmol/L (3.4-5.1); Sodium 136 mmol/L (137-145); Triglycerides 54 mg/dL (35-150)
[2024-06-11 06:34] LABS: Fibrinogen 55 mg/dL (238-498)
--- NOTE | 2024-06-11 06:54 | PC.NURSE ---
Patient H&H 6.5/19.3, Fibrinogen 55, vital signs stable, Tele sales representative womens health communications technician updated, verbal order for transfusion of 2 units PRBC, 2 units FFP, 1 unit Cryo received and carrried out.
--- NOTE | 2024-06-11 09:56 | PM.PN.EICU ---
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: RN Interval history: sleeping in bed/ lethargic but protecting his airway , received 2 units of PRBC and 2 units of FFP repeat H&H 6.8, Platelets 138-->72 INR 2.7, Fibrinogen 50s, he is currently receiving 2 units of PRBC & 2 FFP, vit K, 1 Cryo ,1 platelets and vit K, levo 0.02 mcg/kg/min, dressing was changed by Ortho, still has active oozing Current Medications Current Medications Medications: Home Medications acetaminophen 325 mg tablet 650 mg PO PRN PRN Pain (Scale Score 1-3) 05/26/24 [History Confirmed 05/26/24] duloxetine 60 mg capsule,delayed release 60 mg PO DAILY 05/26/24 [History Confirmed 05/26/24] naproxen 250 mg tablet 250 mg PO BID 05/26/24 [History Confirmed 05/26/24] Visit Medications (administered) Generic Name Dose Route Start Last Admin Trade Name Freq PRN Reason Stop Dose Admin Acetaminophen 650 mg 06/03/24 16:15 06/07/24 17:49 Acetaminophen 325 Mg Tablet PO 650 mg Q6H PRN Administration Fever/Mild Pain (1-3) Amino Acids/Electrolytes 1 request 06/10/24 18:00 06/10/24 18:52 Tpn Per Pharmacy [facility] 06/11/24 17:59 1 request 1800 [facility] Administration Dextrose 25 gm 06/06/24 05:34 06/10/24 07:07 Dextrose 50 % In Water 25 Gm/50 Ml Syringe IV 25 gm PRN PRN Administration Hypoglycemia Diphenhydramine HCl 50 mg 06/03/24 16:15 06/09/24 10:22 Diphenhydramine 25 Mg Tablet PO 50 mg Q6H PRN Administration mod to severe erythema, urticaria, or pruritis Docusate Sodium 100 mg 06/03/24 21:00 06/10/24 09:32 Docusate 100 Mg Capsule PO Not Given BID [facility] Enoxaparin Sodium 40 mg 06/09/24 09:00 06/11/24 08:11 Enoxaparin 40 Mg/0.4 Ml Syringe SUBCUT Not Given DAILY [facility] Fentanyl 50 mcg 06/10/24 13:41 06/11/24 08:07 Fentanyl 100 Mcg/2 Ml Inj IV 50 mcg Q15MIN PRN Administration Pain, Severe (7-10) Folic Acid 1 mg 05/31/24 12:00 06/10/24 09:33 Folic Acid 1 Mg Tablet PO Not Given DAILY [facility] NOREPINEPHRINE BITARTRATE/D5W 4 mg in 250 mls @ 33.938 mls/hr 06/10/24 07:18 06/11/24 04:07 Levophed IV 0.02 mcg/kg/min TITRATE [facility] 6.788 mls/hr Titration Protocol 0.1 MCG/KG/MIN Piperacillin Sod/Tazobactam 100 mls @ 25 mls/hr 06/10/24 14:00 06/11/24 05:56 Sod 3.375 gm/ Sodium Chloride IV 25 mls/hr Q8H [facility] Administration Potassium Chloride 40 meq/ 1,038 mls @ 43.208 mls/hr 06/10/24 18:00 06/10/24 17:55 Magnesium Sulfate 1 gm/ IV 06/11/24 18:01 43.208 mls/hr Famotidine 40 mg/ Thiamine HCl 1800 ONE Administration 100 mg/ Multivitamins 10 ml/ Chromium/Copper/Manganese/ Seleni/Zn 1 ml/ Amino Acids/ Electrolytes Vancomycin HCl 1,000 mg in 200 mls @ 200 mls/hr 06/10/24 19:00 06/11/24 03:13 Vancomycin IV Infused Q8H [facility] Infusion Lidocaine 1 each 06/08/24 09:00 06/11/24 08:11 Lidocaine 5% Patch TOP Not Given DAILY [facility] Lidocaine 1 each 06/10/24 21:00 06/10/24 22:52 Remove Lidocaine Patch TOP 1 each BEDTIME [facility] Administration Lorazepam 0 mg 05/26/24 12:23 06/01/24 18:10 Lorazepam 2 Mg/Ml Inj IV 1 mg CIWAPRN PRN Administration Alcohol Withdrawal Protocol Pantoprazole Sodium 40 mg 06/02/24 21:00 06/10/24 10:[address] 40 Mg Tablet PO Not Given BID [facility] Polyethylene Glycol 17 gm 06/04/24 09:00 06/10/24 09:33 Polyethylene Glycol 3350 17 Gm Powd.Pack PO Not Given DAILY [facility] Sennosides 17.2 mg 06/03/24 21:00 06/09/24 21:34 Sennosides 8.6 Mg Tablet PO Not Given BEDTIME [facility] Sucralfate 1 gm 06/05/24 08:35 06/09/24 07:48 Sucralfate 1 Gm/10 Ml Oral Susp PO 1 gm ACHS [facility] Administration Thiamine HCl 100 mg 05/31/24 12:00 06/10/24 09:33 Thiamine 100 Mg Tablet PO Not Given DAILY [facility] Tramadol HCl 50 mg 06/07/24 15:02 06/08/24 15:48 Tramadol 50 Mg Tablet PO 50 mg QID PRN Administration Pain, Moderate (4-6) Objective Labs 06/11/24 06:10 06/11/24 06:10 Labs: Laboratory Results - last 24 hr 06/10/24 06/10/24 06/10/24 01:24 11:01 15:31 WBC 10.6 RBC 2.11 L Hgb 6.8 L* 6.9 L* Hct 20.4 L* 20.6 L* MCV 97.0 MCH 32.5 MCHC 33.5 RDW 16.6 H Plt Count 138 L PT 31.8 H INR 2.7 H APTT 69 H Fibrinogen 46 L* D-Dimer 3951 H Sodium 127 L Potassium 3.2 L Chloride 104 Carbon Dioxide 17 L BUN 11 Creatinine 0.65 L Estimated GFR > 60 BUN/Creatinine Ratio 16.9 Glucose 199 H D Calcium 6.6 L Phosphorus 3.7 Magnesium 1.0 L Triglycerides Blood Type O Negative Antibody Screen Negative Crossmatch See Detail 06/10/24 06/10/24 06/11/24 16:21 23:17 06:10 WBC 9.6 RBC 2.10 L Hgb 7.7 L 6.5 L* Hct 22.7 L 19.3 L* MCV 91.8 D MCH 31.1 MCHC 33.9 RDW 15.8 H Plt Count 72 L PT 21.6 H D INR 1.9 H APTT Fibrinogen 69 L* 64 L* 55 L* D-Dimer Sodium 136 L Potassium 3.4 Chloride 114 H Carbon Dioxide 22 BUN 15 Creatinine 0.98 Estimated GFR > 60 BUN/Creatinine Ratio 15.3 Glucose 115 H Calcium 7.5 L Phosphorus 3.7 Magnesium 1.8 Triglycerides 54 Blood Type Antibody Screen Crossmatch Exam Vital Signs (past 8 hours): - 06/11/24 02:00 06/11/24 02:00 06/11/24 02:32 Temperature Pulse Rate 105 H 106 H Respiratory Rate 9 L 10 L Blood Pressure 123/92 H Pulse Oximetry 99 99 Oxygen Delivery Method Oxygen Flow Rate 06/11/24 02:32 06/11/24 03:01 06/11/24 03:01 Temperature Pulse Rate 106 H Respiratory Rate 10 L Blood Pressure 158/62 H 125/79 Pulse Oximetry 98 Oxygen Delivery Method Oxygen Flow Rate 06/11/24 03:31 06/11/24 03:31 06/11/24 04:00 Temperature 98.2 F Pulse Rate 109 H 104 H Respiratory Rate 13 8 L Blood Pressure 107/60 Pulse Oximetry 97 99 Oxygen Delivery Method Oxygen Flow Rate 0 06/11/24 04:01 06/11/24 04:01 06/11/24 04:30 Temperature Pulse Rate 104 H 106 H Respiratory Rate 8 L 10 L Blood Pressure 164/63 H Pulse Oximetry 99 99 Oxygen Delivery Method Oxygen Flow Rate 06/11/24 04:30 06/11/24 05:00 06/11/24 05:00 Temperature Pulse Rate 108 H Respiratory Rate 10 L Blood Pressure 123/75 130/86 Pulse Oximetry 98 Oxygen Delivery Method Oxygen Flow Rate 06/11/24 05:31 06/11/24 05:31 06/11/24 06:00 Temperature Pulse Rate 109 H 110 H Respiratory Rate 9 L 11 L Blood Pressure 133/76 Pulse Oximetry 99 97 Oxygen Delivery Method Oxygen Flow Rate 06/11/24 06:01 06/11/24 06:01 06/11/24 06:30 Temperature Pulse Rate 112 H 105 H Respiratory Rate 11 L 9 L Blood Pressure 110/75 Pulse Oximetry 99 99 Oxygen Delivery Method Oxygen Flow Rate 06/11/24 06:30 06/11/24 07:00 06/11/24 07:00 Temperature Pulse Rate 108 H Respiratory Rate 10 L Blood Pressure 118/71 114/69 Pulse Oximetry 100 Oxygen Delivery Method Oxygen Flow Rate 06/11/24 07:30 06/11/24 07:30 06/11/24 07:41 Temperature 97.8 F Pulse Rate 110 H 109 H Respiratory Rate 11 L 10 L Blood Pressure 103/62 103/62 Pulse Oximetry 99 Oxygen Delivery Method Oxygen Flow Rate 06/11/24 08:00 06/11/24 08:00 06/11/24 08:00 Temperature 98.4 F Pulse Rate 107 H Respiratory Rate 11 L Blood Pressure Pulse Oximetry 95 Oxygen Delivery Method Room Air Oxygen Flow Rate 06/11/24 08:01 06/11/24 08:01 06/11/24 08:47 Temperature 97.6 F Pulse Rate 107 H 109 H Respiratory Rate 10 L 12 Blood Pressure 116/72 126/63 Pulse Oximetry 94 Oxygen Delivery Method Oxygen Flow Rate Oxygen Delivery Method Room Air Oxygen Flow Rate 0 Quality TeleICU VTE Deep Vein Thrombosis/Pulmonary Embolism Present on Admission: No Assessment & Plan Assessment & Plan narrative: Assessment & Plan narrative: 53-year-old male initially was admitted for alcohol withdrawal, upper GI bleeding/ melena, aand swollen left red knee 2/2 falls, he underwent an extensive I and D on ; adductor abscess was found to be continuous with a prepatellar abscess, 1.5 L of EBL, 06/10 hypotension 2/2 acute blood loss anemia, received 2 units of blood and fluids, repeat H&H 6.8, Platelets 138, INR 2.7, Fibrinogen 40s, he is currently receiving 2 units of PRBC & 2 FFP, vit K, levo 0.1-->0.01 mcg/kg/min 06/11 received 2 units of PRBC and 2 units of FFP repeat H&H 6.8, Platelets 138-->72 INR 2.7, Fibrinogen 50s, he is currently receiving 2 units of PRBC & 2 FFP, vit K, 1 Cryo ,1 platelets and vit K, levo 0.02 mcg/kg/min, dressing was changed by Ortho, still has active oozing Assessment: Hemorrhagic and septic shock AGUSTIN by urine criteria / ? hypervolemic hyponatremia( improved) H/O of GI bleed Plan Repeat CBC, INR, Fibrinogen Blood product as needed IV bumex 4 mg x1 Ortho following SCD, no chemical AC Cont broad spectrum Ab Switch PPI to pepcid & Zosyn to Cefepime given worsening of thromcocytopenia Time-Based Coding :: [TOTAL MINUTES] spent with patient and on the chart (including review of chart, obtaining history, exam, reviewing outside data, placing orders, documenting exam and treatment plan, and counseling patient) on [DATE].
[2024-06-11] MEDS: PHYTONADIONE (VIT K1) 5 MG in SODIUM CHLORIDE 0.9% 100 ML 201 MG IV (10:39)
[2024-06-11] MEDS: CEFEPIME 2 GM in SODIUM CHLORIDE 0.9% 100 ML IV (10:42)
--- NOTE | 2024-06-11 12:35 | PC.NURSE ---
1223: Transfer efforts initiated by this chief nursing officer as requested by Dr. Nixon.
--- NOTE | 2024-06-11 12:40 | P.PN_ITS ---
Subjective Subjective Interval history: I have had separate conversations today with the medical team, the patient's daughter, and the patient's sister. The bleeding from his thigh is profound. I have been monitoring it closely and have evaluated him multiple times since the surgery I performed recently. The night of the operation I was called by the overnight nurse at approximately 2:00 a.m. alerting me that he had drained a L and a half of blood into his wound VAC container. I had concerns about him potentially exsanguinating into the wound VAC container and had it turned off. The sponge has remained in place since that time and he has been receiving numerous blood products. He has continued to ooze and lost significant amounts of blood out of the thigh. Today I removed the wound VAC sponge and applied perclot to the area. I discussed with the family that this is an attempt to help control the oozing. I did thoroughly inspect to ensure that he does not have any femoral artery involvement, which he has just not, as the bleeding is coming diffusely from throughout the entire wound. I am not optimistic that this bleeding is going to stop as I believe it is due to a coagulopathy related to his underlying medical condition. I do not think he has a good prognosis. I have discussed this with the family as well as other members of the care team. Discussions regarding comfort care ongoing and I have been supporting the primary team during those conversations with the family as they navigate through that process. Exam Vital Signs (past 8 hours): - 06/11/24 05:00 06/11/24 05:00 06/11/24 05:31 Temperature Pulse Rate 108 H 109 H Respiratory Rate 10 L 9 L Blood Pressure 130/86 Pulse Oximetry 98 99 Oxygen Delivery Method 06/11/24 05:31 06/11/24 06:00 06/11/24 06:01 Temperature Pulse Rate 110 H 112 H Respiratory Rate 11 L 11 L Blood Pressure 133/76 Pulse Oximetry 97 99 Oxygen Delivery Method 06/11/24 06:01 06/11/24 06:30 06/11/24 06:30 Temperature Pulse Rate 105 H Respiratory Rate 9 L Blood Pressure 110/75 118/71 Pulse Oximetry 99 Oxygen Delivery Method 06/11/24 07:00 06/11/24 07:00 06/11/24 07:30 Temperature Pulse Rate 108 H 110 H Respiratory Rate 10 L 11 L Blood Pressure 114/69 Pulse Oximetry 100 99 Oxygen Delivery Method 06/11/24 07:30 06/11/24 07:41 06/11/24 08:00 Temperature 97.8 F Pulse Rate 109 H Respiratory Rate 10 L Blood Pressure 103/62 103/62 Pulse Oximetry Oxygen Delivery Method Room Air 06/11/24 08:00 06/11/24 08:00 06/11/24 08:01 Temperature 98.4 F Pulse Rate 107 H 107 H Respiratory Rate 11 L 10 L Blood Pressure Pulse Oximetry 95 94 Oxygen Delivery Method 06/11/24 08:01 06/11/24 08:31 06/11/24 08:31 Temperature Pulse Rate 109 H Respiratory Rate 8 L Blood Pressure 116/72 126/63 Pulse Oximetry 98 Oxygen Delivery Method 06/11/24 08:47 06/11/24 09:00 06/11/24 09:00 Temperature 97.6 F Pulse Rate 109 H 109 H Respiratory Rate 12 8 L Blood Pressure 126/63 118/84 Pulse Oximetry 98 Oxygen Delivery Method 06/11/24 09:31 06/11/24 09:31 06/11/24 10:00 Temperature Pulse Rate 109 H 104 H Respiratory Rate 12 7 L Blood Pressure 79/55 L Pulse Oximetry 98 100 Oxygen Delivery Method 06/11/24 10:01 06/11/24 10:01 06/11/24 10:30 Temperature Pulse Rate 104 H 104 H Respiratory Rate 6 L 8 L Blood Pressure 132/72 Pulse Oximetry 100 98 Oxygen Delivery Method 06/11/24 10:30 06/11/24 10:57 06/11/24 11:00 Temperature 97.9 F Pulse Rate 105 H 106 H Respiratory Rate 10 L 8 L Blood Pressure 124/80 124/80 Pulse Oximetry 99 Oxygen Delivery Method 06/11/24 11:00 06/11/24 11:30 06/11/24 11:30 Temperature Pulse Rate 104 H Respiratory Rate 5 L Blood Pressure 124/70 119/73 Pulse Oximetry 99 Oxygen Delivery Method 06/11/24 12:00 06/11/24 12:00 06/11/24 12:00 Temperature Pulse Rate 101 H Respiratory Rate 5 L Blood Pressure 128/77 Pulse Oximetry 99 Oxygen Delivery Method Room Air 06/11/24 12:01 Temperature 97.4 F L Pulse Rate 102 H Respiratory Rate 11 L Blood Pressure 128/77 Pulse Oximetry Oxygen Delivery Method Oxygen Delivery Method Room Air Oxygen Flow Rate 0 Objective Labs 06/11/24 06:10 06/11/24 06:10 Labs: Laboratory Results - last 24 hr 06/10/24 06/10/24 06/10/24 01:24 15:31 16:21 WBC RBC Hgb 6.9 L* Hct 20.6 L* MCV MCH MCHC RDW Plt Count PT INR Fibrinogen 69 L* Sodium Potassium Chloride Carbon Dioxide BUN Creatinine Estimated GFR BUN/Creatinine Ratio Glucose Calcium Phosphorus Magnesium Triglycerides Blood Type O Negative Antibody Screen Negative Crossmatch See Detail 06/10/24 06/11/24 23:17 06:10 WBC 9.6 RBC 2.10 L Hgb 7.7 L 6.5 L* Hct 22.7 L 19.3 L* MCV 91.8 D MCH 31.1 MCHC 33.9 RDW 15.8 H Plt Count 72 L PT 21.6 H D INR 1.9 H Fibrinogen 64 L* 55 L* Sodium 136 L Potassium 3.4 Chloride 114 H Carbon Dioxide 22 BUN 15 Creatinine 0.98 Estimated GFR > 60 BUN/Creatinine Ratio 15.3 Glucose 115 H Calcium 7.5 L Phosphorus 3.7 Magnesium 1.8 Triglycerides 54 Blood Type Antibody Screen Crossmatch [facility] Social History household members: family Smoking Status: Current every day smoker alcohol intake: current Assessment & Plan Time-Based Coding :: [TOTAL MINUTES] spent with patient and on the chart (including review of chart, obtaining history, exam, reviewing outside data, placing orders, documenting exam and treatment plan, and counseling patient) on [DATE]. Quality VTE Deep Vein Thrombosis/Pulmonary Embolism Present on Admission: No
--- NOTE | 2024-06-11 14:10 | CM.DPNOTE ---
Addendum entered by YAZAN Neri 06/11/24 15:57: per RN, accepted at [facility]. transfer pending bed availability. SL Original Note: DCP Note [employer] reviewed EMR. Per Dr. Nixon in morning rounds, pt continues to ooze from leg, got 6 units of blood and needing more. H&H 6.5/19.3 (downtrending). Per RN report, plan to transfer due to [facility] limited blood availability. per RN note transfer process started 1235 today. Per hospitalist, transfer vs comfort care likely needed. Sister/daughters been at bedside throughout the day. Per Secrist note, removed wound VAC sponge to help control the oozing. P: transfer vs SNF search vs manager intermediate care planning. CM team will continue to follow closely YAZAN Neri
--- NOTE | 2024-06-11 14:30 | P.PN_ITS ---
Subjective Subjective Interval history: 53 M with PMH of EtOH abuse, admitted initially on 05/26/24 with alcohol withdrawal, concern for GI bleed, and a left knee cellulitis / infection at that time. He was treated for alcohol withdrawal with precedex infusion initially, then librium, but continues to be encephalopathic today likely due to ongoing septic shock. His GI bleed has likely resolved, he was not scoped after initial consultation with surgery given recent NSAID use and stable h/h. His RUQ showed hepatic steatosis and a normal spleen. He remains in the ICU for septic shock due to a progressive L leg infection with started with a septic pre-patellar bursitis. He failed initial antibiotics, with patient going to the OR on 05/29, 06/03, and 06/09 for recurrent I&Ds with the most recent infection spreading to this adductor muscles in his leg. Orthopedics today attempted placement of PerClot at bedside this morning. He is continuously oozing from his wound at this time. Hg was to 6.5. He has received 8 U PRBC (6 yesterday 2 today, 4 FFP (2 yesterday, 2 today) since yesterday . Awaiting cryo and Plt transfusion today, which cryo is defrosting currently and plt are being delivered from [facility]. Fibrinogen is low at 55. Am also attempting to transfer for further management of DIC and bleeding and more readible access to blood products at a higher level facility this afternoon. Multiple discussions with family today, they remain full code, but are open to comfort care if management appears futile. Exam Vital Signs (past 8 hours): - 06/11/24 07:00 06/11/24 07:00 06/11/24 07:30 Temperature Pulse Rate 108 H 110 H Respiratory Rate 10 L 11 L Blood Pressure 114/69 Pulse Oximetry 100 99 Oxygen Delivery Method 06/11/24 07:30 06/11/24 07:41 06/11/24 07:55 Temperature 97.8 F 98.4 F Pulse Rate 109 H 107 H Respiratory Rate 10 L 10 L Blood Pressure 103/62 103/62 116/72 Pulse Oximetry Oxygen Delivery Method 06/11/24 08:00 06/11/24 08:00 06/11/24 08:00 Temperature 98.4 F Pulse Rate 107 H Respiratory Rate 11 L Blood Pressure Pulse Oximetry 95 Oxygen Delivery Method Room Air 06/11/24 08:01 06/11/24 08:01 06/11/24 08:31 Temperature Pulse Rate 107 H Respiratory Rate 10 L Blood Pressure 116/72 126/63 Pulse Oximetry 94 Oxygen Delivery Method 06/11/24 08:31 06/11/24 08:47 06/11/24 09:00 Temperature 97.6 F Pulse Rate 109 H 109 H 109 H Respiratory Rate 8 L 12 8 L Blood Pressure 126/63 Pulse Oximetry 98 98 Oxygen Delivery Method 06/11/24 09:00 06/11/24 09:00 06/11/24 09:31 Temperature 97.8 F Pulse Rate 109 H 109 H Respiratory Rate 12 12 Blood Pressure 118/84 118/84 Pulse Oximetry 98 Oxygen Delivery Method 06/11/24 09:31 06/11/24 10:00 06/11/24 10:01 Temperature Pulse Rate 104 H 104 H Respiratory Rate 7 L 6 L Blood Pressure 79/55 L Pulse Oximetry 100 100 Oxygen Delivery Method 06/11/24 10:01 06/11/24 10:30 06/11/24 10:30 Temperature Pulse Rate 104 H Respiratory Rate 8 L Blood Pressure 132/72 124/80 Pulse Oximetry 98 Oxygen Delivery Method 06/11/24 10:57 06/11/24 11:00 06/11/24 11:00 Temperature 97.9 F Pulse Rate 105 H 106 H Respiratory Rate 10 L 8 L Blood Pressure 124/80 124/70 Pulse Oximetry 99 Oxygen Delivery Method 06/11/24 11:15 06/11/24 11:30 06/11/24 11:30 Temperature 97.8 F Pulse Rate 106 H 104 H Respiratory Rate 12 5 L Blood Pressure 124/70 119/73 Pulse Oximetry 99 Oxygen Delivery Method 06/11/24 12:00 06/11/24 12:00 06/11/24 12:00 Temperature Pulse Rate 101 H Respiratory Rate 5 L Blood Pressure 128/77 Pulse Oximetry 99 Oxygen Delivery Method Room Air 06/11/24 12:01 06/11/24 12:16 06/11/24 12:30 Temperature 97.4 F L 97.8 F Pulse Rate 102 H 101 H 101 H Respiratory Rate 11 L 12 6 L Blood Pressure 128/77 115/77 Pulse Oximetry 100 Oxygen Delivery Method 06/11/24 12:30 06/11/24 13:00 06/11/24 13:00 Temperature Pulse Rate 101 H Respiratory Rate 7 L Blood Pressure 115/77 121/67 Pulse Oximetry 100 Oxygen Delivery Method 06/11/24 13:13 06/11/24 13:30 06/11/24 13:30 Temperature 97.5 F L Pulse Rate 99 H 99 H Respiratory Rate 10 L 7 L Blood Pressure 132/62 132/62 Pulse Oximetry 100 Oxygen Delivery Method 06/11/24 14:00 06/11/24 14:00 06/11/24 14:14 Temperature 97.8 F Pulse Rate 100 H 100 H Respiratory Rate 6 L 10 L Blood Pressure 126/76 126/76 Pulse Oximetry 100 Oxygen Delivery Method Oxygen Delivery Method Room Air Oxygen Flow Rate 0 Narrative Exam Narrative: Somnolent, no acute distress. Lungs are clear, normal rate and effort. Heart is regular, no murmur gallop or rub. Abdomen is soft, non distended. Extremities are free of edema. Left thigh wrapped, dressings are soaked. Objective Labs 06/11/24 06:10 06/11/24 06:10 Labs: Laboratory Results - last 24 hr 06/10/24 06/10/24 06/10/24 01:24 15:31 16:21 WBC RBC Hgb 6.9 L* Hct 20.6 L* MCV MCH MCHC RDW Plt Count PT INR Fibrinogen 69 L* Sodium Potassium Chloride Carbon Dioxide BUN Creatinine Estimated GFR BUN/Creatinine Ratio Glucose Calcium Phosphorus Magnesium Triglycerides Blood Type O Negative Antibody Screen Negative Crossmatch See Detail 06/10/24 06/11/24 23:17 06:10 WBC 9.6 RBC 2.10 L Hgb 7.7 L 6.5 L* Hct 22.7 L 19.3 L* MCV 91.8 D MCH 31.1 MCHC 33.9 RDW 15.8 H Plt Count 72 L PT 21.6 H D INR 1.9 H Fibrinogen 64 L* 55 L* Sodium 136 L Potassium 3.4 Chloride 114 H Carbon Dioxide 22 BUN 15 Creatinine 0.98 Estimated GFR > 60 BUN/Creatinine Ratio 15.3 Glucose 115 H Calcium 7.5 L Phosphorus 3.7 Magnesium 1.8 Triglycerides 54 Blood Type Antibody Screen Crossmatch [facility] Social History household members: family Smoking Status: Current every day smoker alcohol intake: current Assessment & Plan Assessment & Plan narrative: 1. Multifactorial shock, hypovolemic and septic 1. Alcohol dependence, complicated by withdrawal with alcoholic/metabolic encephalopathy, with a slowly improving mental status. 2. Suspected upper GI bleed with severe anemia, POA and stable. Hemoglobin remained stable. 3. Sepsis with acute metabolic encephalopathy, elevated bilirubin, acute respiratory failure with hypoxia, and thrombocytopenia due to left knee septic prepatellar MRSA bursitis and cellulitis. Present on admission and improved. -initial incision and drainage 05/29/2024, follow-up incision and drainage with negative surgical exploration with repeat clean out 06/03/2024 reculturing MRSA -Continue vancomycin IV (MRSA) 4. Anemia, present on admission and stable. 5. Thrombocytopenia, improving. 6. Alcoholic hepatitis, present on admission and active. 7. Hypokalemia, improved. 8. Hyponatremia, stable. 9. Adductor thigh abscess, status post extensive incision and drainage (June 09). 10. Acute blood loss anemia postoperatively, new and active. 11. Coagulopathy, new and active. Time-Based Coding :: [TOTAL MINUTES] spent with patient and on the chart (including review of chart, obtaining history, exam, reviewing outside data, placing orders, documenting exam and treatment plan, and counseling patient) on [DATE]. Quality VTE Deep Vein Thrombosis/Pulmonary Embolism Present on Admission: No
--- NOTE | 2024-06-11 14:54 | P.DS_ITS ---
History of Present Illness History of Present Illness Date Patient Seen: 06/11/24 Time Patient Seen: 14:54 Chief complaint: alcohol withdrawal Narrative: From admitting provider: The patient was a 53-year-old male who is transferred from [facility] Emergency Department. The patient has a history of alcohol dependence and presented with multiple complaints including early alcohol withdrawal, upper GI bleeding with melena, as well as a swollen left red knee. He was found to be anemic and have melena on exam in the emergency department. He was given a unit of blood. He was started on Protonix as well. The patient was also giving benzodiazepines and transferred [facility] due to lack of endoscopy. Upon arrival the patient is oriented and in no distress. He was slightly tachycardic. Denies any chest pain, or dyspnea. He was historically been drinking hard for about a year with a daily consumption of 1-2 bottles of hard alcohol. He was tapered in the last week or so. He stays intermittently at his sister's house in [facility]. It sounds as though he falls frequently and has had injured knee for several days from a fall. He does note vomiting up coke colored material and having dark stools for several days. He also notes taking a lot of ibuprofen for the past several days for left knee pain. They did attempt an aspiration of the knee at [facility] Emergency Department. He denies fevers, chills, chest pain, or abdominal pain. Discharge Providers Provider Date of admission: 05/26/24 11:28 Discharge Date: 06/11/24 Consults: 05/26/24 12:25 Consult to General Surgery Routine Comment: Consulting Provider: Hebert Navas Reason for consultation: GI bleed Has provider been notified: Yes 05/26/24 14:58 Consult to Orthopedic Surgery Routine Comment: Consulting Provider: Temitope Saldivar Reason for consultation: swollen red left knee Has provider been notified: Yes 05/29/24 10:03 Consult to Discharge Planning Routine Comment: Consult to Occupational Therapy Evaluate & Treat Comment: Physician Instructions: Evaluate and treat Consult to Physical Therapy Evaluate & Treat Comment: Start off using knee immobilzer when ambulating. Physician Instructions: Evaluate and Treat 05/29/24 10:10 Consult to Inpatient Wound Care Nurse Routine Comment: Reason for consultation: Infected prepatellar bursa Has provider been notified: No Consult to Wound Care Routine Comment: Consulting Provider: [facility] 10/18/24 16:15 Consult to Discharge Planning Routine Comment: Consult to Occupational Therapy Evaluate & Treat Comment: Physician Instructions: Evaluate and treat Consult to Physical Therapy Evaluate & Treat Comment: Physician Instructions: Evaluate and Treat 06/03/24 20:17 Consult to Dietitian, Adult Routine Comment: Reason For Exam: Stephen score 14, ETOH withdrawl 06/04/24 11:45 Consult to Dietitian, Adult Routine Comment: Reason For Exam: poor intake 06/05/24 10:33 Consult to Inpatient Wound Care Nurse Routine Comment: Reason for consultation: s/p I&D surgery, need packing removal, debridement, possible wound vac Has provider been notified: No 06/07/24 15:02 Consult to Physical Therapy Evaluate & Treat Comment: Physician Instructions: Evaluate and Treat 06/09/24 18:10 Consult to Inpatient Wound Care Nurse Routine Comment: Reason for consultation: Left thigh wound vac Has provider been notified: No Discharge provider: Christo Nixon DO Summary Hospital Course Discharge Diagnosis: See below Hospital Course: 53 M with PMH of EtOH abuse, depression admitted initially on 05/26/24 with alcohol withdrawal, concern for GI bleed, and a left knee cellulitis / infection at that time. He was treated for alcohol withdrawal with precedex infusion initially, then librium, but continues to be encephalopathic today likely due to ongoing septic / hypovoemic shock. His GI bleed has likely resolved, he was not scoped after initial consultation with surgery given recent NSAID use and stable h/h. His RUQ showed hepatic steatosis and a normal spleen. He remains in the ICU for septic shock due to a progressive L leg infection with started with a septic pre-patellar bursitis. He failed initial antibiotics, with patient going to the OR on 05/29, 06/03, and 06/09 for recurrent I&Ds with the most recent infection spreading to this adductor muscles in his leg. Orthopedics today attempted placement of PerClot at bedside this morning. He is continuously oozing from his wound at this time. Hg was to 6.5 this morning. He has received 8 U PRBC (6 yesterday 2 today, 4 FFP (2 yesterday, 2 today) since yesterday with 2 more ordered at the time of transfer. Awaiting cryo and Plt transfusion today, which cryo is defrosting currently and plt are being delivered from [place]. Fibrinogen is low at 55. Am also going to transfer for further management of DIC and bleeding and more urgent access to blood products at a higher level facility this afternoon, and was accepted by Dr. Terrell an chemical waste management technician at [facility]. Multiple discussions with family today, they remain full code, but are open to comfort care if management appears futile. Hospital course: Patient was transferred from [facility] ([facility]) for possible endoscopy in setting of GI bleed, management of alcohol withdrawal, and left leg infection. Predominant problem based course noted below. #Alcohol withdrawal. And alcoholic hepatitis - Was Admitted to ICU initially for precedex infusion. His mentation continues to wax and wane, he was able to be weaned from precedex. Was also on librium for a short time also now discontinued. Ongoing encephalopathy is likely related to septic shock. - initial presentation was notable for a high DF of 46, but improved with antibiotics and initial measures and was likely due to some component of sepsis. He was not treated with steroids. RUQ ultrasound showed hepatic steatosis, no splenomegaly. #Acute blood loss anemia, presumed GI bleeding initially likely due to NSAID use, now secondary to ongoing coagulopathy (suspect DIC vs alcohol use) Was seen by general surgery, no endoscopy recommended due to recent NSAID use and stable h/h at the time. He had no ongoing evidence of GI bleeding over the course of his hospital stay. Per outside records he got 1U PRBC at [facility] before admission here. Hg decline after repeat I&D on 06/03. Was given 2 U PRBC on 06/05. Hg stable after. Recent sharp decline in h/h and oozing from his left leg. No melena, hematochezia. Over the last 24 hours he has received another 8 U PRBC, 4 FFP. Cryo is ordered along with platelets, have not been given at the time of this writing. Cryo is currently being thawed locally prior to transfer. Hg was 6.5 06/11 AM After 6U PRBC yesterday due to blood loss from OR and wound vac placement. Today after 2U PRBC improved slightly to 7.0 this afternoon. Ordered for another 2 U at the time of transfer as well to ensure stability. Total since admit: 11 PRBC (10 at this hospital), 4 FFP, Pending cryo and plt transfusion currently. #Septic shock with acute metabolic encephalopathy, elevated bilirubin, acute respiratory failure with hypoxia, and thrombocytopenia due to left knee septic prepatellar MRSA bursitis and cellulitis / with possible necrotizing skin and soft tissue infection, development of adductor thigh abscess. Present on admission. Now with development of possible DIC. - 05/26 - patient was seen by orthopedics for L knee bursitis was presumed. Did not respond to antibiotic therapy initially with ceftriaxone and vancomycin. Was taken to the OR on 05/29 for I&D where no joint involvement was noted but I&D performed - Of noted blood cultures were not drawn until 05/30, which were negative. - Patient continued to remain encephalopathic, had purulent drainage from his wound. Cultures grew MRSA from his wound (and every subsequent I&D). He was on ceftriaxone and vancomycin, but narrowed to just vancomycin on 05/31 given OR cultures with just MRSA. Cefepime was added on 06/10 again due to possible DIC, septic shock and with tele-chemical waste management technician consult. - He was taken back to the OR on 06/03 with ortho for another I&D and removal of his bursa, at that time there was slight muscle involvement in his thigh. - continued to ooze, with purulent drainage. Repeat CT a few days later showed adductor thigh abscess. Returned to the OR on 06/09 with orthopedics with extensive I&D, washout and opening of his leg wound. Attempted wound vac placement but had extensive oozing and sanguinous output of >1L via the wound vac, so was removed by surgeon. Would packed with wet to dry currently. Tele-ICU was consulted after return due to ongoing shock. - He remains on trace 0.2 mcg/kg levophed today. source of ongoing bleeding is oozing from his large leg wound. Surgeon attempted bedside placement of PerClot today in an attempt to control the oozing. - continues to fail swallow evaluations due to ongoing encephalopathy and has been started on TPN. Hypoglycemia noted yesterday, started on dextrose infusion which was stopped today due to edema, TPN was adjusted with pharmacy. - First fibrinogen was 46 on 06/10, repeat has been 50-60 range. - Plt continue to downtrend, to 53 this afternoon. Ordered for Plt transfusion but not given by time of transfer. # Hypokalemia, improved. # Hyponatremia, stable. Now resolved at 136. #hypoglycemia - improved I spent 120 minutes providing critical care management this patient. This excludes time spent in performing separately billed procedures. DVT: on hold due to anemia GI PPx: has been on Pepcid BID, recommend PPI daily on transfer Dispo: transfer for higher level of care. Accepting provider Dr. Terrell, chemical waste management technician Prov. Sexton. Time Spent with Patient Time spent: Greater than 30 minutes Exam Vital Signs (past 8 hours): - 06/11/24 07:00 06/11/24 07:00 06/11/24 07:30 Temperature Pulse Rate 108 H 110 H Respiratory Rate 10 L 11 L Blood Pressure 114/69 Pulse Oximetry 100 99 Oxygen Delivery Method 06/11/24 07:30 06/11/24 07:41 06/11/24 07:55 Temperature 97.8 F 98.4 F Pulse Rate 109 H 107 H Respiratory Rate 10 L 10 L Blood Pressure 103/62 103/62 116/72 Pulse Oximetry Oxygen Delivery Method 06/11/24 08:00 06/11/24 08:00 06/11/24 08:00 Temperature 98.4 F Pulse Rate 107 H Respiratory Rate 11 L Blood Pressure Pulse Oximetry 95 Oxygen Delivery Method Room Air 06/11/24 08:01 06/11/24 08:01 06/11/24 08:31 Temperature Pulse Rate 107 H Respiratory Rate 10 L Blood Pressure 116/72 126/63 Pulse Oximetry 94 Oxygen Delivery Method 06/11/24 08:31 06/11/24 08:47 06/11/24 09:00 Temperature 97.6 F Pulse Rate 109 H 109 H 109 H Respiratory Rate 8 L 12 8 L Blood Pressure 126/63 Pulse Oximetry 98 98 Oxygen Delivery Method 06/11/24 09:00 06/11/24 09:00 06/11/24 09:31 Temperature 97.8 F Pulse Rate 109 H 109 H Respiratory Rate 12 12 Blood Pressure 118/84 118/84 Pulse Oximetry 98 Oxygen Delivery Method 06/11/24 09:31 06/11/24 10:00 06/11/24 10:01 Temperature Pulse Rate 104 H 104 H Respiratory Rate 7 L 6 L Blood Pressure 79/55 L Pulse Oximetry 100 100 Oxygen Delivery Method 06/11/24 10:01 06/11/24 10:30 06/11/24 10:30 Temperature Pulse Rate 104 H Respiratory Rate 8 L Blood Pressure 132/72 124/80 Pulse Oximetry 98 Oxygen Delivery Method 06/11/24 10:57 06/11/24 11:00 06/11/24 11:00 Temperature 97.9 F Pulse Rate 105 H 106 H Respiratory Rate 10 L 8 L Blood Pressure 124/80 124/70 Pulse Oximetry 99 Oxygen Delivery Method 06/11/24 11:15 06/11/24 11:30 06/11/24 11:30 Temperature 97.8 F Pulse Rate 106 H 104 H Respiratory Rate 12 5 L Blood Pressure 124/70 119/73 Pulse Oximetry 99 Oxygen Delivery Method 06/11/24 12:00 06/11/24 12:00 06/11/24 12:00 Temperature Pulse Rate 101 H Respiratory Rate 5 L Blood Pressure 128/77 Pulse Oximetry 99 Oxygen Delivery Method Room Air 06/11/24 12:01 06/11/24 12:16 06/11/24 12:30 Temperature 97.4 F L 97.8 F Pulse Rate 102 H 101 H 101 H Respiratory Rate 11 L 12 6 L Blood Pressure 128/77 115/77 Pulse Oximetry 100 Oxygen Delivery Method 06/11/24 12:30 06/11/24 13:00 06/11/24 13:00 Temperature Pulse Rate 101 H Respiratory Rate 7 L Blood Pressure 115/77 121/67 Pulse Oximetry 100 Oxygen Delivery Method 06/11/24 13:13 06/11/24 13:30 06/11/24 13:30 Temperature 97.5 F L Pulse Rate 99 H 99 H Respiratory Rate 10 L 7 L Blood Pressure 132/62 132/62 Pulse Oximetry 100 Oxygen Delivery Method 06/11/24 14:00 06/11/24 14:00 06/11/24 14:14 Temperature 97.8 F Pulse Rate 100 H 100 H Respiratory Rate 6 L 10 L Blood Pressure 126/76 126/76 Pulse Oximetry 100 Oxygen Delivery Method Oxygen Delivery Method Room Air Oxygen Flow Rate 0 Narrative Exam Narrative: Somnolent, no acute distress. Lungs are clear, normal rate and effort. Heart is regular, no murmur gallop or rub. Abdomen is soft, non distended. Extremities have 1+ edema b/l. Left thigh wrapped with dressings which are soaked. Objective Labs 06/11/24 15:07 06/11/24 06:10 Labs: Laboratory Results - last 24 hr 10/25/24 10/25/24 10/25/24 01:24 15:31 16:21 WBC RBC Hgb 6.9 L* Hct 20.6 L* MCV MCH MCHC RDW Plt Count PT INR Fibrinogen 69 L* Sodium Potassium Chloride Carbon Dioxide BUN Creatinine Estimated GFR BUN/Creatinine Ratio Glucose Calcium Phosphorus Magnesium Triglycerides Blood Type O Negative Antibody Screen Negative Crossmatch See Detail 06/10/24 06/11/24 23:17 06:10 WBC 9.6 RBC 2.10 L Hgb 7.7 L 6.5 L* Hct 22.7 L 19.3 L* MCV 91.8 D MCH 31.1 MCHC 33.9 RDW 15.8 H Plt Count 72 L PT 21.6 H D INR 1.9 H Fibrinogen 64 L* 55 L* Sodium 136 L Potassium 3.4 Chloride 114 H Carbon Dioxide 22 BUN 15 Creatinine 0.98 Estimated GFR > 60 BUN/Creatinine Ratio 15.3 Glucose 115 H Calcium 7.5 L Phosphorus 3.7 Magnesium 1.8 Triglycerides 54 Blood Type Antibody Screen Crossmatch [facility] Social History household members: family Smoking Status: Current every day smoker alcohol intake: current Discharge Plan Discharge Plan Patient Disposition: [facility] Provider Discharge Comment: Please see discharge summary Discharge Health Status Multidrug resistant organism: MRSA Precautions: Contact Diet/Activity/Treatments Diet: Nothing by Mouth Diet comment: TPN Activity: WBAT to left knee, though essentially bedrest due to wound. Quality VTE Deep Vein Thrombosis/Pulmonary Embolism Present on Admission: No
[2024-06-11 15:15] LABS: Add Manual Diff / Slide Review NO; Basophils Absolute Auto 100 /uL (0-100); Basophils Percent Auto 0.7 % (0-2); Eosinophils Absolute Auto 200 /uL (0-450); Eosinophils Percent Auto 2.4 % (2-4); Lymphocytes Absolute Auto 2100 /uL (1100-4500); Lymphocytes Percent Auto 24.7 % (25-40); Mean Corpuscular HGB Conc 33.5 % (30-36); Mean Corpuscular Hemoglobin 30.8 PG (26-34); Mean Corpuscular Volume 91.9 fL (80-100); Monocytes Absolute Auto 1200 /uL (0-900); Monocytes Percent Auto 13.8 % (3-14); Neutrophils Absolute Auto 4900 /uL (1500-7000); Neutrophils Percent Auto 58.4 % (50-75); Platelet Count 53 X10^3/uL (150-400); Red Blood Cell Count 2.27 X10^6/uL (4.5-5.9); Red Cell Distribution Width 16.5 % (11.6-14.8); White Blood Cell Count 8.4 X10^3/uL (4.5-11.0)
[2024-06-11 15:16] LABS: Hematocrit 20.9 % (41-53)
[2024-06-11] MEDS: BUMETANIDE 1 MG/4 ML VIAL 4 MG IV (15:20)
[2024-06-11 15:22] LABS: INR 1.5 (0.9-1.3); Prothrombin Time 17.6 SECONDS (9.4-12.5)
[2024-06-11] MEDS: DEXT IV (16:09)
[2024-06-11] MEDS: POTASSIUM CHLORIDE IV (16:09)
[2024-06-11] MEDS: [UNRECOGNIZED DRUG - OTHER] IV (16:09)
[2024-06-11] MEDS: LYTES IV (16:09)
[2024-06-11] MEDS: CALCIUM IV (16:09)
[2024-06-11] MEDS: fentaNYL 100 MCG/2 ML INJ IV (16:30)
--- NOTE | 2024-06-11 17:23 | PC.NURSE ---
Addendum entered by Anastasiya Bruno R.N. 06/14/24 11:04: Late entry 06/11 1106 100mcg of IVP was pulled from [facility], 50mcg was administered to patient and at 1110 50 mcg was wasted in the pixis with Marita Soler RN. Original Note: Day shift note: H/H this morning 6.5/19.3, Left leg wound requiring multiple dressing changes during the manager night, with bedding and dressings saturated. New orders for 2 units PRBC, 2 units of FFP, 1 unit of Cryo and [address] Rubio at bedside for dressing change, removal of foam from original wound vac and samara holding foam in place. This nurse completed the dressing change with 4x4 gauze lightly packed in wound, doubled ABD, Curlex and Gurinder wraps for slight compression. Pt premedicated with 50 mcg fentanyl IVP, as well as 75 mcg Fentanyl patch for consistent pain control. All bedding and gown changed, rosendo care provided. TPN infusing as ordered, Norepi infusing at 0.02mcg/kg to maintain MAP above 65. 1245 Dr Nixon initiated transfer process as we had almost depleted the hospitals resources of blood (O negative, Rh positive). Family at bedside, [facility] accepts pt, bed available, Dr Nixon orders 2 units of PRBC for pt transport ALS, administered 1x dose of 100mcg IVP prior to final dressing change before transport. Report called to [facility] SORTO at [place] [facility]. Family took all of pt belongings with them prior to pt transport 1645 Transport arrived, report given, pt stable with gtts and blood infusing. No further pt contact at this time.
== END 2024-06-11 17:08 | disposition short-term general hospital (02) | DRG 710 ==
PROVIDERS: Family Medicine; Internal Medicine; Orthopaedic Surgery; Orthopaedic Surgery Adult Reconstructive Orthopaedic Surgery; Orthopaedic Surgery Foot and Ankle Surgery; Orthopaedic Surgery Orthopaedic Surgery of the Spine; Admitting Provider Hospitalist; Referring Provider Hospitalist; Visit Provider Internal Medicine
PROC: 0MBP0ZZ Excision of Left Knee Bursa and Ligament, Open Approach (ICD-10-PCS; principal; 2024-05-29 09:00)
PROC: 0J9P0ZZ Drainage of Left Lower Leg Subcutaneous Tissue and Fascia, Open Approach (ICD-10-PCS; principal; 2024-06-03 14:00)
DX: A41.9 Sepsis, unspecified organism (principal); M71.162 Other infective bursitis, left knee; K92.2 Gastrointestinal hemorrhage, unspecified; D62 Acute posthemorrhagic anemia; G93.41 Metabolic encephalopathy; F10.239 Alcohol dependence with withdrawal, unspecified; T81.19XA Other postprocedural shock, initial encounter; T39.395A Adverse effect of other nonsteroidal anti-inflammatory drugs [NSAID], initial encounter; L03.116 Cellulitis of left lower limb; R00.0 Tachycardia, unspecified; I95.9 Hypotension, unspecified; E87.6 Hypokalemia; E87.1 Hypo-osmolality and hyponatremia; I96 Gangrene, not elsewhere classified; J96.01 Acute respiratory failure with hypoxia; B95.62 Methicillin resistant Staphylococcus aureus infection as the cause of diseases classified elsewhere; G24.01 Drug induced subacute dyskinesia; G31.2 Degeneration of nervous system due to alcohol; K70.10 Alcoholic hepatitis without ascites; E16.2 Hypoglycemia, unspecified; S81.002A Unspecified open wound, left knee, initial encounter; L02.416 Cutaneous abscess of left lower limb; R65.21 Severe sepsis with septic shock; N17.9 Acute kidney failure, unspecified; D65 Disseminated intravascular coagulation [defibrination syndrome]; F17.210 Nicotine dependence, cigarettes, uncomplicated; W18.30XA Fall on same level, unspecified, initial encounter
CPT/HCPCS: 36415; 36430; 36569; 36592; 36600; 70450; 70544; 70549; 70553; 71045; 73560; 73701; 74177; 76705; 76882; 80048; 80053; 80076; 80202; 82140; 82565; 82805; 82962; 83605; 83735; 84100; 84132; 84478; 85007; 85014; 85018; 85025; 85027; 85379; 85384; 85610; 85651; 85730; 86140; 86850; 86900; 86901; 86927; 86945; 87040; 87070; 87075; 87077; 87147; 87176; 87186; 87205; 87797; 97161; 97163; 97166; 97530; 99233; P9012; P9016; A9579; B4189; J0171; J0692; J0696; J1171; J1650; J1940; J2060; J2250; J2405; J2470; J2543; J2704; J3010; J3430; J3475; J3480; P9035; Q9967